=== PATIENT | female | born 1940 | race Caucasian/White ===

== ENCOUNTER 2016-10-06 05:40 | Inpatient (IN) | payer MEDICARE ==
--- NOTE | 2016-10-01 16:14 | HP ---
PREOPERATIVE HISTORY AND PHYSICAL: DATE OF ADMISSION/SURGERY: 10/06/16 DATE OF OFFICE VISIT: 09/30/16 ATTENDING SURGEON: Sam Raza MD PROCEDURE: Left total shoulder reverse. CHIEF COMPLAINT: Left shoulder pain. HISTORY OF PRESENT ILLNESS: Ms. Solorio is a 76-year-old female with ongoing left shoulder pain due to severe osteoarthritis and rotator cuff tear of the left shoulder. She has failed conservative m easures and therefore has agreed to undergo a left total shoulder reverse with Dr. Raza on 7. PAST MEDICAL HISTORY: 1. Hypertension. 2. Hyperlipidemia. 3. Fibromyalgia. 4. Stage 3 kidney disease. 5. Diverticulitis. 6. GERD. 7. Thyroid problems. 8. Arthritis. 9. Temporal lobe epilepsy. 10. Neurogenic syncope. 11. Multiple sclerosis. 12. Sleep apnea. 13. Bunions. 14. Orthostatic hypotension. 15. Headache. 16. Trigeminal neuralgia. 17. Bipolar depression. 18. Seizures. PAST SURGICAL HISTORY: 1. Lithotripsy. 2. Carpal tunnel release bilaterally. 3. Eye surgery. 4. Left hemicolectomy with transverse colostomy. 5. Bowel resection. 6. Anterior diskectomy. 7. Intervertebral body fusion, C6-C7. 8. Hysterectomy. 9. Total left knee replacement. 10. Hernia repair with mesh. MEDICATIONS: 1. OxyContin 20 mg by mouth every 12 hours. 2. Vitamin D 1000 units 1 by mouth every day. 3. Creighton-3 acid ethyl esters 1 g take 1 capsule by mouth twice a day. 4. Telmisartan 20 mg 1 tab in the morning if blood pressure is greater than 110 and 1 tab in the ev ening if systolic blood pressure is greater than 110. 5. Gabapentin 300 mg 1 tab by mouth 3 times a day. 6. Escitalopram oxalate 20 mg 1 by mouth daily. 7. Ranitidine HCl 150 mg 1 by mouth every day as needed for breakthrough GERD. 8. Melatonin 5 mg 1 by mouth every night. 9. Dexilant 30 mg take 1 capsule by mouth every day. 10. EpiPen 2-Matt 0.3 mg/0.3 mL, use 1 time as directed. 11. Clarinex 5 mg 1 by mouth every day. 12. Probiotic 1 cap by mouth daily. 13. Ondansetron 8 mg 1 by mouth every 8 hours as needed. 14. Levothyroxine sodium 25 mcg take 1 by mouth every day. 15. Hydroxyzine HCl 25 mg 1 by mouth 4 times a day as needed. 16. Methylphenidate HCl ER 36 mg 2 tabs by mouth every day. 17. Ammonium lactate 12% topical to bunions twice a day. 18. Valacyclovir HCl 1 g 2 tabs by mouth every 12 hours for 1 day as needed. 19. Zanaflex 2 mg take 1 capsule by mouth 3 times a day. 20. Lorazepam 1 mg 1 tab by mouth 4 times a day as needed. 21. Nevanac 0.1% one drop right eye q.4 hours. 22. Fludrocortisone acetate 0.1 mg, take 1 by mouth twice a day if systolic blood pressure is less than 105. 23. Voltaren 1% 4 g twice a day as needed to the knees. 24. Fluticasone propionate 50 mcg/ACT inhale 1 spray in each nostril each morning and every evening . 25. Oxycodone HCl 15 mg 1 tab by mouth every 4 hours as needed. 26. Restasis 0.5% one drop both eyes twice a day. 27. Vitamin C 1000 mg 1 to 2 tabs by mouth daily. 28. Super B Complex Maxi 1 by mouth daily. 29. Vitamin B12 3000 mcg 1 by mouth daily. 30. Culturelle once a day 15 billion cells per capsule. 31. Vitamin E 400 units 1 by mouth every d ay. 32. Biotin 2000/100 mcg 1 by mouth daily. 33. Lutein Vision Blend 1 by mouth daily. 34. Centr um Silver 1 by mouth daily. 35. Co-Q10 200 mg 1 by mouth daily. 36. Magnesium citrate 250 mg 2 tab s by mouth daily. 37. Polyethylene glycol 3350 NG, mix 17 g with 8 ounces of water or juice every o ther day. ALLERGIES: 1. DILANTIN. 2. PHENOBARBITAL. 3. DEMEROL. 4. IODINE. 5. ARICEPT. 6. FOSAMAX. 7. MAXALT. 8. CYMBALTA. 9. SEROQUEL. 10. TEGRETOL. 11. CLAVULANIC ACID. 12. KETAMINE. FAMILY HISTORY: Positive for diabetes, heart disease, and cancer. SOCIAL HISTORY: The patient lives alone. She is retired. She denies smoking or drinking. She is right handed. REVIEW OF SYSTEMS: A 14-point review of systems was reviewed with the patient and positive for GERD , thyroid issues, and history of DVT after knee surgery. Otherwise negative for bleeding disorder or history of PE. The patient has had allergic reaction to KETAMINE ANESTHESIA. PHYSICAL EXAMINATION GENERAL: A well-developed, well-nourished, 76-year-old female, in no acute distress. VITAL SIGNS: Height 58, weight 137, pulse 76, blood pressure 96/60, respiratory rate 16, and BMI 28 .6. HEENT: Normocephalic, atraumatic. PERRLA. NECK: Supple. Throat: Clear. PULMONARY: Lungs clear to auscultation bilaterally. No wheezing, rhonchi, or rales. CARDIAC: Regular rate and rhythm. S1, S2. No murmurs, gallops, or rubs. No edema. ABDOMEN: Positive bowel sounds, soft, and nontender. NEUROLOGIC: Alert and oriented x3. Cranial nerves grossly intact. Sensation intact to light touch distally. MUSCULOSKELETAL: Left shoulder skin is intact. Pain with range of motion. Pseudoparalysis due to p ain. Forward flexion of 30, abduction to 40, +2 radial pulse. Sensation is intact to light touch d istally. DIAGNOSTIC STUDIES/LAB DATA: Multi-view x-rays revealed severe [id number] arthritis of the left shoulder. MRI reveals a full-thickness rotator cuff tear with acetabulization of the humeral head a nd advanced arthritic changes in the left shoulder. IMPRESSION: Severe left shoulder osteoarthritis. PLAN/RECOMMENDATIONS: The patient is being cleared by her doctor. She understands that there are m ajor risks of the surgery; however, she is willing to take them. Therefore, she is scheduled to unde rgo a left total shoulder reverse with Dr. Raza on 10/06/16. She has difficulty chewing, so in [facility], she will have a soft food, thick liquid, and protein drink diet. She will return to the clinic in 10 to 14 days postop for followup and suture removal. OxyContin and oxycodone will be us ed for postoperative pain management and [id number] stool softener will be used for opioid-ind uced constipation. TERA CARBAJAL [id number]/[facility] #: [id number]
[2016-10-06] MEDS ORDERED: Buffered Lidocaine 1% SYRIN* 3 ML/SYR SYRINGE INTRADERM ONE (06:00)
[2016-10-06] MEDS ORDERED: Clindamycin 900 MG IVPREMIX(* 900 MG/50 ML SDV IV ONE (06:17)
[2016-10-06] MEDS ORDERED: Propofol* 10 MG/ML 20 ML BTL IV PUSH ONE (07:15)
[2016-10-06] MEDS ORDERED: Midazolam* 1 MG/ML 5 ML VIAL (5 MG) ONE (07:15)
[2016-10-06] MEDS ORDERED: Bupivacaine 0.5% SDV PF* 30 ML VIAL ONE (07:16)
[2016-10-06] MEDS ORDERED: Bupivacaine 0.5% W/EPI SDV* 30 ML VIAL ONE (07:24)
[2016-10-06] MEDS ORDERED: Atracurium* 10 MG/ML 10 ML VIAL ONE (07:44)
[2016-10-06] MEDS ORDERED: Phenylephrine IV* 40 MCG/ML 10 ML SYRINGE ONE (08:14)
[2016-10-06] MEDS ORDERED: Phenylephrine INJ* 10 MG/ML 1 ML VIAL (10 MG) ONE (08:25)
[2016-10-06] MEDS ORDERED: methylPREDNISolone ACETATE 80* 80 MG/ML 1 ML VIAL ONE (08:27)
[2016-10-06] MEDS ORDERED: Bupivacaine 0.25% SDV* 30 ML ONE (08:27)
[2016-10-06] MEDS ORDERED: fentaNYL* 50 MCG/ML 2 ML VIAL (100 MCG VIAL) ONE (08:35)
[2016-10-06] MEDS ORDERED: Ondansetron INJ* 2 MG/ML VIAL ONE (10:35)
[2016-10-06] MEDS ORDERED: diPHENhydraMINE IV* 50 MG/ML 1 ml VIAL (BENADRYL) IV PRN (10:48)
[2016-10-06] MEDS ORDERED: Acetaminophen TAB* 325 MG PO PRN (10:48)
[2016-10-06] MEDS ORDERED: Temazepam CAP* 15 MG PO PRN (10:48)
[2016-10-06] MEDS ORDERED: oxyCODONE TAB* 5 MG TAB PO PRN (10:48)
[2016-10-06] MEDS ORDERED: oxyCODONE/Acetamin 5/325 MG* TAB PO PRN ×2 (10:48)
[2016-10-06] MEDS ORDERED: Ondansetron INJ* 2 MG/ML VIAL IV PRN (10:51)
[2016-10-06] MEDS ORDERED: fentaNYL* 50 MCG/ML 2 ML VIAL (100 MCG VIAL) IV PRN (10:51)
[2016-10-06] MEDS ORDERED: DiMENhydriNATE IV* 50 MG/ML VIAL IV PUSH PRN (10:51)
[2016-10-06] MEDS ORDERED: LORazepam TAB(*) 1 MG PO PRN (10:59)
--- NOTE | 2016-10-06 12:34 | RAD ---
HISTORY: Postop, left shoulder arthroplasty COMPARISONS: None VIEWS: 3, Frontal internal rotation, external rotation, and outlet views of the left shoulder FINDINGS: BONE DENSITY: Normal. BONES: The patient is status post left shoulder arthroplasty. There is no hardware failure or osteolysis. JOINTS: The patient is status post left shoulder arthroplasty ALIGNMENT: There is no dislocation. SOFT TISSUES: There is post surgical change to the soft tissue OTHER FINDINGS: There is patchy alveolar opacities in the left lower lung IMPRESSION: 1. STATUS POST LEFT SHOULDER ARTHROPLASTY. 2. LEFT LOWER LUNG ATELECTASIS VERSUS CONSOLIDATION
[2016-10-06] MEDS: Fludrocortisone Acetate TAB* 0.1 MG PO PRN ×2 (12:53→21:28)
[2016-10-06] MEDS ORDERED: HYDROmorphone* 1 MG/ML 1 ML SYR ONE (14:26)
[2016-10-06] MEDS: HYDROmorphone* 1 MG/ML 1 ML SYR IV PRN ×5 (14:27→14:47)
[2016-10-06] MEDS: BRINZOLAMIDE RIGHT EYE SCH ×2 (16:18→21:18)
[2016-10-06] MEDS: BRIMONIDINE RIGHT EYE SCH ×2 (16:18→21:18)
[2016-10-06] MEDS: Gabapentin CAP(*) 100 MG PO SCH ×2 (16:33→21:21)
[2016-10-06] MEDS: tiZANidine TAB* 2 MG PO SCH ×2 (16:34→21:21)
[2016-10-06] MEDS: Clindamycin 600 MG IVPREMIX(* 600 MG/50 ML SDV IV SCH ×2 (17:00→23:31)
[2016-10-06] MEDS: Morphine INJ* 2 MG/ML 1 ML SYRINGE IV PRN ×2 (17:28→21:55)
--- NOTE | 2016-10-06 19:46 | CONS ---
HOSPITAL MEDICINE CONSULTATION REPORT: DATE OF CONSULT: 10/06/16 PRIMARY CARE PHYSICIAN: Dr. Swartz. ATTENDING PHYSICIAN: Dr. Raza. CONSULTING PHYSICIAN: Chidi Eaton MD (dictation provided by Diane Brandt NP) . REASON FOR ADMISSION: Left total shoulder reverse due to left shoulder pain. REASON FOR CONSULTATION: Medical management in a patient with multiple comorbidities. HISTORY OF PRESENT ILLNESS: Ms. Solorio is a 76-year-old female with a complex medical history including hypertension, hyperlipidemia, fibromyalgia, stage 3 kidney disease, multiple sclerosis, and sleep apnea who presents today to the hospital for an elective left shoulder reversal. Please see the dictated H and P from Dr. Raza for complete details. In brief, the patient had ongoing pain despite conservative measures and therefore, opted to have surgery today. Ms. Solorio states that prior to coming in to the hospital, her only complaint has been of left shoulder pain. She reports having a history of hypertension and also orthostatic hypotension. She states that there is discernible pattern explaining why her blood pressure will suddenly drop. She is on telmisartan for high blood pressure, but also fludrocortisone as needed for low blood pressure. In addition, she has multiple sclerosis which she states was diagnosed at age 32. She has obstructive sleep apnea and does use CPAP at home. She states her will be bringing it tonight. Based on Ms. Solorio's presentation with multiple comorbidities in the setting of left total shoulder reversal surgery, Hospital Medicine was called regarding consultation. PAST MEDICAL HISTORY: 1. Hypertension. 2. Hyperlipidemia. 3. Fibromyalgia. 4. Stage 3 kidney disease. 5. ADHD. 6. Diverticulitis. 7. GERD. 8. Hypothyroidism. 9. Arthritis. 10. Epilepsy. 11. Neurogenic syncope. 12. Multiple sclerosis. 13. Sleep apnea with CPAP usage. 14. Orthostatic hypotension. 15. Headaches. 16. Trigeminal neuralgia. 17. Bipolar. 18. Depression. 19. Seizures. PAST SURGICAL HISTORY: Includes: 1. Lithotripsy. 2. Carpal tunnel release bilaterally. 3. Eye surgery. 4. Left hemicolectomy with transverse colostomy. 5. Bowel resection. 6. Anterior diskectomy and intervertebral body fusion, C6-C7. 7. Hysterectomy. 8. Left total knee replacement. 9. Hernia repair with mesh. MEDICATIONS: 1. OxyContin 20 mg by mouth q.12 hours. 2. Vitamin D 1000 units by mouth every day. 3. Connelly-3 1 g by mouth twice a day. 4. Telmisartan 20 mg in the morning if blood pressure is greater than 110 and 20 mg in the evening if systolic blood pressure is greater than 110. 5. Gabapentin 300 mg 3 times daily. 6. Escitalopram 20 mg daily. 7. Ranitidine 150 mg as needed for GERD. 8. Melatonin 5 mg q.p.m. 9. Dexilant 30 mg p.o. daily. 10. EpiPen p.r.n. 11. Clarinex 5 mg p.o. daily. 12. Probiotic 1 cap p.o. daily. 13. Ondansetron 8 mg p.r.n. nausea. 14. Levothyroxine 25 mcg daily. 15. Hydroxyzine 25 mg 4 times daily as needed. 16. Methylphenidate ER 36 mg 2 tabs by mouth q.a.m. 17. Ammonium lactate 12% to bunions twice a day. 18. Valacyclovir 2 tabs by mouth q.12 hours p.r.n. 19. Zanaflex 2 mg 3 times a day. 20. Lorazepam 1 mg 4 times a day as needed. 21. Nevanac 0.1% drop right eye q.4 hours. 22. Fludrocortisone 0.1 mg twice a day as needed for systolic blood pressure less than 105. 23. Voltaren 1% 4 g twice a day p.r.n. 24. Fluticasone 50 mcg inhaled each nostril b.i.d. 25. Oxycodone 15 mg q.4 hours p.r.n. 26. Restasis 0.5% 1 drop both eyes b.i.d. 27. Vitamin C 1000 mg 1 to 2 tabs by mouth daily. 28. Super B-Complex 1 tab by mouth daily. 29. Vitamin B12 at 3000 mcg p.o. daily. 30. Culturelle daily. 31. Vitamin E daily. 32. Biotin daily. 33. Lutein Vision Blend daily. 34. Centrum Silver daily. 35. CoQ10 daily. 36. Magnesium citrate 250 mg 2 tabs by mouth daily. 37. Polyethylene glycol 17 g p.o. every other day. ALLERGIES: DILANTIN, PHENOBARBITAL, DEMEROL, IODINE, ARICEPT, FOSAMAX, MAXALT, CYMBALTA, SEROQUEL, TEGRETOL, CLAVULANIC ACID, and KETAMINES. FAMILY HISTORY: The patient reports a history of diabetes, heart disease, and cancer in the family. SOCIAL HISTORY: The patient lives alone. No report of alcohol, tobacco, or drinking. Per her report, her daughter is the healthcare proxy. REVIEW OF SYSTEMS: A 14-point review of systems was completed with Ms. Solorio and all those mentioned not above are negative. PHYSICAL EXAM: General: Ms. Solorio is lying in bed in the PACU in no acute distress. She was initially quite lethargic, but when I come back to see her, she is alert and oriented. Neuro: She is alert and oriented x3. She moves all extremities equally. There is no facial asymmetry or focal weakness. Extraocular movements are intact. Heart: S1, S2. No murmur, rub, or gallop and regular. Lungs are clear to auscultation bilaterally with no accessory muscle use and good aeration. The abdomen is soft, nontender with bowel sounds positive x4. Extremities: No cyanosis or edema. Skin is intact. DIAGNOSTIC STUDIES/LAB DATA: Preoperatively, on 09/30/16, WBC 8.9, hemoglobin 11.8, hematocrit 35, platelet count 178. Sodium 138, potassium 4.4, chloride 102, serum bicarbonate 32, BUN 21, creatinine 1.33, glucose 79. ASSESSMENT: Ms. Solorio is a 76-year-old female with a complex past medical history who presents today to the hospital for right total shoulder reverse. Recommendations are as follows: 1. Postop day #0, status post right shoulder surgery: Management will be per Orthopedic Surgery. The patient will have pain medications p.r.n. with the bowel regimen. She will have physical and occupational therapy as indicated. 2. Hypotension: In the PACU, the patient's blood pressure was low into the 80s systolically initially, but with 1 L of intravenous fluids it is now running 112 systolically. The patient will continue to have fludrocortisone available as needed for low blood pressure. We will also support that as needed with IV fluids. For now, we will hold her telmisartan. 3. Chronic pain: Continue gabapentin, OxyContin, and oxycodone and other agents in the setting of acute shoulder surgery. 4. Gastroesophageal reflux disease: Continue ranitidine and Dexilant. 5. Hypothyroidism: Continue levothyroxine. 6. DVT prophylaxis with enoxaparin per Ortho. 7. Code status is DNR. TIME SPENT: Approximately 60 minutes were spent on the consultation of this patient, more than half time spent with the patient at the bedside reviewing the events leading up to this hospitalization, performing the physical examination, and reviewing my plan of care. DIANE BRANDT NP CC: Dr. Swartz* [id number]/[facility] #: [id number] [place]
[2016-10-06] MEDS ORDERED: Fludrocortisone Acetate TAB* 0.1 MG PO SCH (21:00)
--- NOTE | 2016-10-06 21:01 | PN ---
Progress Note - Progress Note Note: Pt seen and examined at 4:30 complains of pain in right wrist where art line was placed. no shoulder pain. In ICU due to low pressures. Right knee sore. Family at bedside. Temp Pulse Resp BP Pulse Ox 98.9 F 64 18 122/68 94 10/06/16 19:40 10/06/16 16:15 10/06/16 17:28 10/06/16 16:15 10/06/16 16:31 NAD. L shoulder: dressing in place. drain to suction. extremity warm and perfused. Right wrist swollen with bruising. art line in place. SILT distally. brisk cap refill. able to flex/ext digits. A/p Doing well s/p L reverse shoulder arthroplasty NWB. Passive ROM to begin tomorrow working on FF to 90, abd to 90, ER to 30 as tolerated post op abx dvt per medicine recs appreciate medicine assistance. anticipate d/c when pain control and stable medically. drain out potentially POD#1. dressing change POD#3.
[2016-10-06] MEDS: PTO:Cyclosporine 0.05% OPHTH (NF) 0.4 ML VIAL BOTH EYES SCH (21:20)
[2016-10-06] MEDS: Methylphenidate ER TAB* 18 MG PO SCH (21:20)
[2016-10-06] MEDS: Docusate CAP* 100 MG PO SCH (21:21)
[2016-10-06] MEDS: oxyCODONE SR TAB(*) 20 MG TAB.SR PO SCH (21:21)
--- NOTE | 2016-10-06 21:35 | OP ---
DATE OF OPERATION: 10/06/16 - ROOM #ICU-11 DATE OF : 42 SURGEON: Sam Raza MD ASSISTANTS: 1. Brandi Calderón PA-C. 2. TERA Avila Two assistants were needed during this case to help with positioning, retraction , and was utilized throughout all portions. ANESTHESIOLOGIST: Lee King MD. ANESTHESIA: General with interscalene block. PRE-OP DIAGNOSES: 1. 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 2. Right knee arthritis. POST-OP DIAGNOSES: 1. 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 2. Right knee arthritis. OPERATIVE PROCEDURE: 1. Left shoulder reversed arthroplasty and biceps tenodesis. 2. Right knee intraarticular injection of steroids. IMPLANTS USED: A Tornier Aequalis reversed to centered glenosphere 36 mm reversed to threaded post base plate that was centered 25 x 35. The size, Aequalis Ascend Flex size 3B humeral stem with a centered reversed tray and a reversed insert 6 mm poly. COMPLICATIONS: None. ESTIMATED BLOOD LOSS: 200 cc. OUTPUT: One drain. INDICATIONS: Rere Solorio is a 76-year-old unfortunate female with multiple medical problems with a longstanding left shoulder pain. She had a full thickness massive tear of the rotator cuff with some osteoarthritis. Risks and benefits of surgery versus nonoperative treatment were discussed at length. She has failed conservative management including injections and physical therapy. She has elected to proceed with surgery. 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 Knowing that she has significant risk in this surgery, she still elected to proceed with surgery. After obtaining clearance and significant discussion with other risks and benefits of surgery, she has elected to proceed. We also discussed that she has right knee arthritis and she usually gets injections for this and she is interested in proceeding with an injection of the right knee at the same time. Risks include but are not limited to bleeding, infection, damage to nerves, vessels, surrounding structures, stiffness, persistent pain, incomplete release of symptoms, persistent pain, risk of anesthesia and risk of hematoma, risk of DVT. She has elected to proceed. DESCRIPTION OF PROCEDURE: The patient was greeted in the preoperative area by the attending surgeon. The correct extremities were marked, the left shoulder as well as the right knee. After monitoring in the preanesthesia for low blood pressure, she was brought to the operating suite where she was placed in supine position on the operating table. She then underwent an interscalene nerve block , which she tolerated without difficulty after which she underwent general anesthesia endotracheal intubation and an arterial line was then placed. After all of these measures were taken, she was started on a low phenylephrine drip to keep her blood pressure up. She was then positioned appropriately in the bed with all bony prominences padded in a lazy beach chair position. The left shoulder was then prepped and draped in the usual sterile fashion. Passively, she had good range of motion with forward flexion to about 150, abduction to 110 and external rotation to about 75 degrees. Examination of the right did demonstrate a mild amount of effusion. There was no erythema or warmth. The left shoulder was then prepped and draped in the usual sterile fashion beginning with chlorhexidine soap, scrub and alcohol wipe and a final prep with ChloraPrep. After appropriate surgical pause indicating side, site, procedure, and administration of antibiotics, the 15 blade was used to make a deltopectoral incision. The soft tissues were carefully dissected, hemostasis was obtained using the electro-cautery device. The deltopectoral groove was identified. The cephalic vein was identified and then taken laterally with the deltoid. The interval was carefully dissected with blunt dissection. Kolbel retractors were then placed. A curved hammer was placed superior to the coracoid for retraction and this exposed the anterior clavipectoral fascia which was incised. The short head of the biceps was identified, the lateral edge was then carefully released off fascia and the undersurface of the short head was bluntly freed to free the adhesions from the anterior aspect of the subscap. With retractors in place and releasing some of the deltoid adhesions, this exposed the anterior aspect of the shoulder. The biceps was identified and carefully incised, the superior aspect of the pec was identified. The first proximal 1 cm or so was released. The biceps was then tenodesed at the pec using nonabsorabable suture to maintain the appropriate length and then it was sharply lacerated. It was kept to follow the groove proximally to then allow for identification of the landmarks. As this was done, the subscap was identified. The interval was incised and the subscap was carefully released. It was then tagged with #5 Ethibond. The subscap was then peeled back. The head was slowly exposed. It was obvious there was a full thickness massive rotator cuff tear of the supraspinatus and infraspinatus tendon and the head was easily externally rotated. The 3 sisters were identified and were suture ligated and then electrocautery and then Bovie'd. The head was identified. There was mild osteoarthritic changes that were apparent. It was completely freed and brought through the wound. There was evidence of massive tear of the supraspinatus tendon. The cut was then outlined and sagittal saw was then used to make the cut. The humeral head was then placed in the back table. The starting awl was then used to find the canal and then beginning with the sounding device it was found to be about a 3 to 4 because she is a very small patient. Broaches were then done, beginning with a starting broach and then a size 3 was found to fit quite well with good metaphyseal purchase. At this point, the head was then coplaned and then a protection cap was placed. The humerus was then placed posterior to the glenoid. The attention was directed to the glenoid. The posterior retractor was then placed in the posterior aspect of the glenoid. The Mark superiorly and the subscap was then gently released from its adhesions. Superior and inferior and middle glenohumerals were then released using a combination of electrocautery as well as the curved Coon scissors. This allowed for good mobilization to the subscap. The neck retractor was then placed on the anterior aspect of the glenoid and the subscap was tucked behind this to expose the labrum anteriorly. Beginning with the superior labrum including the biceps stump, this was excised using electrocautery device along with the anterior labrum to about the 5 o'clock position. Then, needle tip Bovie was then used to carefully release between the 5 and 7 o'clock position of the labrum and to peel it back with care to try to prevent damage to the neurovascular structures beneath that. Once good release was done, a sizing guide was placed. She had a very small glenoid. The drill guide was then placed with 0 offset and drilled into the scapula. This was then reamed with the size 25 mm reamer and that was on power and then hand reamed to a size 36 mm glenoid. Once all the soft tissue and debris were removed, the center peg was first drilled with an 8 mm drill, then the 6.5 drill bit and the depth was measured to about 35 mm. This screw hole was then tapped and then the final implant centered glenoid base plate was chosen. This was then screwed into position with excellent purchase. The superior and inferior interlocking screws were then drilled and filled with good purchase and the anterior one was also drilled and the posterior one did not have good purchase. Therefore, it was left alone. The Glenosphere was then brought to the field and carefully impacted into position. The head screw was then used to secure the fit and it was found to have good purchase. Care was taken to make sure there were no structures impinging. The humerus was delivered again and the fit was assessed again. It was found again that a size 3 was a good fit. A trial tray and poly were then placed and the shoulder was then gently reduced and was found to have excellent purchase with shuck. It allowed for good protestant of the subscap and good tension of the deltoid. It was taken through a range of motion with forward flexion to about 150, abduction to 110, external rotation to 90 degrees without any difficulty. The implants were then chosen, the shoulder was then carefully dislocated again. The trial prosthesis was then removed en khushi and the final implants were chosen and prepared on the back table by the attending surgeon. Three drill holes were then placed in the lesser tuberosity. For the subscap repair, sutures were passed #5 Ethibond to eventually repair the subscap. The final implant was then impacted into place with excellent purchase. The shoulder was reduced again. The wound was copiously irrigated with sterile saline. Again there was forward flexion to about 150 degrees, abduction to about 100 degrees, external rotation to 90 degrees with the appropriate amount of shuck. After this was copiously irrigated, the subscap was then repaired in a horizontal mattress configuration. Final ER was approximately 65 degrees. A drain was then placed and the wound was irrigated again. The deltopectoral interval was closed with #2 Ti-Cron to dale where the plane is. The wound was closed in layers of 2-0 Vicryl and 3-0 Monocryl. Sterile dressings were applied. Attention was directed to the right knee. The right knee was then prepped and draped in the usual sterile fashion. The right knee was intra-articularly injected with 5 cc of Marcaine and 80 mg of Depo-Medrol. A Band-Aid was applied. She was then awoken from anesthesia and transferred to the PACU in stable condition. POSTOPERATIVE PLAN: She will be nonweightbearing with no active range of motion of the left shoulder. She will be admitted to the hospital at least overnight possibly for several days to manage her medical problems. She will be placed on 24 hours of antibiotics. Her blood counts will be followed closely. The drain will likely be discontinued postop day #1. She is allowed to weightbear as tolerated on the right knee. DVT ppx in house will be SCDs and heparin. She will not require any after discharge due to no previous or personal history. CC: Dr. Herrmann; Dr. Swartz* [id number]/[facility] #: [id number] MTDD
[2016-10-07] MEDS: Morphine INJ* 2 MG/ML 1 ML SYRINGE IV PRN ×11 (00:04→22:30)
[2016-10-07 06:12] LABS: Hematocrit 27 % (35-47); Hemoglobin 9.2 g/dl (12.0-16.0)
[2016-10-07 06:22] LABS: BUN/Creatinine Ratio 18.3 (8-20); Calcium 8.1 mg/dL (8.6-10.3); EGFR African American 75.6 (>60); EGFR Non-African American 58.8 (>60); Potassium 4.2 mmol/L (3.5-5.0)
[2016-10-07] MEDS: Clindamycin 600 MG IVPREMIX(* 600 MG/50 ML SDV IV SCH (07:53)
[2016-10-07] MEDS ORDERED: NEPAFENAC BOTH EYES SCH (09:00)
[2016-10-07] MEDS: Enoxaparin(*) 30 MG/0.3 ML SYR SUBCUT SCH (09:29)
[2016-10-07] MEDS: Methylphenidate ER TAB* 18 MG PO SCH (09:29)
[2016-10-07] MEDS: tiZANidine TAB* 2 MG PO SCH ×3 (09:30→20:15)
[2016-10-07] MEDS: Cetirizine* 10 MG TAB PO SCH (09:30)
[2016-10-07] MEDS: Ascorbic Acid TAB* 500 MG PO SCH (09:30)
[2016-10-07] MEDS: CMCS: Escitalopram (NF) 10 MG TAB PO SCH ×3 (09:30→20:06)
[2016-10-07] MEDS: Lactobacillus Acidophilu (GG)* 1 CAP CAP PO SCH (09:30)
[2016-10-07] MEDS: Docusate CAP* 100 MG PO SCH ×2 (09:30→20:14)
[2016-10-07] MEDS: Gabapentin CAP(*) 100 MG PO SCH ×3 (09:30→20:14)
[2016-10-07] MEDS: Fluticasone NASAL SPRAY 50MCG* 16 gm SPRAY BTL BOTH NARES SCH ×2 (09:31→14:04)
[2016-10-07] MEDS: oxyCODONE SR TAB(*) 20 MG TAB.SR PO SCH ×2 (09:31→20:15)
[2016-10-07] MEDS: Levothyroxine TAB* 25 MCG TAB PO SCH (09:31)
--- NOTE | 2016-10-07 09:32 | PN ---
Progress Note - Progress Note SOAP: Subjective: []Patient seen at bedside. Alert and oriented x3. received 1L fluid bolus overnight for hypotension. c/o moderate left shoulder pain but IV pain medication is working. She is currently eating breakfast with the help of an aide. Arterial line in right arm making it difficult to use right UE. Hoping it can be discontinued. Objective: [] Vital Signs Temp 98.2 F 10/07/16 07:59 Pulse 65 10/07/16 08:00 Resp 13 10/07/16 08:00 BP 72/37 10/06/16 18:52 Pulse Ox 96 10/07/16 08:00 Intake & Output 10/06/16 10/07/16 10/07/16 18:59 06:59 18:59 Intake Total 5390 1789 Output Total 950 1150 Balance 4440 639 Weight 137 lb Intake: IV Fluids 4550 1254 CLINDAMYCIN 900 MG 50 LR 4500 1254 IVPB 115 LR 115 Oral 840 420 Output: Kelly 950 1150 Laboratory Results - last 24 hr 10/07/16 10/07/16 05:55 05:55 Hgb 9.2 L Hct 27 L Sodium 136 Potassium 4.2 Chloride 109 Carbon Dioxide 28 Anion Gap -1 L BUN 17 Creatinine 0.93 Est GFR ( Amer) 75.6 Est GFR (Non-Af Amer) 58.8 BUN/Creatinine Ratio 18.3 Glucose 154 H Calcium 8.1 L Left shoulder dressings are intact. Moderate old dried bloody drainage noted on dressings under tegaderm Hemovac drain with only a scant amount of blood in cannister, no drainage recorded over night Drain pulled without difficulty, tip intact moving all digits left hand, brisk capillary refill, fingers warm Assessment: []s/p Left reverse total shoulder arthroplasty POD #1 Multiple medical co morbilities/ baseline hypotension Plan: []Sling left shoulder non weight bearing LUE Arterial line per anesthesia/ medicine transfer to [facility] when medically stable per medicine Patient hopes for discharge home Tuesday if deemed medically stable Follow up 10- [address] Raza once discharged.
[2016-10-07] MEDS: DEXLANSOPRAZOLE 30 MG PO SCH (10:03)
[2016-10-07] MEDS ORDERED: Fludrocortisone Acetate TAB* 0.1 MG PO PRN (11:09)
--- NOTE | 2016-10-07 11:09 | PN ---
Subjective Date of Service: 10/07/16 Interval History: Pt is feeling ok. She has a significant amount of pain in her L shoulder. She admits to mild lightheadedness but no dizziness. No SOB. Objective Active Medications: Acetaminophen (Tylenol Tab*) 650 mg PO Q4H PRN PRN Reason: PAIN OR TEMPERATURE Ascorbic Acid (Vitamin C Tab*) 1,000 mg PO DAILY [facility] Last Admin: 10/07/16 09:30 Dose: 1,000 mg Brinzolamide/Brimonidine Tartrate (Simbrinza Oph.Susp(Nf)) 1 drop RIGHT EYE TID [facility] Last Admin: 10/06/16 21:18 Dose: Not Given Carboxymethylcellulose Sodium (Celluvisc 1% Opth*) 1 drop BOTH EYES DAILY [facility] Cetirizine HCl (Zyrtec*) 10 mg PO DAILY [facility] PRN Reason: Protocol Last Admin: 10/07/16 09:30 Dose: 10 mg Cyclosporine (Restasis 0.05% Ophth) 1 drop BOTH EYES BID [facility] PRN Reason: Protocol Last Admin: 10/06/16 21:20 Dose: Not Given Dexlansoprazole (Dexilant (Nf)) 30 mg PO DAILY [facility] Last Admin: 10/07/16 10:03 Dose: 30 mg Diphenhydramine HCl (Benadryl Iv*) 12.5 mg IV Q6H PRN PRN Reason: PRURITIS Docusate Sodium (Colace Cap*) 100 mg PO BID [facility] Last Admin: 10/07/16 09:30 Dose: 100 mg Enoxaparin Sodium (Lovenox(*)) 30 mg SUBCUT Q24H [facility] Last Admin: 10/07/16 09:29 Dose: 30 mg Escitalopram Oxalate (Lexapro (Nf)) 20 mg PO DAILY [facility] Last Admin: 10/07/16 09:35 Dose: Not Given Fludrocortisone Acetate (Florinef Tab*) 0.1 mg PO BID PRN PRN Reason: BLOOD PRESSURE Last Admin: 10/06/16 21:28 Dose: 0.1 mg Fluticasone Propionate (Flonase Nasal Trevor 50mcg*) 2 spray BOTH NARES DAILY [facility] Gabapentin (Neurontin Cap(*)) 100 mg PO TID [facility] Last Admin: 10/07/16 09:30 Dose: 100 mg Hydroxyzine HCl (Atarax Tab*) 25 mg PO QID PRN PRN Reason: ITCHING Lactated Ringer's (Lactated Ringers 1000 Ml Bag*) 1,000 mls @ 100 mls/hr IV PER RATE [facility] Last Admin: 10/07/16 03:06 Dose: 100 mls/hr Lactobacillus Rhamnosus (Culturelle*) 1 cap PO DAILY [facility] Last Admin: 10/07/16 09:30 Dose: 1 cap Levothyroxine Sodium (Synthroid Tab*) 25 mcg PO DAILY [facility] Last Admin: 10/07/16 09:31 Dose: 25 mcg Lorazepam (Ativan Tab(*)) 1 mg PO QID PRN PRN Reason: ANXIETY Methylphenidate HCl (Concerta Er Tab*) 36 mg PO BID [facility] Last Admin: 10/07/16 09:29 Dose: 36 mg Morphine Sulfate (Morphine Inj (Syringe)*) 2 mg IV Q2H PRN PRN Reason: PAIN - SEVERE Last Admin: 10/07/16 10:04 Dose: 2 mg Nepafenac (Nevanac (Nf)) 0 drop BOTH EYES DAILY [facility] PRN Reason: Protocol Magnesium [Magnesium (] 250 Mg) 250 mg PO DAILY [facility] Ondansetron HCl (Zofran Inj*) 4 mg IV Q6H PRN PRN Reason: nausea Oxycodone HCl (Oxycontin(*)) 20 mg PO Q12HR [facility] Last Admin: 10/07/16 09:31 Dose: 20 mg Oxycodone HCl (Roxycodone Tab*) 10 mg PO Q4H PRN PRN Reason: PAIN - MODERATE TO SEVERE Last Admin: 10/06/16 16:33 Dose: 10 mg Oxycodone/Acetaminophen (Percocet 5/325 Tab*) 1 tab PO Q4H PRN PRN Reason: PAIN Oxycodone/Acetaminophen (Percocet 5/325 Tab*) 2 tab PO Q4H PRN PRN Reason: PAIN - MODERATE Temazepam (Restoril Cap*) 15 mg PO BEDTIME PRN PRN Reason: INSOMNIA Tizanidine HCl (Zanaflex Tab*) 2 mg PO TID [facility] Last Admin: 10/07/16 09:30 Dose: 2 mg Vital Signs 10/06/16 10/06/16 10/06/16 11:15 11:30 11:45 Temperature 98.4 F Pulse Rate 75 79 73 Respiratory 14 16 12 Rate Blood Pressure 113/70 122/68 84/56 (mmHg) O2 Sat by Pulse 95 95 94 Oximetry 10/06/16 10/06/16 10/06/16 11:51 12:00 12:15 Temperature Pulse Rate 74 70 69 Respiratory 12 12 14 Rate Blood Pressure 96/57 90/50 86/50 (mmHg) O2 Sat by Pulse 94 94 94 Oximetry 10/06/16 10/06/16 10/06/16 12:30 12:45 13:00 Temperature 98.4 F Pulse Rate 68 67 67 Respiratory 10 10 14 Rate Blood Pressure 85/45 91/55 104/61 (mmHg) O2 Sat by Pulse 94 95 97 Oximetry 10/06/16 10/06/16 10/06/16 13:15 13:30 13:45 Temperature Pulse Rate 67 63 62 Respiratory 14 14 12 Rate Blood Pressure 104/56 98/61 100/55 (mmHg) O2 Sat by Pulse 96 97 97 Oximetry 10/06/16 10/06/16 10/06/16 14:00 14:15 14:27 Temperature 98.2 F Pulse Rate 73 73 Respiratory 11 16 16 Rate Blood Pressure 93/58 126/78 (mmHg) O2 Sat by Pulse 97 97 Oximetry 10/06/16 10/06/16 10/06/16 14:30 14:32 14:37 Temperature Pulse Rate 69 Respiratory 14 16 14 Rate Blood Pressure 114/75 (mmHg) O2 Sat by Pulse 95 Oximetry 10/06/16 10/06/16 10/06/16 14:42 14:45 14:47 Temperature Pulse Rate 68 Respiratory 14 14 14 Rate Blood Pressure 112/54 (mmHg) O2 Sat by Pulse 94 Oximetry 10/06/16 10/06/16 10/06/16 15:00 15:36 15:48 Temperature Pulse Rate 78 68 62 Respiratory 12 15 Rate Blood Pressure 103/57 122/67 (mmHg) O2 Sat by Pulse 94 97 Oximetry 10/06/16 10/06/16 10/06/16 16:00 16:15 16:31 Temperature 98.5 F Pulse Rate 69 64 Respiratory 12 20 Rate Blood Pressure 122/68 (mmHg) O2 Sat by Pulse 96 96 94 Oximetry 10/06/16 10/06/16 10/06/16 17:00 17:28 18:00 Temperature Pulse Rate 66 66 Respiratory 16 18 16 Rate Blood Pressure (mmHg) O2 Sat by Pulse 98 97 Oximetry 10/06/16 10/06/16 10/06/16 18:45 18:52 19:00 Temperature Pulse Rate 68 69 70 Respiratory 16 15 18 Rate Blood Pressure 83/47 72/37 (mmHg) O2 Sat by Pulse 95 96 96 Oximetry 10/06/16 10/06/16 10/06/16 19:40 20:00 21:00 Temperature 98.9 F Pulse Rate 64 64 Respiratory 13 14 Rate Blood Pressure (mmHg) O2 Sat by Pulse 95 96 Oximetry 10/06/16 10/06/16 10/06/16 21:21 21:55 22:00 Temperature Pulse Rate 66 Respiratory 16 17 20 Rate Blood Pressure (mmHg) O2 Sat by Pulse 96 Oximetry 10/06/16 10/07/16 10/07/16 23:00 00:00 00:04 Temperature 97.7 F Pulse Rate 65 63 Respiratory 14 18 17 Rate Blood Pressure (mmHg) O2 Sat by Pulse 95 95 Oximetry 10/07/16 10/07/16 10/07/16 01:00 02:00 03:00 Temperature Pulse Rate 61 61 63 Respiratory 19 13 14 Rate Blood Pressure (mmHg) O2 Sat by Pulse 97 95 95 Oximetry 10/07/16 10/07/16 10/07/16 03:35 04:00 05:00 Temperature 97.7 F Pulse Rate 67 61 Respiratory 15 15 13 Rate Blood Pressure (mmHg) O2 Sat by Pulse 96 95 Oximetry 10/07/16 10/07/16 10/07/16 06:00 06:13 07:00 Temperature Pulse Rate 64 64 Respiratory 17 16 15 Rate Blood Pressure (mmHg) O2 Sat by Pulse 97 96 Oximetry 10/07/16 10/07/16 10/07/16 07:57 07:59 08:00 Temperature 98.2 F Pulse Rate 65 Respiratory 13 13 Rate Blood Pressure (mmHg) O2 Sat by Pulse 96 Oximetry 10/07/16 10/07/16 09:31 10:04 Temperature Pulse Rate Respiratory 14 15 Rate Blood Pressure (mmHg) O2 Sat by Pulse Oximetry Oxygen Devices in Use Now: Nasal Cannula - 2L-96% Appearance: Elderly female lying in bed, NAD Eyes: No Scleral Icterus Ears/Nose/Mouth/Throat: Mucous Membranes Moist Respiratory: Symmetrical Chest Expansion and Respiratory Effort, Clear to Auscultation - anteriorly Cardiovascular: NL Sounds; No Murmurs; No JVD, RRR, No Edema Abdominal: NL Sounds; No Tenderness; No Distention Extremities: No Clubbing, Cyanosis, - - L shoulder in post op dressing with cryo unit in place Skin: No Rash or Ulcers, No Nodules or Sclerosis Neurological: Alert and Oriented x 3 Result Diagrams: 10/07/16 05:55 10/07/16 05:55 Assess/Plan/Problems-Billing Ms Solorio is a 76 yo F with a complicated PMHx admitted after an elective L total shoulder reverse arthroplasty. The hospitalist service was consulted for hypotension. - Patient Problems (1) Status post reverse arthroplasty of left shoulder Current Visit: Yes Status: Acute Code(s): Z96.612 - PRESENCE OF LEFT ARTIFICIAL SHOULDER JOINT SNOMED Code(s): 728373855 Comment: Management per orthopedics. (2) Anemia associated with acute blood loss Current Visit: Yes Status: Acute Code(s): D62 - ACUTE POSTHEMORRHAGIC ANEMIA SNOMED Code(s): 844328730 Comment: Secondary to surgery. Will continue to follow H/H. Hold off on transfusion for now. (3) Hypotension Current Visit: Yes Status: Acute Comment: The patient's BP at baseline is difficult to control at home. If her SBP is <105 she takes florinef, if >110 she takes telmisartan. For now will continue prn florinef. I will not order the ARB for now though if she becomes persistently hypertensive will order substitute for telmisartan. A-line removed this AM. Monitor in ICU today then likely out to floor tomorrow. (4) RANI (obstructive sleep apnea) Current Visit: Yes Status: Acute Code(s): G47.33 - OBSTRUCTIVE SLEEP APNEA ( ADULT) (PEDIATRIC) SNOMED Code(s): 93303678 Comment: Pt brought her own CPAP. Will order this to start tonight. (5) DVT prophylaxis Current Visit: Yes Status: Acute Code(s): NLJ8276 - SNOMED Code(s): 220325372 Comment: soco (6) DNR (do not resuscitate) Current Visit: Yes Status: Acute
[2016-10-07] MEDS: Magnesium [Magnesium] 250 MG PO SCH (13:24)
[2016-10-07] MEDS: BRINZOLAMIDE RIGHT EYE SCH ×3 (14:18→20:07)
[2016-10-07] MEDS: BRIMONIDINE RIGHT EYE SCH ×3 (14:18→20:07)
[2016-10-07] MEDS: CARBOXYMETHYLCELLULOSE BOTH EYES SCH (14:31)
[2016-10-07] MEDS: PTO:Cyclosporine 0.05% OPHTH (NF) 0.4 ML VIAL BOTH EYES SCH ×2 (14:33→20:10)
[2016-10-07] MEDS: LOTEPREDNOL 0.2% LEFT EYE SCH ×2 (14:34→20:09)
[2016-10-07] MEDS: Ondansetron INJ* 2 MG/ML VIAL IV PRN (15:16)
[2016-10-07] MEDS: oxyCODONE TAB* 5 MG TAB PO PRN ×2 (16:44→22:37)
[2016-10-07] MEDS: LORazepam TAB(*) 1 MG PO PRN (18:17)
[2016-10-07] MEDS: CMCS Melatonin (NF) 3 MG TAB PO SCH (20:14)
[2016-10-08] MEDS: Morphine INJ* 2 MG/ML 1 ML SYRINGE IV PRN ×6 (01:27→14:21)
[2016-10-08] MEDS: hydrOXYzine HCL TAB* 25 MG PO PRN ×2 (06:23→11:59)
[2016-10-08 06:52] LABS: Hematocrit 28 % (35-47); Hemoglobin 9.2 g/dl (12.0-16.0)
[2016-10-08] MEDS: oxyCODONE SR TAB(*) 20 MG TAB.SR PO SCH (09:08)
[2016-10-08] MEDS ORDERED: Telmisartan (NF) 40 MG TAB PO PRN ×2 (10:01→10:15)
[2016-10-08] MEDS: Enoxaparin(*) 30 MG/0.3 ML SYR SUBCUT SCH (10:03)
[2016-10-08] MEDS: Cetirizine* 10 MG TAB PO SCH (10:04)
[2016-10-08] MEDS: Ascorbic Acid TAB* 500 MG PO SCH (10:04)
[2016-10-08] MEDS: Levothyroxine TAB* 25 MCG TAB PO SCH (10:05)
[2016-10-08] MEDS: Gabapentin CAP(*) 100 MG PO SCH (10:05)
[2016-10-08] MEDS: Docusate CAP* 100 MG PO SCH ×2 (10:05→20:15)
--- NOTE | 2016-10-08 10:21 | PN ---
Subjective Date of Service: 10/08/16 Interval History: Pt is feeling ok but having a significant amount of pain in her L shoulder. She has not moved her bowels. She has not really been up out of bed. She thinks she will be able to manage at home if she is taught how to walk, toilet and do basic care. Objective Active Medications: Acetaminophen (Tylenol Tab*) 650 mg PO Q4H PRN PRN Reason: PAIN OR TEMPERATURE Last Admin: 10/07/16 20:16 Dose: 650 mg Ascorbic Acid (Vitamin C Tab*) 1,000 mg PO DAILY [facility] Last Admin: 10/07/16 09:30 Dose: 1,000 mg Brinzolamide/Brimonidine Tartrate (Simbrinza Oph.Susp(Nf)) 1 drop RIGHT EYE TID [facility] Last Admin: 10/07/16 20:07 Dose: 1 drop Carboxymethylcellulose Sodium (Celluvisc 1% Opth*) 1 drop BOTH EYES DAILY [facility] Last Admin: 10/07/16 14:31 Dose: 1 drop Cetirizine HCl (Zyrtec*) 10 mg PO DAILY [facility] PRN Reason: Protocol Last Admin: 10/07/16 09:30 Dose: 10 mg Cyclosporine (Restasis 0.05% Ophth) 1 drop BOTH EYES BID [facility] PRN Reason: Protocol Last Admin: 10/07/16 20:10 Dose: 1 drop Dexlansoprazole (Dexilant (Nf)) 30 mg PO DAILY [facility] Last Admin: 10/07/16 10:03 Dose: 30 mg Diphenhydramine HCl (Benadryl Iv*) 12.5 mg IV Q6H PRN PRN Reason: PRURITIS Docusate Sodium (Colace Cap*) 100 mg PO BID [facility] Last Admin: 10/07/16 20:14 Dose: Not Given Enoxaparin Sodium (Lovenox(*)) 30 mg SUBCUT Q24H [facility] Last Admin: 10/07/16 09:29 Dose: 30 mg Escitalopram Oxalate (Lexapro (Nf)) 20 mg PO QPM [facility] Last Admin: 10/07/16 20:06 Dose: 20 mg Fludrocortisone Acetate (Florinef Tab*) 0.1 mg PO BID PRN PRN Reason: SBP <105 Fluticasone Propionate (Flonase Nasal [place] 50mcg*) 2 spray BOTH NARES DAILY [facility] Last Admin: 10/07/16 14:04 Dose: Not Given Gabapentin (Neurontin Cap(*)) 100 mg PO TID [facility] Last Admin: 10/07/16 20:14 Dose: 100 mg Hydroxyzine HCl (Atarax Tab*) 25 mg PO QID PRN PRN Reason: ITCHING Last Admin: 10/08/16 06:23 Dose: 25 mg Lactated Ringer's (Lactated Ringers 1000 Ml Bag*) 1,000 mls @ 100 mls/hr IV PER RATE [facility] Last Admin: 10/08/16 08:47 Dose: 100 mls/hr Lactobacillus Rhamnosus (Culturelle*) 1 cap PO DAILY [facility] Last Admin: 10/07/16 09:30 Dose: 1 cap Levothyroxine Sodium (Synthroid Tab*) 25 mcg PO DAILY [facility] Last Admin: 10/07/16 09:31 Dose: 25 mcg Lorazepam (Ativan Tab(*)) 1 mg PO TID PRN PRN Reason: ANXIETY Last Admin: 10/07/16 18:17 Dose: 1 mg Loteprednol Etabonate (Lotemax 0.5% Oph.Susp (Nf)) 1 drop LEFT EYE TID [facility] Last Admin: 10/07/16 20:09 Dose: 1 drop Melatonin (Melatonin (Nf)) 1 mg PO BEDTIME [facility] Last Admin: 10/07/16 20:14 Dose: 1 mg Methylphenidate HCl (Concerta Er Tab*) 72 mg PO DAILY [facility] Morphine Sulfate (Morphine Inj (Syringe)*) 2 mg IV Q2H PRN PRN Reason: PAIN - SEVERE Last Admin: 10/08/16 09:03 Dose: 2 mg Nepafenac (Nevanac (Nf)) 1 drop RIGHT EYE BID PRN; Protocol PRN Reason: PAIN Magnesium [Magnesium (] 250 Mg) 250 mg PO DAILY [facility] Last Admin: 10/07/16 13:24 Dose: Not Given Ondansetron HCl (Zofran Inj*) 4 mg IV Q6H PRN PRN Reason: nausea Last Admin: 10/07/16 15:16 Dose: 4 mg Oxycodone HCl (Oxycontin(*)) 20 mg PO Q12HR [facility] Last Admin: 10/08/16 09:08 Dose: 20 mg Oxycodone HCl (Roxycodone Tab*) 15 mg PO Q4H PRN PRN Reason: PAIN - MODERATE TO SEVERE Last Admin: 10/07/16 22:37 Dose: 15 mg Temazepam (Restoril Cap*) 15 mg PO BEDTIME PRN PRN Reason: INSOMNIA Tizanidine HCl (Zanaflex Tab*) 2 mg PO TID [facility] Last Admin: 10/07/16 20:15 Dose: 2 mg Vital Signs 10/07/16 10/07/16 10/07/16 11:00 11:38 12:00 Temperature 98.6 F Pulse Rate 70 67 Respiratory 17 16 Rate Blood Pressure (mmHg) O2 Sat by Pulse 98 97 Oximetry 10/07/16 10/07/16 10/07/16 12:07 13:00 13:08 Temperature Pulse Rate 72 77 Respiratory 15 17 16 Rate Blood Pressure 137/47 (mmHg) O2 Sat by Pulse 99 99 Oximetry 10/07/16 10/07/16 10/07/16 14:00 14:05 15:00 Temperature Pulse Rate 76 93 Respiratory 15 15 19 Rate Blood Pressure 140/49 109/40 (mmHg) O2 Sat by Pulse 100 98 Oximetry 10/07/16 10/07/16 10/07/16 15:58 16:00 17:00 Temperature 98.9 F Pulse Rate 97 79 Respiratory 16 18 15 Rate Blood Pressure 140/68 137/66 (mmHg) O2 Sat by Pulse 96 98 Oximetry 10/07/16 10/07/16 10/07/16 18:00 18:12 18:17 Temperature Pulse Rate 80 Respiratory 16 15 15 Rate Blood Pressure 161/73 (mmHg) O2 Sat by Pulse 99 Oximetry 10/07/16 10/07/16 10/07/16 19:00 20:00 20:15 Temperature Pulse Rate 102 99 Respiratory 18 18 18 Rate Blood Pressure 124/62 128/53 (mmHg) O2 Sat by Pulse 99 95 Oximetry 10/07/16 10/07/16 10/07/16 20:26 21:00 22:00 Temperature Pulse Rate 88 84 Respiratory 18 11 20 Rate Blood Pressure 128/64 140/64 (mmHg) O2 Sat by Pulse 96 97 Oximetry 10/07/16 10/07/16 10/07/16 22:30 23:00 23:12 Temperature Pulse Rate 72 71 Respiratory 18 16 13 Rate Blood Pressure 137/54 (mmHg) O2 Sat by Pulse 97 96 Oximetry 10/07/16 10/08/16 10/08/16 23:36 00:00 00:01 Temperature 98.2 F Pulse Rate 71 72 Respiratory 12 14 Rate Blood Pressure 139/56 (mmHg) O2 Sat by Pulse 97 97 Oximetry 10/08/16 10/08/16 10/08/16 01:00 01:27 02:00 Temperature Pulse Rate 70 67 Respiratory 13 14 10 Rate Blood Pressure 132/57 137/55 (mmHg) O2 Sat by Pulse 97 97 Oximetry 10/08/16 10/08/16 10/08/16 03:00 03:27 03:43 Temperature 97.6 F Pulse Rate 67 Respiratory 8 14 Rate Blood Pressure 155/64 (mmHg) O2 Sat by Pulse 97 Oximetry 10/08/16 10/08/16 10/08/16 04:00 05:00 06:00 Temperature Pulse Rate 65 67 77 Respiratory 10 11 17 Rate Blood Pressure 139/58 127/71 124/84 (mmHg) O2 Sat by Pulse 96 93 97 Oximetry 10/08/16 10/08/16 10/08/16 06:12 07:00 08:00 Temperature 97.9 F Pulse Rate 76 73 Respiratory 16 15 11 Rate Blood Pressure 157/79 157/67 (mmHg) O2 Sat by Pulse 98 95 Oximetry 10/08/16 10/08/16 10/08/16 09:00 09:03 09:08 Temperature Pulse Rate 72 Respiratory 17 14 16 Rate Blood Pressure 146/68 (mmHg) O2 Sat by Pulse 98 Oximetry 10/08/16 09:25 Temperature Pulse Rate Respiratory 16 Rate Blood Pressure (mmHg) O2 Sat by Pulse Oximetry Oxygen Devices in Use Now: None Appearance: Elderly female lying in bed, NAD Eyes: No Scleral Icterus Ears/Nose/Mouth/Throat: Mucous Membranes Moist Respiratory: Symmetrical Chest Expansion and Respiratory Effort, Clear to Auscultation - anteriorly Cardiovascular: NL Sounds; No Murmurs; No JVD, RRR, No Edema Abdominal: NL Sounds; No Tenderness; No Distention Extremities: No Clubbing, Cyanosis, - - L shoulder in clean/dry dressing, cryo unit in place Skin: No Rash or Ulcers, No Nodules or Sclerosis Neurological: Alert and Oriented x 3 Result Diagrams: 10/08/16 05:51 10/07/16 05:55 Assess/Plan/Problems-Billing Ms Solorio is a 76 yo F with a complicated PMHx admitted after an elective L total shoulder reverse arthroplasty. The hospitalist service was consulted for hypotension. - Patient Problems (1) Status post reverse arthroplasty of left shoulder Current Visit: Yes Status: Acute Code(s): Z96.612 - PRESENCE OF LEFT ARTIFICIAL SHOULDER JOINT SNOMED Code(s): 634603160 Comment: Management per orthopedics. (2) Anemia associated with acute blood loss Current Visit: Yes Status: Acute Code(s): D62 - ACUTE POSTHEMORRHAGIC ANEMIA SNOMED Code(s): 749691797 Comment: H/H completely stable today. Continue to follow H/H intermittently. No need for transfusion at this time. (3) Hypotension Current Visit: Yes Status: Acute Comment: BP is now stable and elevated. Will resume telmisartan BID prn SBP>110 per home dosing. She brought in her own medication. She is stable to go to the surgical floor. (4) RANI (obstructive sleep apnea) Current Visit: Yes Status: Acute Code(s): G47.33 - OBSTRUCTIVE SLEEP APNEA ( ADULT) (PEDIATRIC) SNOMED Code(s): 70588292 Comment: Continue CPAP. (5) DVT prophylaxis Current Visit: Yes Status: Acute Code(s): QYU0611 - SNOMED Code(s): 620213400 Comment: soco (6) DNR (do not resuscitate) Current Visit: Yes Status: Acute
[2016-10-08] MEDS: LOTEPREDNOL 0.2% LEFT EYE SCH ×3 (10:56→20:20)
[2016-10-08] MEDS: BRIMONIDINE RIGHT EYE SCH ×3 (10:57→20:20)
[2016-10-08] MEDS: BRINZOLAMIDE RIGHT EYE SCH ×3 (10:57→20:20)
[2016-10-08] MEDS: CARBOXYMETHYLCELLULOSE BOTH EYES SCH (10:58)
[2016-10-08 10:59] LABS: BUN/Creatinine Ratio 21.3 (8-20); Calcium 8.4 mg/dL (8.6-10.3); EGFR African American 89.9 (>60); EGFR Non-African American 69.9 (>60); Potassium 3.9 mmol/L (3.5-5.0)
[2016-10-08] MEDS: Methylphenidate ER TAB* 18 MG PO SCH (11:01)
[2016-10-08] MEDS: tiZANidine TAB* 2 MG PO SCH ×3 (11:01→20:14)
[2016-10-08] MEDS: Lactobacillus Acidophilu (GG)* 1 CAP CAP PO SCH (11:01)
[2016-10-08] MEDS: DEXLANSOPRAZOLE 30 MG PO SCH (11:02)
[2016-10-08] MEDS: PTO:Cyclosporine 0.05% OPHTH (NF) 0.4 ML VIAL BOTH EYES SCH ×2 (11:03→20:21)
[2016-10-08] MEDS: Fluticasone NASAL SPRAY 50MCG* 16 gm SPRAY BTL BOTH NARES SCH (11:29)
[2016-10-08] MEDS: Magnesium [Magnesium] 250 MG PO SCH (11:29)
[2016-10-08] MEDS: oxyCODONE TAB* 5 MG TAB PO PRN ×2 (11:49→16:33)
--- NOTE | 2016-10-08 13:35 | PN ---
Progress Note - Progress Note SOAP: Subjective: [76 y/o female with h/o multiple co-morbidities s/p R reverse total shoulder replacement 10/06/2016. Patient reports feeling pain, she states mainly in her shoulder but throughout her body as well. Feels her MS may be flaring. Denies fever, chills, no SOB. VSS overnight. ] Objective: [General- Well appearing, lying in bed eating breakfast AO MSK- Surgical dressing intact, arm in sling. Forearm with minimal swelling, radial/ ulnar pulse 2+ LUE. 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80 Est GFR ( Amer) 89.9 Est GFR (Non-Af Amer) 69.9 BUN/Creatinine Ratio 21.3 H Glucose 140 H Calcium 8.4 L Assessment: 76 y/o female with h/o multiple co-morbidities s/p R reverse total shoulder replacement 10/06/2016. Plan: - BUN, creatinine stable - DVT prophylaxis- Lovenox - Likely DC tomorrow - Pain medicine consult placed - Continue PT/ OT - Follow up with Dr. Raza within 2 weeks Active Medications Generic Name Dose Route Start Last Admin Trade Name Freq PRN Reason Stop Dose Admin Acetaminophen 650 mg 10/06/16 10:48 10/07/16 20:16 Tylenol Tab* PO 650 mg Q4H PRN Administration PAIN OR TEMPERATURE Ascorbic Acid 1,000 mg 10/07/16 09:00 10/08/16 10:04 Vitamin C Tab* PO 1,000 mg DAILY [facility] Administration Brinzolamide/Brimonidine Tartrate 1 drop 10/06/16 14:00 10/08/16 10:57 Simbrinza Oph.Susp(Nf) RIGHT EYE 1 drop TID [facility] Administration Carboxymethylcellulose Sodium 1 drop 10/07/16 09:00 10/08/16 10:58 Celluvisc 1% Opth* BOTH EYES 1 drop DAILY [facility] Administration Cetirizine HCl 10 mg 10/07/16 09:00 10/08/16 10:04 Zyrtec* PO 10 mg DAILY [facility] Administration Protocol Cyclosporine 1 drop 10/06/16 21:00 10/08/16 11:03 Restasis 0.05% Ophth BOTH EYES 1 drop BID [facility] Administration Protocol Dexlansoprazole 30 mg 10/07/16 09:00 10/08/16 11:02 Dexilant (Nf) PO 30 mg DAILY [facility] Administration Diphenhydramine HCl 12.5 mg 10/06/16 10:48 Benadryl Iv* IV Q6H PRN PRURITIS Docusate Sodium 100 mg 10/06/16 21:00 10/08/16 10:05 Colace Cap* PO 100 mg BID [facility] Administration Enoxaparin Sodium 30 mg 10/07/16 09:00 10/08/16 10:03 Lovenox(*) SUBCUT 30 mg Q24H [facility] Administration Escitalopram Oxalate 20 mg 10/07/16 18:30 10/07/16 20:06 Lexapro (Nf) PO 20 mg QPM [facility] Administration Fludrocortisone Acetate 0.1 mg 10/07/16 11:09 Florinef Tab* PO BID PRN SBP <105 Fluticasone Propionate 2 spray 10/07/16 09:00 10/08/16 11:29 Flonase Nasal [place] 50mcg* BOTH NARES Not Given DAILY [facility] Gabapentin 300 mg 10/08/16 14:00 Neurontin Cap(*) PO TID [facility] Hydroxyzine HCl 25 mg 10/06/16 10:59 10/08/16 11:59 Atarax Tab* PO 25 mg QID PRN Administration ITCHING Lactobacillus Rhamnosus 1 cap 10/07/16 09:00 10/08/16 11:01 Culturelle* PO 1 cap DAILY [facility] Administration Levothyroxine Sodium 25 mcg 10/07/16 09:00 10/08/16 10:05 Synthroid Tab* PO 25 mcg DAILY [facility] Administration Lorazepam 1 mg 10/07/16 11:09 10/07/16 18:17 Ativan Tab(*) PO 1 mg TID PRN Administration ANXIETY Loteprednol Etabonate 1 drop 10/07/16 14:00 10/08/16 10:56 Lotemax 0.5% Oph.Susp (Nf) LEFT EYE 1 drop TID [facility] Administration Melatonin 1 mg 10/07/16 21:00 10/07/16 20:14 Melatonin (Nf) PO 1 mg BEDTIME [facility] Administration Methylphenidate HCl 72 mg 10/08/16 09:00 10/08/16 11:01 Concerta Er Tab* PO 72 mg DAILY [facility] Administration Morphine Sulfate 4 mg 10/08/16 10:25 10/08/16 11:50 Morphine Inj (Syringe)* IV 4 mg Q2H PRN Administration PAIN - SEVERE Nepafenac 1 drop 10/07/16 13:44 Nevanac (Nf) RIGHT EYE BID PRN PAIN Protocol Magnesium [Magnesium 250 mg 10/07/16 09:00 10/08/16 11:29 ] 250 Mg PO Not Given DAILY [facility] Ondansetron HCl 4 mg 10/06/16 10:48 10/07/16 15:16 Zofran Inj* IV 4 mg Q6H PRN Administration nausea Oxycodone HCl 20 mg 10/06/16 21:00 10/08/16 09:08 Oxycontin(*) PO 20 mg Q12HR [facility] Administration Oxycodone HCl 15 mg 10/07/16 11:09 10/08/16 11:49 Roxycodone Tab* PO 15 mg Q4H PRN Administration PAIN - MODERATE TO SEVERE Telmisartan 20 mg 10/08/16 10:15 Micardis (Nf) PO BID PRN SBP>110 Protocol Temazepam 15 mg 10/06/16 10:48 Restoril Cap* PO BEDTIME PRN INSOMNIA Tizanidine HCl 2 mg 10/06/16 14:00 10/08/16 11:01 Zanaflex Tab* PO 2 mg TID [facility] Administration ]
[2016-10-08] MEDS: Gabapentin CAP(*) 300 MG PO SCH ×2 (14:20→20:15)
--- NOTE | 2016-10-08 15:44 | PN ---
Progress Note - Progress Note Note: Pt seen an examined at 7:20 am Pt complains of pain in shoulder along incision, right wrist pain, right knee pain. Denies numbness and tingling. Reports itching of hands and face. Feels pain medicine is not adequate. In ICU for hypotension. Worked with PT yesterday. Having difficulty mobilizing. Artline d/c'd previously. Temp Pulse Resp BP Pulse Ox 98.1 F 83 18 122/53 98 10/08/16 11:15 10/08/16 11:15 10/08/16 14:21 10/08/16 11:15 10/08/16 11:15 NAD. pleasant. AAOx3. left shoulder dressing in place. mild serosanguinous drainage. tender about incision. able to flex/ext wrist. slightly flex/ext elbow. SILT grossly distally with brisk cap refill. r R wrist dressing in place. SILT. brisk cap refill. able to flex/ext wrist and digits. R knee skin intact. mild effusion. tender about injection site. brisk cap refill Laboratory Results - last 24 hr 10/08/16 10/08/16 05:51 10:00 Hgb 9.2 L Hct 28 L Sodium 140 Potassium 3.9 Chloride 107 Carbon Dioxide 31 Anion Gap 2 BUN 17 Creatinine 0.80 Est GFR ( Amer) 89.9 Est GFR (Non-Af Amer) 69.9 BUN/Creatinine Ratio 21.3 H Glucose 140 H Calcium 8.4 L A/P POD#2 from L shoulder reverse and right knee injection doing well pain control not adequate- will consult acute pain service HCT stable. Cr stable. appreciate ICU and medicine care plan for d/c tomorrow dressing change tomorrow. may shower if incision dry. NWB, no active ROM of shoulder. may active range elbow/wrist/hand. passive ROM of shoulder FF 90 and abd 90, ER to 35 or as tolerated. ice as needed. sling at all times except exercises d/c tomorrow will not see patient tomorrow but will be discharged by PA. f/u 2 weeks
[2016-10-08] MEDS ORDERED: Morphine INJ* 4 MG/ML 1 ML SYRINGE IV PRN (15:52)
[2016-10-08] MEDS ORDERED: TELMISARTAN 20 MG PO PRN (17:25)
[2016-10-08] MEDS: CMCS: Escitalopram (NF) 10 MG TAB PO SCH (18:05)
[2016-10-08] MEDS: HYDROmorphone TAB* 4 MG PO PRN (19:52)
--- NOTE | 2016-10-08 19:53 | CONS ---
INPATIENT PAIN CONSULTATION: DATE OF CONSULT: 10/08/16 REFERRING PHYSICIAN: Dr. Raza REASON FOR CONSULT: Severe pain in left shoulder. HISTORY OF PRESENT ILLNESS: Rere Long is a 76-year-old female. According to the patient, she has a long history of multiple sclerosis, as well as fibromyalgia. She takes chronic opioid therapy for her pain. Her pain pills are prescribed by her primary care doctor, Dr. Antony Swartz. Normally she takes OxyContin 20 mg twice a day as well as oxycodone 15 mg tablets every 4 hours as needed with a maximum daily dose of 6. The patient had difficulty with left shoulder pain, which started about a year or two ago. She was eventually diagnosed with severe osteoarthritis as well as a rotator cuff tear of her left shoulder. She had 2 steroid injections into her left shoulder. The first one gave her relief for about 5 months. The second injection only lasted for about 2 weeks. After discussing all the risks and benefits, it was decided that the patient was too high risk to go to surgery for her left shoulder. However, after consulting with colleagues, Dr. Raza had a change of heart. In addition, the patient's primary care doctor and pcb design engineer also agreed she could go to surgery. The patient was admitted to [facility] on 10/06/16. She was taken to the operating room on 10/06/16, she underwent a left reverse total shoulder replacement. Postoperatively, the patient had a lot of difficulties with blood pressure control. She was monitored in the intensive care unit for hypotension. She said she was not able to get any of her pain medications because her blood pressure was too low. However, yesterday her oxycodone was restarted. Today, her OxyContin has been restarted. Also, they increased her p.r.n. morphine dose from 2 mg IV to 4 mg IV. The patient feels that her pain is still not completely controlled as it should be, but is better controlled than it was. I am asked to see her in consultation. PAST MEDICAL HISTORY: Her past medical history is extensive and includes hypertension, hyperlipidemia, fibromyalgias, ADHD, hypothyroidism, epilepsy, multiple sclerosis, obstructive sleep apnea, seizures. She also has bipolar disease and trigeminal neuralgia. CURRENT MEDICATIONS: Include: 1. Simbrinza eye drops. 2. She is also on Celluvisc eye drops. 3. Restasis eye drops. 4. She is on Dexilant. 5. Lovenox for DVT prophylaxis. 6. She takes Florinef. 7. Lexapro. 8. Flonase. 9. Neurontin. 10. Culturelle. 11. Synthroid. 12. Melatonin. 13. Concerta ER. 14. Morphine. 15. OxyContin. 16. Oxycodone. 17. Micardis. 18. Restoril. 19. Zanaflex. ALLERGIES: Include DILANTIN, PHENOBARBITAL, DEMEROL, ARICEPT, FOSAMAX, CYMBALTA , MAXALT, SEROQUEL, TEGRETOL, and KETAMINES. SOCIAL HISTORY: The patient is a nonsmoker, nondrinker. She lives alone. Her daughter is her healthcare proxy. PHYSICAL EXAM: Brief physical exam: The patient's temperature is 98.1, blood pressure is 120/53, pulse is 83, respirations 18. Her left arm is in a sling. Her hands and fingers on the left arm appear to be pink and she is able to move her fingers of her left hand. Right arm has an IV in it, but can move freely otherwise. Her lungs sound clear to auscultation bilaterally. Heart sounds are regular. Abdomen is soft and nontender. ASSESSMENT: 1. Left shoulder pain. 2. Status post reverse total left shoulder replacement. PLAN: I would like to stop the IV morphine and/or if at all possible to be able to get the patient home. For breakthrough pain, I would suggest Dilaudid 8 mg tablets every 6 hours as needed for severe pain. We want to cut down on morphine. The Dilaudid should be used in lieu of, not in addition to the morphine. The OxyContin can be increased while in the hospital to 30 mg twice a day. I would leave the oxycodone as it is now. The patient will follow up with her primary care doctor after discharge. Thank you for the consultation. [id number]/[facility] #: [id number] PRUD[place]
[2016-10-08] MEDS: oxyCODONE SR TAB(*) 10 MG TAB.SR PO SCH (20:15)
[2016-10-08] MEDS: CMCS Melatonin (NF) 3 MG TAB PO SCH (20:16)
[2016-10-08] MEDS: Carboxymethylcellulos 1% OPTH* 1 DROP AMP BOTH EYES PRN (23:29)
[2016-10-08] MEDS: NEPAFENAC RIGHT EYE PRN (23:29)
[2016-10-09] MEDS: oxyCODONE TAB* 5 MG TAB PO PRN ×3 (01:36→20:34)
[2016-10-09] MEDS: HYDROmorphone TAB* 4 MG PO PRN ×4 (06:01→23:38)
[2016-10-09] MEDS: NEPAFENAC RIGHT EYE PRN ×2 (06:09→18:41)
[2016-10-09 08:58] LABS: Hematocrit 28 % (35-47); Hemoglobin 9.4 g/dl (12.0-16.0); Mean Corpuscular HGB Conc 33 g/dl (31-36); Mean Corpuscular Hemoglobin 30 pg (27-31); Mean Corpuscular Volume 89 fL (80-97); Mean Platelet Volume 8 um3 (7.4-10.4); Red Blood Count 3.19 10^6/ul (4.0-5.4); Red Cell Distribution Width 14 % (10.5-15); White Blood Count 6.8 10^3/ul (3.5-10.8)
[2016-10-09] MEDS: Ascorbic Acid TAB* 500 MG PO SCH (09:02)
[2016-10-09] MEDS: Cetirizine* 10 MG TAB PO SCH (09:03)
[2016-10-09] MEDS: oxyCODONE SR TAB(*) 10 MG TAB.SR PO SCH ×2 (09:04→20:17)
[2016-10-09] MEDS: Levothyroxine TAB* 25 MCG TAB PO SCH (09:04)
[2016-10-09] MEDS: Gabapentin CAP(*) 300 MG PO SCH ×3 (09:05→20:15)
[2016-10-09] MEDS: DEXLANSOPRAZOLE 30 MG PO SCH (09:07)
[2016-10-09] MEDS: Methylphenidate ER TAB* 18 MG PO SCH (09:07)
[2016-10-09] MEDS: Lactobacillus Acidophilu (GG)* 1 CAP CAP PO SCH (09:10)
[2016-10-09] MEDS: tiZANidine TAB* 2 MG PO SCH ×3 (09:10→20:16)
[2016-10-09] MEDS: Enoxaparin(*) 30 MG/0.3 ML SYR SUBCUT SCH (09:11)
[2016-10-09] MEDS: Docusate CAP* 100 MG PO SCH ×2 (09:11→20:15)
[2016-10-09 09:12] LABS: BUN/Creatinine Ratio 20.8 (8-20); Calcium 8.6 mg/dL (8.6-10.3); EGFR African American 101.6 (>60); Potassium 3.9 mmol/L (3.5-5.0)
[2016-10-09] MEDS: Fluticasone NASAL SPRAY 50MCG* 16 gm SPRAY BTL BOTH NARES SCH (09:13)
[2016-10-09] MEDS: Magnesium [Magnesium] 250 MG PO SCH (09:13)
[2016-10-09] MEDS ORDERED: LACTULOSE* 30 ML UDC PO PRN (09:13)
[2016-10-09] MEDS ORDERED: Bisacodyl SUPP* 10 MG SUPP PR PRN (09:14)
[2016-10-09] MEDS ORDERED: Magnesium Hydroxide LIQ* 30 ML UDC PO PRN (09:14)
--- NOTE | 2016-10-09 09:34 | PN ---
Progress Note - Progress Note SOAP: Subjective: POD #3 Left reverse TSA. Doing ok, states pain is better with adjustments to meds from Dr. White. Denies CP/SOB. Appetite good. No BM Objective: Vitals: Temp Pulse Resp BP Pulse Ox 98.1 F 74 16 150/77 96 // 07:44 / 07:44 10/09/16 09:05 10/09/16 07:44 10/09/16 07:44 Gen: A&Ox3, NAD at rest sitting in bed LUE: Incision C/D/I. +eccymosis to distal incision and anterior upper arm. +ttp throughout shoulder. + abd of thumb, OK and fingers crossed. N/V intact Labs: Laboratory Results - last 24 hr 02//17 10/09/10/09/16 10:00 08:51 08:51 WBC 6.8 RBC 3.19 L Hgb 9.4 L Hct 28 L MCV 89 MCH 30 MCHC 33 RDW 14 Plt Count 116 L MPV 8 Sodium 140 137 Potassium 3.9 3.9 Chloride 107 103 Carbon Dioxide 31 33 H Anion Gap 2 1 L BUN 17 15 Creatinine 0.80 0.72 Est GFR ( Amer) 89.9 101.6 Est GFR (Non-Af Amer) 69.9 79.0 BUN/Creatinine Ratio 21.3 H 20.8 H Glucose 140 H 101 H Calcium 8.4 L 8.6 Assessment: POD#3 Left reverse TSA Plan: Pain better controlled with new medications New dressing applied today Cont PT for PROM Possible d/c home tomorrow
[2016-10-09] MEDS: BRINZOLAMIDE RIGHT EYE SCH ×3 (11:22→20:22)
[2016-10-09] MEDS: LOTEPREDNOL 0.2% LEFT EYE SCH ×3 (11:22→20:22)
[2016-10-09] MEDS: PTO:Cyclosporine 0.05% OPHTH (NF) 0.4 ML VIAL BOTH EYES SCH ×2 (11:22→20:23)
[2016-10-09] MEDS: BRIMONIDINE RIGHT EYE SCH ×3 (11:22→20:22)
[2016-10-09] MEDS: CMCS: Escitalopram (NF) 10 MG TAB PO SCH (17:33)
[2016-10-09] MEDS: CMCS Melatonin (NF) 3 MG TAB PO SCH (20:16)
[2016-10-09] MEDS: hydrOXYzine HCL TAB* 25 MG PO PRN (20:17)
[2016-10-09] MEDS: LORazepam TAB(*) 1 MG PO PRN (20:18)
[2016-10-09] MEDS: TELMISARTAN 20 MG PO SCH (20:19)
[2016-10-09] MEDS: Carboxymethylcellulos 1% OPTH* 1 DROP AMP BOTH EYES PRN (20:34)
[2016-10-10] MEDS: oxyCODONE TAB* 5 MG TAB PO PRN ×5 (03:37→23:04)
[2016-10-10] MEDS: HYDROmorphone TAB* 4 MG PO PRN ×4 (05:41→20:00)
[2016-10-10] MEDS: Fluticasone NASAL SPRAY 50MCG* 16 gm SPRAY BTL BOTH NARES SCH (07:09)
[2016-10-10] MEDS: Magnesium [Magnesium] 250 MG PO SCH (07:10)
[2016-10-10 08:04] LABS: Hematocrit 30 % (35-47); Hemoglobin 10.2 g/dl (12.0-16.0)
--- NOTE | 2016-10-10 08:27 | PN ---
Progress Note - Progress Note SOAP: Subjective: POD #4 L reverse TSA. Doing better, states that she was able to sleep well as pain is more controlled. No BM yet. Denies CP/SOB, c/o dizziness when initially standing, resolves after a few seconds. Objective: Vitals: Temp Pulse Resp BP Pulse Ox 98.2 F 63 20 161/74 97 / 07:31 10/10/16 07:31 10/10/16 08:00 10/10/16 07:31 10/10/16 08:00 Gen: A&Ox3, NAD at rest laying in bed LUE: Dressing C/D/I, diffuse ttp around shoulder. +f/e at MCP, PIP and DIPs, N/ V intact Assessment: POD #4 L reverse TSA Plan: Pt mentioned possible PMRU referral as suggested by Dr. Swartz, will place order Cont PT/OT Cont current pain medications Pt not ready for d/c home yet as she lives alone and is unable to perform ADLs independently
[2016-10-10] MEDS: oxyCODONE SR TAB(*) 10 MG TAB.SR PO SCH ×2 (08:41→21:05)
[2016-10-10] MEDS: Enoxaparin(*) 30 MG/0.3 ML SYR SUBCUT SCH (08:42)
[2016-10-10] MEDS: Gabapentin CAP(*) 300 MG PO SCH ×3 (08:42→21:04)
[2016-10-10] MEDS: Docusate CAP* 100 MG PO SCH ×2 (08:42→21:04)
[2016-10-10] MEDS: Ascorbic Acid TAB* 500 MG PO SCH (08:42)
[2016-10-10] MEDS: Cetirizine* 10 MG TAB PO SCH (08:42)
[2016-10-10] MEDS: Levothyroxine TAB* 25 MCG TAB PO SCH (08:42)
[2016-10-10] MEDS: DEXLANSOPRAZOLE 30 MG PO SCH (08:48)
[2016-10-10] MEDS: Lactobacillus Acidophilu (GG)* 1 CAP CAP PO SCH (08:49)
[2016-10-10] MEDS: TELMISARTAN 20 MG PO SCH ×2 (08:49→21:05)
[2016-10-10] MEDS: tiZANidine TAB* 2 MG PO SCH ×3 (08:50→21:04)
[2016-10-10] MEDS: LOTEPREDNOL 0.2% LEFT EYE SCH ×3 (08:53→23:23)
[2016-10-10] MEDS: BRIMONIDINE RIGHT EYE SCH ×3 (08:53→23:23)
[2016-10-10] MEDS: BRINZOLAMIDE RIGHT EYE SCH ×3 (08:53→23:23)
[2016-10-10] MEDS: PTO:Cyclosporine 0.05% OPHTH (NF) 0.4 ML VIAL BOTH EYES SCH ×2 (08:53→23:23)
[2016-10-10 09:12] LABS: BUN/Creatinine Ratio 20.3 (8-20); EGFR African American 98.4 (>60); EGFR Non-African American 76.5 (>60); Potassium 4.1 mmol/L (3.5-5.0)
[2016-10-10] MEDS: Methylphenidate ER TAB* 18 MG PO SCH (09:20)
[2016-10-10] MEDS: hydrOXYzine HCL TAB* 25 MG PO PRN ×2 (14:10→21:04)
[2016-10-10] MEDS: CMCS: Escitalopram (NF) 10 MG TAB PO SCH (18:27)
[2016-10-10] MEDS: Ondansetron INJ* 2 MG/ML VIAL IV PRN (19:38)
[2016-10-10] MEDS: LORazepam TAB(*) 1 MG PO PRN (20:15)
[2016-10-10] MEDS: CMCS Melatonin (NF) 3 MG TAB PO SCH (20:16)
[2016-10-11] MEDS: HYDROmorphone TAB* 4 MG PO PRN ×6 (00:58→23:38)
[2016-10-11] MEDS: oxyCODONE TAB* 5 MG TAB PO PRN ×5 (03:29→22:20)
[2016-10-11 06:39] LABS: Hematocrit 28 % (35-47); Hemoglobin 9.3 g/dl (12.0-16.0)
--- NOTE | 2016-10-11 08:16 | PN ---
Progress Note - Progress Note SOAP: Subjective: []Patient seen at bedside. Awake and alert. Pain better managed now that pain medication schedule has been changed by pain management MD. Hoping to go to PMRU. Occasional dizziness upon standing, resolves quickly. Objective: [] Vital Signs Temp 97.9 F 10/11/16 03:28 Pulse 71 10/11/16 03:28 Resp 16 10/11/16 07:01 BP 126/65 10/11/16 03:28 Pulse Ox 95 10/11/16 03:28 Intake & Output 10/10/16 10/11/16 10/11/16 18:59 06:59 18:59 Intake Total 1310 1040 Output Total 1175 775 Balance 135 265 Intake: Oral 1310 1040 Output: Urine 1175 775 Other: Date of Last Bowel 10/10/16 Movement # Bowel Movements 1 Estimated Stool Amount Medium Laboratory Results - last 24 hr 10/10/16 10/11/16 07:39 06:05 Hgb 9.3 L Hct 28 L Sodium 139 Potassium 4.1 Chloride 103 Carbon Dioxide 33 H Anion Gap 3 BUN 15 Creatinine 0.74 Est GFR ( Amer) 98.4 Est GFR (Non-Af Amer) 76.5 BUN/Creatinine Ratio 20.3 H Glucose 101 H Calcium 9.0 Alert and oriented X3 Shoulder immobilizer donned Left shoulder dressing changed over weekend, remains C/D/I fingers pink and warm, no edema, full sensation and circulation Assessment: []s/p Left reverse total shoulder arthroplasty POD #5 multiple medical co morbidities Plan: []PT/OT appreciate pain medicine consult: continue current medication schedule Await PMRU consult
[2016-10-11] MEDS: oxyCODONE SR TAB(*) 10 MG TAB.SR PO SCH ×2 (09:03→20:52)
[2016-10-11] MEDS: Ascorbic Acid TAB* 500 MG PO SCH (09:04)
[2016-10-11] MEDS: Docusate CAP* 100 MG PO SCH ×2 (09:05→20:51)
[2016-10-11] MEDS: Cetirizine* 10 MG TAB PO SCH (09:05)
[2016-10-11] MEDS: Gabapentin CAP(*) 300 MG PO SCH ×3 (09:05→20:51)
[2016-10-11] MEDS: Lactobacillus Acidophilu (GG)* 1 CAP CAP PO SCH (09:06)
[2016-10-11] MEDS: Levothyroxine TAB* 25 MCG TAB PO SCH (09:06)
[2016-10-11] MEDS: TELMISARTAN 20 MG PO SCH ×2 (09:07→20:53)
[2016-10-11] MEDS: DEXLANSOPRAZOLE 30 MG PO SCH (09:09)
[2016-10-11] MEDS: Fluticasone NASAL SPRAY 50MCG* 16 gm SPRAY BTL BOTH NARES SCH (09:10)
[2016-10-11] MEDS: PTO:Cyclosporine 0.05% OPHTH (NF) 0.4 ML VIAL BOTH EYES SCH ×2 (09:11→20:56)
[2016-10-11] MEDS: LOTEPREDNOL 0.2% LEFT EYE SCH ×3 (09:11→20:55)
[2016-10-11] MEDS: BRINZOLAMIDE RIGHT EYE SCH ×3 (09:11→20:55)
[2016-10-11] MEDS: BRIMONIDINE RIGHT EYE SCH ×3 (09:11→20:55)
[2016-10-11] MEDS: tiZANidine TAB* 2 MG PO SCH ×3 (09:27→20:51)
[2016-10-11] MEDS: Magnesium Oxide TAB* 400 MG PO SCH (09:27)
[2016-10-11] MEDS: Methylphenidate ER TAB* 18 MG PO SCH (09:27)
[2016-10-11] MEDS: Enoxaparin(*) 30 MG/0.3 ML SYR SUBCUT SCH (09:28)
[2016-10-11] MEDS: Magnesium [Magnesium] 250 MG PO SCH (09:53)
[2016-10-11] MEDS: hydrOXYzine HCL TAB* 25 MG PO PRN ×2 (10:54→17:27)
[2016-10-11] MEDS: LORazepam TAB(*) 1 MG PO PRN (13:39)
[2016-10-11] MEDS: Carboxymethylcellulos 1% OPTH* 1 DROP AMP BOTH EYES PRN (15:26)
[2016-10-11] MEDS: CMCS: Escitalopram (NF) 10 MG TAB PO SCH (17:23)
[2016-10-11] MEDS: CMCS Melatonin (NF) 3 MG TAB PO SCH (19:35)
[2016-10-12] MEDS: oxyCODONE TAB* 5 MG TAB PO PRN ×5 (03:35→21:48)
[2016-10-12] MEDS: HYDROmorphone TAB* 4 MG PO PRN ×5 (05:49→22:12)
[2016-10-12] MEDS: Fluticasone NASAL SPRAY 50MCG* 16 gm SPRAY BTL BOTH NARES SCH ×2 (06:07→09:56)
--- NOTE | 2016-10-12 08:33 | PN ---
Progress Note - Progress Note SOAP: Subjective: []Patient seen at bedside. Pain managed left shoulder. Sling donned. Cryo placed. She is willing to see what rehab facilities will be available and may consider one but she is still vying to go home. Objective: [] Vital Signs Temp 98.5 F 10/12/16 07:25 Pulse 71 10/12/16 07:25 Resp 16 10/12/16 07:49 BP 107/53 10/12/16 07:25 Pulse Ox 95 10/12/16 07:25 Intake & Output 10/11/16 10/12/16 10/12/16 18:59 06:59 18:59 Intake Total 637 1810 Output Total 1600 750 Balance -963 1060 Intake: Oral 637 1810 Output: Urine 1600 750 Left shoulder dressings remain dry under tegaderm, bulky ABD pads removed moving fingers well no edema 2+ radial pulse Assessment: []s/p right reverse total shoulder arthroplasty POD #6 Plan: []Continue PT/OT Lovenox Medicine following Await rehab bed offer
[2016-10-12] MEDS: oxyCODONE SR TAB(*) 10 MG TAB.SR PO SCH ×2 (08:45→20:32)
[2016-10-12] MEDS: PTO:Cyclosporine 0.05% OPHTH (NF) 0.4 ML VIAL BOTH EYES SCH ×2 (09:49→20:36)
[2016-10-12] MEDS: LOTEPREDNOL 0.2% LEFT EYE SCH ×3 (09:52→20:37)
[2016-10-12] MEDS: BRIMONIDINE RIGHT EYE SCH ×3 (09:52→20:37)
[2016-10-12] MEDS: BRINZOLAMIDE RIGHT EYE SCH ×3 (09:52→20:37)
[2016-10-12] MEDS: Carboxymethylcellulos 1% OPTH* 1 DROP AMP BOTH EYES PRN ×3 (09:54→20:40)
[2016-10-12] MEDS: DEXLANSOPRAZOLE 30 MG PO SCH (09:57)
[2016-10-12] MEDS: TELMISARTAN 20 MG PO SCH ×2 (09:57→20:35)
[2016-10-12] MEDS: Magnesium Oxide TAB* 400 MG PO SCH (09:58)
[2016-10-12] MEDS: Levothyroxine TAB* 25 MCG TAB PO SCH (09:58)
[2016-10-12] MEDS: Docusate CAP* 100 MG PO SCH ×2 (09:59→20:32)
[2016-10-12] MEDS: Cetirizine* 10 MG TAB PO SCH (09:59)
[2016-10-12] MEDS: Methylphenidate ER TAB* 18 MG PO SCH (10:00)
[2016-10-12] MEDS: tiZANidine TAB* 2 MG PO SCH ×3 (10:01→20:32)
[2016-10-12] MEDS: Lactobacillus Acidophilu (GG)* 1 CAP CAP PO SCH (10:01)
[2016-10-12] MEDS: Ascorbic Acid TAB* 500 MG PO SCH (10:02)
[2016-10-12] MEDS: Gabapentin CAP(*) 300 MG PO SCH ×3 (10:02→20:32)
[2016-10-12] MEDS: Enoxaparin(*) 30 MG/0.3 ML SYR SUBCUT SCH (10:05)
[2016-10-12] MEDS: CMCS: Escitalopram (NF) 10 MG TAB PO SCH (17:14)
[2016-10-12] MEDS: Ondansetron INJ* 2 MG/ML VIAL IV PRN (18:40)
[2016-10-12] MEDS: LORazepam TAB(*) 1 MG PO PRN (18:40)
[2016-10-12] MEDS: CMCS Melatonin (NF) 3 MG TAB PO SCH (20:33)
[2016-10-13] MEDS: oxyCODONE TAB* 5 MG TAB PO PRN ×2 (03:50→08:02)
[2016-10-13] MEDS: HYDROmorphone TAB* 4 MG PO PRN ×2 (05:48→10:50)
[2016-10-13 07:45] VITALS: BP 108/60
[2016-10-13] MEDS: Cetirizine* 10 MG TAB PO SCH (08:49)
[2016-10-13] MEDS: Gabapentin CAP(*) 300 MG PO SCH (08:58)
[2016-10-13] MEDS: Magnesium Oxide TAB* 400 MG PO SCH (08:59)
[2016-10-13] MEDS: Levothyroxine TAB* 25 MCG TAB PO SCH (08:59)
[2016-10-13] MEDS: oxyCODONE SR TAB(*) 10 MG TAB.SR PO SCH (09:01)
[2016-10-13] MEDS: tiZANidine TAB* 2 MG PO SCH (09:02)
[2016-10-13] MEDS: Docusate CAP* 100 MG PO SCH (09:02)
[2016-10-13] MEDS: DEXLANSOPRAZOLE 30 MG PO SCH (09:02)
[2016-10-13] MEDS: Lactobacillus Acidophilu (GG)* 1 CAP CAP PO SCH (09:02)
[2016-10-13] MEDS: Ascorbic Acid TAB* 500 MG PO SCH (09:03)
[2016-10-13] MEDS: Methylphenidate ER TAB* 18 MG PO SCH (09:03)
[2016-10-13] MEDS: TELMISARTAN 20 MG PO SCH (09:05)
[2016-10-13] MEDS: Fluticasone NASAL SPRAY 50MCG* 16 gm SPRAY BTL BOTH NARES SCH (09:06)
[2016-10-13] MEDS: BRIMONIDINE RIGHT EYE SCH (09:07)
[2016-10-13] MEDS: PTO:Cyclosporine 0.05% OPHTH (NF) 0.4 ML VIAL BOTH EYES SCH (09:07)
[2016-10-13] MEDS: BRINZOLAMIDE RIGHT EYE SCH (09:07)
--- NOTE | 2016-10-13 09:08 | PN ---
Progress Note - Progress Note SOAP: Subjective: []Patient seen OOB in chair. Alert and oriented X3. Pain fairly well managed with current narcotic schedule. Anxious that she will not be getting her pain medications on time at [facility]. She is still agreeable for discharge there today. Objective: [] Vital Signs Temp 98.2 F 10/13/16 07:30 Pulse 70 10/13/16 07:30 Resp 16 10/13/16 08:02 BP 108/60 10/13/16 07:30 Pulse Ox 98 10/13/16 07:30 Intake & Output 10/12/16 10/13/16 10/13/16 18:59 06:59 18:59 Intake Total 1137 840 Output Total 1400 250 Balance -263 590 Intake: Oral 1137 840 Output: Urine 1400 250 Other: # Bowel Movements 1 Estimated Stool Amount Medium Left shoulder dressing removed, no drainage Steri strips are dry and intact mild edema left shoulder moving all digits well neurovascularly intact distally LUE Assessment: []s/p Left reverse total shoulder arthroplasty POD #7 Plan: []Continue with current narcotic schedule PT/OT at SNF Follow up in [address] Raza
[2016-10-13] MEDS: LOTEPREDNOL 0.2% LEFT EYE SCH (09:09)
[2016-10-13] MEDS: Enoxaparin(*) 30 MG/0.3 ML SYR SUBCUT SCH (09:10)
--- NOTE | 2016-10-13 10:48 | DS ---
DISCHARGE SUMMARY: DATE OF ADMISSION: 10/06/16 DATE OF DISCHARGE: 10/13/16 ATTENDING PHYSICIAN: Dr. Raza. ADMISSION DIAGNOSES: 1. Advanced osteoarthritis, left shoulder, with massive rotator cuff tear. 2. Right knee arthritis. DISCHARGE DIAGNOSES: 1. Advanced osteoarthritis, left shoulder with massive rotator cuff tear. 2. Right knee arthritis. PROCEDURES PERFORMED: 1. Left shoulder reverse arthroplasty and biceps tenodesis. 2. Right knee intra-articular cortisone injection. HOSPITAL COURSE: The patient is a 76-year-old female with multiple medical comorbidities, who was having longstanding left shoulder pain that was not managed with conservative measures including physical therapy and corticosteroid injections. The patient could no longer tolerate the pain and requested surgical intervention with Dr. Raza. She was seen by her primary care provider and understood she was a high risk for surgical intervention, but elected to proceed despite these risks. She was taken to the operating room under the care of Dr. Raza on the date of 10/06/16 for the aforementioned procedures. She tolerated the procedures well and left the operating room in stable condition. Postoperatively, she was followed by the hospitalist and was also seen by Pain Management postprocedurally. She was monitored in the ICU until postoperative day #2, on the 08 of October, when she was transferred to the surgical care unit in stable condition. Other than having some mild hypotension and need for 1 L fluid bolus post-operative day #1, she had no acute postoperative complications and progressed satisfactorily. She did have some difficulties with pain management and she has been on longstanding narcotic therapy prior to her surgery. She was evaluated on the date of by Dr. Wilfred White and her narcotic pain medications were adjusted. Since this point, she has been managing her pain on this current pain schedule. Initially, the patient felt she would be able to manage at home, but due to her multiple medical problems, needing to use the sling, and with her hypotension and occasional dizziness, it was felt she would be safer in a snf facility prior to returning home independently. The patient was evaluated in the hospital PMRU unit, but was declined to be an acceptable candidate. She was found to be a candidate for snf facility at [facility] and was found to be stable medically and orthopedically for discharge to their care on the day of 10/13/16. CONDITION ON DISCHARGE: The patient is alert and oriented. She is in no acute distress. Her pain is well managed on the current narcotic regimen. Her left shoulder incision is clean and dry, with Steri-Strips intact. There is mild swelling to the shoulder. There is no drainage. A Telfa dressing and Tegaderm was reapplied to her wound this morning. Please see discharge medication packet for her narcotic regimen that we request be continued as well as her regular medications as outlined. Recommend a clean, dry dressing to be applied while at the nursing facility to keep the incision clean and covered. She may shower, getting the incision wet. She should remain in her sling when up and ambulatory, but may be out of it daily to work on gentle physical therapy, flexion of the shoulder to 90 degrees , external rotation to 30 degrees maximum. PLAN: Discharge to [facility], 10/13/16. Continue with physical therapy, occupational therapy. Recommend to follow up with Dr. Raza in the office in roughly 1 week. She is being transferred to the nursing facility today. TERA WILL [id number]/[facility]PS #: [id number] [place]
== END 2016-10-13 11:40 | DRG 483 ==
LOC: AA 05:40 → ICU 15:16 → SSU 10-08 11:15
PROVIDERS: ADMIT Orthopaedic Surgery; ATTEND Orthopaedic Surgery
PROC: 0LS40ZZ Reposition Left Upper Arm Tendon, Open Approach (ICD-10-PCS; 2016-10-06)
PROC: 3E0U33Z Introduction of Anti-inflammatory into Joints, Percutaneous Approach (ICD-10-PCS; 2016-10-06)
PROC: 0RRK00Z Replacement of Left Shoulder Joint with Reverse Ball and Socket Synthetic Substitute, Open Approach (ICD-10-PCS; principal; 2016-10-06 07:30)
DX: M19.012 Primary osteoarthritis, left shoulder (principal); G35 Multiple sclerosis; G40.802 Other epilepsy, not intractable, without status epilepticus; D62 Acute posthemorrhagic anemia; M17.11 Unilateral primary osteoarthritis, right knee; E78.5 Hyperlipidemia, unspecified; N18.3 Chronic kidney disease, stage 3 (moderate); I12.9 Hypertensive chronic kidney disease with stage 1 through stage 4 chronic kidney disease, or unspecified chronic kidney disease; M79.7 Fibromyalgia; K21.9 Gastro-esophageal reflux disease without esophagitis; F32.9 Major depressive disorder, single episode, unspecified; Z98.1 Arthrodesis status; Z96.652 Presence of left artificial knee joint; Z88.8 Allergy status to other drugs, medicaments and biological substances; Z83.3 Family history of diabetes mellitus; Z82.49 Family history of ischemic heart disease and other diseases of the circulatory system; Z86.718 Personal history of other venous thrombosis and embolism; G47.33 Obstructive sleep apnea (adult) (pediatric); E03.9 Hypothyroidism, unspecified; Z88.0 Allergy status to penicillin; Z80.51 Family history of malignant neoplasm of kidney; Z80.52 Family history of malignant neoplasm of bladder; Z82.3 Family history of stroke; I95.1 Orthostatic hypotension; Z66 Do not resuscitate; G89.29 Other chronic pain; F90.9 Attention-deficit hyperactivity disorder, unspecified type; M75.122 Complete rotator cuff tear or rupture of left shoulder, not specified as traumatic
CPT/HCPCS: 36415; 80048; 85014; 85018; 85027; 88304; 88311; 94760; A9270-GY; C1713; C1776; J1040; J1170; J1200; J1650; J2250; J2270; J2405; J2704; J3010

== ENCOUNTER 2016-11-11 11:17 | Inpatient (IN) | payer MEDICARE ==
[2016-11-11 11:44] LABS: Hematocrit 36 % (35-47); Hemoglobin 11.5 g/dl (12.0-16.0); Mean Corpuscular HGB Conc 32 g/dl (31-36); Mean Corpuscular Hemoglobin 28 pg (27-31); Mean Corpuscular Volume 86 fL (80-97); Mean Platelet Volume 8 um3 (7.4-10.4); Red Blood Count 4.15 10^6/ul (4.0-5.4); Red Cell Distribution Width 14 % (10.5-15); White Blood Count 11.1 10^3/ul (3.5-10.8)
[2016-11-11 11:56] LABS: Albumin 3.8 g/dL (3.2-5.2); BUN/Creatinine Ratio 16.5 (8-20); Calcium 9.5 mg/dL (8.6-10.3); EGFR African American 59.2 (>60); Globulin 2.9 g/dL (2-4); Potassium 4.4 mmol/L (3.5-5.0); Total Bilirubin 0.5 mg/dL (0.2-1.0); Total Protein 6.7 g/dL (6.4-8.9)
[2016-11-11] MEDS ORDERED: Acetaminophen TAB* 325 MG ONE (12:17)
[2016-11-11] MEDS ORDERED: Acetaminophen TAB* 325 MG PO ONE (12:20)
[2016-11-11 12:28] LABS: C Reactive Protein 4.77 mg/L (< 5.00)
--- NOTE | 2016-11-11 12:47 | RAD ---
HISTORY: Fever COMPARISONS: September 30, 2016 VIEWS:1: Single frontal portable view of the chest at 12:35 PM FINDINGS: LINES AND TUBES: None. CARDIOMEDIASTINAL SILHOUETTE: The cardiomediastinal silhouette is normal for portable technique. PLEURA: The costophrenic angles are sharp. No pleural abnormalities are noted. LUNG PARENCHYMA: The lungs are clear. ABDOMEN: Again noted is a hiatal hernia BONES AND SOFT TISSUES: The patient is status post left shoulder arthroplasty IMPRESSION: NO ACTIVE CARDIOPULMONARY DISEASE. HIATAL HERNIA
[2016-11-11] MEDS ORDERED: NS 0.9% 1000 ML* 1,000 ML IV ONE (13:13)
[2016-11-11 13:35] LABS: Erythrocyte Sed Rate 48 mm/Hr (0-40)
[2016-11-11 14:19] LABS: Urine Bilirubin Negative (Negative); Urine Glucose Negative (Negative); Urine Nitrite Negative (Negative)
[2016-11-11] MEDS ORDERED: Cefepime(*) 2 GM in NS 0.9% 50 ML* 50 ML IVPB ONE (14:26)
[2016-11-11] MEDS ORDERED: NS 0.9% 1000 ML* 1,000 ML IV SCH (15:30)
[2016-11-11] MEDS ORDERED: Vancomycin(*) 1,000 MG in NS 0.9% 250 ML* 250 ML IVPB ONE (15:45)
[2016-11-11] MEDS ORDERED: Vancomycin per Pharmacy* NOTE FOLLOW UP PRN (15:45)
[2016-11-11] MEDS ORDERED: Iodixanol* (CONTRAST) 320 MG/ML 100 ML SDV IV ONE (16:13)
[2016-11-11] MEDS ORDERED: hydrOXYzine HCL TAB* 25 MG PO PRN (16:22)
[2016-11-11] MEDS ORDERED: Docusate CAP* 100 MG PO PRN (16:22)
[2016-11-11] MEDS ORDERED: Acetaminophen TAB* 325 MG PO PRN ×2 (16:22→16:33)
[2016-11-11] MEDS ORDERED: Fludrocortisone Acetate TAB* 0.1 MG PO PRN (16:22)
[2016-11-11] MEDS ORDERED: Temazepam CAP* 15 MG PO PRN (16:22)
[2016-11-11] MEDS ORDERED: Vancomycin(*) 1,000 MG ADVAN IVPB ONE (17:03)
--- NOTE | 2016-11-11 17:12 | RAD ---
HISTORY: Postop shoulder arthroplasty COMPARISONS: October 19, 2016 VIEWS: 3, Frontal internal rotation, external rotation, and outlet views of the left shoulder FINDINGS: BONE DENSITY: Normal. BONES: The patient is status post left shoulder arthroplasty. There is no hardware failure or osteolysis. JOINTS: The patient is status post left shoulder arthroplasty ALIGNMENT: There is no dislocation. SOFT TISSUES: Unremarkable. OTHER FINDINGS: There is a large hiatal hernia IMPRESSION: STATUS POST LEFT SHOULDER ARTHROPLASTY
[2016-11-11] MEDS: oxyCODONE SR TAB(*) 10 MG TAB.SR PO SCH (19:53)
[2016-11-11] MEDS: oxyCODONE TAB* 5 MG TAB PO PRN (19:54)
[2016-11-11] MEDS: Gabapentin CAP(*) 300 MG PO SCH (19:55)
[2016-11-11] MEDS: NS 0.9% 1000 ML* 1,000 ML IV SCH (19:57)
--- NOTE | 2016-11-11 20:47 | CONS ---
ORTHOPEDIC CONSULT NOTE: DATE OF CONSULT: 11/11/16 LOCATION: Emergency room. CHIEF COMPLAINT: Left shoulder pain. HISTORY OF PRESENT ILLNESS: Ms. Solorio is a 76-year-old female who is the patient of Dr. Raza, my colleague. On 10/06/16, she underwent a left shoulder reverse arthroplasty and biceps tenodesis. Since that time, she has had steady state 8/10 pain in the left shoulder. She denies any increased pain. She denies any drainage or problems with the incision. The patient has developed a cold and laryngitis over the last week. This morning, she awoke with sudden onset of fever and chills. She is being admitted to the hospital for leukocytosis and fever of unknown origin. I am called for Orthopedics to evaluate for possibility of a septic left shoulder. PAST MEDICAL HISTORY: Hypertension, hyperlipidemia, fibromyalgia, stage 3 kidney disease, diverticulitis, GERD, thyroid problems, osteoarthritis, temporal lobe epilepsy, neurogenic syncope, multiple sclerosis, sleep apnea, bunions, orthostatic hypotension, headaches, trigeminal neuralgia, bipolar depression, seizures. PAST SURGICAL HISTORY: Lithotripsy; carpal tunnel release bilaterally; eye surgery, unspecified type; left hemicolectomy with transverse colostomy; bowel resection; anterior diskectomy and cervical fusion; hysterectomy; left total knee arthroplasty; hernia repair. MEDICATIONS: Please see home medication list. ALLERGIES: DILANTIN, PHENOBARBITAL, DEMEROL, IODINE, ARICEPT, FOSAMAX, MAXALT, CYMBALTA, SEROQUEL, TEGRETOL, CLAVULANIC ACID, KETAMINE. FAMILY HISTORY: Positive for diabetes, heart disease, cancer. SOCIAL HISTORY: The patient lives alone. No tobacco, alcohol, or recreational drug use. Right hand dominant. REVIEW OF SYSTEMS: Fourteen systems are reviewed with the patient today. Positive for the chronic left shoulder pain since surgery. Positive for recent cold, rhinorrhea, sore throat, laryngitis with recent hoarse of voice. Positive for fevers and chills. Negative for chest pain, shortness of breath, nausea, vomiting, headache, dizziness. Otherwise, review of systems is negative or not relevant. PHYSICAL EXAM: Vitals: Temperature 98.2, pulse of 86, blood pressure 95/58. General: The patient is a thin female, in no apparent distress. Alert and oriented x3. Pleasant mood and appropriate affect. HEENT: Atraumatic, normo- cephalic. Chest: Unlabored breathing. Left upper extremity: The patient has an intact incision anteriorly without any erythema or drainage. Mild effusion at the shoulder. Minimal tenderness to palpation around the shoulder. The shoulder is warm, but not increased warmth compared to the rest of her skin. Distally, she shows thumbs-up sign, A-OK, cross finger. She can flex and extend the wrist. Full sensation to light touch in all nerve distributions including over the deltoid. 2+ palpable radial pulse. DIAGNOSTIC STUDIES/LAB DATA: Radiographs: Chest x-ray is negative for any acute abnormality. White blood cells 11.1, hematocrit 36, neutrophils 85, ESR 48. CRP 4.5. INR 1.04. Sodium 136, potassium 4.6, chloride 101, BUN and creatinine 19 and 1.15, lactic acid 0.6. ASSESSMENT AND PLAN: Ms. Solorio is a 76-year-old female now 5 weeks status post left reverse total shoulder arthroplasty with biceps tenodesis with Dr. Raza. The patient has had no indication of increased pain or trouble with her incision. She does have fever of unknown origin at this point, although she has recent cough, cold, and laryngitis. The patient's ESR and CRP are minimally elevated. At this point, I would not recommend aspiration of the left shoulder joint. I feel the risk outweighs the benefit at this point. Of course, we will be following the patient closely. I will order new x-rays of the left shoulder. She has a CTA ordered and we will follow along. I have contacted Dr. Raza. Dr. Raza or I will recheck the patient tomorrow. If she continues to have increasing fever, leukocytosis, or shoulder pain, of course, we will proceed with aspirating the left shoulder. Until then, thank you for this orthopedic consultation. She should be nonweightbearing and no lifting, left upper extremity in a sling. [id number]/[facility] #: [id number] [facility]
[2016-11-11] MEDS: Heparin VIAL(*) 5000 UNITS/ML VIAL (FIVE THOUSAND) SUBCUT SCH (22:19)
--- NOTE | 2016-11-11 22:21 | HP ---
HOSPITAL MEDICINE HISTORY AND PHYSICAL: DATE OF ADMISSION: 11/11/16 PRIMARY CARE PHYSICIAN: Dr. Swartz. ATTENDING PHYSICIAN: Dr. Thu Helm* (dictation provided by Sarah Brandt NP) . CHIEF COMPLAINT: Fever and weakness HISTORY OF PRESENT ILLNESS: Ms. Lockett is a 76-year-old female with a past medical history of hypertension, fibromyalgia, CKD stage 3, orthostatic hypotension with neurogenic syncope and temporal lobe epilepsy who presents to the hospital today with concern for weakness and fever. Ms. Solorio states that for approximately a month, she has been having laryngitis intermittently. She denies any fevers, any chills, any cough that was new. She states that she this morning had a sudden onset of rolling on the couch, feeling shaky and weak. She took her temperature and noted to be 102. She denies any chest pain or any shortness of breath. She did have a headache, but she states she has chronic headaches and it was not unusual for her to have that. The patient was so weak that she came to emergency room for evaluation via [place]. On arrival, Ms. Solorio had temperature of 103.9. She had essentially no leukocytosis with a white blood cell count of 11.1, ESR is 48, CRP is 4.77. Flu swab is negative. Chest x-ray is normal. The patient states that she has some mild pain in her shoulder, but it is not unusual and no worse than usual. PAST MEDICAL HISTORY: 1. Hypertension. 2. Hyperlipidemia. 3. Fibromyalgia. 4. Stage 3 kidney disease. 5. Diverticulitis. 6. GERD. 7. Hypothyroidism. 8. Arthritis. 9. Temporal lobe epilepsy. 10. Neurogenic syncope. 11. Multiple sclerosis. 12. Obstructive sleep apnea. 13. Bunions. 14. Orthostatic hypotension. 15. Headache. 16. Trigeminal neuralgia. 17. Bipolar depression. 18. Seizures. PAST SURGICAL HISTORY: 1. History of lithotripsy. 2. Carpal tunnel release bilaterally. 3. Eye surgery. 4. Left hemicolectomy with transverse colostomy. 5. Bowel resection. 6. Anterior diskectomy. 7. Intervertebral body fusion, C6-C7. 8. Hysterectomy. 9. Total left knee replacement. 10. Hernia repair with mesh. 11. Left shoulder reverse, September [address] Raza. MEDICATIONS: 1. Simbrinza 1 drop right eye t.i.d. 2. TheraTears 1 drop both eyes q.4 hours p.r.n. 3. Cetirizine 10 mg p.o. daily p.r.n. 4. Coenzyme Q10 200 mg p.o. daily. 5. Cyclosporine 0.05% 1 drop both eyes b.i.d. 6. Clarinex 5 mg p.o. daily. 7. Dexlansoprazole 30 mg p.o. daily. 8. Epinephrine 0.3 mg IM daily p.r.n. 9. Lexapro 20 mg p.o. daily. 10. Flonase 1 spray both nares b.i.d. 11. Lactic acid 12% topically b.i.d. 12. Lotemax 1 drop, left eye t.i.d. 13. Melatonin 5 mg p.o. at bedtime p.r.n. 14. Lutein Vision Blend 1 cap p.o. daily. 15. Multivitamin with mineral 1 tab p.o. daily. 16. Nevanac 1 drop right eye b.i.d. p.r.n. 17. Probiotic product 1 cap p.o. daily. 18. Ranitidine 150 mg p.o. at bedtime. 19. Telmisartan 20 mg p.o. daily. 20. Tylenol 650 mg p.o. q.4 hours p.r.n. 21. Ascorbic acid 1000 mg p.o. daily. 22. Aspirin 81 mg p.o. daily. 23. Cholecalciferol 1000 units p.o. daily. 24. Docusate 100 mg p.o. b.i.d. 25. Florinef 0.1 mg p.o. b.i.d. p.r.n. 26. Gabapentin 300 mg p.o. t.i.d. 27. Lorazepam 1 mg p.o. 4 times a day p.r.n. 28. Levothyroxine 25 mcg p.o. daily. 29. Methylphenidate 72 mg p.o. daily. 30. MiraLAX 17 g every other day. 31. Temazepam 15 mg p.o. at bedtime. 32. Hydroxyzine 25 mg p.o. 4 times a day p.r.n. 33. Oxycodone 30 mg p.o. q.12 hours. 34. Oxycodone SR 30 mg p.o. q.12 hours. 35. Oxycodone regular 15 mg p.o. q.4 hours p.r.n. ALLERGIES: ALENDRONATE, C.I. PIGMENT BLUE 63, DULOXETINE, IODINE, MEPERIDINE, PHENOBARBITAL, QUETIAPINE, AMOXICILLIN, DONEPEZIL. FAMILY HISTORY: She reports her mother at 82 with history of diabetes and Parkinson's. Dad at 65 with bladder and kidney cancer. SOCIAL HISTORY: No reported alcohol, tobacco, or drug use. The patient reports that her daughter, Anneliese, will be the healthcare proxy. REVIEW OF SYSTEMS: Constitutional: Positive for fevers with temp of 103.9 in the emergency room. No anorexia. Cardiac: No chest pain, no edema. Respiratory: Positive for cough, which is chronic and mild. No hemoptysis. No shortness of breath. GI: No nausea, vomiting, diarrhea or abdominal pain. : No gross hematuria or dysuria. Neuro: No focal weakness or sensory loss. Eyes: No vision complaints. ENT: No dysphagia. Musculoskeletal: No arthralgias or myalgias. Skin: No rashes or lesions. Psych: No depression or anxiety. PHYSICAL EXAMINATION GENERAL: Ms. Lockett is lying in the bed. She is in no acute distress. She is calm and cooperative with my examination. VITAL SIGNS: Temperature 98.2, heart rate 86, respiratory rate 19, O2 saturation 99% on room air, blood pressure 103/52. LUNGS: Clear to auscultation bilaterally with accessory muscle use and good aeration. HEART: S1, S2. No murmur, rub or gallop or regular. ABDOMEN: Soft, nontender with bowel sounds positive x4. EXTREMITIES: No cyanosis or edema. Shoulder on the right has no warmth, no redness. Reasonable range of motion given recent history of surgery 1 month ago. NEUROLOGIC: She is alert and oriented x3. She moves all extremities equally. There is no facial asymmetry or focal weakness. Extraocular movements were intact. DIAGNOSTIC STUDIES/LABORATORY DATA: WBC 11.1, hemoglobin 11.5, hematocrit 36, platelet count 164, ESR 48, INR 1.04. Sodium 136, potassium 4.4, chloride 101, serum bicarbonate 30, BUN 19, creatinine 1.15, glucose 115, lactic acid 1.1, CRP 4.77. Urinary shows no evidence of infection. Serology shows flu swab negative. Chest x-ray shows no active cardiopulmonary disease. Shoulder x-rays shows status post left shoulder arthroplasty. ASSESSMENT AND PLAN: Ms. Lockett is a 76-year-old female with a past medical history including temporal lobe epilepsy, multiple sclerosis, hypertension, chronic kidney disease stage 3 who presents to the hospital with concern for sudden onset of fever and weakness. Our plans are for inpatient admission as I expect the length of stay to be greater than 2 days for the followin. Fever. I have no clear evidence of infection for Ms. Solorio. Her white blood cell count is actually normal as is her CRP. I appreciate the consultation from Dr. Mae who assessed her today and has very low suspicion for infection at the right shoulder. The patient's arm and shoulder exam are benign. X-ray has been obtained. Further management of any possible infection will have to be under the direction of orthopedic services. The patient was given antibiotics in the emergency room, but I do not plan to continue them as I do not have a clear source. The patient's urinalysis is negative. Her chest x -ray is negative. She has no evidence of skin infection. Blood cultures have been sent. Lactic acid is normal. 2. History of hypertension with orthostatic hypotension. Plan to continue her home medication per routine. The patient does take her Florinef p.r.n. 3. Hypothyroidism. Continue levothyroxine. 4. Chronic pain. Continue home oxycodone regimen. 5. DVT prophylaxis with heparin subcu. 6. Disposition to medical floor. TIME SPENT: Approximately 60 minutes were spent in the admission of this patient; more than half time spent with the patient at the bedside reviewing the events leading up to this hospitalization, performing the physical examination, and reviewing the plan of care. SARAH BRANDT NP CC: Dr. Swartz* [id number]/[facility] #: [id number] [place]
[2016-11-12] MEDS ORDERED: Vancomycin(*) 1,000 MG in NS 0.9% 250 ML* 250 ML IVPB SCH (05:00)
[2016-11-12 05:16] LABS: BUN/Creatinine Ratio 16.8 (8-20); Calcium 8.6 mg/dL (8.6-10.3); EGFR African American 68.7 (>60); EGFR Non-African American 53.4 (>60); Potassium 3.7 mmol/L (3.5-5.0)
[2016-11-12 05:21] LABS: Hematocrit 31 % (35-47); Hemoglobin 10.1 g/dl (12.0-16.0); Mean Corpuscular HGB Conc 33 g/dl (31-36); Mean Corpuscular Hemoglobin 28 pg (27-31); Mean Corpuscular Volume 86 fL (80-97); Mean Platelet Volume 9 um3 (7.4-10.4); Red Blood Count 3.59 10^6/ul (4.0-5.4); Red Cell Distribution Width 14 % (10.5-15); White Blood Count 6.7 10^3/ul (3.5-10.8)
[2016-11-12] MEDS: Levothyroxine TAB* 25 MCG TAB PO SCH (05:30)
[2016-11-12] MEDS: Heparin VIAL(*) 5000 UNITS/ML VIAL (FIVE THOUSAND) SUBCUT SCH ×3 (05:31→21:13)
[2016-11-12] MEDS: oxyCODONE TAB* 5 MG TAB PO PRN ×5 (05:36→23:54)
[2016-11-12] MEDS: NS 0.9% 1000 ML* 1,000 ML IV SCH ×2 (06:52→17:17)
--- NOTE | 2016-11-12 07:32 | ED ---
Javier Tidwell Salem, scribed for Sampson Prieto MD on 11/11/16 at 1259 . HPI Febrile Illness - HPI Summary HPI Summary: Patient is a 76 y/o female who presents to the ED with a low grade fever and coughing for 2 weeks. She had shoulder surgery on 11/03/16 for arthritis, and she reports her shoulder pain was at 9/10 before the surgery and has been 8/10 since. She states she could not get up from her sofa this morning and reports shaking. She also reports vomiting, but denies SOB, diarrhea, nausea, constipation, headache, back pain, or abd pain. Pt is confused upon examination. - History of Current Complaint Chief Complaint: EDFever Time Seen by Provider: 11/11/16 11:27 Hx Obtained From: Patient Onset/Duration: Started Weeks Ago Timing: Constant Initial Severity: Moderate Current Severity: Moderate Pain Intensity: 10 Pain Scale Used: 0-10 Numeric Aggravating Factors: Nothing Alleviating Factors: Nothing Associated Signs and Symptoms: Vomiting, Other: - Shaking. - Additional Pertinent History Primary Care Physician: [id number] - Allergy/Home Medications Allergies/Adverse Reactions: Allergies Allergy/AdvReac Type Severity Reaction Status Date / Time Alendronate [From Fosamax] Allergy Unknown SOB AND Verified 10/06/16 06:29 DIZZINESS CI Pigment Blue 63 Allergy Unknown SHAKEY AND Verified 10/06/16 06:29 [From Cymbalta] UNSTEADY Duloxetine [From Cymbalta] Allergy Unknown SHAKEY AND Verified 10/06/16 06:29 UNSTEADY Iodine Allergy Unknown CHEST PAIN Verified 10/06/16 06:29 Meperidine [From Demerol HCl] Allergy Unknown Difficulty Verified 10/06/16 06:29 Swallowing Phenobarbital Allergy Unknown DIFFICULTY Verified 10/06/16 06:29 SWALLING, CP Quetiapine [From Seroquel] Allergy Unknown UNEASINESS, Verified 10/06/16 06:29 SHAKEY AND UNSTEADY Amoxicillin Allergy Abdominal Verified 10/06/16 06:29 Pain Donepezil [From Aricept] Allergy DIDN'T Verified 10/06/16 06:29 WORK AND FELT "FUNNY" Home Medications: Home Medications Cetirizine* [ZyrTEC 10 MG TAB*] 10 mg PO DAILY PRN 11/11/16 [History Confirmed 11/11/16] Cholecalciferol [Vitamin D] 1,000 unit PO DAILY 11/11/16 [History Confirmed ] Desloratidine (NF) [Clarinex (NF)] 5 mg PO DAILY 11/11/16 [History Confirmed ] Docusate CAP* [Colace Cap*] 100 mg PO BID PRN 11/11/16 [History Confirmed ] Escitalopram (NF) [Lexapro (NF)] 20 mg PO DAILY 11/11/16 [History Confirmed ] Lactic Acid (Ammonium Lactate) [Ammonium Lactate] 12 % TOPICAL BID 11/11/16 [ History Confirmed 11/11/16] Melatonin 5 mg PO BEDTIME PRN 11/11/16 [History Confirmed 11/11/16] Methylphenidate HCl [Methylphenidate HCl ER] 72 mg PO DAILY MDD 72 mg 11/11/16 [ History Confirmed 11/11/16] Polyethylene Glycol 3350* [Miralax*] 17 gm PO EVERY OTHER DAY 11/11/16 [History Confirmed 11/11/16] Probiotic Product [Probiotic Daily] 1 cap PO DAILY 11/11/16 [History Confirmed 11/11/16] PMH/Surg Hx/FS Hx/Imm Hx Endocrine/Hematology History: Reports: Hx Thyroid Disease - on meds Denies: Hx Diabetes Cardiovascular History: Reports: Hx Deep Vein Thrombosis, Hx Hypotension, Hx Hypertension, Hx Syncope, Other Cardiovascular Problems/Disorders - Orthostatic hypotension Denies: Hx Pacemaker/ICD Respiratory History: Reports: Hx Asthma, Hx Sleep Apnea - CPAP start 06/2013 GI History: Reports: Hx Diverticulosis, Hx Gastroesophageal Reflux Disease - esophageal reflux, Hx Hiatal Hernia Comment Only: Other GI Disorders - COLOSTOMY WITH REVERSAL History: Reports: Hx Kidney Infection, Hx Kidney Stones, Hx Renal Disease - 50% INSUFF, Other Problems/Disorders - multiple issues, stents, lithotripsy, obstructed ureters Musculoskeletal History: Reports: Hx Arthritis - Osteoarthritis, Hx Fibromyalgia , Hx Orthopedic Injury - hx of FX from falls, Hx Osteoporosis, Other Musculoskeletal History - MS Sensory History: Reports: Hx Cataracts - In left eye, Hx Contacts or Glasses, Hx Glaucoma, 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, Hx Vision Problem - rt eye blindness, Hx Hearing Aid, Hx Hearing Problem Opthamlomology History: Reports: Hx Cataracts - In left eye, Hx Contacts or Glasses, Hx Glaucoma, 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, Hx Vision Problem - rt eye blindness Neurological History: Reports: Hx Headaches, Hx Seizures, Other Neuro Impairments/Disorders - Complex partial seizures, narcolepsy, multiple sclerosis Comment Only: Hx Nerve Disease - fibromyalgia Psychiatric History: Reports: Hx Anxiety - in the past, Hx Depression - in the past, Hx Panic Disorder - SOMETIMES, Hx Bipolar Disorder - Surgical History Surgery Procedure, Year, and Place: 1984 - HYSTERECTOMY 1997 - Lt KNEE [id number] - ANTERIOR CERVICAL DISCETECOMY -C6-7 2003- LT HEMICOLECTOMY W /COLOSTOMY &1990 - CARPAL TUNNEL -Rt REVERSAL - [id number] - CARPAL TUNNEL -Lt 2005- ABD HERNIA-1996 - LT KIDNEY LITHROTRIPSY 1997 & 2012;SEVERAL EYE SURGERY FOR DETACHED RETINA - VITRECTOMIES AND A SILICONE SCLERAL BUCKLE(PREV CLEARED)-2013 KIDNEY STONES REMOVED Hx Anesthesia Reactions: No Infectious Disease History: No Infectious Disease History: Reports: History Other Infectious Disease - oral herpes Denies: Hx Shingles, Hx Tuberculosis, Traveled Outside the [place] in Last 30 Days - Family History Known Family History: Negative: Cardiac Disease, Diabetes - Social History Alcohol Use: None Hx Substance Use: No Substance Use Type: Reports: None Hx Tobacco Use: No Smoking Status (MU): Never Smoked Tobacco Review of Systems Positive: Fever. Negative: Chills Negative: Erythema Negative: Sore Throat Negative: Chest Pain Positive: Cough. Negative: Shortness Of Breath Positive: Vomiting. Negative: Abdominal Pain, Diarrhea, Nausea Genitourinary: Other - No constipation. Negative: dysuria, hematuria Musculoskeletal: Other - No back pain. Positive: Other - Shaking. . Negative: Myalgia, Edema Negative: Rash Neurological: Other - Confusion. No dizziness. Negative: Headache All Other Systems Reviewed And Are Negative: Yes Physical Exam - Summary Physical Exam Summary: Constitutional: Well-developed, Well-nourished, Alert. (-) Distressed Skin: Warm, Dry HENT: Normocephalic; Atraumatic Eyes: Conjunctiva normal Neck: Musculoskeletal ROM normal neck. (-) JVD, (-) Stridor, (-) Tracheal deviation Cardio: Rhythm regular, rate normal, Heart sounds normal; Intact distal pulses; The pedal pulses are 2+ and symmetric. Radial pulses are 2+ and symmetric. (-) Murmur Pulmonary/Chest wall: Effort normal. (-) Respiratory distress. Mild crackles left lower lung aguilera. Abd: Soft, (-) Distension, (-) Guarding, (-) Rebound, Suprapubic tenderness. Musculoskeletal: (-) Edema Lymph: (-) Cervical adenopathy Neuro: Alert, Oriented x3 Psych: Mood and affect Normal Triage Information Reviewed: Yes Vital Signs On Initial Exam: Initial Vitals Temp Pulse Resp BP Pulse Ox 103.9 F 90 20 118/64 95 11/11/16 11:23 11/11/16 11:23 11/11/16 11:23 11/11/16 11:23 11/11/16 11:23 Vital Signs Reviewed: Yes - Parks Coma Scale Coma Scale Total: 15 Diagnostics - Vital Signs Vital Signs Temp Pulse Resp BP Pulse Ox 11/11/16 12:00 86 23 91 11/11/16 11:32 103.9 F 63 18 118/63 97 11/11/16 11:30 118/64 11/11/16 11:27 97 11/11/16 11:26 89 18 90 11/11/16 11:24 120/65 11/11/16 11:23 103.9 F 90 20 118/64 95 - Laboratory Lab Results: Lab Results 11/11/16 11/11/16 11/11/16 Range/Units 11:38 11:38 11:38 WBC 11.1 H (3.5-10.8) 10^3/ul RBC 4.15 (4.0-5.4) 10^6/ul Hgb 11.5 L (12.0-16.0) g/dl Hct 36 (35-47) % MCV 86 (80-97) fL MCH 28 (27-31) pg MCHC 32 (31-36) g/dl RDW 14 (10.5-15) % Plt Count 164 (150-450) 10^3/ul MPV 8 (7.4-10.4) um3 Neut % (Auto) 85.0 H (38-83) % Lymph % (Auto) 6.9 L (25-47) % [place] % (Auto) 4.5 (1-9) % Eos % (Auto) 2.1 (0-6) % Baso % (Auto) 1.5 (0-2) % Absolute Neuts (auto) 9.5 H (1.5-7.7) 10^3/ul Absolute Lymphs (auto) 0.8 L (1.0-4.8) 10^3/ul Absolute Monos (auto) 0.5 (0-0.8) 10^3/ul Absolute Eos (auto) 0.2 (0-0.6) 10^3/ul Absolute Basos (auto) 0.2 (0-0.2) 10^3/ul Absolute Nucleated RBC 0 10^3/ul Nucleated RBC % 0 ESR Pending INR (Anticoag Therapy) 1.04 (0.89-1.11) APTT 31.5 (26.0-36.3) seconds Sodium 136 (133-145) mmol/L Potassium 4.4 (3.5-5.0) mmol/L Chloride 101 (101-111) mmol/L Carbon Dioxide 30 (22-32) mmol/L Anion Gap 5 (2-11) mmol/L BUN 19 (6-24) mg/dL Creatinine 1.15 H (0.51-0.95) mg/dL Est GFR ( Amer) 59.2 (>60) Est GFR (Non-Af Amer) 46.0 (>60) BUN/Creatinine Ratio 16.5 (8-20) Glucose 115 H (70-100) mg/dL Lactic Acid (0.5-2.0) mmol/L Calcium 9.5 (8.6-10.3) mg/dL Total Bilirubin 0.50 (0.2-1.0) mg/dL AST 14 (13-39) U/L ALT 9 (7-52) U/L Alkaline Phosphatase 82 (34-104) U/L Troponin I 0.00 (<0.04) ng/mL C-Reactive Protein 4.77 (< 5.00) mg/L Total Protein 6.7 (6.4-8.9) g/dL Albumin 3.8 (3.2-5.2) g/dL Globulin 2.9 (2-4) g/dL Albumin/Globulin Ratio 1.3 (1-3) Influenza A (Rapid) (Negative) Influenza B (Rapid) (Negative) 11/11/16 11/11/16 Range/Units 11:38 12:37 WBC (3.5-10.8) 10^3/ul RBC (4.0-5.4) 10^6/ul Hgb (12.0-16.0) g/dl Hct (35-47) % MCV (80-97) fL MCH (27-31) pg MCHC (31-36) g/dl RDW (10.5-15) % Plt Count (150-450) 10^3/ul MPV (7.4-10.4) um3 Neut % (Auto) (38-83) % Lymph % (Auto) (25-47) % [place] % (Auto) (1-9) % Eos % (Auto) (0-6) % Baso % (Auto) (0-2) % Absolute Neuts (auto) (1.5-7.7) 10^3/ul Absolute Lymphs (auto) (1.0-4.8) 10^3/ul Absolute Monos (auto) (0-0.8) 10^3/ul Absolute Eos (auto) (0-0.6) 10^3/ul Absolute Basos (auto) (0-0.2) 10^3/ul Absolute Nucleated RBC 10^3/ul Nucleated RBC % ESR INR (Anticoag Therapy) (0.89-1.11) APTT (26.0-36.3) seconds Sodium (133-145) mmol/L Potassium (3.5-5.0) mmol/L Chloride (101-111) mmol/L Carbon Dioxide (22-32) mmol/L Anion Gap (2-11) mmol/L BUN (6-24) mg/dL Creatinine (0.51-0.95) mg/dL Est GFR ( Amer) (>60) Est GFR (Non-Af Amer) (>60) BUN/Creatinine Ratio (8-20) Glucose (70-100) mg/dL Lactic Acid 1.1 (0.5-2.0) mmol/L Calcium (8.6-10.3) mg/dL Total Bilirubin (0.2-1.0) mg/dL AST (13-39) U/L ALT (7-52) U/L Alkaline Phosphatase (34-104) U/L Troponin I (<0.04) ng/mL C-Reactive Protein (< 5.00) mg/L Total Protein (6.4-8.9) g/dL Albumin (3.2-5.2) g/dL Globulin (2-4) g/dL Albumin/Globulin Ratio (1-3) Influenza A (Rapid) Negative (Negative) Influenza B (Rapid) Negative (Negative) Result Diagrams: 11/11/16 11:38 11/11/16 11:38 Lab Statement: Any lab studies that have been ordered have been reviewed, and results considered in the medical decision making process. - Radiology CXR Radiology Interpretation Completed By: Radiologist - IMPRESSION: NO ACTIVE CARDIOPULMONARY DISEASE. HIATAL HERNIA Course/Dx - Course Course Of Treatment: Pt c/o a fever. She received IV fluids, Cefepime, and Acetaminophen in the ED. CXR was negative, except for a hiatal hernia. Fever could be related to cough or viral illness. Given very poor ROM of shoulder and chronic shoulder pain cannot r/o shoulder joint. Antibiotics given. Oxygen needs developed while in hospital. At 86% oxygen saturation on RA. Applied oxygen 2L. Disucsesd with hospitalist. They will continue work up for hypoxemia. - Diagnoses Provider Diagnoses: Fever of unknown origin, Cough, Shoulder pain - Provider Notifications Discussed Care Of Patient With: Dr. Mae (Orthopedic Surgeon) @ [phone]. Will evaluate the pt for a possible shoulder joint infection to account for fever. Dr. Cuba (hospitalist) @ [phone]. Will admit. Discharge - Discharge Plan Condition: Stable Disposition: ADMITTED TO [facility] Referrals: Antony Swartz MD [Primary Care Provider] - The documentation as recorded by the Javier mccormack Salem accurately reflects the service I personally performed and the decisions made by Conner moses Jerry, MD.
--- NOTE | 2016-11-12 07:35 | PN ---
Progress Note - Progress Note Note: Pt admitted yesterday for high unexplained fevers. Feeling well today. Pain is no different in her shoulder. Sling in place. Pt otherwise pleasant and comfortable. Vital Signs 11/11/16 11/11/16 11/11/16 11:23 11:24 11:26 Temperature 103.9 F Pulse Rate 90 89 Respiratory 20 18 Rate Blood Pressure 118/64 120/65 (mmHg) O2 Sat by Pulse 95 90 Oximetry 11/11/16 11/11/16 11/11/16 11:27 11:30 11:32 Temperature 103.9 F Pulse Rate 63 Respiratory 18 Rate Blood Pressure 118/64 118/63 (mmHg) O2 Sat by Pulse 97 97 Oximetry 11/11/16 11/11/16 11/11/16 12:00 12:30 13:00 Temperature Pulse Rate 86 86 91 Respiratory 23 21 20 Rate Blood Pressure (mmHg) O2 Sat by Pulse 91 90 91 Oximetry 11/11/16 11/11/16 11/11/16 13:20 13:30 14:00 Temperature Pulse Rate 95 96 Respiratory 19 17 18 Rate Blood Pressure 127/70 (mmHg) O2 Sat by Pulse 92 91 Oximetry 11/11/16 11/11/16 11/11/16 14:07 14:30 15:00 Temperature 99.6 F Pulse Rate 89 83 Respiratory 16 16 Rate Blood Pressure 117/67 100/50 (mmHg) O2 Sat by Pulse 93 90 Oximetry 11/11/16 11/11/16 11/11/16 15:30 16:00 16:01 Temperature Pulse Rate 87 82 84 Respiratory 19 17 16 Rate Blood Pressure 95/58 108/47 (mmHg) O2 Sat by Pulse 89 95 96 Oximetry 11/11/16 11/11/16 11/11/16 16:28 16:30 16:55 Temperature 98.2 F Pulse Rate 81 78 Respiratory 14 Rate Blood Pressure 103/52 (mmHg) O2 Sat by Pulse 93 90 Oximetry 11/11/16 11/11/16 11/11/16 16:56 17:00 17:21 Temperature 99.3 F Pulse Rate 81 Respiratory 11 Rate Blood Pressure 104/85 99/56 (mmHg) O2 Sat by Pulse 90 Oximetry 11/11/16 11/11/16 11/11/16 17:27 19:47 19:53 Temperature 98.2 F 98.5 F Pulse Rate 73 Respiratory 19 18 Rate Blood Pressure 103/52 111/46 (mmHg) O2 Sat by Pulse 100 Oximetry 11/11/16 11/11/16 11/11/16 19:54 19:55 20:00 Temperature Pulse Rate Respiratory 18 18 18 Rate Blood Pressure (mmHg) O2 Sat by Pulse 94 Oximetry 11/11/16 11/11/16 11/11/16 21:53 21:54 21:55 Temperature Pulse Rate Respiratory 18 16 18 Rate Blood Pressure (mmHg) O2 Sat by Pulse Oximetry 11/11/16 11/11/16 11/12/16 23:23 23:55 00:00 Temperature 98.4 F Pulse Rate 71 Respiratory 20 18 Rate Blood Pressure 112/60 (mmHg) O2 Sat by Pulse 94 94 Oximetry 11/12/16 11/12/16 11/12/16 00:06 03:26 05:36 Temperature 98.5 F Pulse Rate 69 Respiratory 20 16 Rate Blood Pressure 124/59 (mmHg) O2 Sat by Pulse 94 96 Oximetry NAD. currently afebrile. AAOx3. sling in place. incision c/d/i. healing well. mildly tender along it. Able to passively abduct to 80 with no pain. passive FF to 75 with no pain. ER to 45 with no pain deep in shoulder. No erythema or warmth along shoulder. SILT grossly distally. 2+ radial pulse. tender at elbow where sling pushes against skin. swelling in arm improved from previous visit. Laboratory Results - last 24 hr 11/11/16 11/11/16 11/11/16 11:38 11:38 11:38 WBC 11.1 H RBC 4.15 Hgb 11.5 L Hct 36 MCV 86 MCH 28 MCHC 32 RDW 14 Plt Count 164 MPV 8 Neut % (Auto) 85.0 H Lymph % (Auto) 6.9 L [place] % (Auto) 4.5 Eos % (Auto) 2.1 Baso % (Auto) 1.5 Absolute Neuts (auto) 9.5 H Absolute Lymphs (auto) 0.8 L Absolute Monos (auto) 0.5 Absolute Eos (auto) 0.2 Absolute Basos (auto) 0.2 Absolute Nucleated RBC 0 Nucleated RBC % 0 ESR 48 H INR (Anticoag Therapy) 1.04 APTT 31.5 Sodium 136 Potassium 4.4 Chloride 101 Carbon Dioxide 30 Anion Gap 5 BUN 19 Creatinine 1.15 H Est GFR ( Amer) 59.2 Est GFR (Non-Af Amer) 46.0 BUN/Creatinine Ratio 16.5 Glucose 115 H Lactic Acid Calcium 9.5 Total Bilirubin 0.50 AST 14 ALT 9 Alkaline Phosphatase 82 Troponin I 0.00 C-Reactive Protein 4.77 Total Protein 6.7 Albumin 3.8 Globulin 2.9 Albumin/Globulin Ratio 1.3 Urine Color Urine Appearance Urine pH Ur Specific [place] Urine Protein Urine Ketones Urine Blood Urine Nitrate Urine Bilirubin Urine Urobilinogen Ur Leukocyte Esterase Urine Glucose Influenza A (Rapid) Influenza B (Rapid) 11/11/16 11/11/16 11/11/16 11:38 12:37 13:50 WBC RBC Hgb Hct MCV MCH MCHC RDW Plt Count MPV Neut % (Auto) Lymph % (Auto) [place] % (Auto) Eos % (Auto) Baso % (Auto) Absolute Neuts (auto) Absolute Lymphs (auto) Absolute Monos (auto) Absolute Eos (auto) Absolute Basos (auto) Absolute Nucleated RBC Nucleated RBC % ESR INR (Anticoag Therapy) APTT Sodium Potassium Chloride Carbon Dioxide Anion Gap BUN Creatinine Est GFR ( Amer) Est GFR (Non-Af Amer) BUN/Creatinine Ratio Glucose Lactic Acid 1.1 Calcium Total Bilirubin AST ALT Alkaline Phosphatase Troponin I C-Reactive Protein Total Protein Albumin Globulin Albumin/Globulin Ratio Urine Color Yellow Urine Appearance Clear Urine pH 6.0 Ur Specific [place] 1.016 Urine Protein Negative Urine Ketones Negative Urine Blood Negative Urine Nitrate Negative Urine Bilirubin Negative Urine Urobilinogen Negative Ur Leukocyte Esterase Negative Urine Glucose Negative Influenza A (Rapid) Negative Influenza B (Rapid) Negative 11/11/16 11/12/16 11/12/16 15:07 04:18 04:18 WBC 6.7 RBC 3.59 L Hgb 10.1 L Hct 31 L MCV 86 MCH 28 MCHC 33 RDW 14 Plt Count 134 L MPV 9 Neut % (Auto) 68.4 Lymph % (Auto) 18.7 L [place] % (Auto) 6.3 Eos % (Auto) 6.1 H Baso % (Auto) 0.5 Absolute Neuts (auto) 4.6 Absolute Lymphs (auto) 1.3 Absolute Monos (auto) 0.4 Absolute Eos (auto) 0.4 Absolute Basos (auto) 0 Absolute Nucleated RBC 0 Nucleated RBC % 0 ESR INR (Anticoag Therapy) APTT Sodium 140 Potassium 3.7 Chloride 110 Carbon Dioxide 26 Anion Gap 4 BUN 17 Creatinine 1.01 H Est GFR ( Amer) 68.7 Est GFR (Non-Af Amer) 53.4 BUN/Creatinine Ratio 16.8 Glucose 95 Lactic Acid 0.6 Calcium 8.6 Total Bilirubin AST ALT Alkaline Phosphatase Troponin I C-Reactive Protein Total Protein Albumin Globulin Albumin/Globulin Ratio Urine Color Urine Appearance Urine pH Ur Specific [place] Urine Protein Urine Ketones Urine Blood Urine Nitrate Urine Bilirubin Urine Urobilinogen Ur Leukocyte Esterase Urine Glucose Influenza A (Rapid) Influenza B (Rapid) A/P 76 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 Would continue sling and passive ROM of shoulder (FF, ABD) WIll see her back in clinic as scheduled. If worsening status, please call and will consider aspiration but not indicated at this point. Will sign off for now. please call with questions.
[2016-11-12] MEDS: oxyCODONE SR TAB(*) 10 MG TAB.SR PO SCH ×2 (08:38→21:12)
[2016-11-12] MEDS: Gabapentin CAP(*) 300 MG PO SCH ×3 (08:40→21:11)
[2016-11-12] MEDS: Ascorbic Acid TAB* 500 MG PO SCH (08:41)
[2016-11-12] MEDS: Cholecalciferol TAB* 1000 UNITS PO SCH (08:42)
[2016-11-12] MEDS: Methylphenidate ER TAB* 18 MG PO SCH (08:49)
[2016-11-12] MEDS ORDERED: Polyethylene Glycol 3350* 17 GM PACKET PO SCH (09:00)
[2016-11-12] MEDS ORDERED: Aspirin Low Dose CHEW TAB* 81 MG PO SCH ×2 (09:00→21:00)
[2016-11-12] MEDS ORDERED: Cholecalciferol TAB* 1000 UNITS PO SCH (09:00)
[2016-11-12] MEDS: LORazepam TAB(*) 1 MG PO PRN ×2 (13:53→19:22)
--- NOTE | 2016-11-12 15:47 | PN ---
Subjective Date of Service: 11/12/16 Interval History: Ms. Solorio states that she is feeling relatively well. She did have an episode of dizziness when rising to go to the bathroom today. She feels like maybe this was worse than her usual dizziness associated with her long standing history of orthostatic hypotension. She also reports discomfort in her left axilla. She denies other complaint including chest pain, SOB, nausea, or abdominal pain. Objective Active Medications: Acetaminophen (Tylenol Tab*) 650 mg PO Q6H PRN Ascorbic Acid (Vitamin C Tab*) 1,000 mg PO DAILY MOSES Aspirin (Aspirin Low Dose Tab*) 81 mg PO DAILY@2100 MOSES Cholecalciferol (Vitamin D Tab*) 2,000 units PO DAILY MOSES Docusate Sodium (Colace Cap*) 100 mg PO BID PRN Fludrocortisone Acetate (Florinef Tab*) 0.1 mg PO BID PRN Gabapentin (Neurontin Cap(*)) 300 mg PO TID [facility] Heparin Sodium (Porcine) (Heparin Vial(*)) 5,000 units SUBCUT Q8HR [facility] Hydroxyzine HCl (Atarax Tab*) 25 mg PO QID PRN Sodium Chloride (Ns 0.9% 1000 Ml*) 1,000 mls @ 100 mls/hr IV PER RATE [facility]ES Levothyroxine Sodium (Synthroid Tab*) 25 mcg PO 0600 [facility]ES Lorazepam (Ativan Tab(*)) 1 mg PO QID PRN Methylphenidate HCl (Concerta Er Tab*) 72 mg PO DAILY MOSES Oxycodone HCl (Oxycontin(*)) 30 mg PO Q12HR MOSES Oxycodone HCl (Roxycodone Tab*) 15 mg PO Q4H PRN Polyethylene Glycol/Electrolytes (Miralax*) 17 gm PO EVERY OTHER DAY MOSES Temazepam (Restoril Cap*) 15 mg PO BEDTIME PRN Vital Signs 11/11/16 11/11/16 11/11/16 16:00 16:01 16:28 Temperature 98.2 F Pulse Rate 82 84 Respiratory 17 16 Rate Blood Pressure 108/47 (mmHg) O2 Sat by Pulse 95 96 Oximetry 11/11/16 11/11/16 11/11/16 16:30 16:55 16:56 Temperature Pulse Rate 81 78 Respiratory 14 Rate Blood Pressure 103/52 104/85 (mmHg) O2 Sat by Pulse 93 90 Oximetry 11/11/16 11/11/16 11/11/16 17:00 17:21 17:27 Temperature 99.3 F 98.2 F Pulse Rate 81 Respiratory 11 Rate Blood Pressure 99/56 103/52 (mmHg) O2 Sat by Pulse 90 Oximetry 11/11/16 11/11/16 11/11/16 19:47 19:53 19:54 Temperature 98.5 F Pulse Rate 73 Respiratory 19 18 18 Rate Blood Pressure 111/46 (mmHg) O2 Sat by Pulse 100 Oximetry 11/11/16 11/11/16 11/11/16 19:55 20:00 21:53 Temperature Pulse Rate Respiratory 18 18 18 Rate Blood Pressure (mmHg) O2 Sat by Pulse 94 Oximetry 11/11/16 11/11/16 11/11/16 21:54 21:55 23:23 Temperature 98.4 F Pulse Rate 71 Respiratory 16 18 20 Rate Blood Pressure 112/60 (mmHg) O2 Sat by Pulse 94 Oximetry 11/11/16 11/12/16 11/12/16 23:55 00:00 00:06 Temperature Pulse Rate Respiratory 18 Rate Blood Pressure (mmHg) O2 Sat by Pulse 94 94 Oximetry 11/12/16 11/12/16 11/12/16 03:26 05:36 07:39 Temperature 98.5 F 98.0 F Pulse Rate 69 60 Respiratory 20 16 16 Rate Blood Pressure 124/59 123/56 (mmHg) O2 Sat by Pulse 96 91 Oximetry 11/12/16 11/12/16 11/12/16 08:00 08:38 08:40 Temperature Pulse Rate Respiratory 17 17 18 Rate Blood Pressure (mmHg) O2 Sat by Pulse Oximetry 11/12/16 11/12/16 11/12/16 09:50 10:40 11:19 Temperature 98.8 F Pulse Rate 88 Respiratory 18 18 16 Rate Blood Pressure 129/60 (mmHg) O2 Sat by Pulse 95 Oximetry 11/12/16 11/12/16 11/12/16 13:44 13:53 13:54 Temperature 98.4 F Pulse Rate 88 Respiratory 16 20 20 Rate Blood Pressure 141/83 (mmHg) O2 Sat by Pulse 100 Oximetry 11/12/16 11/12/16 13:55 15:35 Temperature Pulse Rate Respiratory 20 18 Rate Blood Pressure (mmHg) O2 Sat by Pulse Oximetry Oxygen Devices in Use Now: None Appearance: Female lying in bed in NAD Neck: NL Appearance and Movements; NL JVP Respiratory: Symmetrical Chest Expansion and Respiratory Effort, Clear to Auscultation Cardiovascular: NL Sounds; No Murmurs; No JVD, No Edema Abdominal: NL Sounds; No Tenderness; No Distention Extremities: No Edema Skin: No Rash or Ulcers Neurological: Alert and Oriented x 3, NL Muscle Strength and Tone Nutrition: Taking PO's Result Diagrams: 11/12/16 04:18 11/12/16 04:18 Additional Lab and Data: Lab Results 11/11/16 11/11/16 11/11/16 Range/Units 11:38 11:38 11:38 WBC 11.1 H (3.5-10.8) 10^3/ul RBC 4.15 (4.0-5.4) 10^6/ul Hgb 11.5 L (12.0-16.0) g/dl Hct 36 (35-47) % MCV 86 (80-97) fL MCH 28 (27-31) pg MCHC 32 (31-36) g/dl RDW 14 (10.5-15) % Plt Count 164 (150-450) 10^3/ul MPV 8 (7.4-10.4) um3 Neut % (Auto) 85.0 H (38-83) % Lymph % (Auto) 6.9 L (25-47) % [place] % (Auto) 4.5 (1-9) % Eos % (Auto) 2.1 (0-6) % Baso % (Auto) 1.5 (0-2) % Absolute Neuts (auto) 9.5 H (1.5-7.7) 10^3/ul Absolute Lymphs (auto) 0.8 L (1.0-4.8) 10^3/ul Absolute Monos (auto) 0.5 (0-0.8) 10^3/ul Absolute Eos (auto) 0.2 (0-0.6) 10^3/ul Absolute Basos (auto) 0.2 (0-0.2) 10^3/ul Absolute Nucleated RBC 0 10^3/ul Nucleated RBC % 0 ESR Pending INR (Anticoag Therapy) 1.04 (0.89-1.11) APTT 31.5 (26.0-36.3) seconds Sodium 136 (133-145) mmol/L Potassium 4.4 (3.5-5.0) mmol/L Chloride 101 (101-111) mmol/L Carbon Dioxide 30 (22-32) mmol/L Anion Gap 5 (2-11) mmol/L BUN 19 (6-24) mg/dL Creatinine 1.15 H (0.51-0.95) mg/dL Est GFR ( Amer) 59.2 (>60) Est GFR (Non-Af Amer) 46.0 (>60) BUN/Creatinine Ratio 16.5 (8-20) Glucose 115 H (70-100) mg/dL Lactic Acid (0.5-2.0) mmol/L Calcium 9.5 (8.6-10.3) mg/dL Total Bilirubin 0.50 (0.2-1.0) mg/dL AST 14 (13-39) U/L ALT 9 (7-52) U/L Alkaline Phosphatase 82 (34-104) U/L Troponin I 0.00 (<0.04) ng/mL C-Reactive Protein 4.77 (< 5.00) mg/L Total Protein 6.7 (6.4-8.9) g/dL Albumin 3.8 (3.2-5.2) g/dL Globulin 2.9 (2-4) g/dL Albumin/Globulin Ratio 1.3 (1-3) Influenza A (Rapid) (Negative) Influenza B (Rapid) (Negative) 11/11/16 11/11/16 Range/Units 11:38 12:37 WBC (3.5-10.8) 10^3/ul RBC (4.0-5.4) 10^6/ul Hgb (12.0-16.0) g/dl Hct (35-47) % MCV (80-97) fL MCH (27-31) pg MCHC (31-36) g/dl RDW (10.5-15) % Plt Count (150-450) 10^3/ul MPV (7.4-10.4) um3 Neut % (Auto) (38-83) % Lymph % (Auto) (25-47) % [place] % (Auto) (1-9) % Eos % (Auto) (0-6) % Baso % (Auto) (0-2) % Absolute Neuts (auto) (1.5-7.7) 10^3/ul Absolute Lymphs (auto) (1.0-4.8) 10^3/ul Absolute Monos (auto) (0-0.8) 10^3/ul Absolute Eos (auto) (0-0.6) 10^3/ul Absolute Basos (auto) (0-0.2) 10^3/ul Absolute Nucleated RBC 10^3/ul Nucleated RBC % ESR INR (Anticoag Therapy) (0.89-1.11) APTT (26.0-36.3) seconds Sodium (133-145) mmol/L Potassium (3.5-5.0) mmol/L Chloride (101-111) mmol/L Carbon Dioxide (22-32) mmol/L Anion Gap (2-11) mmol/L BUN (6-24) mg/dL Creatinine (0.51-0.95) mg/dL Est GFR ( Amer) (>60) Est GFR (Non-Af Amer) (>60) BUN/Creatinine Ratio (8-20) Glucose (70-100) mg/dL Lactic Acid 1.1 (0.5-2.0) mmol/L Calcium (8.6-10.3) mg/dL Total Bilirubin (0.2-1.0) mg/dL AST (13-39) U/L ALT (7-52) U/L Alkaline Phosphatase (34-104) U/L Troponin I (<0.04) ng/mL C-Reactive Protein (< 5.00) mg/L Total Protein (6.4-8.9) g/dL Albumin (3.2-5.2) g/dL Globulin (2-4) g/dL Albumin/Globulin Ratio (1-3) Influenza A (Rapid) Negative (Negative) Influenza B (Rapid) Negative (Negative) Assess/Plan/Problems-Billing Assessment: Ms. Solorio is a 76 yo female with a PMH of neurogenic syncope, orthostatic hypotension, hypertension, CKD Stage 3 who was admitted on 11/11/16 with fever to 103.9 and concern for possible septic arthritis to left shoulder with history of recent shoulder reverse surgery. - Patient Problems (1) Fever Comment: No further fever since admission. CRP normal, WBC normal, ESR neglible at 48. UA negative, Cxray negative, blood cultures negative thus far. Appreciate consultation from ortho, no evidence of infection to L shoulder. No clear source identified. Continue to monitor given severity of fever with associated weakness in setting of patient's multiple co-morbidities. (2) CKD (chronic kidney disease) stage 3, GFR 30-59 ml/min Comment: At baseline. (3) Orthostatic hypotension Comment: Episode of dizziness x 1 today, self-limited. Suspect secondary to long standing history of orthostasis. Monitor. (4) RANI (obstructive sleep apnea) Comment: Continue CPAP. (5) Chronic pain Comment: Continue home medication regimen. (6) DNR (do not resuscitate) (7) DVT prophylaxis Comment: Heparin SQ. Status and Disposition: Inpatient with expected LOS > 2 days with fever of unknown origin.
[2016-11-12] MEDS: Ondansetron INJ* 2 MG/ML VIAL IV PRN (20:05)
[2016-11-12] MEDS ORDERED: CMCS: Melatonin (NF) 3 MG TAB PO SCH (21:00)
[2016-11-12] MEDS: CMCS: Escitalopram (NF) 10 MG TAB PO SCH (21:13)
[2016-11-13] MEDS: oxyCODONE TAB* 5 MG TAB PO PRN ×2 (04:16→10:09)
[2016-11-13] MEDS: NS 0.9% 1000 ML* 1,000 ML IV SCH (04:16)
[2016-11-13] MEDS ORDERED: Vancomycin Trough Check NOTE FOLLOW UP ONE (04:30)
[2016-11-13] MEDS: Levothyroxine TAB* 25 MCG TAB PO SCH (06:02)
[2016-11-13] MEDS: Heparin VIAL(*) 5000 UNITS/ML VIAL (FIVE THOUSAND) SUBCUT SCH (06:02)
[2016-11-13] MEDS: Ascorbic Acid TAB* 500 MG PO SCH (09:49)
[2016-11-13] MEDS: Cholecalciferol TAB* 1000 UNITS PO SCH (09:50)
[2016-11-13] MEDS: CMCS: Escitalopram (NF) 10 MG TAB PO SCH (09:51)
[2016-11-13] MEDS: Gabapentin CAP(*) 300 MG PO SCH (09:52)
[2016-11-13] MEDS: oxyCODONE SR TAB(*) 10 MG TAB.SR PO SCH (09:54)
[2016-11-13] MEDS: Ondansetron INJ* 2 MG/ML VIAL IV PRN (10:10)
--- NOTE | 2016-11-13 11:04 | PN ---
Subjective Date of Service: 11/13/16 Interval History: Ms. Solorio states that she is feeling a bit wobbly and has a headache, but feels better after receiving her pain medication. She denies other complaint including chest pain, SOB, chills, nausea, or abdominal pain. She feels comfortable with the planned discharge today. Objective Active Medications: Acetaminophen (Tylenol Tab*) 650 mg PO Q6H PRN Ascorbic Acid (Vitamin C Tab*) 1,000 mg PO DAILY [facility]ES Aspirin (Aspirin Low Dose Tab*) 81 mg PO DAILY@2100 [facility] Cholecalciferol (Vitamin D Tab*) 2,000 units PO DAILY [facility] Docusate Sodium (Colace Cap*) 100 mg PO BID PRN Escitalopram Oxalate (Lexapro (Nf)) 20 mg PO DAILY [facility] Fludrocortisone Acetate (Florinef Tab*) 0.1 mg PO BID PRN Gabapentin (Neurontin Cap(*)) 300 mg PO TID [facility] Heparin Sodium (Porcine) (Heparin Vial(*)) 5,000 units SUBCUT Q8HR [facility] Hydroxyzine HCl (Atarax Tab*) 25 mg PO QID PRN Sodium Chloride (Ns 0.9% 1000 Ml*) 1,000 mls @ 100 mls/hr IV PER RATE [facility] Levothyroxine Sodium (Synthroid Tab*) 25 mcg PO 0600 [facility] Lorazepam (Ativan Tab(*)) 1 mg PO QID PRN Melatonin (Melatonin (Nf)) 3 mg PO BEDTIME [facility]ES Methylphenidate HCl (Concerta Er Tab*) 72 mg PO DAILY [facility]ES Ondansetron HCl (Zofran Inj*) 4 mg IV Q6H PRN Oxycodone HCl (Oxycontin(*)) 30 mg PO Q12HR [facility] Oxycodone HCl (Roxycodone Tab*) 15 mg PO Q4H PRN Polyethylene Glycol/Electrolytes (Miralax*) 17 gm PO EVERY OTHER DAY [facility] Temazepam (Restoril Cap*) 15 mg PO BEDTIME PRN Vital Signs 11/12/16 11/12/16 11/12/16 11:19 13:44 13:53 Temperature 98.8 F 98.4 F Pulse Rate 88 88 Respiratory 16 16 20 Rate Blood Pressure 129/60 141/83 (mmHg) O2 Sat by Pulse 95 100 Oximetry 11/12/16 11/12/16 11/12/16 13:54 13:55 15:35 Temperature Pulse Rate Respiratory 20 20 18 Rate Blood Pressure (mmHg) O2 Sat by Pulse Oximetry 11/12/16 11/12/16 11/12/16 15:44 19:22 19:54 Temperature 98.9 F 98.3 F Pulse Rate 78 88 Respiratory 16 19 16 Rate Blood Pressure 145/68 146/79 (mmHg) O2 Sat by Pulse 96 96 Oximetry 11/12/16 11/12/16 11/12/16 20:00 21:11 21:12 Temperature Pulse Rate Respiratory 16 18 18 Rate Blood Pressure (mmHg) O2 Sat by Pulse 96 Oximetry 11/12/16 11/12/16 11/12/16 21:22 22:28 23:11 Temperature 98.4 F Pulse Rate 85 Respiratory 16 16 16 Rate Blood Pressure 156/79 (mmHg) O2 Sat by Pulse 94 Oximetry 11/12/16 11/12/16 11/13/16 23:12 23:54 01:54 Temperature Pulse Rate Respiratory 16 18 16 Rate Blood Pressure (mmHg) O2 Sat by Pulse Oximetry 11/13/16 11/13/16 11/13/16 04:10 04:16 06:16 Temperature 98.6 F Pulse Rate 79 Respiratory 16 18 18 Rate Blood Pressure 125/71 (mmHg) O2 Sat by Pulse 96 Oximetry 11/13/16 11/13/16 11/13/16 09:52 09:54 10:09 Temperature Pulse Rate Respiratory 18 18 18 Rate Blood Pressure (mmHg) O2 Sat by Pulse Oximetry Oxygen Devices in Use Now: None Appearance: Elderly female lying in bed in NAD Respiratory: Symmetrical Chest Expansion and Respiratory Effort, Clear to Auscultation Cardiovascular: NL Sounds; No Murmurs; No JVD, No Edema Abdominal: NL Sounds; No Tenderness; No Distention Extremities: No Edema Skin: No Rash or Ulcers Neurological: Alert and Oriented x 3 Nutrition: Taking PO's Result Diagrams: 11/12/16 04:18 11/12/16 04:18 Additional Lab and Data: Lab Results 11/11/16 11/11/16 11/11/16 Range/Units 11:38 11:38 11:38 WBC 11.1 H (3.5-10.8) 10^3/ul RBC 4.15 (4.0-5.4) 10^6/ul Hgb 11.5 L (12.0-16.0) g/dl Hct 36 (35-47) % MCV 86 (80-97) fL MCH 28 (27-31) pg MCHC 32 (31-36) g/dl RDW 14 (10.5-15) % Plt Count 164 (150-450) 10^3/ul MPV 8 (7.4-10.4) um3 Neut % (Auto) 85.0 H (38-83) % Lymph % (Auto) 6.9 L (25-47) % [place] % (Auto) 4.5 (1-9) % Eos % (Auto) 2.1 (0-6) % Baso % (Auto) 1.5 (0-2) % Absolute Neuts (auto) 9.5 H (1.5-7.7) 10^3/ul Absolute Lymphs (auto) 0.8 L (1.0-4.8) 10^3/ul Absolute Monos (auto) 0.5 (0-0.8) 10^3/ul Absolute Eos (auto) 0.2 (0-0.6) 10^3/ul Absolute Basos (auto) 0.2 (0-0.2) 10^3/ul Absolute Nucleated RBC 0 10^3/ul Nucleated RBC % 0 ESR Pending INR (Anticoag Therapy) 1.04 (0.89-1.11) APTT 31.5 (26.0-36.3) seconds Sodium 136 (133-145) mmol/L Potassium 4.4 (3.5-5.0) mmol/L Chloride 101 (101-111) mmol/L Carbon Dioxide 30 (22-32) mmol/L Anion Gap 5 (2-11) mmol/L BUN 19 (6-24) mg/dL Creatinine 1.15 H (0.51-0.95) mg/dL Est GFR ( Amer) 59.2 (>60) Est GFR (Non-Af Amer) 46.0 (>60) BUN/Creatinine Ratio 16.5 (8-20) Glucose 115 H (70-100) mg/dL Lactic Acid (0.5-2.0) mmol/L Calcium 9.5 (8.6-10.3) mg/dL Total Bilirubin 0.50 (0.2-1.0) mg/dL AST 14 (13-39) U/L ALT 9 (7-52) U/L Alkaline Phosphatase 82 (34-104) U/L Troponin I 0.00 (<0.04) ng/mL C-Reactive Protein 4.77 (< 5.00) mg/L Total Protein 6.7 (6.4-8.9) g/dL Albumin 3.8 (3.2-5.2) g/dL Globulin 2.9 (2-4) g/dL Albumin/Globulin Ratio 1.3 (1-3) Influenza A (Rapid) (Negative) Influenza B (Rapid) (Negative) 11/11/16 11/11/16 Range/Units 11:38 12:37 WBC (3.5-10.8) 10^3/ul RBC (4.0-5.4) 10^6/ul Hgb (12.0-16.0) g/dl Hct (35-47) % MCV (80-97) fL MCH (27-31) pg MCHC (31-36) g/dl RDW (10.5-15) % Plt Count (150-450) 10^3/ul MPV (7.4-10.4) um3 Neut % (Auto) (38-83) % Lymph % (Auto) (25-47) % [place] % (Auto) (1-9) % Eos % (Auto) (0-6) % Baso % (Auto) (0-2) % Absolute Neuts (auto) (1.5-7.7) 10^3/ul Absolute Lymphs (auto) (1.0-4.8) 10^3/ul Absolute Monos (auto) (0-0.8) 10^3/ul Absolute Eos (auto) (0-0.6) 10^3/ul Absolute Basos (auto) (0-0.2) 10^3/ul Absolute Nucleated RBC 10^3/ul Nucleated RBC % ESR INR (Anticoag Therapy) (0.89-1.11) APTT (26.0-36.3) seconds Sodium (133-145) mmol/L Potassium (3.5-5.0) mmol/L Chloride (101-111) mmol/L Carbon Dioxide (22-32) mmol/L Anion Gap (2-11) mmol/L BUN (6-24) mg/dL Creatinine (0.51-0.95) mg/dL Est GFR ( Amer) (>60) Est GFR (Non-Af Amer) (>60) BUN/Creatinine Ratio (8-20) Glucose (70-100) mg/dL Lactic Acid 1.1 (0.5-2.0) mmol/L Calcium (8.6-10.3) mg/dL Total Bilirubin (0.2-1.0) mg/dL AST (13-39) U/L ALT (7-52) U/L Alkaline Phosphatase (34-104) U/L Troponin I (<0.04) ng/mL C-Reactive Protein (< 5.00) mg/L Total Protein (6.4-8.9) g/dL Albumin (3.2-5.2) g/dL Globulin (2-4) g/dL Albumin/Globulin Ratio (1-3) Influenza A (Rapid) Negative (Negative) Influenza B (Rapid) Negative (Negative) Assess/Plan/Problems-Billing Assessment: Ms. Solorio is a 76 yo female with a PMH of neurogenic syncope, orthostatic hypotension, hypertension, CKD Stage 3 who was admitted on 11/11/16 with fever to 103.9 and concern for possible septic arthritis to left shoulder with history of recent shoulder reverse surgery. - Patient Problems (1) Fever Comment: No further fever since admission. CRP normal, WBC normal, ESR neglible at 48. UA negative, Cxray negative, blood cultures negative thus far. Appreciate consultation from ortho, no evidence of infection to L shoulder. No clear source identified. (2) CKD (chronic kidney disease) stage 3, GFR 30-59 ml/min Comment: At baseline. (3) Orthostatic hypotension Comment: Episode of dizziness and wobbliness, chronic. Suspect secondary to long standing history of orthostasis. (4) RANI (obstructive sleep apnea) Comment: Continue CPAP. (5) Chronic pain Comment: Continue home medication regimen. (6) DNR (do not resuscitate) (7) DVT prophylaxis Comment: Heparin SQ. Status and Disposition: Discharge to home.
[2016-11-13] MEDS: Methylphenidate ER TAB* 18 MG PO SCH (11:35)
[2016-11-13 13:16] VITALS: BP 123/61
--- NOTE | 2016-11-14 03:32 | DS ---
[facility] MEDICINE DISCHARGE SUMMARY: DATE OF ADMISSION: 11/11/16 DATE OF DISCHARGE: 11/13/16 PRIMARY CARE PHYSICIAN: Antony Swartz MD ATTENDING PHYSICIAN: DO Dalton Raygoza(dictation provided by Sarah Brandt NP) PRIMARY DIAGNOSIS: Fever of unknown origin, now resolved. SECONDARY DIAGNOSES: 1. Hypertension. 2. Hyperlipidemia. 3. Fibromyalgia. 4. Stage 3 chronic kidney disease. 5. Diverticulitis. 6. Gastroesophageal reflux disease. 7. Hypothyroidism. 8. Arthritis. 9. Temporal lobe epilepsy. 10. Neurogenic syncope. 11. Multiple sclerosis. 12. Obstructive sleep apnea. 13. Bunions. 14. Orthostatic hypotension. 15. Headache. 16. Trigeminal neuralgia. 17. Bipolar depression. 18. Seizures. PAST SURGICAL HISTORY: 1. History of lithotripsy. 2. Carpal tunnel release bilaterally. 3. Eye surgery. 4. Left hemicolectomy with transverse colostomy. 5. Bowel resection. 6. Anterior diskectomy. 7. Intervertebral body fusion, C6-C7. 8. Hysterectomy. 9. Total knee replacement. 10. Hernia repair with mesh. 11. Left shoulder reverse, September [address] Raza. MEDICATIONS AT THE TIME OF DISCHARGE: No medication changes. They are: 1. Simbrinza 1 drop right eye t.i.d. 2. TheraTears 1 drop both eyes q.4 hours p.r.n. 3. Cetirizine 10 mg p.o. daily p.r.n. 4. Coenzyme Q10 200 mg p.o. daily. 5. Cyclosporin 0.05% 1 drop both eyes b.i.d. 6. Clarinex 5 mg p.o. daily. 7. Dexlansoprazole 30 mg p.o. daily. 8. Epinephrine 0.03 mg IM daily p.r.n. 9. Lexapro 20 mg p.o. daily. 10. Flonase 1 spray both nares b.i.d. 11. Lactic acid 12% topically b.i.d. 12. Lotemax 1 drop left eye t.i.d. 13. Melatonin 5 mg p.o. bedtime p.r.n. 14. Lutein Vision Blend 1 cap p.o. daily. 15. Multivitamin with mineral 1 tab p.o. daily. 16. Nevanac 1 drop right eye b.i.d. p.r.n. 17. Probiotic product 1 cap p.o. daily. 18. Ranitidine 150 mg p.o. at bedtime. 19. Telmisartan 20 mg p.o. daily. 20. Tylenol 650 mg p.o. q.4 hours p.r.n. 21. Ascorbic acid 1000 mg p.o. daily. 22. Aspirin 81 mg p.o. daily. 23. Cholecalciferol 1000 units p.o. daily. 24. Docusate 100 mg p.o. b.i.d. 25. Florinef 0.1 mg p.o. b.i.d. p.r.n. 26. Gabapentin 300 mg p.o. t.i.d. 27. Lorazepam 1 mg p.o. 4 times a day p.r.n. 28. Levothyroxine 25 mcg daily. 29. Methylphenidate 72 mg p.o. daily. 30. MiraLAX 17 g every other day. 31. Temazepam 15 mg p.o. at bedtime. 32. Hydroxyzine 25 mg p.o. 4 times a day p.r.n. 33. Oxycodone 30 mg p.o. q.12 hours. 34. Oxycodone immediate release 15 mg p.o. q.4 hours p.r.n. HOSPITAL COURSE: Ms. Solorio is a 76-year-old female with past medical history of multiple ongoing chronic issues as noted above who presented to the hospital on 11/11/16 with concern for fever and weakness. Please see the dictated H and P for myself for full details.In brief, the patient states that she had the sudden onset of weakness with shaking chills and immediately called to be brought to the emergency room. In the emergency room, she was found to have a temperature of 103.9. She had no leukocytosis. Her CRP and ESR were essentially normal. She had a chest x-ray that was normal. Flu swab was negative. She had an urinalysis that was negative. Blood cultures were drawn. Lactic acid was normal. Ms. Solorio has done well during her admission. She has had no further fever. Her blood cultures have remained negative. No evidence of infection has been found. She has continued to be afebrile. She has intermittently complained of dizziness, wobbliness, headache, and nausea, but these are all consistent with her chronic ongoing problems and per her report are not different from baseline. She also complained of over 2 months of mild laryngitis, which has been waxing and weaning. She has no sinus drainage. She has no difficulty swallowing and no difficulty breathing. I recommended to her that if it is persistent then she can consider followup with ENT for evaluation of her vocal cords but that there is no indication for antibiotics at this time. Ms. Solorio is medically stable for discharge to home to continue her previous medication regimen and to follow up with Dr. Swartz. DISPOSITION: To home. DIET: Regular. ACTIVITY: As tolerated with precautions as noted per Dr. Raza for her recent right total shoulder reverse. FOLLOWUP PLAN: 1. Please followup with Dr. Swartz regarding ongoing management of multiple chronic medical conditions. 2. Please followup with Dr. Raza regarding followup with recent shoulder surgery on the right. TIME SPENT: Approximately 60 minutes was spent in the discharge of this patient , more than half of the time was spent with the patient at the bedside reviewing the events leading up to this hospitalization, performing the physical examination, and reviewing the [place] [id number]/[facility] #: [id number] [place]
== END 2016-11-13 13:25 | disposition home or self-care (01) | DRG 864 ==
LOC: ED 11:17 → MEDTELE 15:20
PROVIDERS: ADMIT Internal Medicine; ATTEND Hospitalist
DX: R50.9 Fever, unspecified (principal); K57.92 Diverticulitis of intestine, part unspecified, without perforation or abscess without bleeding; G40.802 Other epilepsy, not intractable, without status epilepticus; G35 Multiple sclerosis; F31.89 Other bipolar disorder; I12.9 Hypertensive chronic kidney disease with stage 1 through stage 4 chronic kidney disease, or unspecified chronic kidney disease; N18.3 Chronic kidney disease, stage 3 (moderate); E78.5 Hyperlipidemia, unspecified; M79.7 Fibromyalgia; K21.9 Gastro-esophageal reflux disease without esophagitis; E03.9 Hypothyroidism, unspecified; M19.90 Unspecified osteoarthritis, unspecified site; G47.33 Obstructive sleep apnea (adult) (pediatric); M21.619 Bunion of unspecified foot; I95.1 Orthostatic hypotension; G50.0 Trigeminal neuralgia; Z96.659 Presence of unspecified artificial knee joint; Z79.1 Long term (current) use of non-steroidal anti-inflammatories (NSAID); Z79.82 Long term (current) use of aspirin; Z79.891 Long term (current) use of opiate analgesic; Z79.899 Other long term (current) drug therapy; Z88.8 Allergy status to other drugs, medicaments and biological substances; Z88.6 Allergy status to analgesic agent; Z88.1 Allergy status to other antibiotic agents; Z91.02 Food additives allergy status; Z83.3 Family history of diabetes mellitus; Z80.52 Family history of malignant neoplasm of bladder; Z80.51 Family history of malignant neoplasm of kidney; G89.29 Other chronic pain; Z66 Do not resuscitate; Z82.49 Family history of ischemic heart disease and other diseases of the circulatory system
CPT/HCPCS: 36415; 71010; 80048; 80053; 81003; 83605; 84484; 85025; 85610; 85652; 85730; 86140; 87040; 87502; A9270-GY; J0692; J1644; J2405; J3370

== ENCOUNTER 2018-02-28 05:59 | Inpatient (IN) | payer MEDICARE ==
--- NOTE | 2018-02-09 20:28 | HP ---
PREOPERATIVE HISTORY AND PHYSICAL: DATE OF ADMISSION: 02/28/18 PROVIDER: Raymond Vanessa MD * (DICTATED BY TERA LEVIN) CHIEF COMPLAINT: Right knee pain. HISTORY OF PRESENT ILLNESS: Ms. Solorio is a 77-year-old female who has been followed by Dr. Vanessa for ongoing pain in her right knee. She has failed conservative treatment such as cortisone injections, bracing and physical therapy without any relief. She is interested in surgical intervention for correction of the problem as she feels as though she is not able to do activities like she was previously. PAST MEDICAL HISTORY: Hypertension, hyperlipidemia, fibromyalgia, stage 3 kidney disease, diverticulitis, GERD, thyroid problems, arthritis, temporal lobe epilepsy, neurogenic syncope, multiple sclerosis, sleep apnea, bunions, orthostatic hypotension, headaches, trigeminal neuralgia, bipolar, depression, and history of DVT. PAST SURGICAL HISTORY: Lithotripsy, carpal tunnel release bilaterally, right eye surgery, left hemicolectomy with transverse colostomy, bowel resection, anterior diskectomy, intervertebral body fusion of C6 and C7, hysterectomy, left total knee replacement, hernia repair with mesh, and left total shoulder reverse. She reports hypotension with anesthesia. CURRENT MEDICATIONS: 1. Dexilant DR 30 mg 1 tab p.o. every day. 2. Fentanyl 37.5 mcg 1 transdermal patch every 3 days. 3. Fludrocortisone 1 mg as needed for low blood pressure. 4. Fluticasone propionate 50 mcg spray in each nostril twice daily. 5. Gabapentin 300 mg p.o. 3 times daily. 6. Hydroxyzine HCl 25 mg 1 tab 4 times daily as needed. 7. Ketorolac eye drops in the right eye as needed for pain. 8. Levocetirizine 1 pill q.h.s. 9. Levothyroxine 25 mcg 1 pill every day. 10. Methylphenidate 36 mg 1 pill every day. 11. MiraLAX 17 g as needed for constipation. 12. [place]-3 ethyl esters 1 g twice daily. 13. Ondansetron 8 mg sublingual every 8 hours as needed for nausea. 14. Oxycodone 15 mg 1 every 4 hours as needed for pain. 15. Ranitidine 150 mg 1 pill q.h.s. as needed. 16. Sertraline 50 mg 1 pill q.h.s. 17. Simbrinza drops right eye for pressure twice daily. 18. Telmisartan 20 mg 1 pill b.i.d. 19. Tizanidine 2 mg 3 times daily. 20. Valacyclovir 2 pills as needed for cold sores. 21. Vitamin D3 of 1000 units daily. 22. Voltaren gel 4 g apply topically for arthritis as needed. 23. Xiidra eyedrops in the left eye twice daily for dryness. 24. Aspirin 81 mg daily. 25. Melatonin 5 mg q.h.s. for sleep. ALLERGIES: DILANTIN, PHENOBARBITAL, DEMEROL, IODINE, ARICEPT, FOSAMAX, MAXALT, CYMBALTA, SEROQUEL, TEGRETOL, CLAVULANIC ACID through AUGMENTIN, and KETAMINE. FAMILY HISTORY: Noncontributory. SOCIAL HISTORY: The patient lives alone. She is retired. She denies tobacco or alcoholic beverages. She is right-hand dominant. REVIEW OF SYSTEMS: Constitutional: Negative for recent hospitalizations, fevers, chills, night sweats, or unexplained weight loss. Head: Positive for headaches due to migraines. Negative for lightheadedness or balance problems. Cardiovascular: Negative for chest or arm pain with exertion, history of heart attack or heart murmur. Positive for high blood pressure. Negative for embolism. Positive for deep vein thrombosis. Respiratory: Negative for chronic cough, shortness of breath with exertion, asthma, or COPD. Gastrointestinal: Positive for heartburn. Negative for nausea, vomiting, diarrhea, or constipation recently. Positive for GERD. Genitourinary: Negative for nighttime urination, frequency of urination, or urinary tract infections. Positive for kidney problems. Musculoskeletal: Positive for chronic pain. Negative for recent fracture. Skin: Negative for rashes, lesions , lumps, or sores. Neurologic: Positive for seizures and epilepsy. Negative for stroke. Positive for depression and anxiety. Endocrine: Negative for diabetes. Positive for hypothyroidism. Hematology: Negative for easy bleeding , bruising, or anemia. PHYSICAL EXAMINATION GENERAL: She is a well-developed, well-nourished female, in no acute distress at rest. She is alert and oriented x3 with appropriate mood and affect. VITAL SIGNS: The patient is 4 feet 11 inches, 142 pounds. Her blood pressure 142/82, pulse of 90, temperature 95.8. HEENT: Normocephalic, atraumatic. Hearing and vision are grossly intact. NECK: Her trachea is midline. RESPIRATORY: Her lungs are clear to auscultation bilaterally. No wheezes, rales, or rhonchi. CARDIOVASCULAR: Regular rate and rhythm. There are no murmurs, rubs, or gallops appreciated. ABDOMEN: Positive bowel sounds. Soft and nontender. MUSCULOSKELETAL: Exam of her right knee, skin is intact without any abrasions or open wounds. She ambulates with an antalgic gait on the right. She has extension to 0 and flexion to 105 degrees. She has some valgus alignment of the knee. MCL is stable to ligamentous stress testing. She has a mild joint effusion. She has tenderness to palpation in the medial and lateral joint lines. Her sensation to light touch is intact distally. She has a 2+ dorsalis pedis pulse. IMAGING: Four views of the right knee show severe end-stage osteoarthritis with [id number] changes most significantly in the lateral compartment. IMPRESSION: Right knee severe end-stage arthritis. PLAN: The patient is to undergo a right total knee arthroplasty by Dr. Vanessa on 02/28/18. The risks, benefits, and postoperative course were discussed with the patient at length and she would like to proceed. All of her questions were answered to her full satisfaction. She is understanding to call with problems or concerns. TERA LEVIN [id number]/[facility] #: [id number] PRUDENCE
--- NOTE | 2018-02-13 13:22 | CONS ---
CC: Dr. Vanessa.* PREOPERATIVE MEDICAL EVALUATION: DATE OF CONSULT: 02/13/18 DATE OF PLANNED ADMISSION: 02/28/18 HISTORY OF PRESENT ILLNESS: Ms. Solorio is a 77-year-old female who I have seen for chronic renal insufficiency secondary to hypertension. She has been having problems with right knee pain and is being prepared for a total knee replacement. Her main complaint is actually her knee pain. She has been rather stable from my point of view. PAST MEDICAL HISTORY: Her previous medical history is significant for hypertension, hyperlipidemia, diverticulitis, gastroesophageal reflux disease, temporal lobe epilepsy, neurogenic syncope, multiple sclerosis. She has a history of bipolar disorder. She had a deep venous thrombosis. PAST SURGICAL HISTORY: Her previous surgical history includes left hemicolectomy and transverse colostomy. She has had an anterior diskectomy with cervical fusion. She is status post a left total knee replacement. She has had a hernia repair with mesh. She has had a left total shoulder reverse. She has had bilateral carpal tunnel releases and she has had lithotripsy. MEDICATIONS: Include: 1. Dexilant DR 30 mg daily. 2. Fentanyl 37.5 mcg transdermal patch every 3 days. 3. Fludrocortisone 1 mg p.r.n. for low blood pressure. 4. Fluticasone propionate 50 mcg to each nostril daily. 5. Gabapentin 300 mg 3 times a day. 6. Hydroxyzine 25 mg 1 tablet 4 times a day as needed. 7. Ketorolac eye drops to her right eye for pain. 8. Levocetirizine 1 at bedtime. 9. Levothyroxine 25 mcg daily. 10. Methylphenidate 36 mg daily. 11. MiraLAX 17 g p.r.n. for constipation. 12. [place]-3 1 g twice a day. 13. Ondansetron 8 mg every 8 hours p.r.n. for nausea. 14. Oxycodone 15 mg every 4 hours p.r.n. for pain. 15. Ranitidine 150 mg p.r.n. 16. Sertraline 50 mg at bedtime. 17. Simbrinza eye drops to her right eye twice a day. 18. Telmisartan 20 mg b.i.d. 19. Tizanidine 2 mg 3 times a day. 20. Valacyclovir 2 pills p.r.n. for cold sores. 21. Vitamin D 1000 units daily. 22. Voltaren gel 4 g apply topically. 23. Xiidra eye drops left eye twice a day for dryness. 24. Aspirin 81 mg daily. 25. Melatonin 5 mg at bedtime for sleep. ALLERGIES: She is allergic to DILANTIN, PHENOBARBITAL, DEMEROL, IODINE, ARICEPT , FOSAMAX, MAXALT, CYMBALTA, SEROQUEL, TEGRETOL, CLAVULANIC ACID, AUGMENTIN and KETAMINE. SOCIAL HISTORY: She does not use alcohol or tobacco. REVIEW OF SYSTEMS: Extensively effects the previous and present medical illnesses. PHYSICAL EXAM: She is a well-developed white female. Her blood pressure 138/ 82 with a pulse of 84. HEENT: She is normocephalic. She is anicteric. Her extraocular muscles are intact. There is no jugular venous distention. Her chest is clear. Heart revealed a regular rhythm without murmurs. The abdomen is soft and nontender. DIAGNOSTIC STUDIES/LAB DATA: Review of her laboratory values reveals a WBC of 5.5, hemoglobin 13.4, platelet count of 176,000. Normal set of electrolytes with a BUN of 18, creatinine of 0.94. She has had a recent creatinine clearance of 65 cc per minute. DISCUSSION: She is at some modest increased risk for her surgery due to her chronic renal insufficiency. Nevertheless, her blood pressure is adequately controlled. Electrolytes are within normal limits, and I think that she would be very reasonable to proceed along with the planned surgery. [id number]/[facility] #: [id number] PRUDENCE
[~2018-02-28 05:59] MED LIST: Buffered Lidocaine 0.9% SYRIN* 5 ML/SYR SYRINGE INTRADERM ONE
[2018-02-28] MEDS ORDERED: ceFAZolin 2 GM PREMIX (*) 0 GM/0 ML BAG IVPB ONE (06:19)
[2018-02-28] MEDS ORDERED: Ondansetron INJ* 2 MG/ML VIAL IV PRN (08:36)
[2018-02-28] MEDS ORDERED: Ondansetron ODT TAB* 4 MG PO PRN (08:38)
[2018-02-28] MEDS ORDERED: Aspirin TAB* 325 MG PO ONE (08:45)
[2018-02-28] MEDS ORDERED: FENTANYL 37.5 MCG TOPICAL SCH (08:45)
[2018-02-28] MEDS ORDERED: oxyCODONE TAB* 5 MG TAB PO SCH (09:00)
[2018-02-28] MEDS ORDERED: Telmisartan (NF) 40 MG TAB PO SCH (09:00)
[2018-02-28 09:12] LABS: ABS Basophils 0.1 10^3/ul (0-0.2); ABS Eosinophils 0.2 10^3/ul (0-0.6); ABS Lymphocytes 1.2 10^3/ul (1.0-4.8); ABS Monocytes 0.5 10^3/ul (0-0.8); ABS Nucleated RBC 0 10^3/ul; Eosinophil % 3.7 % (0-6); Hematocrit 36 % (35-47); Hemoglobin 12.1 g/dl (12.0-16.0); Lymphocyte % 24.1 % (25-47); Mean Corpuscular HGB Conc 34 g/dl (31-36); Mean Corpuscular Hemoglobin 30 pg (27-31); Mean Corpuscular Volume 88 fL (80-97); Mean Platelet Volume 7.7 um3 (7.4-10.4); Nucleated Red Blood Cells % 0; Platelet Count 154 10^3/ul (150-450); Red Blood Count 4.11 10^6/ul (4.00-5.40); Red Cell Distribution Width 13 % (10.5-15); White Blood Count 4.8 10^3/ul (3.5-10.8)
[2018-02-28] MEDS ORDERED: Aspirin TAB* 325 MG ONE (09:28)
[2018-02-28 09:29] LABS: EGFR Non-African American 46.8 (>60)
--- NOTE | 2018-02-28 10:07 | RAD ---
Indication: Dizziness, right arm numbness. CT of the brain was performed without IV contrast. Ventricular structures are midline. No midline shift is the extra-axial spaces are unremarkable. There is no evidence of intracranial mass or hemorrhage. No other high or low density lesions are identified. Mastoid air cells and paranasal sinuses are otherwise unremarkable. 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 IMPRESSION: There is no evidence of intracranial mass or hemorrhage is noted.
[2018-02-28] MEDS: Gabapentin CAP(*) 100 MG PO SCH ×3 (10:48→19:48)
[2018-02-28] MEDS: tiZANidine TAB* 2 MG PO SCH ×3 (10:49→19:52)
[2018-02-28] MEDS: Levothyroxine TAB* 25 MCG TAB PO SCH ×2 (10:49→11:11)
[2018-02-28] MEDS: Brinzolamid/Brimonidin OPH(NF) 1 DROP BTL RIGHT EYE SCH ×2 (11:10→20:18)
[2018-02-28] MEDS: Lactic Acid CR 12% (NF) 1 APPLIC TUBE TOPICAL SCH ×2 (11:10→20:18)
--- NOTE | 2018-02-28 11:51 | RAD ---
INDICATION: Dizziness and RIGHT arm numbness. Remote anterior C6-C7 discectomy. COMPARISON: October 18, 2008 CT TECHNIQUE: Multidetector CT images foramen magnum to lung apices without contrast. Multiplanar reformation. REPORT: Negative for fracture. 2 mm degenerative C3-C4, C4-C5, and C5-C6 anterolisthesis increased over the prior exam. Negative for cervical vertebral body or posterior element fracture. Negative for paravertebral hematoma. Solid osseous fusion at the postsurgical C6-C7 disc level and ankylosis of the RIGHT side facet joints. At C2-C3 there is moderately severe disc space narrowing as well as facet joint osteoarthritis without significant resulting spinal stenosis. At C3-C4 as well as a small dorsal disc osteophyte complex and advanced RIGHT greater than LEFT facet joint osteoarthritis. Resulting moderate RIGHT foraminal stenosis new compared with the prior exam. At C4-C5 there is moderately severe disc space narrowing and facet joint osteoarthritis. Negative for acquired spinal stenosis. At C5-C6 there is advanced disc space narrowing and facet joint osteoarthritis. Negative for significant acquired spinal stenosis. Negative for acquired spinal stenosis at the C6-C7 level. At C7-T1 there is advanced disc space narrowing and facet joint osteoarthritis. Negative for significant spinal stenosis. IMPRESSION: #. Significant interval worsening of multilevel degenerative spondylosis and facet joint osteoarthritis compared with the 2009 exam. #. Associated increased mild C3-C4, C4-C5, and C5-C6 degenerative anterolisthesis. #. At C3-C4 there is moderate RIGHT foraminal stenosis new compared with the prior exam. #. Solid osseous fusion at C6-C7.
--- NOTE | 2018-02-28 12:08 | RAD ---
Indication: Shortness of breath, hypoxia. Single view of the chest is reviewed. Comparison is made with previous exam dated February 14, 2018. No mediastinal shift is noted. Heart is of normal size and configuration. Increased density in the retrocardiac area likely represents hiatal hernia. No pleural fluid, pneumonia or pneumothorax is noted. IMPRESSION: Retrocardiac density likely representing hiatal hernia as identified previously. No active disease is noted.
[2018-02-28] MEDS: Polyethylene Glycol 3350* 17 GM PACKET PO SCH (12:22)
[2018-02-28] MEDS: Losartan TAB* 25 MG PO SCH ×2 (12:36→20:06)
[2018-02-28] MEDS: fentaNYL PATCH 50 MCG/HR TRANSDERM SCH (12:37)
[2018-02-28] MEDS: Heparin VIAL(*) 5000 UNITS/ML VIAL (FIVE THOUSAND) SUBCUT SCH ×2 (13:17→20:35)
[2018-02-28] MEDS: oxyCODONE TAB* 5 MG TAB PO PRN ×2 (13:17→19:49)
--- NOTE | 2018-02-28 14:03 | HP ---
CC: Dr. Antony Swartz * ADMISSION HISTORY AND PHYSICAL: DATE OF ADMISSION: 02/28/18 PRIMARY CARE PROVIDER: Antony Swartz MD. MY ATTENDING WHILE IN THE HOSPITAL: Vinay Vasques MD* (DICTATED BY TERA PAK) CHIEF COMPLAINT: Dizziness, shortness of breath, right arm pain. HISTORY OF PRESENT ILLNESS: Ms. Solorio is a 77-year-old female with past medical history significant for hypertension, hyperlipidemia, stage 3 chronic kidney disease, obstructive sleep apnea, orthostatic hypotension, neurocardiogenic syncope, and epilepsy who presented to the hospital today for elective right total knee replacement with Dr. Vanessa. The patient was in her normal state of health. The patient has many chronic medical conditions including possible multiple sclerosis, orthostatic hypotension which she follows with Dr. Herrmann for as well as obstructive sleep apnea, headache, trigeminal neuralgia, and reflux and has significant chronic pain for which she wears a fentanyl patch. The patient has passed out before related to orthostatic hypotension and neurocardiogenic syncope. The patient, however, was sitting at rest in a wheelchair in the preoperative unit when she suddenly developed lightheadedness and sensation of room spinning, which was associated with severe pain, numbness, and tingling in her right arm which start in her hand and then move to upper arm to her elbow and then her shoulder. The patient has been having issues with her right shoulder related to a fall from a possible seizure approximately three weeks ago. The patient states that she does not know when she gets seizures. She just notices bruises latter on and feels that she falls. The patient has been compliant with CPAP. The patient has never wore any oxygen before. The patient's oxygen saturation with these episodes dropped down to 88, but went back up to 100 with 2 liters of oxygen. The patient denied chest pain, radiation to her neck, nausea, vomiting, or diaphoresis. The patient did feel incredibly short of breath with pain in her arm. The patient states that it was incredibly intense for several minutes and then started to subside. At the time of evaluation, it was almost gone with only slight pain in her arm, which resolved throughout the course of the interview. The patient has never had pain like this before. The patient had not recently changed position when this occurred. The patient had negative stress test in 2009. The patient has no swelling in her legs. No other recent illnesses. The patient does not have history of smoking. The patient has never been diagnosed with COPD. The patient not had any cough or other shortness of breath. The patient has what she described as fevers and chills all the time. The patient previously had a stress test and echocardiogram with Dr. 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 The patient denies palpitations with this episode. The patient states that she takes her blood pressure at home and almost never frequently over twice a day and it is always either high or low when it is very rarely in the normal range. At the time of evaluation, the patient's vital signs were normal. The patient is saturating 100% on 2 liters of oxygen and her blood pressure was approximately 120/80. The patient will be admitted observation to the hospital for serial troponins, EKGs, echocardiogram, and nuclear medicine stress test in the morning. The patient has a history of spinal pathology and risk factors for stroke. However, her symptoms passed quickly and she has not had pain like this before in association with her spinal pathology. The patient had no residual neurological deficits at the time of evaluation. PAST MEDICAL HISTORY: 1. Hypertension. 2. Hyperlipidemia. 3. Fibromyalgia. 4. Stage 3 chronic kidney disease. 5. Diverticulitis. 6. GERD. 7. Thyroid problems. 8. Arthritis. 9. Temporal lobe epilepsy. 10. Possible multiple sclerosis. 11. History of neurogenic syncope. 13. Obstructive sleep apnea. 14. Orthostatic hypertension. 15. Cluster headaches. 16. Trigeminal neuralgia. 17. Bipolar disorder. 18. Depression. 19. History of DVT. 20. Severe hypotension with ICU admission with anesthesia. PAST SURGICAL HISTORY: 1. Lithotripsy. 2. Carpal tunnel release. 3. Right eye surgery. 4. Left hemicolectomy with transverse colostomy. 5. Bowel resection. 6. Anterior discectomy and intravertebral body fusion of C6 and C7. 7. Hysterectomy. 8. Left total knee replacement. 9. Left total shoulder reversal replacement. 10. Hernia repair with mesh. CURRENT MEDICATIONS: 1. Dexilant. 2. Aspirin 81 mg p.o. daily. 3. Fluticasone nasal spray 1 spray both nares b.i.d. 4. Gabapentin 300 mg p.o. t.i.d. 5. Hydroxyzine 25 mg p.o. 4 times a day as needed. 6. Levothyroxine 25 mcg p.o. q.a.m. 7. CoQ10 of 200 mg p.o. q.a.m. 8. Ascorbic acid 100 mg p.o. q.a.m. 9. Ranitidine 150 mg p.o. at bedtime as needed. 10. Dexlansoprazole 30 mg p.o. q.a.m. 11. Thera Tears one drop both eyes q.4 hours as needed. 12. Simbrinza one drop right eye b.i.d. 13. Telmisartan 20 mg p.o. b.i.d. as needed for hypertension. 14. Fludrocortisone 0.1 mg p.o. b.i.d. as needed for hypotension. 15. Methylphenidate 36 mg p.o. q.a.m. 16. Ammonium lactate 12% topical b.i.d. 17. Polyethylene glycol 17 g p.o. every other day. 18. Lactobacillus acidophilus one tab p.o. q.a.m. 19. Lutein one cap p.o. q.a.m. 20. Multivitamin one tab p.o. daily. 21. Melatonin one tab p.o. q.a.m. 22. Toradol one drop right eye b.i.d. as needed. 23. Magnesium oxide 250 mg p.o. b.i.d. 24. Biotin 2500 mcg p.o. q.a.m. 25. Vitamin E 400 units p.o. q.a.m. 26. [place]-3 fatty acids 1 g p.o. b.i.d. 27. Vitamin D 1000 units p.o. q.a.m. 28. Vitamin B complex one tab p.o. q.a.m. 29. Vitamin B12 of 3000 mcg p.o. q.a.m. 30. Xyzal 5 mg p.o. q.p.m. 31. Tylenol 1000 mg p.o. 4 times a day as needed. 32. Lifitegrast one drop left eye b.i.d. 33. Voltaren Gel 4 g topical b.i.d. as needed. 34. Valacyclovir 500 mg p.o. b.i.d. as needed. 35. Zanaflex 2 mg p.o. t.i.d. 36. Sertraline 50 mg p.o. at bedtime. 37. Zofran 8 mg p.o. q. 8 hours as needed. 38. Fentanyl 37.5 mcg topical patch q.72 hours. 39. Selenium 200 mcg p.o. q.a.m. 40. Oxycodone 60 mg p.o. t.i.d. ALLERGIES: 1. DILANTIN. 2. PHENOBARBITAL. 3. DEMEROL. 4. IODINE. 5. ARICEPT. 6. FOSAMAX. 7. MAXALT. 8. CYMBALTA. 9. SEROQUEL. 10. TEGRETOL. 11. Clavulanic acid. 12. KETAMINE. FAMILY HISTORY: The patient's mother had "heart problems and had nitroglycerin , but is unknown what her problems were. She is still alive. The patient's father of liver and kidney disease at 62. The patient has brother who is healthy. SOCIAL HISTORY: The patient lives alone. The patient is . 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 The patient smoked briefly in her 20s and drink alcohol socially throughout her adult years, never abused it. The patient denies illicit drug use. The patient has two children one whom of pneumonia and kidney problem in the setting of the excessive drinking and her daughter is healthy. The patient is a full code and would like her healthcare proxy to be her daughter, Cecy. REVIEW OF SYSTEMS: A 14-point review of systems was reviewed and is negative except as above. PHYSICAL EXAMINATION GENERAL: The patient is a 77-year-old female, who appears stated age, sitting comfortably in the bed, in no acute distress. HEENT: Head normocephalic, atraumatic. Sclerae anicteric. Right eye iris is isabelle out with strabismus which has been present since the patient's . No conjunctival injection. Nasal mucosa is moist. Oral mucosa moist. No pharyngeal erythema, discharge or exudate. NECK: Supple, nontender. No lymphadenopathy. No carotid bruits auscultated. No JVD. RESPIRATORY: Clear to auscultation bilaterally. No wheezes, rales, or rhonchi. Good air exchange bilaterally. CARDIAC: Regular rate and rhythm. No clicks, murmurs, gallops, or rubs. Pulses are 2+ in the bilateral dorsalis pedis, posterior tibialis, and radial areas. ABDOMEN: Soft, nontender, and nondistended. Bowel sounds present, normoactive in all 4 quadrants. No hepatosplenomegaly. No abdominal bruits auscultated. No hepatojugular reflux. GENITOURINARY: No suprapubic tenderness or CVA tenderness. SKIN: Clean, dry, and intact. No rash. NEUROLOGIC: The patient's right eye pupil is nonreactive to light. Left pupil equal, round, reactive to light. No focal deficits. Sensation intact to light touch in the bilateral upper and lower extremities distally and proximally. The patient has diffusely 4/5 strength, but no focal weakness. Normal tone. Reflexes 2+ in bilateral biceps, 1+ in bilateral patellar and Achilles areas. PSYCHIATRIC: Pleasant and cooperative. LABORATORY DATA: White blood cell count 4.8, hemoglobin 12.1, and platelet count 154. Sodium 138, potassium 4.3, chloride 104, carbon dioxide 30, anion gap 4, BUN 20, creatinine 1.13, glucose 102, calcium 9.1, magnesium 2.0, bilirubin 0.5, AST 19, ALT 11, alkaline phosphatase 82, creatine kinase 1.15, CK -MB 5.6, troponin I 0.00, protein 5.9, albumin 3.5, globulin 2.4. Triglycerides 84, cholesterol 151, LDL cholesterol 93, HDL cholesterol 41.6. KG shows normal sinus rhythm, left bundle branch block pattern, very poor quality study. No ST segment elevation, rate is 75. Consistent with previous exam. Chest x-ray, pending. ASSESSMENT AND PLAN/IMPRESSION: Ms. 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 The patient has significant risk factors for cardiac disease which cannot be excluded and will be admitted to the hospital for chest pain rule out as well as assessment for cervical spinal pathology. 1. Shortness of breath, right arm pain, hypotension. Given the acute onset of these symptoms not associated with change in position, which is normally provoking factor for the patient's hypotension as well as right arm pain, the patient will be admitted to the hospital for rule out myocardial infarction. The patient's initial troponin is 0. The patient had no ischemic changes on chest x-ray. Due to the patient's congenital heart disease as well as concern for wall motion abnormality, a transthoracic echocardiogram will be obtained. The patient had nuclear medicine stress test in 2009, which was normal. The patient will have another nuclear medicine stress test tomorrow morning following her serial troponins. The patient also has CK-MB, which was normal. The patient has no other laboratory abnormalities. The patient's chest x-ray is pending. The patient has no other respiratory symptoms and her respiratory exam is benign. The patient has no history of oxygen use. The patient has no signs of fluid overload. The patient is not wheezing. The patient received 325 mg of aspirin at the time of her evaluation. 2. Hypertension, orthostatic hypotension. The patient has Florinef and telmisartan, which were used as needed to control her blood pressure based on the day. Her blood pressure will be monitored closely in the hospital and medications and fluids will be prescribed as needed for hyper and hypotension extremes. However, the patient has known variability in blood pressure. The patient continues to be on this varied, we will consult with Dr. Herrmann who the patient follows with for further for recommendations on controlling her labile blood pressures. 3. Arm Pain, Cervical Spinal Pathology. The differential diagnosis for patient' s arm pain includes cervical spinal pathology. Will order CT of head and neck. Normal neurological exam. 4. Hyperlipidemia. The patient's lipid profile is within normal limits. The patient is not on a statin at this time. Further initiate statin therapy based on stress test result. 5. Stage 3 chronic kidney disease. The patient's creatinine is at baseline. We will monitor for cardiotoxic medications. This is possibly a contributor to the patient's hard to control hypertension. 6. Temporal lobe epilepsy. Patient to follow up outpatient with Dr. Rodriguez. The patient has continued seizure activity approximately one a month. The patient will be placed on seizure precautions and will be continued on her gabapentin. 7. Chronic pain. The patient will be continued on her fentanyl patch and her oxycodone while in the hospital. 8. Deep vein thrombosis prophylaxis. The patient will have heparin subcu. The patient is a high risk. The patient has a history of deep vein thrombosis, it is unknown whether it is provoked or not. 9. Code status. The patient would like to be a full code. The patient's daughter, Cecy over here is healthcare proxy as above. 10. Fluids, electrolytes, and nutrition. The patient will have heart healthy diet without caffeine. The patient appears euvolemic and does not need fluids at this time. 11. Disposition. The patient is admitted to observation for rule out myocardial infarction. TIME SPENT: Approximately 75 minutes were spent on this admission, 45 of which was spent [id number] with the patient obtaining history and physical and discussing the treatment plan. Plan was discussed with my attending, Dr. Vinay Vasques, and he is in agreement as well. TERA PAK [id number]/CPS #: [id number] MTDD
[2018-02-28] MEDS ORDERED: hydrOXYzine HCL TAB* 25 MG PO PRN (17:31)
--- NOTE | 2018-02-28 17:48 | ECHO ---
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 Technical Comments: The study quality is fair. Completed at 1655. Left Ventricle: The left ventricular chamber size is normal. There is no left ventricular hypertrophy. Global left ventricular wall motion and contractility are within normal limits. There is normal left ventricular systolic function. The estimated ejection fraction is 55-60%. Abnormal left ventricular diastolic function is observed. Abnormal left ventricular diastolic filling is observed, consistent with impaired relaxation. Left Atrium: The left atrial chamber size is normal.In several views there appears to be a septum extending from the high atrial wall across the atrium in several views but not in all views. It is unclear whether it extends completely across the left atrium dividing it completely. No high frequency jet was noted across this septum. 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 Right Ventricle: Moderator Band present. The right ventricular cavity size is normal. The right ventricular global systolic function is normal. Right Atrium: The right atrium is mildly dilated. Aortic Valve: The aortic valve is trileaflet. The aortic valve leaflets are mildly thickened. There is a trace of aortic regurgitation. There is no evidence of aortic stenosis. Mitral Valve: The mitral valve leaflets are mildly thickened. There is mild mitral regurgitation. There is no evidence of mitral stenosis. Tricuspid Valve: The tricuspid valve leaflets are normal. There is mild to moderate tricuspid regurgitation. The right ventricular systolic pressure is estimated at 31 mmHg. There is evidence that pulmonary hypertension may be underestimated. There is no tricuspid stenosis. Pulmonic Valve: The pulmonic valve appears normal. There is a trace pulmonic regurgitation. There is no pulmonic stenosis. Pericardium: There is no significant pericardial effusion. Aorta: There is no dilatation of the ascending aorta. There is no dilatation of the aortic arch. The aortic root is normal in size. Pulmonary Artery: The main pulmonary artery appears normal. Venous: The inferior vena cava appears normal in size. There is less than 50% respiratory change in the inferior vena cava dimension. Conclusions The left ventricular chamber size is normal. Global left ventricular wall motion and contractility are within normal limits. There is normal left ventricular systolic function. The estimated ejection fraction is 55-60%. In several views there appears to be a septum extending from the high left atrial wall across the atrium in several views but not in all views. It is unclear whether it extends completely across the left atrium dividing it completely. No high frequency jet was noted across this septum. The diagnosis of cor triatriatum has been present on prior studies (09/15/2016 [facility], 05/27/2010 [facility] [place] The right atrium is mildly dilated. There is a trace of aortic regurgitation. There is mild mitral regurgitation. There is mild to moderate tricuspid regurgitation. The right ventricular systolic pressure is estimated at 31 mmHg. There is a trace pulmonic regurgitation. Compared to [facility] report of study from 09/15/2016 there are no significant changes. Measurements Name Value Normal Range RVIDd (AP) 2D 2.8 cm (0.9 - 2.6) RVDdMajor (2D) 4.2 cm (2.2 - 4.4) RAd ISD 4CH 5 cm (3.4 - 4.9) RA (A4C)W 3.2 cm (2.9 - 4.6) IVSd (2D) 0.9 cm (0.6 - 1) LVPWd (2D) 1 cm (0.6 - 1) LVIDd (2D) 4 cm (3.6 - 5.4) LVIDs (2D) 2.3 cm - LV FS (2D) 43 % (25 - 45) Aortic Annulus 1.9 cm (1.4 - 2.6) Ao root diameter (2D) 3.1 cm (2.1 - 3.5) Ascending Ao 2.7 cm (2.1 - 3.4) Aortic arch 1.9 cm (1.8 - 3.4) LA dimension (AP) 2D 2.3 cm (2.3 - 3.8) LAd ISD 4CH 3.7 cm (2.9 - 5.3) LA ISD 4CH W 3.9 cm (2.5 - 4.5) Name Value Normal Range LA ESV SP 4CH (A/L) 41 ml - LA ESV SP 2CH (A/L) 30 ml - LA ESV BP (A/L) 38 ml - LA ESV BP (A/L) index 24 ml/m2 - LA ESV SP 4CH (MOD) 39 ml - LA ESV SP 2CH (MOD) 29 ml - Name Value Normal Range MV E-wave Vmax 0.94 m/sec - MV deceleration time 329 msec - MV A-wave Vmax 1.13 m/sec - MV E:A ratio 0.83 ratio - LV septal e' Vmax 0.06 m/sec - LV lateral e' Vmax 0.08 m/sec - LV E:e' septal ratio 15.67 ratio - LV E:e' lateral ratio 11.75 ratio - Name Value Normal Range AV Vmax 1.44 m/sec - AV VTI 34.13 cm - AV peak gradient 8.36 mmHg - AV mean gradient 4.23 mmHg - LVOT Vmax 0.98 m/sec - LVOT VTI 25.1 cm - LVOT peak gradient 3.86 mmHg - LVOT mean gradient 1.86 mmHg - MAYLIN Vmax 0.9 m/sec - Name Value Normal Range TR Vmax 2.4 m/sec - TR peak gradient 23 mmHg - RAP 8 mmHg - RVSP 31 mmHg - IVC diameter 2 cm - Name Value Normal Range PV Vmax 0.94 m/sec - PV peak gradient 3.56 mmHg -
[2018-02-28] MEDS: Aspirin 81 mg CHEW TAB* 81 MG TAB.CHEW PO SCH (17:53)
[2018-02-28] MEDS: Cetirizine* 10 MG TAB PO SCH (17:53)
[2018-02-28] MEDS: fentaNYL Patch Check Q Shift 1 NOTE SCH (19:13)
[2018-02-28] MEDS: Sertraline* 50 MG TAB PO SCH (19:52)
[2018-02-28] MEDS: Fludrocortisone Acetate TAB* 0.1 MG PO PRN (19:52)
--- NOTE | 2018-02-28 20:06 | PN ---
Progress Note - Progress Note Date of Service: 02/28/18 Note: Paged for soft/low BP's. Losartan discontinued.
[2018-02-28] MEDS: Fluticasone NASAL SPRAY 50MCG* 16 gm SPRAY BTL BOTH NARES SCH (20:34)
[2018-02-28] MEDS: Melatonin 3 MG TAB PO SCH (20:35)
[2018-03-01] MEDS: oxyCODONE TAB* 5 MG TAB PO PRN ×2 (01:00→08:26)
[2018-03-01 06:07] LABS: EGFR Non-African American 48.8 (>60)
[2018-03-01 06:10] LABS: Hematocrit 38 % (35-47); Hemoglobin 13.1 g/dl (12.0-16.0); Mean Corpuscular HGB Conc 34 g/dl (31-36); Mean Corpuscular Hemoglobin 30 pg (27-31); Mean Corpuscular Volume 87 fL (80-97); Mean Platelet Volume 8.1 um3 (7.4-10.4); Platelet Count 143 10^3/ul (150-450); Red Blood Count 4.37 10^6/ul (4.00-5.40); Red Cell Distribution Width 13 % (10.5-15); White Blood Count 9.5 10^3/ul (3.5-10.8)
[2018-03-01] MEDS: Heparin VIAL(*) 5000 UNITS/ML VIAL (FIVE THOUSAND) SUBCUT SCH ×3 (06:13→21:09)
[2018-03-01] MEDS: Levothyroxine TAB* 25 MCG TAB PO SCH (06:14)
[2018-03-01 06:38] LABS: ABS Basophils 0.1 10^3/ul (0-0.2); ABS Neutrophils 7.2 10^3/ul (1.5-7.7); Monocytes % 3 % (0-7)
[2018-03-01] MEDS: fentaNYL Patch Check Q Shift 1 NOTE SCH ×2 (06:48→19:55)
[2018-03-01] MEDS ORDERED: Phenol 1.4% Spray* 177 ML BTL MT PRN (08:16)
[2018-03-01] MEDS: Methylphenidate ER TAB* 18 MG PO SCH (08:25)
[2018-03-01] MEDS: Cyanocobalamin TAB* 500 MCG PO SCH (08:25)
[2018-03-01] MEDS: tiZANidine TAB* 2 MG PO SCH ×3 (08:26→21:09)
[2018-03-01] MEDS: Gabapentin CAP(*) 100 MG PO SCH ×3 (08:26→21:08)
[2018-03-01] MEDS: Fluticasone NASAL SPRAY 50MCG* 16 gm SPRAY BTL BOTH NARES SCH ×2 (08:26→21:10)
[2018-03-01] MEDS: Polyethylene Glycol 3350* 17 GM PACKET PO SCH (08:27)
[2018-03-01] MEDS: Dexlansoprazole (NF) 30 MG CAP PO SCH (08:42)
[2018-03-01] MEDS: Brinzolamid/Brimonidin OPH(NF) 1 DROP BTL RIGHT EYE SCH ×2 (08:42→21:10)
[2018-03-01] MEDS: Lactic Acid CR 12% (NF) 1 APPLIC TUBE TOPICAL SCH ×2 (08:43→21:11)
[2018-03-01] MEDS ORDERED: Magnesium Sulfate IV* 2 GM in NS 0.9% 100 ML* 100 ML IVPB ONE (09:00)
[2018-03-01] MEDS: Fludrocortisone Acetate TAB* 0.1 MG PO PRN ×2 (11:41→23:58)
[2018-03-01] MEDS: Acetaminophen TAB* 325 MG PO PRN (11:41)
[2018-03-01] MEDS ORDERED: NS 0.9% 500 ML* 500 ML IV ONE (12:04)
[2018-03-01] MEDS: NS 0.9% 1000 ML* 1,000 ML IV SCH ×2 (13:51→13:52)
--- NOTE | 2018-03-01 15:30 | RAD ---
HISTORY: Hypoxia, Hypotension COMPARISONS: May 02, 2009 TECHNIQUE: Multiple contiguous axial CT scans of the chest were obtained without intravenous contrast. Coronal and sagittal multiplanar reformations are also submitted for review. FINDINGS: The study is limited by the lack of intravenous contrast. This limits evaluation of the solid organs and vasculature. NECK AND THYROID: The lower neck and thyroid are unremarkable. CHEST WALL: There is no lower cervical, axillary, or supraclavicular lymphadenopathy by size criteria. HEART AND PERICARDIUM: The heart is unremarkable. AORTA AND PULMONARY VASCULATURE: The aorta and pulmonary vasculature are normal. MEDIASTINUM: There is no mediastinal lymphadenopathy by size criteria. ELIA: There is no hilar lymphadenopathy by size criteria. AIRWAY AND ESOPHAGUS: There is mild bronchiectasis of the left lower lobe. LUNG PARENCHYMA: There is patchy nodularity and consolidation of the left lower lobe, and to lesser extent of the left upper lobe. PLEURA: No pleural abnormalities are noted. UPPER ABDOMEN: There is a large hiatal hernia. There is right nephrolithiasis. BONES AND SOFT TISSUES: Degenerative changes are noted. The patient is status post left shoulder arthroplasty. OTHER: None. IMPRESSION: 1. PATCHY AIRSPACE DISEASE AND NODULARITY OF THE LEFT MID AND LOWER LUNG WITH BRONCHIECTASIS. THE APPEARANCE IS SUGGESTIVE OF A CHRONIC INFLAMMATORY PROCESS, THOUGH NEOPLASM IS WITHIN THE DIFFERENTIAL. FOLLOW-UP UNTIL RESOLUTION TO EXCLUDE UNDERLYING PULMONARY PARENCHYMAL PATHOLOGY. 2. LARGE HIATAL HERNIA. 3. RIGHT NEPHROLITHIASIS.
[2018-03-01] MEDS: cefTRIAXone(*) 1 GM in NS 0.9% 50 ML* 50 ML IVPB SCH (15:40)
--- NOTE | 2018-03-01 15:43 | RAD ---
INDICATION: Right arm pain COMPARISON: None TECHNIQUE: Routine frontal, Y and axial views were obtained. FINDINGS: There is minor AC joint osteoarthritis. The glenohumeral joint is intact. There are findings of calcific tendinitis. IMPRESSION: MINOR AC JOINT OSTEOARTHRITIS. CALCIFIC TENDINITIS.
[2018-03-01] MEDS: Azithromycin IV(*) 500 MG in NS 0.9% 250 ML* 250 ML IVPB SCH (16:02)
[2018-03-01] MEDS: Cetirizine* 10 MG TAB PO SCH (16:56)
[2018-03-01] MEDS: Aspirin 81 mg CHEW TAB* 81 MG TAB.CHEW PO SCH (16:56)
--- NOTE | 2018-03-01 17:17 | PN ---
Subjective Date of Service: 03/01/18 Interval History: Patient this AM was in good spirits, denies CP, SOB, N/V, abdominal pain, cough , F/C, dizziness, palpitations, Right arm pain, or other complaint. BP dropped in afternoon with corresponding lethargy and hypoxia with reintroduction of oxygen. Responded to fluids. Respiratory exam worsened with rhonchi in LLL which were not present in AM and rales in B/L lower and middle lobes which were also no present on AM exam. Patient felt well again and mental status improved with BP increase. States this feels similar to her previous episodes where she had hypotension. Family History: Unchanged from Admission Social History: Unchanged from Admission Past Medical History: Unchanged from Admission Objective Active Medications: Acetaminophen (Tylenol Tab*) 650 mg PO Q6H PRN PRN Reason: FEVER/PAIN Last Admin: 03/01/18 11:41 Dose: 650 mg Aspirin (Aspirin 81 Mg Chew Tab*) 81 mg PO QPM [facility] Last Admin: 03/01/18 16:56 Dose: 81 mg Brinzolamide/Brimonidine Tartrate (Simbrinza Oph.Susp(Nf)) 1 drop RIGHT EYE BID [facility] Last Admin: 03/01/18 08:42 Dose: Not Given Cetirizine HCl (Zyrtec*) 10 mg PO QPM [facility] Last Admin: 03/01/18 16:56 Dose: 10 mg Cyanocobalamin (Vitamin B12 Tab*) 3,000 mcg PO QAM [facility] Last Admin: 03/01/18 08:25 Dose: 3,000 mcg Dexlansoprazole (Dexilant (Nf)) 30 mg PO QAM [facility] Last Admin: 03/01/18 08:42 Dose: Not Given Famotidine (Pepcid Tab*) 20 mg PO BEDTIME PRN; Protocol PRN Reason: HEARTBURN Fentanyl (Duragesic Patch 50 Mcg/Hr*) 50 mcg TRANSDERM Q72H [facility] Last Admin: 02/28/18 12:37 Dose: 50 mcg Fludrocortisone Acetate (Florinef Tab*) 0.1 mg PO BID PRN PRN Reason: SBP <105 Last Admin: 03/01/18 11:41 Dose: 0.1 mg Fluticasone Propionate (Flonase Nasal [place] 50mcg*) 1 spray BOTH NARES BID [facility] Last Admin: 03/01/18 08:26 Dose: 1 spray Gabapentin (Neurontin Cap(*)) 300 mg PO TID [facility] Last Admin: 03/01/18 13:51 Dose: 300 mg Heparin Sodium (Porcine) (Heparin Vial(*)) 5,000 units SUBCUT Q8HR [facility] Last Admin: 03/01/18 13:51 Dose: 5,000 units Hydroxyzine HCl (Atarax Tab*) 25 mg PO QID PRN PRN Reason: ITCHING Sodium Chloride (Ns 0.9% 1000 Ml*) 1,000 mls @ 100 mls/hr IV PER RATE [facility] Last Admin: 03/01/18 13:52 Dose: 100 mls/hr Ceftriaxone Sodium 1 gm/ (Sodium Chloride) 50 mls @ 200 mls/hr IVPB Q24H [facility] Last Admin: 03/01/18 15:40 Dose: 200 mls/hr Azithromycin 500 mg/ Sodium (Chloride) 250 mls @ 250 mls/hr IVPB Q24H [facility] Last Admin: 03/01/18 16:02 Dose: 250 mls/hr Lactic Acid (Lac-Hydrin 12% (Nf)) 1 applic TOPICAL BID [facility] Last Admin: 03/01/18 08:43 Dose: Not Given Levothyroxine Sodium (Synthroid Tab*) 25 mcg PO 0600 [facility] Last Admin: 03/01/18 06:14 Dose: 25 mcg Melatonin (Melatonin) 3 mg PO BEDTIME [facility] Last Admin: 02/28/18 20:35 Dose: 3 mg Methylphenidate HCl (Concerta Er Tab*) 36 mg PO QAM [facility] Last Admin: 03/01/18 08:25 Dose: 36 mg Ondansetron HCl (Zofran Inj*) 4 mg IV Q6H PRN PRN Reason: NAUSEA Ondansetron HCl (Zofran Odt Tab*) 8 mg PO Q8H PRN PRN Reason: NAUSEA Oxycodone HCl (Roxycodone Tab*) 15 mg PO TID PRN PRN Reason: PAIN Last Admin: 03/01/18 08:26 Dose: 15 mg Pharmacy Profile Note (Fentanyl Patch Check Q Shift) 1 note N/A 0700,1900 [facility] Last Admin: 03/01/18 06:48 Dose: 1 note Phenol/Menthol (Chloroseptic Throat [place]*) 1 spray MT TID PRN PRN Reason: SORE THROAT Polyethylene Glycol/Electrolytes (Miralax*) 17 gm PO EVERY OTHER DAY [facility] Last Admin: 03/01/18 08:27 Dose: 17 gm Sertraline HCl (Zoloft*) 50 mg PO BEDTIME [facility] Last Admin: 02/28/18 19:52 Dose: 50 mg Tizanidine HCl (Zanaflex Tab*) 2 mg PO TID [facility] Last Admin: 03/01/18 13:51 Dose: 2 mg Vital Signs - 8 hr 03/01/18 03/01/18 03/01/18 10:27 11:25 11:27 Temperature 100.3 F 100.3 F Pulse Rate 80 78 Respiratory 18 16 16 Rate Blood Pressure 86/42 (mmHg) O2 Sat by Pulse 91 92 Oximetry 03/01/18 03/01/18 03/01/18 11:37 11:48 13:08 Temperature 99.3 F Pulse Rate 79 84 Respiratory 20 Rate Blood Pressure 72/58 78/50 124/109 (mmHg) O2 Sat by Pulse 93 92 Oximetry 03/01/18 03/01/18 03/01/18 13:51 15:15 15:44 Temperature 98.5 F Pulse Rate 79 Respiratory 18 16 20 Rate Blood Pressure 96/42 (mmHg) O2 Sat by Pulse 94 Oximetry Oxygen Devices in Use Now: Nasal Cannula Appearance: Patient is a 77yo female who appears stated age and is sitting in the bed in [facility]. Eyes: No Scleral Icterus, PERRLA Ears/Nose/Mouth/Throat: NL Teeth, Lips, Gums, Clear Oropharnyx, Mucous Membranes Moist Neck: NL Appearance and Movements; NL JVP, Trachea Midline Respiratory: Symmetrical Chest Expansion and Respiratory Effort, - - In PM exam , Rhonchi in LLL and Inspiratory rales in B/L lower and middle lobes. Egophony positive only in LLL. Cardiovascular: NL Sounds; No Murmurs; No JVD, RRR, No Edema Abdominal: NL Sounds; No Tenderness; No Distention, No Hepatosplenomegaly Lymphatic: No Cervical Adenopathy Extremities: No Edema, No Clubbing, Cyanosis Skin: No Rash or Ulcers, No Nodules or Sclerosis Neurological: Alert and Oriented x 3, NL Sensation, NL Muscle Strength and Tone , - - CN II-XII intact. Reflexes WNL. Right eye iris isabelle out and non- reactive pupil with strabismus. Result Diagrams: 03/01/18 05:30 03/01/18 05:30 Assess/Plan/Problems-Billing Assessment: Patient is a 77yo female with a PMH for Labile BP, HLD, CKD, Cervical Spine Disease, TGN, Temporal Lobe epilepsy and possible MS without neurological deficit who was admitted for an elective Right Knee Replacement and developed Hypoxia, Hypotension and SOB preoperatively, was admitted for ALEX and then developed low grade temps, worsening hypotension, and hypoxia who had a CT of the chest which showed possible LLL PNA vs Inflammatory Lesion, unable to R/O malignancy. - Patient Problems (1) Lung mass Current Visit: Yes Status: Acute Code(s): R91.8 - OTHER NONSPECIFIC ABNORMAL FINDING OF LUNG FIELD SNOMED Code(s): 200734233 Comment: Patient has never had CT examination of the chest before. Negative CXR and lung exam yesterday. Concern for Pneumonia vs inflammatory process vs possible malignanacy. Associated Bronchiectasis. Remote and Minor History fo smoking. No Known chronic lung disease. Chronic Laryngitis. Pulmonary consult pending and appreciated. No SOB or productive cough. Consistent sinus . No epistaxis. Start treatment for CAP. Procalcitonin equivocal. Repeat in AM. (2) Hypotension Current Visit: No Status: Acute Comment: Chronic problem for patient. Unknown cause. Losartan held. RICHIE stockings ON. Fluids and PRN Florinef. Monitor for hypertension as patient has labile BP. Associated with Hypoxia in setting of pHTN on echo. Continue O2. 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 Franz who see the patient frequently PRN hydroxizine. Continue sertraline. (4) Seizure disorder Current Visit: Yes Status: Acute Code(s): G40.909 - EPILEPSY, UNSP, NOT INTRACTABLE, WITHOUT STATUS EPILEPTICUS SNOMED Code(s): 249253001 Comment: Continue Gabapentin, Seizure precautions. Seizures monthly. Discuss outpatient appropriateness of Methylphenidate. (5) Right arm pain Current Visit: Yes Status: Acute Code(s): M79.601 - PAIN IN RIGHT ARM SNOMED Code(s): 945010612 Comment: Resolved. No Neurological deficits in arm. Possible referred pain from heart or lung. Also possible spinal pathology. Follow with Previous neurosurgeon outpatient. Stress test defered due to lung pathology. (6) CKD (chronic kidney disease) stage 3, GFR 30-59 ml/min Current Visit: No Status: Acute Code(s): N18.3 - CHRONIC KIDNEY DISEASE, STAGE 3 (MODERATE) SNOMED Code(s): 654844312 Comment: At baseline. Avoid Nephrotoxic medications. (7) Chronic pain Current Visit: No Status: Acute Code(s): G89.29 - OTHER CHRONIC PAIN SNOMED Code(s): 90369247 Comment: Continue home medication regimen including fentanyl and oxycodone. Has TGN but no recent attacks. Continue gabapentin. (8) RANI (obstructive sleep apnea) Current Visit: No Status: Acute Code(s): G47.33 - OBSTRUCTIVE SLEEP APNEA ( ADULT) (PEDIATRIC) SNOMED Code(s): 10017500 Comment: Continue CPAP. (9) DNR (do not resuscitate) Current Visit: No Status: Acute (10) DVT prophylaxis Current Visit: No Status: Acute Code(s): GQN2142 - SNOMED Code(s): 473250071 Comment: Heparin SQ. Status and Disposition: Inpatient.
--- NOTE | 2018-03-01 19:38 | RAD ---
INDICATION: Nephrolithiasis COMPARISON: Renal sonogram June 22, 2009 TECHNIQUE: Longitudinal and transverse scans of the kidneys and bladder were obtained. FINDINGS: Kidneys: The kidneys are diminutive with mild renal parenchymal thinning left greater than right. There is an 8 mm calculus in the upper pole and the right and there are several right cysts. In the midpole region is a 1.1 cm cyst and in the superior pole is 0.7 cm cyst. On the left there is a solitary 6 mm calculus. The right kidney measures 9.8 x 3.6 x 5.0 cm and the left kidney 8.7 x 4.3 x 4.0 cm. Bladder: The bladder is partially distended. There are no intrinsic or extrinsic masses. The prevoid volume is 127 ml and the postvoid volume is 8 ml. Ureteral jets are document bilaterally. Other: None IMPRESSION: 1. DIMINUTIVE KIDNEYS COMPATIBLE WITH MEDICAL RENAL DISEASE. 2. BILATERAL NEPHROLITHIASIS. NO EVIDENCE OF OBSTRUCTION. 3. RIGHT RENAL CYSTS
[2018-03-01 19:59] LABS: Urine Appearance Clear; Urine Blood Negative (Negative); Urine Color Yellow; Urine Ketones Negative (Negative); Urine Protein Negative (Negative); Urine Red Blood Cell Trace(0-2/hpf) (Absent); Urine Urobilinogen Negative (Negative); Urine White Blood Cell 2+(11-20/hpf) (Absent)
[2018-03-01] MEDS: Sertraline* 50 MG TAB PO SCH (21:09)
[2018-03-01] MEDS: guaiFENesin ER TAB 600 MG PO SCH (21:09)
[2018-03-01] MEDS: Melatonin 3 MG TAB PO SCH (21:09)
--- NOTE | 2018-03-02 02:11 | CONS ---
CC: TERA Domínguez, Hospitalist Service; Dr. Herrmann; Dr. Vanessa * CARDIOLOGY CONSULTATION: DATE OF CONSULT: 02/27/17 REASON FOR CONSULTATION: Arm pain and hypotension. HISTORY OF PRESENT ILLNESS: Mrs. Solorio is a complex 77-year-old woman with an extensive past medical history. The patient was admitted yesterday for elective surgery for total right knee replacement. While getting prepped for her surgery, she acutely developed severe pain in the fingers of the right arm, but then extended up into the shoulder and this waxed and waned recurrently. The surgery was canceled over concerns of the possibility that this is an anginal equivalent and among other testing, she was scheduled for a stress test today. She had resting pictures, but at the time where she was due for the stress imaging, her mentation had changed. She was markedly hypotensive with systolic blood pressures in the 70s to 80s and therefore, the test was not performed. The patient was given IV hydration and given oxygen because of hypoxia. At the time I saw her, the patient stated she still did not feel herself. She was shaky and having trouble doing things, but according to the nurses and aides with her, she was markedly improved in terms of mentation and functional ability from earlier in the morning. The patient had a pretty good memory of the events of yesterday and she did not think there was anything positional that triggered the arm pain, although she states she has been worked up in the past and has a known history of both cervical stenosis and cervical disk disease. The patient says that what happened this morning is pretty typical of what she calls her spells and when these happen at home, she will have to lie down and rest for them to clear. They have never been associated with chest pain, pressure, heaviness. This morning, the patient had received Percocet and she uses a flecainide patch chronically, but there were no new pain medications added. PAST MEDICAL HISTORY: The patient has a past medical history of: 1. Hypertension. 2. Dyslipidemia. 3. Chronic renal insufficiency due to hypertension. 4. Diverticulitis. 5. Reflux. 6. Temporal lobe epilepsy. 7. Neurocardiogenic syncope. 8. Multiple sclerosis. 9. Bipolar. 10. History of DVT. 11. Hypothyroid disease. 12. Trigeminal neuralgia. 13. Arteritis. PAST SURGICAL HISTORY: Includes: 1. Left hemicolectomy and transverse colostomy. 2. Anterior diskectomy with cervical fusion. 3. Left total knee replacement. 4. Hernia repair with mesh. 5. Left total shoulder reverse. 6. Bilateral carpal tunnel release. 7. Lithotripsy. INPATIENT MEDICATIONS: Include: 1. Tylenol p.r.n. 2. Aspirin 81 mg a day. 3. Zithromax. 4. Simbrinza ophthalmic drops. 5. Zyrtec 10 mg a day. 6. Vitamin B12. 7. Dexilant 30 mg q.a.m. 8. Pepcid 20 mg q.h.s. p.r.n. heartburn. 9. Fentanyl/Duragesic patch 50 mcg an hour q.72 hours. 10. Florinef 0.1 mg b.i.d. p.r.n. systolic blood pressure less than 105. 11. Flonase 1 spray b.i.d. 12. Neurontin 300 mg t.i.d. 13. Mucinex 1200 mg b.i.d. 14. Subcutaneous heparin. 15. Atarax 25 mg p.r.n. itching. 16. Lactic acid topical. 17. Synthroid 25 mcg daily. 18. Melatonin 3 mg q.h.s. 19. Concerta 36 mg in the morning. 20. Zofran p.r.n. ALLERGIES: Include TEGRETOL, DONEPEZIL, IODINE, KETAMINE, MEPERIDINE, PHENOBARBITAL, PHENYTOIN, ALENDRONATE, DULOXETINE, QUETIAPINE, RIZATRIPTAN, AMOXICILLIN and CLAVULANIC ACID. FAMILY HISTORY: Mother at the age 82 with a history of diabetes and Parkinson. Father at the age of 65 with bladder and kidney cancer. SOCIAL HISTORY: Negative for alcohol or tobacco use. She is retired. REVIEW OF SYSTEMS: Review of systems was negative for orthopnea, PND, recent change in activity, no recent positional activity that would have changed her neck position. No recent fevers, chills, sweats. No sinus problems. She denies coughing. Her appetite has been okay. Her knee pain is significant and she is very disappointed about the surgery being postponed. The patient describes episodes of intermittent weakness, which as above where she absolutely has to lie down, but denies any known associations of these. PHYSICAL EXAM: The patient is 5 feet 11 inches, weighs 143 pounds with a BMI of 29. Vital Signs: This morning at 7:30, blood pressure 131/61, pulse was 85 , temperature 99.7. Blood pressure at 11:30 - 86/42; 11:37 - 72/57; 11:48 - 78/ 50; temperature 100.3 degrees Fahrenheit; pulse was 78; oxygen saturation with nasal cannula was 91%. She was 89% on room air earlier in the day. On exam, the patient is a petite elderly woman, in no acute distress. Psychologically pleasant, but a little hard of hearing. She had trouble finding things in her purse and was worried because she is shaky and does not think she is at her typical baseline. She was oriented to person and place. HEENT: Pupils are equal and round. Mucous membranes were moist. Neck: Without appreciable thyromegaly or increased JVP. Palpable carotid pulses and no audible bruits. Breath sounds, markedly abnormal lung exam at the bases, though left one third of the lung field had very coarse rhonchi and diminished breath sounds. The right lung field was diminished as well, but to a lesser extent. The rhonchi and diminished breath sounds did not improve or change after deep coughing. Coronary: S1, S2. Regular without murmurs or rubs. Abdomen: Active bowel sounds, soft, nontender, no hepatomegaly. Lower extremities were free of edema. 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 ECG from 02/28/18 at 11:29 in the morning shows sinus rhythm 60 beats a minute, QRS axis of 0 with normal AV and IV conduction times and normal ST segments. Labs: White count 9.5, hematocrit 38, platelets 143. Sodium 138, potassium 4.2 , glucose 106, BUN 18, creatinine 1.09, magnesium 1.7, troponin 0.00, 0.00. BNP of 324. Chest x-ray done 02/28/18 was reported as retrocardiac density consistent with hiatal hernia and no active disease. Brain CT from 02/28/18 showed no intracranial process. Cervical spine CT from 02/28/18 showed worsening of multilevel degenerative spondylosis and facet joint osteoarthritis, increase in mild C3-4, C4-5 and C5- 6 degenerative changes, C3-4 moderate right foraminal stenosis new compared with prior exam. IMPRESSION: In summary, Rere Solorio is a 77-year-old woman scheduled for elective knee replacement, who developed acute onset of right arm tingling, pain and numbness, which had a differential of an ischemic equivalent versus neuropathy. Today prior to her stress test, the patient had developed acute onset of a change in mentation, hypotension, hypoxia that was slow to recover, but did respond to oxygen and IV fluid. The patient's physical exam is changed from normal lung aguilera to marked abnormalities in the bases as described above and this is with a normal chest x- ray yesterday. In terms of the patient's atherosclerotic risk, right arm pain and I do think it is advisable to get a chemical stress, but I think it should not be done today. I think we need to stabilize her blood pressure as the chemical stress agent does vasodilate and tends to drop blood pressure as well as heart rate. With the normal troponins, I do not feel postponing this poses a significant risk. For the patient's low blood pressure, this could be multifactorial, she needs adequate preload with her tricuspid insufficiency, but I am more concerned about a possible infectious process with her low grade fevers and changing pulmonary exam as discussed. I think we should get additional pulmonary imaging , possibly a CT scan. Hypoxia also would be suggestive of possible blooming pneumonia. The patient's longstanding history of intermittent spells, weakness could be related to her history of neurocardiogenic syncope and autonomic insufficiency, but with her marked presentation today if this is typical, it raises a larger differential. For now, I would avoid dehydration. I agree with the IV fluids given and avoiding dehydration, ensuring electrolytes are normalized, aggressively evaluating hypoxia and if necessary at some point, Neurology reevaluation to ensure that this is not some sort of postictal or seizure state. Again, I do support following up on her stress test to ensure that these do not represent an ischemic presentation. I also agree with the hospitalist postponing her elective surgery for now until these issues can be sorted out. [id number]/[facility] #: [id number] [facility] CENTERMorena
[2018-03-02] MEDS: Heparin VIAL(*) 5000 UNITS/ML VIAL (FIVE THOUSAND) SUBCUT SCH ×4 (06:04→22:54)
[2018-03-02] MEDS: Levothyroxine TAB* 25 MCG TAB PO SCH (06:04)
[2018-03-02] MEDS: oxyCODONE TAB* 5 MG TAB PO PRN ×3 (06:04→23:17)
--- NOTE | 2018-03-02 07:07 | PN ---
Progress Note - Progress Note Date of Service: 03/02/18 Note: Right shoulder was x-rayed because of severe right arm pain upon admission. The films do not show any acute severe problems. She has some discomfort with abduction and external rotation. Patient advised that future injection can be considered. She knows to function as able with her right arm. Imp: Right shoulder calcific tendonitis. She knows to followup as needed in our office.
[2018-03-02] MEDS: fentaNYL Patch Check Q Shift 1 NOTE SCH ×2 (07:38→19:14)
[2018-03-02] MEDS: Dexlansoprazole (NF) 30 MG CAP PO SCH (09:23)
[2018-03-02] MEDS: Brinzolamid/Brimonidin OPH(NF) 1 DROP BTL RIGHT EYE SCH ×3 (09:23→22:49)
[2018-03-02] MEDS: Lactic Acid CR 12% (NF) 1 APPLIC TUBE TOPICAL SCH ×3 (09:23→22:49)
[2018-03-02] MEDS: Fluticasone NASAL SPRAY 50MCG* 16 gm SPRAY BTL BOTH NARES SCH ×3 (09:31→22:53)
[2018-03-02] MEDS: Methylphenidate ER TAB* 18 MG PO SCH (09:32)
[2018-03-02] MEDS: Gabapentin CAP(*) 100 MG PO SCH ×4 (09:33→22:52)
[2018-03-02] MEDS: Cyanocobalamin TAB* 500 MCG PO SCH (09:33)
[2018-03-02] MEDS: guaiFENesin ER TAB 600 MG PO SCH ×3 (09:34→22:53)
[2018-03-02] MEDS: tiZANidine TAB* 2 MG PO SCH ×4 (09:35→22:53)
[2018-03-02] MEDS: Polyethylene Glycol 3350* 17 GM PACKET PO SCH (09:35)
[2018-03-02] MEDS: Fludrocortisone Acetate TAB* 0.1 MG PO PRN (11:26)
[2018-03-02] MEDS: Famotidine TAB* 20 MG PO PRN ×2 (13:40→23:17)
[2018-03-02] MEDS: cefTRIAXone(*) 1 GM in NS 0.9% 50 ML* 50 ML IVPB SCH (16:30)
--- NOTE | 2018-03-02 16:41 | PN ---
Subjective Date of Service: 03/02/18 Interval History: Patient seen and examined at bedside. Denies fever, chills, cough, chest discomfort, shortness of breath, N/V/D. Pt states that she has a poor appetite. Pt states that the right arm pain that she was experiencing has resolved. Pt states that she is anxious for her knee replacement, but understands that it will be done in several weeks after she has recovered from PNA and had a stress test. Pt states that she has heart burn from not being on her home PPI medication. Pt reports hoarseness of about a weak and feeling like she may be developing a "cold". Tele: Sinus rhythm, rate 70-90's Family History: Unchanged from Admission Social History: Unchanged from Admission Past Medical History: Unchanged from Admission Objective Active Medications: Acetaminophen (Tylenol Tab*) 650 mg PO Q6H PRN Reason: FEVER/PAIN Aspirin (Aspirin 81 Mg Chew Tab*) 81 mg PO QPM [facility] Brinzolamide/Brimonidine Tartrate (Simbrinza Oph.Susp(Nf)) 1 drop RIGHT EYE BID [facility] Cetirizine HCl (Zyrtec*) 10 mg PO QPM [facility] Cyanocobalamin (Vitamin B12 Tab*) 3,000 mcg PO QAM [facility] Dexlansoprazole (Dexilant (Nf)) 30 mg PO QAM [facility] Famotidine (Pepcid Tab*) 20 mg PO BEDTIME PRN; Protocol Reason: HEARTBURN Fentanyl (Duragesic Patch 50 Mcg/Hr*) 50 mcg TRANSDERM Q72H [facility] Fludrocortisone Acetate (Florinef Tab*) 0.1 mg PO BID PRN Reason: SBP <105 Fluticasone Propionate (Flonase Nasal [place] 50mcg*) 1 spray BOTH NARES BID [facility] Gabapentin (Neurontin Cap(*)) 300 mg PO TID [facility] Guaifenesin (Mucinex*) 1,200 mg PO BID [facility] Heparin Sodium (Porcine) (Heparin Vial(*)) 5,000 units SUBCUT Q8HR [facility] Hydroxyzine HCl (Atarax Tab*) 25 mg PO QID PRN Reason: ITCHING Sodium Chloride (Ns 0.9% 1000 Ml*) 1,000 mls @ 100 mls/hr IV PER RATE [facility] Ceftriaxone Sodium 1 gm/ (Sodium Chloride) 50 mls @ 200 mls/hr IVPB Q24H [facility] Azithromycin 500 mg/ Sodium (Chloride) 250 mls @ 250 mls/hr IVPB Q24H [facility] Lactic Acid (Lac-Hydrin 12% (Nf)) 1 applic TOPICAL BID [facility] Levothyroxine Sodium (Synthroid Tab*) 25 mcg PO 0600 [facility] Melatonin (Melatonin) 3 mg PO BEDTIME [facility] Methylphenidate HCl (Concerta Er Tab*) 36 mg PO QAM [facility] Ondansetron HCl (Zofran Inj*) 4 mg IV Q6H PRN Reason: NAUSEA Ondansetron HCl (Zofran Odt Tab*) 8 mg PO Q8H PRN Reason: NAUSEA Oxycodone HCl (Roxycodone Tab*) 15 mg PO TID PRN Reason: PAIN Pharmacy Profile Note (Fentanyl Patch Check Q Shift) 1 note N/A 0700,1900 [facility] Phenol/Menthol (Chloroseptic Throat [place]*) 1 spray MT TID PRN Reason: SORE THROAT Polyethylene Glycol/Electrolytes (Miralax*) 17 gm PO EVERY OTHER DAY [facility] Sertraline HCl (Zoloft*) 50 mg PO BEDTIME [facility] Tizanidine HCl (Zanaflex Tab*) 2 mg PO TID [facility] Vital Signs - 8 hr 03/02/18 03/02/18 03/02/18 09:09 09:33 11:58 Respiratory 18 18 18 Rate 03/02/18 03/02/18 13:20 13:32 Respiratory 88 18 Rate Oxygen Devices in Use Now: Nasal Cannula - 3L Appearance: NAD, sitting up in bed Ears/Nose/Mouth/Throat: Mucous Membranes Moist Respiratory: Symmetrical Chest Expansion and Respiratory Effort, Clear to Auscultation - , diminished Cardiovascular: NL Sounds; No Murmurs; No JVD, RRR Abdominal: NL Sounds; No Tenderness; No Distention Extremities: No Edema Skin: No Rash or Ulcers Neurological: Alert and Oriented x 3, NL Muscle Strength and Tone Lines/Tubes/Other Access: Clean, Dry and Intact Peripheral IV - site benign Nutrition: Taking PO's Result Diagrams: 03/01/18 05:30 03/01/18 05:30 Microbiology and Other Data: Microbiology 03/01/18 19:42 Legionella Urinary Antigen - Final Urine Negative Legionella Antigen Streptococcus pneumoniae Ag Screen - Final Positive S. Pneumo Antigen Assess/Plan/Problems-Billing Assessment: Ms. 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 - Patient Problems (1) Aspiration pneumonitis Code(s): J69.0 - PNEUMONITIS DUE TO INHALATION OF FOOD AND VOMIT SNOMED Code(s ): 101227339 Comment: - Afebrile (low grade fever yesterday) and no leukocytosis - Suspect secondary to GERD - Suspect aspiration is cause of imaging findings, Pt will need outpatient follow-up CT scan - Procalcitonin elevated - Continue ceftriaxone and azithromycin (2) Lung mass Code(s): R91.8 - OTHER NONSPECIFIC ABNORMAL FINDING OF LUNG FIELD SNOMED Code( s): 661860805 Comment: - Patient has never had CT examination of the chest before - Negative CXR and lung exam 02/28 - Concern for Pneumonia vs inflammatory process vs possible malignanacy - Associated Bronchiectasis and chronic Laryngitis - Remote and Minor History of smoking, No Known chronic lung disease - Pulmonary consult, appreciate input - See above (3) GERD (gastroesophageal reflux disease) Code(s): K21.9 - GASTRO-ESOPHAGEAL REFLUX DISEASE WITHOUT ESOPHAGITIS SNOMED Code(s): 081812743 Comment: - Continue PPI and pepcid (4) Right arm pain Code(s): M79.601 - PAIN IN RIGHT ARM SNOMED Code(s): 586342910 Comment: - Resolved - No Neurological deficits in arm - Possible referred pain from heart or lung or also possible spinal pathology - Follows with neurosurgeon outpatient - Stress test defered at this time due to lung pathology (5) Seizure disorder Code(s): G40.909 - EPILEPSY, UNSP, NOT INTRACTABLE, WITHOUT STATUS EPILEPTICUS SNOMED Code(s): 140840974 Comment: - Reports seizures monthly - Continue Gabapentin - Will need to discuss outpatient appropriateness of Methylphenidate (6) Anxiety Code(s): F41.9 - ANXIETY DISORDER, UNSPECIFIED SNOMED Code(s): 90744291 Comment: - 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 who see the patient frequently - Continue sertraline and PRN hydroxizine (7) CKD (chronic kidney disease) stage 3, GFR 30-59 ml/min Code(s): N18.3 - CHRONIC KIDNEY DISEASE, STAGE 3 (MODERATE) SNOMED Code(s): 348280637 Comment: - At baseline - Avoid Nephrotoxic medications (8) Chronic pain Code(s): G89.29 - OTHER CHRONIC PAIN SNOMED Code(s): 81913604 Comment: - Has TGN but no recent attacks - Continue home medication regimen including fentanyl, oxycodone, and gabapentin (9) RANI (obstructive sleep apnea) Code(s): G47.33 - OBSTRUCTIVE SLEEP APNEA (ADULT) (PEDIATRIC) SNOMED Code(s): 44850303 Comment: - Continue CPAP (10) DVT prophylaxis Code(s): UEO9163 - SNOMED Code(s): 523809225 Comment: - Heparin SQ (11) DNR (do not resuscitate) Status and Disposition: Inpatient. Discharge to home when medically stable.
[2018-03-02] MEDS: Azithromycin IV(*) 500 MG in NS 0.9% 250 ML* 250 ML IVPB SCH (16:50)
--- NOTE | 2018-03-02 17:17 | CONS ---
PULMONARY CONSULTATION REPORT: DATE OF CONSULT: 03/02/18 CONSULTATION REQUESTED BY: TERA Domínguez REASON FOR CONSULT: Abnormal CT chest. HISTORY OF PRESENT ILLNESS: The patient is a 77-year-old female with extensive past medical history including hypertension, dyslipidemia, chronic renal insufficiency due to hypertension, diverticulitis, temporal lobe epilepsy, history of neurocardiogenic syncope, multiple sclerosis, bipolar disorder, history of DVT, hypothyroidism. The patient presented for elective right total knee replacement. The patient had severe pain of right arm radiating to the fingers and surgery was canceled. The patient had altered mental status during stress test to evaluate for ischemia and stress test was held. She also had drop in systolic blood pressure along with altered mental status. She was given IV hydration, supplemental oxygen, which helped. The patient back to her baseline currently. The patient reports having memory of events. The patient reports that she has been worked up in the past for similar complaint and was diagnosed with cervical stenosis and cervical disk disease. The patient reports occasional episodes of altered mental status and dizziness, which will improve with lying down. The patient denies significant shortness of breath. The patient reports intermittent wheezing related to GERD. The patient reports history of hiatal hernia and reports intermittent GERD symptoms. The patient reports waking up in the middle of night with GERD symptoms. The patient reports wheezing related to GERD. The patient reports that she recently had an aspiration episode into her throat. The patient reports hoarseness of voice that happens postaspiration episodes. Further evaluation included CT scan of the chest. I have personally reviewed CT of the chest images and with the patient today - the patient was noted to have patchy air space opacities with nodularity in the left mid and lower lung zones. The patient also appears to have dilated bronchi in the left lower lobe area. The patient with evidence of large hiatal hernia situated into the left chest. The patient with no evidence of significant mediastinal lymphadenopathy. No pleural effusions were noted. PAST MEDICAL HISTORY: 1. Hypertension. 2. Dyslipidemia. 3. Chronic renal insufficiency. 4. Diverticulitis. 5. Gastroesophageal reflux disease. 6. Obstructive sleep apnea, on CPAP. 7. Temporal lobe epilepsy. 8. Hiatal hernia. 9. Neurocardiogenic syncope. 10. Multiple sclerosis. 11. Bipolar disorder. 12. History of DVT. 13. Hypothyroidism. 14. Trigeminal neuralgia. 15. Arteritis. PAST SURGICAL HISTORY: 1. Left hemicolectomy and transverse colostomy. 2. Anterior diskectomy with cervical fusion. 3. Left total knee replacement. 4. Hernia repair with mesh. 5. Left total shoulder reversal. 6. Bilateral carpal tunnel release. 7. Lithotripsy. MEDICATIONS: 1. Tylenol. 2. Aspirin. 3. Zithromax. 4. Simbrinza ophthalmic drops. 5. Zyrtec. 6. Vitamin B12. 7. Dexilant. 8. Pepcid. 9. Fentanyl/Duragesic patch. 10. Florinef. 11. Flonase. 12. Neurontin. 13. Mucinex. 14. Subcutaneous heparin. 15. Atarax. 16. Lactic acid. 17. Synthroid. 18. Melatonin. 19. Concerta. 20. Zofran. ALLERGIES: TEGRETOL, DONEPEZIL, IODINE, MEPERIDINE, PHENOBARBITAL, PHENYTOIN, ALENDRONATE, DULOXETINE, QUETIAPINE, RIZATRIPTAN, AMOXICILLIN, CLAVULANIC ACID. FAMILY HISTORY: Mother at age 82 with history of diabetes and Parkinson' s. Father at age of 65 with bladder and kidney cancer. SOCIAL HISTORY: Negative for alcohol or tobacco abuse. She is retired. REVIEW OF SYSTEMS: All 14 systems reviewed and as per HPI. PHYSICAL EXAM: The patient in bed, in no apparent distress. Vital Signs: Temperature 98.5, pulse 68 beats per minute, respiratory rate 16 per minute, O2 sat 95% on 2 L, blood pressure 113/50. HEENT: Pupils are equal and reactive to light. Mucous membranes moist. Lungs: Good air entry bilaterally. No wheezes on auscultation. Cardiovascular: S1, S2 present, regular. No murmurs , gallops, or rubs. Abdomen: Obese. Bowel sounds present. Nontender, nondistended. Extremities: Normal range of motion. No edema. Skin: No rash or bruise. DIAGNOSTIC STUDIES/LAB DATA: Laboratory exam, WBC count 9.5, hemoglobin 13.1, hematocrit 38, platelet count 143. Sodium 138, potassium 4.2, chloride 106, bicarb 28, BUN 18, creatinine 1.09. BNP elevated at 324. Procalcitonin elevated at 1.7. Echocardiogram shows evidence of pulmonary hypertension, moderate in nature, estimated RVSP at 31, mild to moderate tricuspid regurgitation, mild mitral regurgitation, trace aortic regurgitation, dilated right atrium, ejection fraction 55% to 60%, no significant change in comparison with prior echocardiogram. CT of the chest as described above in HPI. IMPRESSION AND RECOMMENDATIONS: 77-year-old female with multiple comorbidities admitted for elective knee replacement, which was postponed secondary to arm pain, became hypotensive and hypoxemic during stress test. CT chest suggestive or air space opacities in left base, evidence of bronchiectasis at the left base in the setting of large hiatal hernia and the patient's reported history of regurgitation episodes consistent with aspiration pneumonitis. The patient reported recent episodes at home that she had an acid reflux into the back of her throat, which effected her voice, caused hoarseness. She has nodular air space opacities, likely secondary to aspiration episode. Do not suspect underlying malignancy even though that needs to be ascertained with a followup CT chest to ensure resolution of these opacities. GERD precautions were discussed with the patient. Continue with PPI. Pulmonary hypertension, which could have been multifactorial in her case and likely secondary pulmonary hypertension from underlying sleep apnea and chronic renal disease. She is also undergoing evaluation for cardiac causes. If she is candidate for catheterization, would recommend having right heart catheterization during the same time she is scheduled for left heart catheterization to evaluate pulmonary hypertension and to measure the wedge pressure. Thank you for allowing me to participate in the care of your patient. Will follow up with you. [id number]/[facility] #: [id number] [place]
[2018-03-02] MEDS ORDERED: Al Hydrox/Mg Hydrox/Simet LIQ* 30 ML UDC PO PRN (17:46)
[2018-03-02] MEDS ORDERED: Azithromycin TAB* 250 MG PO SCH (18:00)
[2018-03-02] MEDS: Cetirizine* 10 MG TAB PO SCH (18:33)
[2018-03-02] MEDS: Aspirin 81 mg CHEW TAB* 81 MG TAB.CHEW PO SCH (18:33)
[2018-03-02] MEDS: Omeprazole CAP* 20 MG PO SCH (18:33)
[2018-03-02] MEDS: Melatonin 3 MG TAB PO SCH ×2 (21:51→22:52)
[2018-03-02] MEDS: Sertraline* 50 MG TAB PO SCH ×2 (21:51→22:51)
[2018-03-02] MEDS: Artificial Tears* 15 ML BTL BOTH EYES PRN (23:18)
[2018-03-03] MEDS: Heparin VIAL(*) 5000 UNITS/ML VIAL (FIVE THOUSAND) SUBCUT SCH ×3 (05:55→21:06)
[2018-03-03] MEDS: Levothyroxine TAB* 25 MCG TAB PO SCH (05:57)
[2018-03-03] MEDS: Artificial Tears* 15 ML BTL BOTH EYES PRN ×3 (05:58→21:06)
[2018-03-03] MEDS: Omeprazole CAP* 20 MG PO SCH (05:58)
[2018-03-03] MEDS: Acetaminophen TAB* 325 MG PO PRN (06:33)
[2018-03-03 07:00] LABS: ABS Basophils 0 10^3/ul (0-0.2); ABS Eosinophils 0.1 10^3/ul (0-0.6); ABS Lymphocytes 0.9 10^3/ul (1.0-4.8); ABS Monocytes 0.4 10^3/ul (0-0.8); ABS Neutrophils 3.5 10^3/ul (1.5-7.7); ABS Nucleated RBC 0 10^3/ul; Hematocrit 33 % (35-47); Hemoglobin 11.3 g/dl (12.0-16.0); Lymphocyte % 18.4 % (25-47); Mean Corpuscular HGB Conc 34 g/dl (31-36); Mean Corpuscular Hemoglobin 30 pg (27-31); Mean Corpuscular Volume 88 fL (80-97); Nucleated Red Blood Cells % 0; Platelet Count 124 10^3/ul (150-450); Red Blood Count 3.77 10^6/ul (4.00-5.40); Red Cell Distribution Width 13 % (10.5-15)
[2018-03-03 07:16] LABS: EGFR Non-African American 57.2 (>60)
[2018-03-03] MEDS: fentaNYL Patch Check Q Shift 1 NOTE SCH ×2 (08:21→20:12)
[2018-03-03] MEDS: Cyanocobalamin TAB* 500 MCG PO SCH (09:28)
[2018-03-03] MEDS: Methylphenidate ER TAB* 18 MG PO SCH (09:30)
[2018-03-03] MEDS: Gabapentin CAP(*) 100 MG PO SCH ×3 (09:31→21:08)
[2018-03-03] MEDS: tiZANidine TAB* 2 MG PO SCH ×3 (09:31→21:06)
[2018-03-03] MEDS: guaiFENesin ER TAB 600 MG PO SCH ×2 (09:31→21:07)
[2018-03-03] MEDS: Fluticasone NASAL SPRAY 50MCG* 16 gm SPRAY BTL BOTH NARES SCH ×2 (09:41→21:06)
[2018-03-03] MEDS: Brinzolamid/Brimonidin OPH(NF) 1 DROP BTL RIGHT EYE SCH ×2 (09:43→21:12)
[2018-03-03] MEDS: Dexlansoprazole (NF) 30 MG CAP PO SCH (09:43)
[2018-03-03] MEDS: Lactic Acid CR 12% (NF) 1 APPLIC TUBE TOPICAL SCH ×2 (09:44→21:13)
[2018-03-03] MEDS: oxyCODONE TAB* 5 MG TAB PO PRN ×3 (09:57→21:37)
--- NOTE | 2018-03-03 11:22 | PN ---
Subjective Date of Service: 03/03/18 Interval History: Patient seen and examined at bedside. Denies fever, chills, shortness of breath , N/V/D. Pt states that she has a chest heaviness, she report this is not new today but is worse. She also reports being "sweaty" today. She is very anxious about needing another IV, and would like her antibiotics changed over to pills. She states that she is ambulating without increased SOB or chest discomfort. She is having right knee pain today. She also continues to report hoarseness. She feels some improvement in her indigestion. Pt has been weaned down to 1 L via NC. Tele: Sinus rhythm, rate 60-80's Family History: Unchanged from Admission Social History: Unchanged from Admission Past Medical History: Unchanged from Admission Objective Active Medications: Acetaminophen (Tylenol Tab*) 650 mg PO Q6H PRN Reason: FEVER/PAIN Al Hydrox/Mg Hydrox/Simethicone (Maalox Plus*) 30 ml PO Q6H PRN Reason: INDIGESTION Aspirin (Aspirin 81 Mg Chew Tab*) 81 mg PO QPM [facility] Azithromycin (Zithromax Tab*) 500 mg PO DAILY@1800 [facility] Brinzolamide/Brimonidine Tartrate (Simbrinza Oph.Susp(Nf)) 1 drop RIGHT EYE BID [facility] Cetirizine HCl (Zyrtec*) 10 mg PO QPM [facility] Cyanocobalamin (Vitamin B12 Tab*) 3,000 mcg PO QAM [facility] Dexlansoprazole (Dexilant (Nf)) 30 mg PO QAM [facility] Famotidine (Pepcid Tab*) 20 mg PO BEDTIME PRN; Protocol Reason: HEARTBURN Fentanyl (Duragesic Patch 50 Mcg/Hr*) 50 mcg TRANSDERM Q72H [facility] Fludrocortisone Acetate (Florinef Tab*) 0.1 mg PO BID PRN Reason: SBP <105 Fluticasone Propionate (Flonase Nasal [place] 50mcg*) 1 spray BOTH NARES BID [facility] Gabapentin (Neurontin Cap(*)) 300 mg PO TID [facility] Guaifenesin (Mucinex*) 1,200 mg PO BID [facility] Heparin Sodium (Porcine) (Heparin Vial(*)) 5,000 units SUBCUT Q8HR [facility] Hydroxyzine HCl (Atarax Tab*) 25 mg PO QID PRN Reason: ITCHING Sodium Chloride (Ns 0.9% 1000 Ml*) 1,000 mls @ 100 mls/hr IV PER RATE [facility] Ceftriaxone Sodium 1 gm/ (Sodium Chloride) 50 mls @ 200 mls/hr IVPB Q24H [facility] Lactic Acid (Lac-Hydrin 12% (Nf)) 1 applic TOPICAL BID [facility] Levothyroxine Sodium (Synthroid Tab*) 25 mcg PO 0600 [facility] Melatonin (Melatonin) 3 mg PO BEDTIME [facility] Methylphenidate HCl (Concerta Er Tab*) 36 mg PO QAM [facility] Omeprazole (Prilosec Cap*) 20 mg PO 0600 [facility] Ondansetron HCl (Zofran Inj*) 4 mg IV Q6H PRN Reason: NAUSEA Ondansetron HCl (Zofran Odt Tab*) 8 mg PO Q8H PRN Reason: NAUSEA Oxycodone HCl (Roxycodone Tab*) 15 mg PO TID PRN Reason: PAIN Pharmacy Profile Note (Fentanyl Patch Check Q Shift) 1 note N/A 0700,1900 [facility] Phenol/Menthol (Chloroseptic Throat [place]*) 1 spray MT TID PRN Reason: SORE THROAT Polyethylene Glycol/Electrolytes (Miralax*) 17 gm PO EVERY OTHER DAY [facility] Polyvinyl Alcohol (Polyvinyl Alcohol 1.4% Opth*) 1 drop BOTH EYES Q2H PRN Reason: DRY EYE Sertraline HCl (Zoloft*) 50 mg PO BEDTIME [facility] Tizanidine HCl (Zanaflex Tab*) 2 mg PO TID [facility] Vital Signs - 8 hr 03/03/18 03/03/18 03/03/18 03:55 09:31 09:57 Temperature 97.4 F Pulse Rate 58 Respiratory 18 16 16 Rate Blood Pressure 124/57 (mmHg) O2 Sat by Pulse 95 Oximetry Oxygen Devices in Use Now: Nasal Cannula - 1L Appearance: NAD, laying in bed Ears/Nose/Mouth/Throat: Mucous Membranes Moist Respiratory: Symmetrical Chest Expansion and Respiratory Effort, Clear to Auscultation - , diminished with few crackles in left lower lobe Cardiovascular: NL Sounds; No Murmurs; No JVD, RRR Abdominal: NL Sounds; No Tenderness; No Distention Extremities: No Edema Skin: No Rash or Ulcers Neurological: Alert and Oriented x 3, NL Muscle Strength and Tone Nutrition: Taking PO's Result Diagrams: 03/03/18 06:47 03/03/18 06:47 Microbiology and Other Data: Microbiology 03/01/18 19:42 Legionella Urinary Antigen - Final Urine Negative Legionella Antigen Streptococcus pneumoniae Ag Screen - Final Positive S. Pneumo Antigen Assess/Plan/Problems-Billing Assessment: Ms. 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 - Patient Problems (1) Streptococcus pneumoniae Comment: - Afebrile and no leukocytosis - Urine antigen postive for S. Pneumo - Also with a commponent of Aspiration pneumonitis - Elevated procalcitonin and CRP - Blood cultures, no growth day 1 - Change ceftriaxone to cefdinir (no IV access) and discontinue azithromycin (2) Aspiration pneumonitis Code(s): J69.0 - PNEUMONITIS DUE TO INHALATION OF FOOD AND VOMIT SNOMED Code(s ): 840292634 Comment: - Suspect secondary to GERD and aspiration (suspect this is the cause of imaging findings, Pt will need outpatient follow-up CT scan) - Procalcitonin elevated - Continue treatment for GERD (3) Lung mass Code(s): R91.8 - OTHER NONSPECIFIC ABNORMAL FINDING OF LUNG FIELD SNOMED Code( s): 285873086 Comment: - Patient has never had CT examination of the chest before - Negative CXR and lung exam 02/28 - Concern for Pneumonia vs inflammatory process vs possible malignanacy - Associated Bronchiectasis and chronic Laryngitis - Remote and Minor History of smoking, No Known chronic lung disease - Pulmonary consult, appreciate input - See above (4) GERD (gastroesophageal reflux disease) Code(s): K21.9 - GASTRO-ESOPHAGEAL REFLUX DISEASE WITHOUT ESOPHAGITIS SNOMED Code(s): 247613216 Comment: - Continue PPI and pepcid (5) Right arm pain Code(s): M79.601 - PAIN IN RIGHT ARM SNOMED Code(s): 177401371 Comment: - Resolved - No Neurological deficits in arm - Possible referred pain from heart or lung or also possible spinal pathology - Follows with neurosurgeon outpatient - Stress test defered at this time due to lung pathology (6) Seizure disorder Code(s): G40.909 - EPILEPSY, UNSP, NOT INTRACTABLE, WITHOUT STATUS EPILEPTICUS SNOMED Code(s): 565100391 Comment: - Reports seizures monthly - Continue Gabapentin - Will need to discuss outpatient appropriateness of Methylphenidate (7) Anxiety Code(s): F41.9 - ANXIETY DISORDER, UNSPECIFIED SNOMED Code(s): 83098055 Comment: - 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 Franz who see the patient frequently - Continue sertraline and PRN hydroxizine (8) CKD (chronic kidney disease) stage 3, GFR 30-59 ml/min Code(s): N18.3 - CHRONIC KIDNEY DISEASE, STAGE 3 (MODERATE) SNOMED Code(s): 752832903 Comment: - At baseline - Avoid Nephrotoxic medications (9) Chronic pain Code(s): G89.29 - OTHER CHRONIC PAIN SNOMED Code(s): 19315445 Comment: - Has TGN but no recent attacks - Continue home medication regimen including fentanyl, oxycodone, and gabapentin (10) RANI (obstructive sleep apnea) Code(s): G47.33 - OBSTRUCTIVE SLEEP APNEA (ADULT) (PEDIATRIC) SNOMED Code(s): 63669257 Comment: - Continue CPAP (11) DVT prophylaxis Code(s): [id number] - SNOMED Code(s): 897803616 Comment: - Heparin SQ (12) DNR (do not resuscitate) Status and Disposition: Inpatient. Discharge to home when medically stable.
[2018-03-03] MEDS: fentaNYL PATCH 50 MCG/HR TRANSDERM SCH (12:19)
--- NOTE | 2018-03-03 13:05 | PN ---
Progress Note - Progress Note Date of Service: 03/03/18 - Pulm f/u note Note: Pt seen and examined at bedside. Pt reports feeling better, reports that she had episode of wheezing and chest tightness this am. She reports having similar episodes in the past. Her O2 requirements have come down Active Medications Generic Name Dose Route Start Last Admin Trade Name Freq PRN Reason Stop Dose Admin Acetaminophen 650 mg 02/28/18 08:36 03/03/18 06:33 Tylenol Tab* PO 650 mg Q6H PRN Administration FEVER/PAIN Al Hydrox/Mg Hydrox/Simethicone 30 ml 03/02/18 17:46 Maalox Plus* PO Q6H PRN INDIGESTION Aspirin 81 mg 02/28/18 18:00 03/02/18 18:33 Aspirin 81 Mg Chew Tab* PO 81 mg QPM MOSES Administration Brinzolamide/Brimonidine Tartrate 1 drop 02/28/18 09:00 03/03/18 09:43 Simbrinza Oph.Susp(Nf) RIGHT EYE Not Given BID MOSES Cefdinir 300 mg 03/03/18 21:00 Cefdinir Cap (Nf) PO BID MOSES Cetirizine HCl 10 mg 02/28/18 18:00 03/02/18 18:33 Zyrtec* PO 10 mg QPM MOSES Administration Cyanocobalamin 3,000 mcg 03/01/18 09:00 03/03/18 09:28 Vitamin B12 Tab* PO 3,000 mcg QAM MOSES Administration Dexlansoprazole 30 mg 03/01/18 09:00 03/03/18 09:43 Dexilant (Nf) PO Not Given QAM MOSES Famotidine 20 mg 02/28/18 10:53 03/02/18 23:17 Pepcid Tab* PO 20 mg BEDTIME PRN Administration HEARTBURN Protocol Fentanyl 50 mcg 02/28/18 12:00 03/03/18 12:19 Duragesic Patch 50 Mcg/Hr* TRANSDERM 50 mcg Q72H MOSES Administration Fludrocortisone Acetate 0.1 mg 02/28/18 17:31 03/02/18 11:26 Florinef Tab* PO 0.1 mg BID PRN Administration SBP <105 Fluticasone Propionate 1 spray 02/28/18 21:00 03/03/18 09:41 Flonase Nasal [place] 50mcg* BOTH NARES 1 spray BID MOSES Administration Gabapentin 300 mg 02/28/18 09:00 03/03/18 09:31 Neurontin Cap(*) PO 300 mg TID MOSES Administration Guaifenesin 1,200 mg 03/01/18 21:00 03/03/18 09:31 Mucinex* PO 1,200 mg BID MOSES Administration Heparin Sodium (Porcine) 5,000 units 02/28/18 14:00 03/03/18 05:55 Heparin Vial(*) SUBCUT 5,000 units Q8HR MOSES Administration Hydroxyzine HCl 25 mg 02/28/18 17:31 Atarax Tab* PO QID PRN ITCHING Lactic Acid 1 applic 02/28/18 09:00 03/03/18 09:44 Lac-Hydrin 12% (Nf) TOPICAL Not Given BID [facility] Levothyroxine Sodium 25 mcg 02/28/18 11:00 03/03/18 05:57 Synthroid Tab* PO 25 mcg 0600 MOSES Administration Melatonin 3 mg 02/28/18 21:00 03/02/18 22:52 Melatonin PO 3 mg BEDTIME MOSES Administration Methylphenidate HCl 36 mg 03/01/18 09:00 03/03/18 09:30 Concerta Er Tab* PO 36 mg QAM MOSES Administration Omeprazole 20 mg 03/02/18 18:00 03/03/18 05:58 Prilosec Cap* PO 20 mg 0600 MOSES Administration Ondansetron HCl 4 mg 02/28/18 08:36 Zofran Inj* IV Q6H PRN NAUSEA Ondansetron HCl 8 mg 02/28/18 08:38 Zofran Odt Tab* PO Q8H PRN NAUSEA Oxycodone HCl 15 mg 02/28/18 11:41 03/03/18 09:57 Roxycodone Tab* PO 15 mg TID PRN Administration PAIN Pharmacy Profile Note 1 note 02/28/18 19:00 03/03/18 08:21 Fentanyl Patch Check Q Shift N/A 1 note 0700,1900 [facility] Administration Phenol/Menthol 1 spray 03/01/18 08:16 Chloroseptic Throat [place]* MT TID PRN SORE THROAT Polyethylene Glycol/Electrolytes 17 gm 02/28/18 09:00 03/02/18 09:35 Miralax* PO 17 gm EVERY OTHER DAY MOSES Administration Polyvinyl Alcohol 1 drop 03/02/18 17:45 03/03/18 09:41 Polyvinyl Alcohol 1.4% Opth* BOTH EYES 1 dose Q2H PRN Administration DRY EYE Sertraline HCl 50 mg 02/28/18 21:00 03/02/18 22:51 Zoloft* PO 50 mg BEDTIME MOSES Administration Tizanidine HCl 2 mg 02/28/18 09:00 03/03/18 09:31 Zanaflex Tab* PO 2 mg TID MOSES Administration Vital Signs Temp Pulse Resp BP Pulse Ox 97.4 F 58 16 124/57 95 03/03/18 03:55 03/03/18 03:55 03/03/18 12:19 03/03/18 03:55 03/03/18 03:55 O/E: Pt in NAD HEENT: PERRLA, No JVD Lungs: good a/e b/l, crackles at left base CVS: S1, S2+ Abd: Soft, BS+ Ext: Normal ROM Neuro: No focal defecits Skin: No rash Laboratory Results - last 24 hr 03/02/18 03/03/18 03/03/18 19:58 06:47 06:47 WBC 5.0 RBC 3.77 L Hgb 11.3 L Hct 33 L MCV 88 MCH 30 MCHC 34 RDW 13 Plt Count 124 L MPV 8.0 Neut % (Auto) 69.9 Lymph % (Auto) 18.4 L [place] % (Auto) 7.8 H Eos % (Auto) 3.0 Baso % (Auto) 0.9 Absolute Neuts (auto) 3.5 Absolute Lymphs (auto) 0.9 L Absolute Monos (auto) 0.4 Absolute Eos (auto) 0.1 Absolute Basos (auto) 0 Absolute Nucleated RBC 0 Nucleated RBC % 0 Sodium 141 Potassium 3.8 Chloride 105 Carbon Dioxide 31 Anion Gap 5 BUN 17 Creatinine 0.95 Est GFR ( Amer) 69.2 Est GFR (Non-Af Amer) 57.2 BUN/Creatinine Ratio 17.9 Glucose 104 H POC Glucose (mg/dL) 101 H Calcium 8.9 Magnesium 1.9 C-Reactive Protein 79.25 H I/R: 77 y o f a/f for knee sx which was cancelled sec to hypotension, hypoxia, pt also being evaluated for arm pain to r/o cardiac ischemia Pt is not hypoxic any more Pt saturating 98% on RA CT chest findings concerning for possible aspiration PNA On abx, to complete 10 day course Aspiration precautions Pls provide pt with albuterol inhaler upon d/c to be used as needed for wheezing and chest tightness Pt needs rpt CT chest in 6 weeks to ensure resolution of opacities Pt would like to have rpt CT chest through her primary care physician C/w PPI
[2018-03-03] MEDS ORDERED: Azithromycin TAB* 250 MG PO SCH (18:00)
[2018-03-03] MEDS: Losartan TAB* 25 MG PO SCH ×2 (19:24→21:07)
[2018-03-03] MEDS: Cetirizine* 10 MG TAB PO SCH (19:57)
[2018-03-03] MEDS: Aspirin 81 mg CHEW TAB* 81 MG TAB.CHEW PO SCH (19:57)
[2018-03-03] MEDS ORDERED: Cefdinir cap (NF) 300 MG CAP PO SCH (21:00)
[2018-03-03] MEDS: Sertraline* 50 MG TAB PO SCH (21:06)
[2018-03-03] MEDS: Melatonin 3 MG TAB PO SCH (21:07)
[2018-03-03] MEDS: CMCS Cefdinir cap (NF) 300 MG CAP PO SCH (21:12)
[2018-03-03] MEDS: Famotidine TAB* 20 MG PO PRN (21:31)
[2018-03-04] MEDS: Levothyroxine TAB* 25 MCG TAB PO SCH (06:01)
[2018-03-04] MEDS: Omeprazole CAP* 20 MG PO SCH (06:01)
[2018-03-04] MEDS: Acetaminophen TAB* 325 MG PO PRN ×2 (06:01→13:12)
[2018-03-04] MEDS: Heparin VIAL(*) 5000 UNITS/ML VIAL (FIVE THOUSAND) SUBCUT SCH (06:04)
[2018-03-04] MEDS: fentaNYL Patch Check Q Shift 1 NOTE SCH (06:40)
--- NOTE | 2018-03-04 09:01 | PN ---
Subjective Date of Service: 03/04/18 Interval History: Patient seen and examined at bedside. Denies fever, chills, shortness of breath , chest discomfort, N/V/D. Pt states that she had another episode of wheezing and chest tightness this AM, this has since resolved. Tele: Sinus rhythm, rate 60's. Family History: Unchanged from Admission Social History: Unchanged from Admission Past Medical History: Unchanged from Admission Objective Active Medications: Acetaminophen (Tylenol Tab*) 650 mg PO Q6H PRN Reason: FEVER/PAIN Al Hydrox/Mg Hydrox/Simethicone (Maalox Plus*) 30 ml PO Q6H PRN Reason: INDIGESTION Aspirin (Aspirin 81 Mg Chew Tab*) 81 mg PO QPM MOSES Brinzolamide/Brimonidine Tartrate (Simbrinza Oph.Susp(Nf)) 1 drop RIGHT EYE BID MOSES Cefdinir (Cefdinir Cap (Nf)) 300 mg PO BID MOSES Cetirizine HCl (Zyrtec*) 10 mg PO QPM MOSES Cyanocobalamin (Vitamin B12 Tab*) 3,000 mcg PO QAM MOSES Dexlansoprazole (Dexilant (Nf)) 30 mg PO QAM MOSES Famotidine (Pepcid Tab*) 20 mg PO BEDTIME PRN; Protocol Reason: HEARTBURN Fentanyl (Duragesic Patch 50 Mcg/Hr*) 50 mcg TRANSDERM Q72H MOSES Fludrocortisone Acetate (Florinef Tab*) 0.1 mg PO BID PRN Reason: SBP <105 Fluticasone Propionate (Flonase Nasal [place] 50mcg*) 1 spray BOTH NARES BID MOSES Gabapentin (Neurontin Cap(*)) 300 mg PO TID MOSES Guaifenesin (Mucinex*) 1,200 mg PO BID MOSES Heparin Sodium (Porcine) (Heparin Vial(*)) 5,000 units SUBCUT Q8HR MOSES Hydroxyzine HCl (Atarax Tab*) 25 mg PO QID PRN Reason: ITCHING Lactic Acid (Lac-Hydrin 12% (Nf)) 1 applic TOPICAL BID MOSES Levothyroxine Sodium (Synthroid Tab*) 25 mcg PO 0600 MOSES Losartan Potassium (Cozaar Tab*) 25 mg PO BID MOSES Melatonin (Melatonin) 3 mg PO BEDTIME MOSES Methylphenidate HCl (Concerta Er Tab*) 36 mg PO QAM MOSES Omeprazole (Prilosec Cap*) 20 mg PO 0600 [facility] Ondansetron HCl (Zofran Inj*) 4 mg IV Q6H PRN Reason: NAUSEA Ondansetron HCl (Zofran Odt Tab*) 8 mg PO Q8H PRN Reason: NAUSEA Oxycodone HCl (Roxycodone Tab*) 15 mg PO TID PRN Reason: PAIN Pharmacy Profile Note (Fentanyl Patch Check Q Shift) 1 note N/A 0700,1900 [facility] Phenol/Menthol (Chloroseptic Throat [place]*) 1 spray MT TID PRN Reason: SORE THROAT Polyethylene Glycol/Electrolytes (Miralax*) 17 gm PO EVERY OTHER DAY [facility] Polyvinyl Alcohol (Polyvinyl Alcohol 1.4% Opth*) 1 drop BOTH EYES Q2H PRN Reason: DRY EYE Sertraline HCl (Zoloft*) 50 mg PO BEDTIME MOSES Tizanidine HCl (Zanaflex Tab*) 2 mg PO TID MOSES Vital Signs - 8 hr 03/04/18 03/04/18 03/04/18 02:17 02:18 02:19 Temperature Pulse Rate Respiratory 16 16 16 Rate Blood Pressure (mmHg) O2 Sat by Pulse Oximetry 03/04/18 03:43 Temperature 98.4 F Pulse Rate 62 Respiratory 16 Rate Blood Pressure 142/62 (mmHg) O2 Sat by Pulse 95 Oximetry Oxygen Devices in Use Now: None Appearance: NAD, laying in bed Ears/Nose/Mouth/Throat: Mucous Membranes Moist Respiratory: Symmetrical Chest Expansion and Respiratory Effort, Clear to Auscultation Cardiovascular: NL Sounds; No Murmurs; No JVD, RRR Abdominal: NL Sounds; No Tenderness; No Distention Extremities: No Edema Skin: No Rash or Ulcers Neurological: Alert and Oriented x 3, NL Muscle Strength and Tone Lines/Tubes/Other Access: Clean, Dry and Intact Peripheral IV - site benign Nutrition: Taking PO's Result Diagrams: 03/03/18 06:47 03/03/18 06:47 Microbiology and Other Data: Microbiology 03/01/18 19:42 Legionella Urinary Antigen - Final Urine Negative Legionella Antigen Streptococcus pneumoniae Ag Screen - Final Positive S. Pneumo Antigen Assess/Plan/Problems-Billing Assessment: Ms. 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 - Patient Problems (1) Streptococcus pneumoniae Comment: - Afebrile and no leukocytosis - Urine antigen postive for S. Pneumo - Also with a commponent of Aspiration pneumonitis - Elevated procalcitonin and CRP (improving) - Blood cultures, no growth day 2 - Continue cefdinir (2) Aspiration pneumonitis Code(s): J69.0 - PNEUMONITIS DUE TO INHALATION OF FOOD AND VOMIT SNOMED Code(s ): 323851091 Comment: - Suspect secondary to GERD and aspiration (suspect this is the cause of imaging findings, Pt will need outpatient follow-up CT scan) - Procalcitonin elevated - Continue treatment for GERD (3) Lung mass Code(s): R91.8 - OTHER NONSPECIFIC ABNORMAL FINDING OF LUNG FIELD SNOMED Code( s): 648751175 Comment: - Patient has never had CT examination of the chest before - Negative CXR and lung exam 02/28 - Concern for Pneumonia vs inflammatory process vs possible malignanacy - Associated Bronchiectasis and chronic Laryngitis - Remote and Minor History of smoking, No Known chronic lung disease - Pulmonary consult, appreciate input - See above (4) GERD (gastroesophageal reflux disease) Code(s): K21.9 - GASTRO-ESOPHAGEAL REFLUX DISEASE WITHOUT ESOPHAGITIS SNOMED Code(s): 465408099 Comment: - Continue PPI and pepcid (5) Right arm pain Code(s): M79.601 - PAIN IN RIGHT ARM SNOMED Code(s): 256758554 Comment: - Resolved - No Neurological deficits in arm - Possible referred pain from heart or lung or also possible spinal pathology - Follows with neurosurgeon outpatient - Stress test defered at this time due to lung pathology (6) Seizure disorder Code(s): G40.909 - EPILEPSY, UNSP, NOT INTRACTABLE, WITHOUT STATUS EPILEPTICUS SNOMED Code(s): 319898459 Comment: - Reports seizures monthly - Continue Gabapentin - Will need to discuss outpatient appropriateness of Methylphenidate (7) Anxiety Code(s): F41.9 - ANXIETY DISORDER, UNSPECIFIED SNOMED Code(s): 29344257 Comment: - 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 Franz who see the patient frequently - Continue sertraline and PRN hydroxizine (8) CKD (chronic kidney disease) stage 3, GFR 30-59 ml/min Code(s): N18.3 - CHRONIC KIDNEY DISEASE, STAGE 3 (MODERATE) SNOMED Code(s): 952448902 Comment: - At baseline - Avoid Nephrotoxic medications (9) Chronic pain Code(s): G89.29 - OTHER CHRONIC PAIN SNOMED Code(s): 77211850 Comment: - Has TGN but no recent attacks - Continue home medication regimen including fentanyl, oxycodone, and gabapentin (10) RANI (obstructive sleep apnea) Code(s): G47.33 - OBSTRUCTIVE SLEEP APNEA (ADULT) (PEDIATRIC) SNOMED Code(s): 42587710 Comment: - Continue CPAP (11) DVT prophylaxis Code(s): OVI7478 - SNOMED Code(s): 770487870 Comment: - Heparin SQ (12) DNR (do not resuscitate) Status and Disposition: Inpatient. Stable for discharge to home later today.
[2018-03-04] MEDS: tiZANidine TAB* 2 MG PO SCH ×2 (09:38→13:11)
[2018-03-04] MEDS: guaiFENesin ER TAB 600 MG PO SCH (09:39)
[2018-03-04] MEDS: Losartan TAB* 25 MG PO SCH (09:40)
[2018-03-04] MEDS: Gabapentin CAP(*) 100 MG PO SCH ×2 (09:41→13:11)
[2018-03-04] MEDS: oxyCODONE TAB* 5 MG TAB PO PRN ×2 (09:41→13:17)
[2018-03-04] MEDS: Methylphenidate ER TAB* 18 MG PO SCH (09:43)
[2018-03-04] MEDS: CMCS Cefdinir cap (NF) 300 MG CAP PO SCH (09:44)
[2018-03-04] MEDS: Fluticasone NASAL SPRAY 50MCG* 16 gm SPRAY BTL BOTH NARES SCH (09:46)
[2018-03-04] MEDS: Dexlansoprazole (NF) 30 MG CAP PO SCH (09:46)
[2018-03-04] MEDS: Cyanocobalamin TAB* 500 MCG PO SCH (09:46)
[2018-03-04] MEDS: Artificial Tears* 15 ML BTL BOTH EYES PRN (09:46)
[2018-03-04] MEDS: Brinzolamid/Brimonidin OPH(NF) 1 DROP BTL RIGHT EYE SCH (09:47)
[2018-03-04] MEDS: Polyethylene Glycol 3350* 17 GM PACKET PO SCH (09:48)
[2018-03-04] MEDS: Lactic Acid CR 12% (NF) 1 APPLIC TUBE TOPICAL SCH (09:48)
[2018-03-04 12:21] VITALS: BP 139/73
--- NOTE | 2018-03-05 09:37 | DS ---
CC: Dr. Antony Swartz; Dr. Baldwin; Dr. Parsons * DISCHARGE SUMMARY: DATE OF ADMISSION: 02/28/18 DATE OF DISCHARGE: 03/04/18 ATTENDING PHYSICIAN: Dr. Mary Morales * (dictated by Kiley Shah NP). PRIMARY CARE PROVIDER: Dr. Antony Swartz. PRIMARY DIAGNOSES: 1. Streptococcus pneumoniae pneumonia. 2. Suspected aspiration pneumonitis. 3. Right arm pain, resolved. 4. Lung mass, suspect secondary to pneumonia and aspiration pneumonitis. SECONDARY DIAGNOSES: 1. Gastroesophageal reflux disease. 2. Seizure disorder. 3. Anxiety. 4. Chronic kidney disease stage 3. 5. Chronic pain. 6. Obstructive sleep apnea. CONSULTATIONS WHILE IN THE HOSPITAL: 1. Dr. Selma Baldwin with Cardiology. 2. Dr. Yanet Parsons with Pulmonology. 3. Dr. Vanessa with Orthopedic Surgery. STUDIES WHILE IN THE HOSPITAL: 1. Chest x-ray on 02/28/18. Radiologist's impression: Retrocardiac density likely representing hiatal hernia as identified previously. No active disease is noted. 2. Cervical spine CT on 02/18/18. Radiologist's impression: Significant interval worsening of multilevel degenerative spondylosis and facet joint osteoarthritis compared with a 2009 exam. Associated increased mild C3 to C4, C4 to C5 and C5 to C6 degenerative anterolisthesis. At C3 to C4, there is a moderate right foraminal stenosis, new compared with prior exam. Solid osseous fusion at C6 to C7. 3. Transthoracic echocardiogram on 02/28/18. Dog Barber's conclusion: The left ventricular chamber size is normal. Global left ventricular wall motion and contractility are within normal limits. There is normal left ventricular systolic function. Estimated ejection fraction is 55% to 60%. On several views , there appears to be a septum extending from the high atrial wall across the atrium in several views, but not in all views. It is unclear whether it extends completely across the left atrium dividing it completely. No high frequency jet was noted across the septum. 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 The right atrium is mildly dilated. There is a trace of atrial regurgitation, mild mitral regurgitation, mild-to- moderate tricuspid regurgitation. The right ventricular systolic pressure is estimated at 31 mmHg. There is trace pulmonic regurgitation. Compared to previous report from 09/15/16, there are no significant changes. 4. Brain CT on 02/28/18. Radiologist's impression: There is no evidence of intracranial mass or hemorrhage noted. 5. Right shoulder x-ray on 03/01/18. Radiologist's impression: Minor AC joint osteoarthritis. Calcific tendonitis. 6. Abdomen, bladder ultrasound on 03/01/18. Radiologist's impression: Diminutive kidneys comparable with medical renal disease, bilateral nephrolithiasis, no evidence of obstruction, right renal cyst. 7. Chest CT on 03/01/18. Radiologist's impression: Patchy airspace disease and nodularity of the left mid and lower lung with bronchiectasis. The appearance is suggestive of a chronic inflammatory process, though neoplasm is within the differential. Follow up until resolution to exclude underlying pulmonary parenchymal pathology. Large hiatal hernia. Right nephrolithiasis. DISCHARGE MEDICATIONS: New home medications: 1. Albuterol HFA inhaler 1 to 2 puff inhalation every 4 to 6 hours as needed for shortness of breath or wheeze. 2. Cefdinir 300 mg oral twice daily for 7 days. 3. Guaifenesin ER 1200 mg oral twice daily for 1 week. Continued home medications: 1. Aspirin 81 mg oral daily. 2. Flonase 1 spray to both nares twice daily. 3. Gabapentin 300 mg oral 3 times daily. 4. Hydroxyzine 25 mg oral 4 times daily as needed for itching. 5. Levothyroxine 25 mcg oral every morning. 6. CoQ10 200 mg oral every morning. 7. Vitamin C 1000 mg oral daily. 8. Ranitidine 150 mg oral daily at bedtime as needed for indigestion. 9. Dexilant 30 mg oral every morning. 10. TheraTears 1 drop to both eyes every 4 hours as needed for dry eyes. 11. Simbrinza ophthalmic 1 drop to the right eye twice daily. 12. Micardis 20 mg oral twice daily. 13. Florinef 0.1 mg oral twice daily as needed for systolic blood pressure less than 105. 14. Methylphenidate 36 mg oral every morning. 15. Ammonium lactate 12% topical twice daily. 16. MiraLAX 17 g oral daily. 17. Probiotic 1 capsule oral daily. 18. Lutein Vision Blend vitamin 1 capsule oral daily. 19. Multivitamin 1 tablet oral daily. 20. Vitamin B6 1 tablet oral every morning. 21. Ketorolac eye drops 1 drop to the right eye twice daily as needed for pain. 22. Magnesium oxide 250 mg oral twice daily. 23. Biotin 2500 mcg oral every morning. 24. Vitamin E 400 units oral every morning. 25. Means-3 1 g oral twice daily. 26. Vitamin D3 1000 units oral every morning. 27. Super Vitamin B complex 1 tablet oral every morning. 28. Vitamin B12 3000 mcg oral every morning. 29. Xyzal 5 mg oral every evening. 30. Acetaminophen 1000 mg oral 4 times daily as needed for pain. 31. Xiidra 1 drop to the left eye twice daily. 32. Voltaren gel 4 g topical twice daily as needed for pain. 33. Acyclovir 500 mg oral twice daily as needed for cold sores. 34. Tizanidine 2 mg oral 3 times daily. 35. Sertraline 50 mg oral daily at bedtime. 36. Zofran 8 mg oral every 8 hours as needed for nausea. 37. Selenium 200 mcg oral every morning. 38. Oxycodone 15 mg oral as needed. 39. Fentanyl patch 50 mcg transdermal every 72 hours. HISTORY OF PRESENT ILLNESS/HOSPITAL COURSE: Ms. Solorio is a 77-year-old female with a past medical history significant for hypertension, hyperlipidemia , chronic kidney disease stage 3, obstructive sleep apnea, orthostatic hypotension, neurocardiogenic syncope and epilepsy, who presented to the hospital for an elective right total knee replacement. The patient was in her usual state of health prior to the start of the procedure while in the same-day presurgery area. The patient was sitting in a wheelchair and suddenly developed lightheadedness and a sensation of room spinning ,associated with severe pain, numbness and tingling in her right arm, which she describes starting in her fingers and going up her arm to her biceps. The patient reported having issues with the right shoulder since falling from a possible seizure approximately 3 weeks prior. The patient is unaware of when she has seizures and notices bumps and bruises later on and after she falls. She uses CPAP for her obstructive sleep apnea. She has never worn any oxygen. The patient was noted to have hypoxia with oxygen saturations down to 88% and up to 100% when 2 L of oxygen was placed. She denied any chest pain or pain radiating to her neck. She did feel incredibly short of breath with pain in her arm. The pain was tense and then became less and then eventually resolved. The patient had a negative stress test in 2009. She has no leg swelling. She does not have a diagnosis of COPD. She previously had an echocardiogram with Dr. 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 The patient denies any palpitations. The patient monitors her blood pressure at home. It is also to note that the patient follows with Dr. Herrmann. Due to her symptoms, the hospitalists were asked to evaluate the patient for admission. During the patient's hospitalization, she had serial troponins to rule out acute coronary syndrome. Her troponins were flat at 0.00. She had an EKG without any ischemic changes. She initially had a procalcitonin of 0.2 and other unremarkable labs. The patient had another hypoxic episode; VBG is without significant findings. She then had a repeat procalcitonin that resulted in 1.7. The patient was also seen in consultation by Dr. Selma Baldwin with Cardiology who felt that the patient would need to finish undergoing a cardiac stress test to rule out a cardiac cause of her right arm pain, but felt that due to her hypoxia, this was not an urgent matter and could be done as an outpatient. The patient underwent chest CT showing patchy airspace disease and nodularity of the left mid and low lung with bronchiectasis, large hiatal hernia and right nephrolithiasis. The patient was seen by Dr. Vanessa. After he reviewed her right shoulder x-ray, he advised the patient that she could consider injection to assist with her arm pain. It was felt that she had a right shoulder calcified tendinitis and can follow up as needed in his office. Additional, the patient was seen in consultation by Dr. Parsons with Pulmonology who felt that the patient's CT findings could represent an aspiration pneumonitis. During her stay, she had no leukocytosis, was afebrile, with the exception of one episode of a low-grade fever on 03/01/18. The patient was treated with ceftriaxone and azithromycin. She had legionella urine antigens that were negative and positive Streptococcus pneumoniae antigen. She had a negative urinalysis. No growth on her blood cultures on day 2. Her antibiotics were narrowed down to Cefdinir oral. The patient was encouraged to use GERD precautions. The patient also follows with Neurosurgery outpatient for her spinal issues. Her chronic kidney disease was at baseline. The patient was doing well and was ready for discharge. The patient will also be discharged albuterol inhaler as needed and continued on guaifenesin. Ms. Solorio was stable for discharge today. Vital signs are as follows: Temperature 98.2, heart rate 70, respiratory rate 16, O2 sat 97% on room air, blood pressure 139/72. DISCHARGE PLAN: Ms. Solorio will be discharged to home. Activity as tolerated. She will be on a heart-healthy diet. In regards to her Streptococcus pneumoniae pneumonia, she will be continued on cefdinir for 7 more days to complete a 10-day course. For her aspiration pneumonitis, she has been encouraged to follow GERD precautions, avoid foods that can irritate and cause GERD. Additionally, she should have a followup CT scan in 6 weeks. In regard to the patient's right arm pain, we are unable to rule out a cardiac cause at this time, as she did not complete her stress test. She should be assisted outpatient in completing a stress test for cardiac clearance prior to having her total knee replacement in the future. With regard to her right shoulder pain, she can continue to follow with Dr. Vanessa as needed. She has been resumed on all of her other usual home medications. She has a followup appointment with Gladis Villalobos at Dr. Akins office on 03/08/18 at 10:50 a.m. The patient has been asked to return to the emergency room for any chest pain or shortness of breath. Points for followup: Please ensure the patient gets a followup CT scan in 6 weeks. Additionally, please ensure the patient gets a cardiac stress test after she has recovered from her pneumonia, so that she can get cardiac clearance and proceed with knee replacement surgery. This is a summarized report of a complex medical history and hospital stay. For further details, please see the entire medical record. TIME SPENT: Time for this discharge was approximately 50 minutes, greater than half of that was spent with the patient discussing discharge plans and instructions. CONDITION ON DISCHARGE: Stable. Reviewed by YESSI FLOREZ 03/06/18 1133 [id number]/[facility] #: [id number] [place]
--- NOTE | 2018-03-07 12:38 | RAD ---
HISTORY: CHEST PAIN COMPARISONS: None TECHNIQUE: A rest only myocardial perfusion study was performed. Gated SPECT imaging was performed, with CT-based attenuation correction. Images are submitted for review on March 07, 2018 DOSE: Rest: Technetium 99m tetrofosmin, 10.83 millicuries, injected at 6:30 AM March 01, 2018 FINDINGS: PERFUSION: On the rest only images, there is a defect of the anterior wall and septum towards the base. OTHER: There is patchy airspace disease of the left lower lobe on the attenuation corrected images, with a large hiatal hernia. IMPRESSION: LIMITED REST ONLY STUDY DEMONSTRATES A DEFECT OF THE ANTERIOR WALL AND SEPTUM TOWARDS THE BASE. RECOMMEND CORRELATION WITH STRESS IMAGING. ASSESSMENT: Not applicable based on rest only imaging.
== END 2018-03-04 13:45 | disposition home or self-care (01) | DRG 193 ==
LOC: INTOOBSV 05:59 → AA 05:59 → MEDTELE 08:31 → AA 14:25 → OBSVTOIN 03-01 14:25
PROVIDERS: ADMIT Orthopaedic Surgery; ATTEND Internal Medicine
DX: J13 Pneumonia due to Streptococcus pneumoniae (principal); Q24.2 Cor triatriatum; J44.0 Chronic obstructive pulmonary disease with (acute) lower respiratory infection; I12.0 Hypertensive chronic kidney disease with stage 5 chronic kidney disease or end stage renal disease; M17.11 Unilateral primary osteoarthritis, right knee; J69.0 Pneumonitis due to inhalation of food and vomit; M79.601 Pain in right arm; E78.5 Hyperlipidemia, unspecified; N18.3 Chronic kidney disease, stage 3 (moderate); G47.33 Obstructive sleep apnea (adult) (pediatric); G40.909 Epilepsy, unspecified, not intractable, without status epilepticus; G89.29 Other chronic pain; K21.9 Gastro-esophageal reflux disease without esophagitis; F31.9 Bipolar disorder, unspecified; Z96.652 Presence of left artificial knee joint; Z96.612 Presence of left artificial shoulder joint; G35 Multiple sclerosis; M50.30 Other cervical disc degeneration, unspecified cervical region; E03.9 Hypothyroidism, unspecified; I08.3 Combined rheumatic disorders of mitral, aortic and tricuspid valves; I27.20 Pulmonary hypertension, unspecified; R91.8 Other nonspecific abnormal finding of lung field; F41.9 Anxiety disorder, unspecified; H54.61 Unqualified visual loss, right eye, normal vision left eye; R09.02 Hypoxemia; Z66 Do not resuscitate; K64.4 Residual hemorrhoidal skin tags; G50.0 Trigeminal neuralgia; I95.9 Hypotension, unspecified; M75.31 Calcific tendinitis of right shoulder; N20.0 Calculus of kidney; H26.9 Unspecified cataract; J37.0 Chronic laryngitis; N28.1 Cyst of kidney, acquired; K44.9 Diaphragmatic hernia without obstruction or gangrene; G44.009 Cluster headache syndrome, unspecified, not intractable; M79.7 Fibromyalgia; Z79.82 Long term (current) use of aspirin; Z99.81 Dependence on supplemental oxygen; Z86.718 Personal history of other venous thrombosis and embolism; Z93.3 Colostomy status; Z90.49 Acquired absence of other specified parts of digestive tract; Z90.710 Acquired absence of both cervix and uterus; Z88.5 Allergy status to narcotic agent; Z88.8 Allergy status to other drugs, medicaments and biological substances; Z91.041 Radiographic dye allergy status; Z82.49 Family history of ischemic heart disease and other diseases of the circulatory system; Z84.1 Family history of disorders of kidney and ureter; Z83.49 Family history of other endocrine, nutritional and metabolic diseases; Z87.891 Personal history of nicotine dependence; Z72.89 Other problems related to lifestyle; Z98.1 Arthrodesis status; Z82.0 Family history of epilepsy and other diseases of the nervous system; Z79.51 Long term (current) use of inhaled steroids; Z79.52 Long term (current) use of systemic steroids
CPT/HCPCS: 36415; 70450; 71045; 71250; 72125; 76770; 78451; 80048; 80053; 80061; 81003; 81015; 82550; 82553; 82803; 83036; 83735; 83880; 84145; 84484; 85025; 86140; 87040; 87086; 87899; 93005; 93306; A9270-GY; A9502; G0378; J0456; J0690; J0696; J1644; J3475

== ENCOUNTER 2018-05-16 05:43 | Inpatient (IN) | payer MEDICARE ==
--- NOTE | 2018-05-01 13:09 | HP ---
HISTORY AND PHYSICAL: DATE OF ADMISSION: 05/16/18 She will be coming into the [facility] 05/16/18 for her right total knee replacement. CHIEF COMPLAINT: Right knee pain and disability. HISTORY OF PRESENT ILLNESS: The patient has had progressive problems with her right knee over the last several years. It has been severely arthritic in the lateral compartment with valgus malalignment. She was brought into the hospital in the last 6 weeks for right total knee replacement and unfortunately in the holding area, the room was spinning. She was hypotensive. She had pain in her right arm. She was subsequently admitted and found to have a left lower lobe pneumonia. The only presenting problem, which she had in hindsight was she was feeling very tired in the previous week and she thought probably related to stress. She does have multiple medical problems. She is carefully followed by Dr. Swartz and Dr. Herrmann. So, the recent past history includes the left lower lobe pneumonia. She has been felt to have neurocardiogenic syncope. 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 There is a history of DVT. PAST SURGICAL HISTORY: Carpal tunnel; lithotripsy; left hemicolectomy with transverse colostomy, which was reclosed; bowel resection; cervical diskectomy; hysterectomy; left total knee replacement; left total shoulder reverse type was done last year; hernia repair with mesh. MEDICATIONS: Her current medications include: 1. Dexilant. 2. Aspirin 81 mg. 3. Fluticasone. 4. Gabapentin 300 p.o. t.i.d. 5. Hydroxyzine. 6. Thyroid replacement. 7. Ranitidine. 8. Dexlansoprazole 30 mg each morning. 9. Theratears. 10. Simbrinza 1 drop right eye b.i.d. 11. Telmisartan 20 mg b.i.d. hypertension. 12. Methylphenidate 36 mg each morning. ALLERGIES: DILANTIN, PHENOBARBITAL, DEMEROL, IODINE, ARICEPT, FOSAMAX, MAXALT, CYMBALTA, SEROQUEL, TEGRETOL, CLAVULANIC ACID, and KETAMINE. FAMILY HISTORY: Positive for cardiac, kidney disease. SOCIAL HISTORY: The patient is living alone. She is . 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 She smoked briefly in her 20s, socially only. Social drinking of alcohol. PHYSICAL EXAMINATION GENERAL: Current examination, good spirits, well nourished, well developed. HEENT: The head is NC/AT. LUNGS: Clear bilaterally. HEART: Regular, S1, S2 normal. No murmurs or gallops. ABDOMEN: Soft, nontender. There is no organomegaly. EXTREMITIES: The right knee shows valgus alignment and an antalgic gait. The right knee has stable MCL and LCL, Rohan, posterior drawer. Small effusion. Extension -2 to 3 degrees, flexion was 110 degrees. The thigh and calf are soft. Neurovascularly, foot is intact. NEUROLOGIC: Cranial nerves are grossly intact. IMPRESSION: Severe arthritis of the right knee. PLAN: Right total knee replacement. DISCUSSION: Her current pain medications include of fentanyl patch 50 mcg every 72 hours and she takes oxycodone 15 mg 2 to 3 times a day. The plan will be to continue those through her surgical care and pain medication on top of that as needed. Risks and complications of surgery were reviewed with her and her questions were answered. She also has a past history of DVT. [id number]/[facility] #: [id number] [facility]ALTH[facility]
[~2018-05-16 05:43] MED LIST changes: +Tranexamic Acid 1,000 MG in NS 0.9% 50 ML* (outpatient use) IV SCH
[2018-05-16] MEDS ORDERED: Clindamycin 900 MG/D5W BAG(*) 900 MG/50 ML BAG IVPB ONE (06:03)
[2018-05-16] MEDS ORDERED: Bupivacaine 0.25% EPI 200,000* 30 ML SDV ONE (06:59)
[2018-05-16] MEDS ORDERED: fentaNYL* 50 MCG/ML 2 ML VIAL (100 MCG VIAL) ONE ×2 (07:08→10:59)
[2018-05-16] MEDS ORDERED: Midazolam* 1 MG/ML 2 ML VIAL (2 MG) ONE (07:08)
[2018-05-16] MEDS ORDERED: Rocuronium* 10 MG/ML VIAL ONE (07:56)
[2018-05-16] MEDS ORDERED: Famotidine IV* 10 MG/ML 2 ML (20 mg) ONE (08:02)
[2018-05-16] MEDS ORDERED: Dexamethasone IV* 4 MG/ML 1 ML (4 MG) ONE ×2 (08:02→08:15)
[2018-05-16] MEDS ORDERED: Hydrocortisone INJ* 100 MG VIAL ONE (08:03)
[2018-05-16] MEDS ORDERED: VASOPRESSIN 20 UNITS/ML 1 ML VIAL ONE (08:05)
[2018-05-16] MEDS ORDERED: Propofol* 10 MG/ML 20 ML BTL IV PUSH ONE (08:15)
[2018-05-16] MEDS ORDERED: EPHEDrine (Pressors)* 50 MG/ML VIAL ONE (08:16)
[2018-05-16] MEDS ORDERED: fentaNYL* 50 MCG/ML 5 ML VIAL (250 MCG VIAL) ONE (08:18)
[2018-05-16] MEDS ORDERED: Naloxone* 0.4 MG/ML 1 ML VIAL IV PRN (10:12)
[2018-05-16] MEDS ORDERED: diPHENhydraMINE IV* 50 MG/ML 1 ml VIAL (BENADRYL) IV PRN ×2 (10:12→10:48)
[2018-05-16] MEDS ORDERED: DiMENhydriNATE IV* 50 MG/ML VIAL IV PUSH PRN (10:12)
[2018-05-16] MEDS ORDERED: fentaNYL* 50 MCG/ML 2 ML VIAL (100 MCG VIAL) IV PRN (10:12)
[2018-05-16] MEDS ORDERED: oxyCODONE TAB* 5 MG TAB PO PRN ×2 (10:12→10:48)
[2018-05-16] MEDS ORDERED: Ondansetron INJ* 2 MG/ML VIAL IV PRN ×2 (10:12→10:48)
[2018-05-16] MEDS ORDERED: oxyCODONE/Acetamin 5/325 MG* TAB PO PRN (10:12)
[2018-05-16] MEDS ORDERED: Acetaminophen TAB* 325 MG PO PRN (10:12)
[2018-05-16] MEDS ORDERED: Ondansetron INJ* 2 MG/ML VIAL ONE (10:28)
[2018-05-16] MEDS ORDERED: Ketorolac INJ* 30 MG/ML 1 ML VIAL ONE (10:28)
[2018-05-16] MEDS ORDERED: Ondansetron ODT TAB* 4 MG PO PRN (10:48)
[2018-05-16] MEDS ORDERED: diPHENhydraMINE PO* 25 MG PO PRN (10:48)
[2018-05-16] MEDS ORDERED: Magnesium Hydroxide LIQ* 30 ML UDC PO PRN (10:48)
[2018-05-16] MEDS ORDERED: Fluticasone NASAL SPRAY 50MCG* 16 gm SPRAY BTL BOTH NARES PRN (10:59)
[2018-05-16] MEDS ORDERED: HYDROmorphone INJ1* 1 MG/ML SYRINGE ONE (10:59)
[2018-05-16] MEDS ORDERED: DICLOFENAC TOPICAL PRN (10:59)
[2018-05-16] MEDS ORDERED: KETOROLAC 0.4% RIGHT EYE PRN (10:59)
[2018-05-16] MEDS ORDERED: ValACYclovir (*) 500 MG TAB PO PRN (10:59)
[2018-05-16] MEDS ORDERED: Fludrocortisone Acetate TAB* 0.1 MG PO PRN (10:59)
[2018-05-16] MEDS ORDERED: Famotidine TAB* 20 MG PO PRN (10:59)
[2018-05-16] MEDS ORDERED: Artificial Tears* 15 ML BTL BOTH EYES PRN (10:59)
[2018-05-16] MEDS ORDERED: traMADol TAB* 50 MG PO SCH (11:00)
[2018-05-16] MEDS ORDERED: fentaNYL PATCH 50 MCG/HR ONE (11:22)
[2018-05-16] MEDS: HYDROmorphone INJ1* 1 MG/ML SYRINGE IV PRN ×2 (11:25→12:08)
--- NOTE | 2018-05-16 11:33 | RAD ---
HISTORY: right total knee COMPARISONS: January 23, 2018 VIEWS: 2 , Frontal and lateral views of the right knee FINDINGS: BONE DENSITY: Normal. BONES: The patient is status post right knee arthroplasty. There is no hardware failure or osteolysis. JOINTS: The patient is status post right knee arthroplasty. ALIGNMENT: There is no dislocation. SOFT TISSUES: There is post surgical change to the soft tissue. OTHER FINDINGS: Surgical drains are noted. IMPRESSION: STATUS POST RIGHT KNEE ARTHROPLASTY
[2018-05-16] MEDS ORDERED: diPHENhydraMINE IV* 50 MG/ML 1 ml VIAL (BENADRYL) ONE (12:04)
[2018-05-16] MEDS: fentaNYL PATCH 50 MCG/HR TRANSDERM SCH (12:31)
[2018-05-16] MEDS ORDERED: tiZANidine TAB* 2 MG PO SCH (14:00)
[2018-05-16] MEDS: traMADol TAB* 50 MG PO PRN (14:35)
[2018-05-16] MEDS: hydrOXYzine HCL TAB* 25 MG PO PRN (14:37)
[2018-05-16] MEDS: Gabapentin CAP(*) 300 MG PO SCH ×3 (14:37→21:46)
[2018-05-16] MEDS: Acetaminophen TAB* 325 MG PO SCH ×2 (14:39→21:43)
[2018-05-16] MEDS: Clindamycin 600 MG IVPREMIX(* 600 MG/50 ML SDV IV SCH ×2 (15:35→23:34)
[2018-05-16] MEDS ORDERED: Morphine INJ* 2 MG/ML 1 ML SYRINGE (TWO MG - NEW SYRINGE VERSION) IV PRN (15:58)
[2018-05-16] MEDS ORDERED: oxyCODONE TAB* 5 MG TAB ONE (16:10)
[2018-05-16] MEDS ORDERED: Morphine INJ* 4 MG/ML 1 ML SYRINGE (NEW SYRINGE VERSION) ONE (16:11)
[2018-05-16] MEDS: Cyclobenzaprine TAB* 10 MG PO PRN (16:14)
[2018-05-16] MEDS: oxyCODONE TAB* 5 MG TAB PO PRN (16:15)
[2018-05-16] MEDS ORDERED: Cetirizine* 10 MG TAB PO SCH (18:00)
[2018-05-16] MEDS: fentaNYL Patch Check Q Shift 1 NOTE FOLLOW UP SCH (19:20)
[2018-05-16] MEDS ORDERED: OMEGA ACID ETHYL ESTERS PO SCH (21:00)
[2018-05-16] MEDS: PTO:Brinzolamid/Brimonidin OPH(NF) 1 DROP BTL RIGHT EYE SCH (21:43)
[2018-05-16] MEDS: Docusate CAP* 100 MG PO SCH (21:44)
[2018-05-16] MEDS: LIFITEGRAST LEFT EYE SCH (21:44)
[2018-05-16] MEDS: Magnesium Oxide TAB* 400 MG PO SCH (21:45)
[2018-05-16] MEDS: Losartan TAB* 25 MG PO SCH (21:46)
[2018-05-16] MEDS: Sertraline* 50 MG TAB PO SCH (21:46)
[2018-05-16] MEDS: Melatonin 3 MG TAB PO SCH (21:46)
[2018-05-16] MEDS: LACTIC ACID TOPICAL SCH (21:47)
[2018-05-16] MEDS: Magnesium Hydroxide LIQ* 30 ML UDC PO SCH (21:48)
--- NOTE | 2018-05-16 22:45 | CONS ---
CC: Dr. Antony Swartz; Dr. Vanessa * CONSULTATION REPORT: DATE OF CONSULT: 05/16/18 PATIENT OF: Dr. Raymond Vanessa. REFERRED TO: Dr. Dave Graff. PRIMARY CARE PROVIDER: Dr. Antoyn Swartz. CHIEF COMPLAINT: Right knee pain and osteoarthritis. REASON FOR CONSULT: Medical co-management. HISTORY OF PRESENT ILLNESS: Ms. Solorio is a pleasant 77-year-old female, who carries a complicated past medical history significant for hypertension, hyperlipidemia, stage 3 chronic kidney disease, obstructive sleep apnea, possible multiple sclerosis beside other medical and neurological issues for which she has been seen by Dr. Rodriguez in the past. She was admitted via Same- Day Surgery earlier today for anticipated elective right total knee arthroplasty to be performed by Dr. Vanessa. The patient reports doing very well lately. She was scheduled for her surgery about 6 weeks ago and noticed to have hypotension and generalized weakness in the holding area for which she was evaluated and found to have pneumonia. She ended up being admitted to the hospitalist services back then in mid February and eventually discharged home in a stable condition. She denies any significant health changes since then. She was admitted earlier today and was taken to the operating room where she had a right total knee arthroplasty that was essentially uneventful. She was feeling well at PACU for which she was transferred eventually to surgical stay unit and we were asked to see the patient for further evaluation and for medical co- management regarding her multiple medical issues. PAST MEDICAL HISTORY: As mentioned above, significant for multiple medical issues includin. Hypertension. 2. Hyperlipidemia. 3. Fibromyalgia. 4. Stage 3 CKD. 5. Diverticulitis. 6. GERD. 7. Thyroid problems. 8. Arthritis. 9. Temporal lobe epilepsy. 10. Possible multiple sclerosis. 11. History of neurogenic syncope. 12. Obstructive sleep apnea. 13. Orthostatic hypotension. 14. Cluster headaches. 15. Trigeminal neuralgia. 16. Bipolar disorder. 17. Depression. 18. History of DVT. 19. Severe hypotension with ICU admission related to anesthesia. PAST SURGICAL HISTORY: Significant for: 1. Lithotripsy. 2. Carpal tunnel release. 3. Right eye surgery. 4. Left hemicolectomy with transverse colectomy. 5. Bowel resection. 6. Anterior diskectomy and intervertebral body fusion of C6-C7. 7. Hysterectomy. 8. Left total knee replacement. 9. Left total shoulder reverse replacement. 10. Hernia repair with mesh. 11. She is status post right total knee arthroplasty today. CURRENT MEDICATIONS: Her medications at home include: 1. Tylenol 1000 mg p.o. q.6 hours as needed for fever or pain. 2. Ammonium lactate cream 12% topical to affected area b.i.d. 3. Ascorbic acid 1000 mg p.o. daily. 4. Aspirin 81 mg p.o. daily. 5. Biotin 2500 mcg p.o. daily. 6. Simbrinza ophthalmic solution 1 drop in the right eye b.i.d. 7. TheraTears artificial drops 1 drop for both eyes q.4 hours as needed for dry eyes. 8. Vitamin D3 1000 units p.o. daily. 9. Vitamin B12 3000 mcg p.o. daily. 10. Dexilant 30 mg p.o. daily. 11. Fentanyl patch 50 mcg every 3 days. 12. Florinef 0.1 mg p.o. b.i.d. 13. Fluticasone nasal spray 50 mcg 1 spray in both nostrils once daily. 14. Gabapentin 300 mg p.o. 4 times a day. 15. Atarax 25 mg p.o. 4 times a day p.r.n. for itching. 16. Ketorolac eye drops 1 drop to the right eye. 17. Probiotics 1 cap p.o. daily. 18. Xyzal 5 mg p.o. daily. 19. Synthroid 25 mcg p.o. daily. 20. Xiidra eyedrops 1 drop on the left eye once daily. 21. Magnesium oxide 250 mg p.o. b.i.d. 22. Melatonin 5 mg p.o. q.h.s. p.r.n. for insomnia. 23. Methylphenidate 36 mg p.o. daily. 24. Multivitamins with iron 1 tablet p.o. daily. 25. [place]-3 fatty acids 1 g p.o. b.i.d. 26. Zofran 8 mg p.o. q.8 hours p.r.n. for nausea. 27. Roxicodone 15 mg p.o. q.6 hours as needed for pain. 28. MiraLAX 17 g p.o. daily. 29. Zantac 150 mg p.o. q.h.s. 30. Zoloft 50 mg p.o. q.h.s. 31. Vitamin complex 1 tablet p.o. daily. 32. Micardis 20 mg p.o. b.i.d. 33. Zanaflex 2 mg p.o. t.i.d. 34. CoQ10 200 mg p.o. daily. 35. Valtrex 500 mg p.o. b.i.d. 36. Voltaren gel 4 g topical as directed. ALLERGIES: Multiple, include AMOXICILLIN, CARBAMAZEPINE, CLAVULANIC ACID, DONEPEZIL, IODINE, ARICEPT, FOSAMAX, MAXALT, CYMBALTA, SEROQUEL, KETAMINE. FAMILY HISTORY: The patient had mother with "heart problems", and her father of liver and kidney disease at age 62. SOCIAL HISTORY: The patient lives alone. 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 She has smoked in her 20s briefly. Denies smoking now or alcohol intake. She is a full code and would like her daughter, Anneliese, to be the healthcare proxy carrier. REVIEW OF SYSTEMS: See HPI. Otherwise, 12-point review of systems were examined and were essentially negative. PHYSICAL EXAM: General: She is a pleasant, comfortable, older female, in no acute distress or discomfort at the time of consultation. Vitals: Reveal temperature of 97.7, blood pressure 132/65, pulse of 84, respirations of 16 with O2 sat of 95% on room air. HEENT: Head is normocephalic, atraumatic. Sclerae anicteric. 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 Left eye was good to pupil response to light and accommodation. Mucous membranes moist. Neck: Supple. Trachea midline. No cervical adenopathy or thyromegaly. Lungs: Clear to auscultation bilaterally. Heart: Regular rate and rhythm. Normal S1 and S2 without rubs, murmurs, or gallops. Back: With normal curvature and no CVA tenderness. Breast Exam: Deferred at this time. Abdomen: Soft, nontender, and nondistended. No hernias, masses, or hepatosplenomegaly. Extremities: Without cyanosis, clubbing, or edema. Neurologic: She is awake, alert, and oriented x3. Tongue is midline and handgrip is equal bilaterally. Sensation is intact throughout. Rectal Exam: Deferred at this time. IMPRESSION: A 77-year-old female with multiple complicated medical issues including hypertension, hyperlipidemia, chronic kidney disease, cervical spine pathology, temporal lobe epilepsy as well as possible multiple sclerosis, who is postop day #0, status post elective right total knee arthroplasty, who was admitted under orthopedic services and will be consulted under hospitalist services for the following. ASSESSMENT AND PLAN: 1. Hypertension. The patient with history of hypertension with orthostatic hypotension as well. She has Florinef and telmisartan, which we will continue Florinef and hold her ARB for the time being. She appears to be normotensive in the postoperative period and we will keep close observation of her blood pressure. 2. Stage 3 chronic kidney disease. Her BUN and creatinine appears to be at baseline looking at prior labs. We will monitor her closely and continue gentle IV hydration per orthopedic team. 3. Total knee replacement on the right side. Management per orthopedic team. Her pain appears to be under control at this time and we will continue her fentanyl patch in addition to Dilaudid as needed for pain. 4. Hyperlipidemia. Her lipid profile from prior admission appeared to be within normal limits. She is not on a statin at this time and it appears to be diet- controlled. 5. Temporal lobe epilepsy. She has been followed up as an outpatient with Dr. Rodriguez. We will continue her seizure precaution and her gabapentin as well. 6. Chronic pains. She will continue her fentanyl patch and Dilaudid as needed for knee pain. 7. History of deep venous thrombosis. The patient is high risk and will be covered for DVT prophylaxis per ortho team. 8. Code status: She would like to be a full code and her daughter, Anneliese, is the healthcare proxy carrier. 9. Disposition: Admitted under orthopedic services status post right total knee arthroplasty and will be followed by hospitalist services on a daily basis for medical co-management. TIME SPENT: Approximately 60 minutes were spent in consultation with this patient for which greater than 50% of the time taking history and performing physical exam. I went on and discussed the case with my attending, who agreed to plan of care. Thank you for this consultation. TERA CARIAS [id number]/[facility] #: [id number] [facility]PITALMorena
--- NOTE | 2018-05-17 04:14 | OP ---
DATE OF OPERATION: 05/16/18 - ROOM #346 DATE OF : 42 SURGICAL CARE: Right knee. SURGEON: Raymond Vanessa MD CONFORMAL PAD FORMER: TERA Rodriguez, medical clerical assistant and salesperson surgical appliances. ANESTHESIOLOGIST: Dr. Hellen Holland. ANESTHESIA: Endotracheal tube general. PRE-OP DIAGNOSIS: Severe arthritis of the right knee. POST-OP DIAGNOSIS: Severe arthritis of the right knee including valgus malalignment. OPERATIVE PROCEDURE: Right total knee replacement. COMPONENTS: Joe Persona knee. All components cemented, a size 4 femur, a 32 patella, a 10 articular surface, and a size C femur. COMPLICATIONS: There were no complications. DRAINS: Two drains, right knee at the end of the case. ESTIMATED BLOOD LOSS: 200 mL. REPLACEMENT: Crystalloid fluids. OPERATIVE INDICATIONS: Severe right knee pain and deformity, limited waking ability, and increasing problems. DESCRIPTION OF PROCEDURE: The patient was brought to the operating room and placed on the operating room table in a supine position following the administration of the anesthetic, endotracheal tube was inserted. Then, a Kelly catheter was inserted. The right leg was noted to have a 2+ dorsalis pedis pulse. The right thigh was wrapped with a proximal thigh tourniquet. The right leg was then prepped preliminary with chlorhexidine in the surgical region and the final formal prep went from the tourniquet to the tips of the toes with ChloraPrep. After prepping, draping, and sealing off, we did our universal protocol time-out confirming Rere Solorio and a plan for right total knee replacement and the extra concern regarding labile blood pressure and hypotension after shoulder surgical care last year. The surgical care was done within the knee in acutely flexed position with the right foot on a padded foot piece. The skin incision went from 2 fingerbreadths proximal to the superior pole of the patella to the medial aspect of the tibial tubercle. The skin and subcu were divided to the prepatellar bursa and the prepatellar bursa was traversed. Hemostasis was checked and achieved throughout the case utilizing electrocautery. The anteromedial soft tissues on the tibia were then divided down to the bone just 2 cm medial to the tibial tubercle and then we went up to the medial joint line and to the medial parapatellar incision and then we divided the quad down at the junction of the rectus femoris staying as closed to vastus medialis as possible going 3 to 4 cm proximal to the superior pole of the patella. The patella was made so that it could be everted. The anteromedial soft tissues on the tibia were elevated subperiosteally going around to the deep MCL and under the posteromedial corner of the knee. The remains of the anterior horn medial meniscus were excised. Osteophytes were removed from the intercondylar notch. The patient had complete eburnation of bone lateral femoral condyle, lateral tibial plateau with some scooping out of the lateral plateau and tearing up of the lateral meniscus. The lateral meniscus was excised. The ACL and PCL were carefully removed. Great care was taken while working posteriorly as we removed the PCL. The distal anterior femur was exposed subperiosteally for referencing and measuring, the lateral meniscus was completely excised and then the retractors were put into position and the distal femur was exposed subperiosteally for referencing and measuring. The proximal tibial cut was made first. Our goal here was to remove 4 to 5 mm medially and laterally a little less because of the scooped out portion of the lateral plateau. We wanted a tibial surface that would be perpendicular to the long axis of the tibia and have a slight posterior slope. We then used the femoral intramedullary drill and the femoral canal was suctioned to discourage embolization. The distal femoral cutting guide was inserted with #1 and with 6 degrees of valgus and the distal femoral cuts were completed. The extension gap was very satisfactory with a 10-mm block. The femur was measured for a size 4. The anterior, posterior, and chamfering cuts were completed. We then finished removal of the posterior horn lateral meniscus, PCL, posterior horn medial meniscus, and small osteophytes on the condyles and we had a good flexion gap at 90 degrees with a 10-mm block. The femur was completed for the size 4. The tibia was completed for a size C and the knee was articulated and extended with this setup with full knee extension, stable ligaments and extension, stable ligaments at 90 degrees of flexion. The femoral canal was cleaned x6 with pulsed saline, and bone plug inserted. The patella was cut flat. A 32 was chosen, three drill holes were made and these were undercut slightly. A lateral release was not necessary. Everything was cleaned in extension after we exsanguinated the leg and elevated the tourniquet to 275. The pulsed saline was utilized. The gutters were cleaned and all around the bony surfaces. The bony surfaces were then cleaned directly with a knee flexed and the cement was mixed and the components were cemented into position, 32 patella followed by C tibia with 10 articular surface , and a size 4 femur. Each component was impacted. Excess cement was removed. The knee was articulated and extended during the final hardening. We then irrigated during closure several times with saline. The quad mechanism closed with interrupted #1 Polysorb sutures in a [id number] fashion more distally , we used 0 Vicryl or Polysorb. The deep bursa 0 Polysorb, more superficially we used 3-0 Polysorb and then nadeem on the skin. We brought 2 drains of the superolateral suprapatellar pouch and after closing the skin with nadeem, we then instilled in the knee 30 mL of Marcaine 0.25% with epinephrine and the knee was extended completely and flexed completely several times. Then, the dressing was applied with Xeroform, sterile gauze, same thing around the drains , sterile Webril, cryotherapy cuff, ABD pads, and then a 6-inch ROBBY bandage loosely applied. The patient was returned to the recovery room in stable and satisfactory condition having tolerated the procedure very well. [id number]/[facility] #: [id number] [place]
[2018-05-17] MEDS: Acetaminophen TAB* 325 MG PO SCH ×3 (05:49→21:51)
[2018-05-17] MEDS: oxyCODONE TAB* 5 MG TAB PO PRN ×4 (05:50→21:50)
[2018-05-17] MEDS: Levothyroxine TAB* 25 MCG TAB PO SCH (05:51)
[2018-05-17 07:08] LABS: Hematocrit 30 % (35-47); Hemoglobin 10.3 g/dl (12.0-16.0); Mean Platelet Volume 7.9 um3 (7.4-10.4); Platelet Count 166 10^3/ul (150-450)
[2018-05-17] MEDS: fentaNYL Patch Check Q Shift 1 NOTE FOLLOW UP SCH ×2 (07:18→19:36)
[2018-05-17 07:36] LABS: EGFR Non-African American 56.5 (>60)
[2018-05-17] MEDS ORDERED: Rivaroxaban TAB(*) 10 MG PO SCH (08:00)
[2018-05-17] MEDS: Morphine INJ* 4 MG/ML 1 ML SYRINGE (NEW SYRINGE VERSION) IV PRN ×4 (08:21→21:41)
[2018-05-17] MEDS: Clindamycin 600 MG IVPREMIX(* 600 MG/50 ML SDV IV SCH (08:21)
[2018-05-17] MEDS: Polyethylene Glycol 3350* 17 GM PACKET PO SCH (08:25)
[2018-05-17] MEDS: Magnesium Hydroxide LIQ* 30 ML UDC PO SCH ×2 (08:29→21:56)
[2018-05-17] MEDS: LIFITEGRAST LEFT EYE SCH ×2 (08:30→21:59)
[2018-05-17] MEDS: PTO:Brinzolamid/Brimonidin OPH(NF) 1 DROP BTL RIGHT EYE SCH ×2 (08:30→21:59)
[2018-05-17] MEDS: LACTIC ACID TOPICAL SCH ×2 (08:32→22:01)
[2018-05-17] MEDS: Magnesium Oxide TAB* 400 MG PO SCH ×2 (08:33→21:56)
[2018-05-17] MEDS: Docusate CAP* 100 MG PO SCH ×2 (08:35→21:46)
[2018-05-17] MEDS: Losartan TAB* 25 MG PO SCH (08:35)
[2018-05-17] MEDS: METHYLPHENIDATE 18 MG PO SCH (08:40)
[2018-05-17] MEDS: Gabapentin CAP(*) 300 MG PO SCH ×4 (08:41→21:45)
[2018-05-17] MEDS ORDERED: Vitamin E CAP* 400 UNIT PO SCH (09:00)
[2018-05-17] MEDS ORDERED: SELENOMETHIONINE 200 MCG PO SCH (09:00)
[2018-05-17] MEDS ORDERED: Omeprazole CAP* 20 MG PO SCH (09:00)
[2018-05-17] MEDS ORDERED: Cyanocobalamin TAB* 500 MCG PO SCH (09:00)
[2018-05-17] MEDS ORDERED: UBIDECARENONE 200 MG PO SCH (09:00)
[2018-05-17] MEDS ORDERED: [UNRECOGNIZED DRUG - OTHER] PO SCH (09:00)
[2018-05-17] MEDS ORDERED: [UNRECOGNIZED DRUG - OTHER] PO SCH (09:00)
[2018-05-17] MEDS ORDERED: Ascorbic Acid TAB* 500 MG PO SCH (09:00)
[2018-05-17] MEDS: TELMISARTAN 20 MG PO SCH ×2 (10:38→21:55)
[2018-05-17] MEDS: DEXLANSOPRAZOLE 30 MG PO SCH (10:38)
--- NOTE | 2018-05-17 11:40 | PN ---
Progress Note - Progress Note Date of Service: 05/17/18 SOAP: Subjective: []Patient was seen and examined at bedside. She feels well aside from constant knee pain which she states she expects as she has difficulty controlling her chronic pain at baseline. She takes oxycodone and uses a fentanyl patch at home. Last time she had surgery she required MS contin to control her pain, though she was not using the fentanyl patch at this time. Denies chest pain, shortness of breath, dizziness, nausea. She is prone to hypotension, BP was stable overnight. Objective: []General: Well appearing, NAD RLE: Dressing CDI, drains removed by Dr Vanessa this morning without complication. Thigh is soft. DF/PT intact. Dp2+, capillary refill brisk distally , sensation intact distally. Calves are supple and nontender without erythema, edema or palpable cords Assessment: []POD 1 sp right total knee arthroplasty 05/16 Dr Vanessa Plan: []WBAT\ PT/OT Xarelto 10 mg qd x 30 days to start [address] Chen consulted for assistance with pain management Intends for DC home tuesday morning, daughter will pick her up and stay with her Vital Signs Temp 97.9 F 05/17/18 07:39 Pulse 65 05/17/18 07:39 Resp 16 05/17/18 10:44 BP 112/51 05/17/18 07:39 Pulse Ox 98 05/17/18 07:39 Intake & Output 05/16/18 05/17/18 05/17/18 18:59 06:59 18:59 Intake Total 2155 1755 1524 Output Total 850 1140 225 Balance 2832 660 9339 Intake: IV Fluids 2100 955 825 CLONDAMYCIN 900 MG 100 LR 2000 955 825 IVPB 55 169 clindamycin 55 169 Oral 800 530 Output: Hemovac Amount #1 115 Urine 225 Kelly 750 1025 Residual 100 Kelly 16 Fr 100 Other: # Bowel Movements 0 Laboratory Last Values Hgb 10.3 g/dl (12.0-16.0) L 05/17/18 06:30 Hct 30 % (35-47) L 05/17/18 06:30 Plt Count 166 10^3/ul (150-450) 05/17/18 06:30 MPV 7.9 um3 (7.4-10.4) 05/17/18 06:30 Sodium 138 mmol/L (135-145) 05/17/18 06:30 Potassium 3.8 mmol/L (3.5-5.0) 05/17/18 06:30 Chloride 105 mmol/L (101-111) 05/17/18 06:30 Carbon Dioxide 28 mmol/L (22-32) 05/17/18 06:30 Anion Gap 5 mmol/L (2-11) 05/17/18 06:30 BUN 27 mg/dL (6-24) H 05/17/18 06:30 Creatinine 0.96 mg/dL (0.51-0.95) H 05/17/18 06:30 Est GFR ( Amer) 68.4 (>60) 05/17/18 06:30 Est GFR (Non-Af Amer) 56.5 (>60) 05/17/18 06:30 BUN/Creatinine Ratio 28.1 (8-20) H 05/17/18 06:30 Glucose 115 mg/dL (70-100) H 05/17/18 06:30 Calcium 8.8 mg/dL (8.6-10.3) 05/17/18 06:30 Magnesium 1.9 mg/dL (1.9-2.7) 05/17/18 06:30
[2018-05-17] MEDS: Rivaroxaban TAB(*) 10 MG PO SCH (12:40)
--- NOTE | 2018-05-17 16:10 | PN ---
Subjective Date of Service: 05/17/18 Interval History: Patient was seen and examined earlier today. Reports right knee pain, worse with ambulating. She has long standing history of chronic pain, uses narcotics at home. Oxycodone helps a little, would like to consider adding Oxycontin to alternate with it. Pain consult pending. Denies chest pain or SOB. Family History: Unchanged from Admission Social History: Unchanged from Admission Past Medical History: Unchanged from Admission Objective Active Medications: Acetaminophen (Tylenol Tab*) 975 mg PO Q8HR [facility] Last Admin: 05/17/18 14:44 Dose: 975 mg Aspirin (Aspirin 81 Mg Chew Tab*) 81 mg PO QPM [facility] Brinzolamide/Brimonidine Tartrate (Simbrinza Oph.Susp(Nf)) 1 drop RIGHT EYE BID [facility] Last Admin: 05/17/18 08:30 Dose: 1 drop Cyclobenzaprine HCl (Flexeril Tab*) 10 mg PO TID PRN PRN Reason: SPASMS Last Admin: 05/16/18 16:14 Dose: 10 mg Dexlansoprazole (Dexilant (Nf)) 30 mg PO QAM [facility] Last Admin: 05/17/18 10:38 Dose: 30 mg Diphenhydramine HCl (Benadryl Iv*) 25 mg IV Q6H PRN PRN Reason: itching Diphenhydramine HCl (Benadryl Po*) 25 mg PO Q6H PRN PRN Reason: itching Docusate Sodium (Colace Cap*) 100 mg PO BID [facility] Last Admin: 05/17/18 08:35 Dose: 100 mg Famotidine (Pepcid Tab*) 20 mg PO BEDTIME PRN; Protocol PRN Reason: HEARTBURN Fentanyl (Duragesic Patch 50 Mcg/Hr*) 50 mcg TRANSDERM Q72HR [facility] Last Admin: 05/16/18 12:31 Dose: 50 mcg Fludrocortisone Acetate (Florinef Tab*) 0.1 mg PO BID PRN PRN Reason: SBP <115 Fluticasone Propionate (Flonase Nasal [place] 50mcg*) 1 spray BOTH NARES BID PRN PRN Reason: Allergy Symptoms Gabapentin (Neurontin Cap(*)) 300 mg PO QID [facility] Last Admin: 05/17/18 12:40 Dose: 300 mg Hydroxyzine HCl (Atarax Tab*) 25 mg PO QID PRN PRN Reason: ITCHING Last Admin: 05/16/18 14:37 Dose: 25 mg Lactated Ringer's (Lactated Ringers 1000 Ml Bag*) 1,000 mls @ 100 mls/hr IV PER RATE [facility] Last Admin: 05/16/18 23:45 Dose: 100 mls/hr Ketorolac Tromethamine (Acular Ls 0.4% Oph) 1 drop RIGHT EYE BID PRN PRN Reason: PAIN Lactic Acid (Lac-Hydrin 12% (Nf)) 1 applic TOPICAL BID [facility] Last Admin: 05/17/18 08:32 Dose: Not Given Lactulose (Lactulose*) 30 ml PO BID PRN PRN Reason: CONSTIPATION Levocetirizine (Xyzal Tab (Nf)) 5 mg PO QPM [facility] Levothyroxine Sodium (Synthroid Tab*) 25 mcg PO QAM@0600 [facility] Last Admin: 05/17/18 05:51 Dose: 25 mcg Magnesium Hydroxide (Milk Of Magnesia Liq*) 30 ml PO BID [facility] Last Admin: 05/17/18 08:29 Dose: Not Given Magnesium Hydroxide (Milk Of Magnesia Liq*) 30 ml PO Q6H PRN PRN Reason: constipation Magnesium Oxide (Magox 400 Tab*) 400 mg PO BID [facility] Last Admin: 05/17/18 08:33 Dose: Not Given Melatonin (Melatonin) 3 mg PO BEDTIME [facility] Last Admin: 05/16/18 21:46 Dose: 3 mg Methylphenidate HCl (Concerta Er Tab*) 36 mg PO QAM [facility] Last Admin: 05/17/18 08:40 Dose: 36 mg Morphine Sulfate (Morphine Inj (Syringe)*) 2 mg IV Q2H PRN PRN Reason: PAIN - UNCONTROLLED Last Admin: 05/17/18 12:41 Dose: 2 mg Multivitamins/Minerals (Theragran/Minerals Tab*) 1 tab PO DAILY [facility] Pto* (Lifitegrast [ (Xiidra] 1 Drop)) 1 drop LEFT EYE BID [facility] Last Admin: 05/17/18 08:30 Dose: 1 drop Pto:Telmisartan 20 (Mg) 1 dose PO BID [facility]; Protocol Last Admin: 05/17/18 10:38 Dose: 1 dose Ondansetron HCl (Zofran Inj*) 4 mg IV Q6H PRN PRN Reason: nausea Ondansetron HCl (Zofran Odt Tab*) 4 mg PO Q6H PRN PRN Reason: NAUSEA Oxycodone HCl (Roxycodone Tab*) 15 mg PO Q4H PRN PRN Reason: PAIN - SEVERE Last Admin: 05/17/18 10:38 Dose: 15 mg Pharmacy Profile Note (Fentanyl Patch Check Q Shift) 1 note FOLLOW UP 0700, 1900 [facility] Last Admin: 05/17/18 07:18 Dose: 1 note Polyethylene Glycol/Electrolytes (Miralax*) 17 gm PO DAILY [facility] Last Admin: 05/17/18 08:25 Dose: 17 gm Polyvinyl Alcohol (Polyvinyl Alcohol 1.4% Opth*) 1 drop BOTH EYES Q4H PRN PRN Reason: DRY EYE Rivaroxaban (Xarelto(*)) 10 mg PO Q24H [facility] Last Admin: 05/17/18 12:40 Dose: 10 mg Sertraline HCl (Zoloft*) 50 mg PO BEDTIME [facility] Last Admin: 05/16/18 21:46 Dose: 50 mg Tramadol HCl (Ultram*) 50 mg PO Q6H PRN PRN Reason: PAIN - MODERATE Last Admin: 05/16/18 14:35 Dose: 50 mg Valacyclovir HCl (Valtrex 500 Mg (*)) 500 mg PO BID PRN; Protocol PRN Reason: cold sores Vital Signs - 8 hr 05/17/18 05/17/18 05/17/18 08:21 08:41 09:25 Temperature Pulse Rate Respiratory 16 16 16 Rate Blood Pressure (mmHg) O2 Sat by Pulse Oximetry 05/17/18 05/17/18 05/17/18 10:38 10:44 11:22 Temperature 98.0 F Pulse Rate 72 Respiratory 16 16 16 Rate Blood Pressure 119/51 (mmHg) O2 Sat by Pulse 100 Oximetry 05/17/18 05/17/18 05/17/18 12:40 12:41 12:49 Temperature Pulse Rate Respiratory 16 16 16 Rate Blood Pressure (mmHg) O2 Sat by Pulse Oximetry Oxygen Devices in Use Now: None Appearance: Appears comfortable and in NAD. Eyes: No Scleral Icterus, PERRLA Ears/Nose/Mouth/Throat: Clear Oropharnyx, Mucous Membranes Moist Neck: NL Appearance and Movements; NL JVP, Trachea Midline Respiratory: Symmetrical Chest Expansion and Respiratory Effort, Clear to Auscultation Cardiovascular: NL Sounds; No Murmurs; No JVD, RRR Abdominal: NL Sounds; No Tenderness; No Distention Extremities: No Edema Neurological: Alert and Oriented x 3 Nutrition: Taking PO's Result Diagrams: 05/17/18 06:30 05/17/18 06:30 Additional Lab and Data: . Microbiology and Other Data: . Diagnostic Imaging: . EKG Data: . Assess/Plan/Problems-Billing Assessment: A 77 y/o female with multiple medical issues, including chronic pain, who is POD #1 s/p right total knee arthroplasty, clinically stable. - Patient Problems (1) Status post total right knee replacement Current Visit: Yes Status: Acute Comment: - Management per ortho team - Plan to optimize pain control, await pain consult recommendations - Continue PT (2) HTN (hypertension) Current Visit: Yes Status: Acute Comment: - Continue Florinef, hold ARB for the time being - Normotensive today. (3) HLD (hyperlipidemia) Current Visit: Yes Status: Acute Comment: - Diet controlled - Recent lipid panel appeared WNL (4) CKD (chronic kidney disease) stage 3, GFR 30-59 ml/min Current Visit: Yes Status: Acute Comment: - At baseline (5) GERD (gastroesophageal reflux disease) Current Visit: No Status: Acute Comment: - Continue PPI and pepcid (6) Chronic pain Current Visit: No Status: Chronic Comment: - Continue home medication regimen including fentanyl, oxycodone, and gabapentin per ortho - Pain consult appreciated (7) DVT prophylaxis Current Visit: No Status: Acute Comment: - On Xarelto (8) DNR (do not resuscitate) Current Visit: No Status: Acute Status and Disposition: Inpatient. Anticipate discharge per ortho when medically stable.
[2018-05-17] MEDS: Aspirin 81 mg CHEW TAB* 81 MG TAB.CHEW PO SCH (19:00)
[2018-05-17] MEDS: PTO:LevoCETirizine TAB (NF) 5 MG TAB PO SCH (19:00)
[2018-05-17] MEDS: Cyclobenzaprine TAB* 10 MG PO PRN (21:49)
[2018-05-17] MEDS: Sertraline* 50 MG TAB PO SCH (21:52)
[2018-05-17] MEDS: Melatonin 3 MG TAB PO SCH ×2 (21:52→22:59)
[2018-05-17] MEDS: traMADol TAB* 50 MG PO PRN (23:06)
[2018-05-18] MEDS: Morphine INJ* 4 MG/ML 1 ML SYRINGE (NEW SYRINGE VERSION) IV PRN ×4 (03:04→14:25)
[2018-05-18] MEDS: tiZANidine TAB* 2 MG PO PRN ×3 (03:07→22:52)
[2018-05-18] MEDS: oxyCODONE TAB* 5 MG TAB PO PRN ×5 (03:08→21:34)
[2018-05-18 05:36] LABS: Hematocrit 29 % (35-47); Hemoglobin 9.7 g/dl (12.0-16.0); Mean Platelet Volume 7.7 um3 (7.4-10.4); Platelet Count 161 10^3/ul (150-450)
[2018-05-18] MEDS: Acetaminophen TAB* 325 MG PO SCH ×3 (05:48→21:36)
[2018-05-18] MEDS: Levothyroxine TAB* 25 MCG TAB PO SCH (05:50)
[2018-05-18] MEDS: fentaNYL Patch Check Q Shift 1 NOTE FOLLOW UP SCH ×2 (06:44→18:47)
[2018-05-18] MEDS: Gabapentin CAP(*) 300 MG PO SCH ×4 (08:51→19:49)
[2018-05-18] MEDS: Docusate CAP* 100 MG PO SCH ×2 (08:51→19:48)
[2018-05-18] MEDS: METHYLPHENIDATE 18 MG PO SCH (08:51)
[2018-05-18] MEDS: Multivitamins/Minerals TAB PO SCH (08:52)
[2018-05-18] MEDS: Magnesium Hydroxide LIQ* 30 ML UDC PO SCH ×3 (08:52→21:44)
[2018-05-18] MEDS: TELMISARTAN 20 MG PO SCH ×2 (08:52→21:43)
[2018-05-18] MEDS: Magnesium Oxide TAB* 400 MG PO SCH ×2 (08:52→21:45)
[2018-05-18] MEDS: LIFITEGRAST LEFT EYE SCH ×2 (08:53→21:43)
[2018-05-18] MEDS: PTO:Brinzolamid/Brimonidin OPH(NF) 1 DROP BTL RIGHT EYE SCH ×2 (08:53→21:43)
[2018-05-18] MEDS: DEXLANSOPRAZOLE 30 MG PO SCH (08:53)
[2018-05-18] MEDS: LACTIC ACID TOPICAL SCH ×2 (08:54→22:48)
[2018-05-18] MEDS: Polyethylene Glycol 3350* 17 GM PACKET PO SCH (08:55)
--- NOTE | 2018-05-18 09:58 | PN ---
Progress Note - Progress Note Date of Service: 05/18/18 Note: POD #2 98.6 temp. VVStable. Post op X-ray was all OK. Awake, alert, cooperative, and breathing easily. Pain right knee as expected. The surgery is dry except at the superior end where there is some active drainage of blood. Redressed with Xeroform , gauze and cole. Will follow. Hct is 29%. Lytes were OK. I and O is satisfactory. Imp: Stable and acute blood loss anemia. Plans: Consider Celebrex and continue to mobilize with the walker.
--- NOTE | 2018-05-18 11:22 | PN ---
Progress Note - Progress Note Date of Service: 05/18/18 SOAP: Subjective: 77 y/o female s/p R TKA by Dr. Vanessa 05/16/2018. Patient reports feeling well, continues to have some pain, would like NSAID for this as on chronic pain meds. VSS afebrile. + bleeding at bandage. Objective: General- NAD, well appearing, ambulating well. MSK- Dressing removed, + bleeding noted at superior incision, small amount, redressed with iodo gauze and ROBBY in compression fashion. no calf pain, + DF/ PF, PT 2+, SITLT. Vital Signs Temp 97.8 F 05/18/18 11:06 Pulse 56 05/18/18 11:06 Resp 16 05/18/18 11:08 BP 126/62 05/18/18 11:06 Pulse Ox 85 05/18/18 11:06 Intake & Output 05/17/18 05/18/18 05/18/18 18:59 06:59 18:59 Intake Total 1524 840 230 Output Total 1325 1000 300 Balance 199 -160 -70 Intake: IV Fluids 825 LR 825 IVPB 169 clindamycin 169 Oral 530 840 230 Output: Urine 1325 1000 300 Other: Estimated Void Medium # Bowel Movements 0 # Voids 2 Assessment: Stable 77 y/o female s/p R TKA by Dr. Vanessa 05/16/2018. Plan: - WBAT - LIkely D/C to home tomorrow - Monitor bleeding at incision site - Pain control- Dr Vanessa discussed with urologist, OK'd for celebrex 200mg BID x 5 days. - DVT proply- xarelto x 30 days. Vital Signs Temp 97.8 F 05/18/18 11:06 Pulse 56 05/18/18 11:06 Resp 16 05/18/18 11:08 BP 126/62 05/18/18 11:06 Pulse Ox 85 05/18/18 11:06 Intake & Output 05/17/18 05/18/18 05/18/18 18:59 06:59 18:59 Intake Total 1524 840 230 Output Total 1325 1000 300 Balance 199 -160 -70 Intake: IV Fluids 825 LR 825 IVPB 169 clindamycin 169 Oral 530 840 230 Output: Urine 1325 1000 300 Other: Estimated Void Medium # Bowel Movements 0 # Voids 2 Acetaminophen (Tylenol Tab*) 975 mg PO Q8HR [facility] Last Admin: 05/18/18 05:48 Dose: 975 mg Aspirin (Aspirin 81 Mg Chew Tab*) 81 mg PO QPM [facility] Last Admin: 05/17/18 19:00 Dose: 81 mg Brinzolamide/Brimonidine Tartrate (Simbrinza Oph.Susp(Nf)) 1 drop RIGHT EYE BID [facility] Last Admin: 05/18/18 08:53 Dose: 1 drop Dexlansoprazole (Dexilant (Nf)) 30 mg PO QAM [facility] Last Admin: 05/18/18 08:53 Dose: 30 mg Diphenhydramine HCl (Benadryl Iv*) 25 mg IV Q6H PRN PRN Reason: itching Diphenhydramine HCl (Benadryl Po*) 25 mg PO Q6H PRN PRN Reason: itching Docusate Sodium (Colace Cap*) 100 mg PO BID [facility] Last Admin: 05/18/18 08:51 Dose: 100 mg Famotidine (Pepcid Tab*) 20 mg PO BEDTIME PRN; Protocol PRN Reason: HEARTBURN Fentanyl (Duragesic Patch 50 Mcg/Hr*) 50 mcg TRANSDERM Q72HR [facility] Last Admin: 05/16/18 12:31 Dose: 50 mcg Fludrocortisone Acetate (Florinef Tab*) 0.1 mg PO BID PRN PRN Reason: SBP <115 Last Admin: 05/18/18 04:24 Dose: 0.1 mg Fluticasone Propionate (Flonase Nasal [place] 50mcg*) 1 spray BOTH NARES BID PRN PRN Reason: Allergy Symptoms Gabapentin (Neurontin Cap(*)) 300 mg PO QID [facility] Last Admin: 05/18/18 08:51 Dose: 300 mg Hydroxyzine HCl (Atarax Tab*) 25 mg PO QID PRN PRN Reason: ITCHING Last Admin: 05/16/18 14:37 Dose: 25 mg Lactated Ringer's (Lactated Ringers 1000 Ml Bag*) 1,000 mls @ 100 mls/hr IV PER RATE [facility] Last Admin: 05/16/18 23:45 Dose: 100 mls/hr Ketorolac Tromethamine (Acular Ls 0.4% Ophth) 1 drop RIGHT EYE BID PRN PRN Reason: PAIN Lactic Acid (Lac-Hydrin 12% (Nf)) 1 applic TOPICAL BID [facility] Last Admin: 05/18/18 08:54 Dose: Not Given Lactulose (Lactulose*) 30 ml PO BID PRN PRN Reason: CONSTIPATION Levocetirizine (Xyzal Tab (Nf)) 5 mg PO QPM [facility] Last Admin: 05/17/18 19:00 Dose: 5 mg Levothyroxine Sodium (Synthroid Tab*) 25 mcg PO QAM@0600 [facility] Last Admin: 05/18/18 05:50 Dose: 25 mcg Magnesium Hydroxide (Milk Of Magnesia Liq*) 30 ml PO BID [facility] Last Admin: 05/18/18 08:54 Dose: Not Given Magnesium Hydroxide (Milk Of Magnesia Liq*) 30 ml PO Q6H PRN PRN Reason: constipation Magnesium Oxide (Magox 400 Tab*) 400 mg PO BID [facility] Last Admin: 05/18/18 08:52 Dose: 400 mg Melatonin (Melatonin) 6 mg PO BEDTIME [facility] Last Admin: 05/17/18 22:59 Dose: 3 mg Methylphenidate HCl (Concerta Er Tab*) 36 mg PO QAM [facility] Last Admin: 05/18/18 08:51 Dose: 36 mg Morphine Sulfate (Morphine Inj (Syringe)*) 2 mg IV Q2H PRN PRN Reason: PAIN - UNCONTROLLED Last Admin: 05/18/18 11:08 Dose: 2 mg Multivitamins/Minerals (Theragran/Minerals Tab*) 1 tab PO DAILY [facility] Last Admin: 05/18/18 08:52 Dose: 1 tab Pto* (Lifitegrast [ (Xiidra] 1 Drop)) 1 drop LEFT EYE BID [facility] Last Admin: 05/18/18 08:53 Dose: 1 drop Pto:Telmisartan 20 (Mg) 1 dose PO BID [facility]; Protocol Last Admin: 05/18/18 08:52 Dose: 1 dose Ondansetron HCl (Zofran Inj*) 4 mg IV Q6H PRN PRN Reason: nausea Ondansetron HCl (Zofran Odt Tab*) 4 mg PO Q6H PRN PRN Reason: NAUSEA Oxycodone HCl (Roxycodone Tab*) 15 mg PO Q4H PRN PRN Reason: PAIN - SEVERE Last Admin: 05/18/18 07:45 Dose: 15 mg Pharmacy Profile Note (Fentanyl Patch Check Q Shift) 1 note FOLLOW UP 0700, 1900 [facility] Last Admin: 05/18/18 06:44 Dose: 1 note Polyethylene Glycol/Electrolytes (Miralax*) 17 gm PO DAILY [facility] Last Admin: 05/18/18 08:55 Dose: Not Given Polyvinyl Alcohol (Polyvinyl Alcohol 1.4% Opth*) 1 drop BOTH EYES Q4H PRN PRN Reason: DRY EYE Rivaroxaban (Xarelto(*)) 10 mg PO Q24H [facility] Last Admin: 05/17/18 12:40 Dose: 10 mg Sertraline HCl (Zoloft*) 50 mg PO BEDTIME [facility] Last Admin: 05/17/18 21:52 Dose: 50 mg Tizanidine HCl (Zanaflex Tab*) 2 mg PO Q8H PRN PRN Reason: SPASMS Last Admin: 05/18/18 03:07 Dose: 2 mg Tramadol HCl (Ultram*) 50 mg PO Q6H PRN PRN Reason: PAIN - MODERATE Last Admin: 05/17/18 23:06 Dose: 50 mg Valacyclovir HCl (Valtrex 500 Mg (*)) 500 mg PO BID PRN; Protocol PRN Reason: cold sores
[2018-05-18] MEDS: Rivaroxaban TAB(*) 10 MG PO SCH (11:44)
[2018-05-18] MEDS ORDERED: celeCOXIB CAP* 200 MG PO PRN (15:02)
--- NOTE | 2018-05-18 15:37 | PN ---
Subjective Date of Service: 05/18/18 Interval History: Patient was seen and examined at bedside. Reports right knee pain, not any worse than yesterday. Was able to finish her PT session despite pain. Also notes some bloody discharge from incisions, requiring dressing changes twice today. Denies chest pain or SOB. Family History: Unchanged from Admission Social History: Unchanged from Admission Past Medical History: Unchanged from Admission Objective Active Medications: Acetaminophen (Tylenol Tab*) 975 mg PO Q8HR [facility] Last Admin: 05/18/18 14:04 Dose: 975 mg Aspirin (Aspirin 81 Mg Chew Tab*) 81 mg PO QPM [facility] Last Admin: 05/17/18 19:00 Dose: 81 mg Brinzolamide/Brimonidine Tartrate (Simbrinza Oph.Susp(Nf)) 1 drop RIGHT EYE BID [facility] Last Admin: 05/18/18 08:53 Dose: 1 drop Dexlansoprazole (Dexilant (Nf)) 30 mg PO QAM [facility] Last Admin: 05/18/18 08:53 Dose: 30 mg Diphenhydramine HCl (Benadryl Iv*) 25 mg IV Q6H PRN PRN Reason: itching Diphenhydramine HCl (Benadryl Po*) 25 mg PO Q6H PRN PRN Reason: itching Docusate Sodium (Colace Cap*) 100 mg PO BID [facility] Last Admin: 05/18/18 08:51 Dose: 100 mg Famotidine (Pepcid Tab*) 20 mg PO BEDTIME PRN; Protocol PRN Reason: HEARTBURN Fentanyl (Duragesic Patch 50 Mcg/Hr*) 50 mcg TRANSDERM Q72HR [facility] Last Admin: 05/16/18 12:31 Dose: 50 mcg Fludrocortisone Acetate (Florinef Tab*) 0.1 mg PO BID PRN PRN Reason: SBP <115 Last Admin: 05/18/18 04:24 Dose: 0.1 mg Fluticasone Propionate (Flonase Nasal [place] 50mcg*) 1 spray BOTH NARES BID PRN PRN Reason: Allergy Symptoms Gabapentin (Neurontin Cap(*)) 300 mg PO QID [facility] Last Admin: 05/18/18 14:03 Dose: 300 mg Hydroxyzine HCl (Atarax Tab*) 25 mg PO QID PRN PRN Reason: ITCHING Last Admin: 05/16/18 14:37 Dose: 25 mg Lactated Ringer's (Lactated Ringers 1000 Ml Bag*) 1,000 mls @ 100 mls/hr IV PER RATE [facility] Last Admin: 05/16/18 23:45 Dose: 100 mls/hr Ketorolac Tromethamine (Acular Ls 0.4% Ophth) 1 drop RIGHT EYE BID PRN PRN Reason: PAIN Lactic Acid (Lac-Hydrin 12% (Nf)) 1 applic TOPICAL BID [facility] Last Admin: 05/18/18 08:54 Dose: Not Given Lactulose (Lactulose*) 30 ml PO BID PRN PRN Reason: CONSTIPATION Levocetirizine (Xyzal Tab (Nf)) 5 mg PO QPM [facility] Last Admin: 05/17/18 19:00 Dose: 5 mg Levothyroxine Sodium (Synthroid Tab*) 25 mcg PO QAM@0600 [facility] Last Admin: 05/18/18 05:50 Dose: 25 mcg Magnesium Hydroxide (Milk Of Magnesia Liq*) 30 ml PO BID [facility] Last Admin: 05/18/18 08:54 Dose: Not Given Magnesium Hydroxide (Milk Of Magnesia Liq*) 30 ml PO Q6H PRN PRN Reason: constipation Magnesium Oxide (Magox 400 Tab*) 400 mg PO BID [facility] Last Admin: 05/18/18 08:52 Dose: 400 mg Melatonin (Melatonin) 6 mg PO BEDTIME [facility] Last Admin: 05/17/18 22:59 Dose: 3 mg Methylphenidate HCl (Concerta Er Tab*) 36 mg PO QAM [facility] Last Admin: 05/18/18 08:51 Dose: 36 mg Morphine Sulfate (Morphine Inj (Syringe)*) 2 mg IV Q2H PRN PRN Reason: PAIN - UNCONTROLLED Last Admin: 05/18/18 14:25 Dose: 2 mg Multivitamins/Minerals (Theragran/Minerals Tab*) 1 tab PO DAILY [facility] Last Admin: 05/18/18 08:52 Dose: 1 tab Pto* (Lifitegrast [ (Xiidra] 1 Drop)) 1 drop LEFT EYE BID [facility] Last Admin: 05/18/18 08:53 Dose: 1 drop Pto:Telmisartan 20 (Mg) 1 dose PO BID [facility]; Protocol Last Admin: 05/18/18 08:52 Dose: 1 dose Ondansetron HCl (Zofran Inj*) 4 mg IV Q6H PRN PRN Reason: nausea Ondansetron HCl (Zofran Odt Tab*) 4 mg PO Q6H PRN PRN Reason: NAUSEA Oxycodone HCl (Roxycodone Tab*) 15 mg PO Q4H PRN PRN Reason: PAIN - SEVERE Last Admin: 05/18/18 11:44 Dose: 15 mg Pharmacy Profile Note (Fentanyl Patch Check Q Shift) 1 note FOLLOW UP 0700, 1900 [facility] Last Admin: 05/18/18 06:44 Dose: 1 note Polyethylene Glycol/Electrolytes (Miralax*) 17 gm PO DAILY [facility] Last Admin: 05/18/18 08:55 Dose: Not Given Polyvinyl Alcohol (Polyvinyl Alcohol 1.4% Opth*) 1 drop BOTH EYES Q4H PRN PRN Reason: DRY EYE Rivaroxaban (Xarelto(*)) 10 mg PO Q24H [facility] Last Admin: 05/18/18 11:44 Dose: 10 mg Sertraline HCl (Zoloft*) 50 mg PO BEDTIME [facility] Last Admin: 05/17/18 21:52 Dose: 50 mg Tizanidine HCl (Zanaflex Tab*) 2 mg PO Q8H PRN PRN Reason: SPASMS Last Admin: 05/18/18 14:07 Dose: 2 mg Tramadol HCl (Ultram*) 50 mg PO Q6H PRN PRN Reason: PAIN - MODERATE Last Admin: 05/17/18 23:06 Dose: 50 mg Valacyclovir HCl (Valtrex 500 Mg (*)) 500 mg PO BID PRN; Protocol PRN Reason: cold sores Vital Signs - 8 hr 05/18/18 05/18/18 05/18/18 07:45 08:00 08:24 Temperature 98.4 F Pulse Rate 61 Respiratory 18 18 16 Rate Blood Pressure 139/56 (mmHg) O2 Sat by Pulse 98 98 Oximetry 05/18/18 05/18/18 05/18/18 08:51 09:00 11:06 Temperature 97.8 F Pulse Rate 56 Respiratory 18 18 16 Rate Blood Pressure 126/62 (mmHg) O2 Sat by Pulse 85 Oximetry 05/18/18 05/18/18 05/18/18 11:08 11:44 14:03 Temperature Pulse Rate Respiratory 16 18 16 Rate Blood Pressure (mmHg) O2 Sat by Pulse Oximetry 05/18/18 05/18/18 14:25 15:20 Temperature Pulse Rate Respiratory 18 16 Rate Blood Pressure (mmHg) O2 Sat by Pulse Oximetry Oxygen Devices in Use Now: None Appearance: Appears comfortable and in NAD Eyes: No Scleral Icterus, PERRLA Ears/Nose/Mouth/Throat: Clear Oropharnyx, Mucous Membranes Moist Neck: NL Appearance and Movements; NL JVP, Trachea Midline Respiratory: Symmetrical Chest Expansion and Respiratory Effort, Clear to Auscultation Cardiovascular: NL Sounds; No Murmurs; No JVD, RRR Abdominal: NL Sounds; No Tenderness; No Distention Extremities: No Edema Neurological: Alert and Oriented x 3 Nutrition: Taking PO's Result Diagrams: 05/18/18 05:16 05/17/18 06:30 Additional Lab and Data: . Microbiology and Other Data: . Diagnostic Imaging: . EKG Data: . Assess/Plan/Problems-Billing Assessment: A 77 y/o female with multiple medical issues, including chronic pain, who is POD #2 s/p right total knee arthroplasty, clinically stable. - Patient Problems (1) Status post total right knee replacement Current Visit: Yes Status: Acute Comment: - Management per ortho team - Plan to optimize pain control, await pain consult recommendations - Patient asked for Celebrex stating she was told she will get it. I reviewed ortho note, patient ok'ed to take Celebrex 200mg BID for 5 days. Pharmacy called with concerns using COX2 inhibitor with Xarelto. I'm also concerned Celebrex may worsen her incisional bleeding/discharge. I will hold off for now, defer to ortho team. - Continue PT (2) HTN (hypertension) Current Visit: Yes Status: Acute Comment: - Continue Florinef, hold ARB for the time being - Normotensive today. (3) HLD (hyperlipidemia) Current Visit: Yes Status: Acute Comment: - Diet controlled - Recent lipid panel appeared WNL (4) CKD (chronic kidney disease) stage 3, GFR 30-59 ml/min Current Visit: Yes Status: Acute Comment: - At baseline (5) GERD (gastroesophageal reflux disease) Current Visit: No Status: Acute Comment: - Continue PPI and pepcid (6) Chronic pain Current Visit: No Status: Chronic Comment: - Continue home medication regimen including fentanyl, oxycodone, and gabapentin per ortho - Pain consult appreciated (7) DVT prophylaxis Current Visit: No Status: Acute Comment: - On Xarelto (8) DNR (do not resuscitate) Current Visit: No Status: Acute Status and Disposition: Inpatient. Anticipate discharge per ortho when medically stable, likely tomorrow AM.
[2018-05-18] MEDS: PTO:LevoCETirizine TAB (NF) 5 MG TAB PO SCH (17:10)
[2018-05-18] MEDS: Aspirin 81 mg CHEW TAB* 81 MG TAB.CHEW PO SCH (17:10)
[2018-05-18] MEDS ORDERED: Morphine VIAL* 4 MG/ML VIAL (1 ml vial) IV ONE (17:33)
[2018-05-18] MEDS: Morphine VIAL* 4 MG/ML VIAL (1 ml vial) IV PRN ×3 (17:36→21:55)
[2018-05-18] MEDS: Sertraline* 50 MG TAB PO SCH (19:48)
[2018-05-18] MEDS: traMADol TAB* 50 MG PO PRN (19:48)
[2018-05-18] MEDS: Melatonin 3 MG TAB PO SCH (19:49)
[2018-05-19] MEDS: oxyCODONE TAB* 5 MG TAB PO PRN ×4 (01:52→17:55)
[2018-05-19] MEDS: traMADol TAB* 50 MG PO PRN (01:52)
[2018-05-19] MEDS: Morphine VIAL* 4 MG/ML VIAL (1 ml vial) IV PRN ×2 (03:55→06:29)
[2018-05-19 05:55] LABS: Hematocrit 26 % (35-47); Hemoglobin 8.8 g/dl (12.0-16.0); Platelet Count 153 10^3/ul (150-450)
[2018-05-19] MEDS: Levothyroxine TAB* 25 MCG TAB PO SCH (06:33)
[2018-05-19] MEDS: Acetaminophen TAB* 325 MG PO SCH ×3 (06:33→21:12)
[2018-05-19] MEDS: fentaNYL Patch Check Q Shift 1 NOTE FOLLOW UP SCH ×2 (06:58→19:17)
[2018-05-19] MEDS: Magnesium Hydroxide LIQ* 30 ML UDC PO SCH ×2 (08:44→20:08)
[2018-05-19] MEDS: LACTIC ACID TOPICAL SCH ×2 (08:44→20:11)
[2018-05-19] MEDS: fentaNYL PATCH 50 MCG/HR TRANSDERM SCH (09:00)
[2018-05-19] MEDS ORDERED: oxyCODONE TAB* 5 MG TAB PO PRN (09:02)
[2018-05-19] MEDS: tiZANidine TAB* 2 MG PO PRN (09:04)
[2018-05-19] MEDS: METHYLPHENIDATE 18 MG PO SCH (09:04)
[2018-05-19] MEDS: Gabapentin CAP(*) 300 MG PO SCH ×4 (09:05→21:11)
[2018-05-19] MEDS: Magnesium Oxide TAB* 400 MG PO SCH ×2 (09:05→20:08)
[2018-05-19] MEDS: Polyethylene Glycol 3350* 17 GM PACKET PO SCH (09:06)
[2018-05-19] MEDS: Docusate CAP* 100 MG PO SCH ×2 (09:06→20:08)
[2018-05-19] MEDS: TELMISARTAN 20 MG PO SCH ×2 (09:08→21:16)
[2018-05-19] MEDS: Multivitamins/Minerals TAB PO SCH (09:09)
[2018-05-19] MEDS: PTO:Brinzolamid/Brimonidin OPH(NF) 1 DROP BTL RIGHT EYE SCH ×2 (09:09→20:11)
[2018-05-19] MEDS: LIFITEGRAST LEFT EYE SCH ×2 (09:11→20:12)
[2018-05-19] MEDS: DEXLANSOPRAZOLE 30 MG PO SCH (09:12)
--- NOTE | 2018-05-19 09:17 | PN ---
Progress Note - Progress Note Date of Service: 05/19/18 Note: POD #3 100.1 Hct is 26%. She feels well and pain issues are being addressed. Awake, alert, cooperative and breathing easily. Her dressing today is dry and the surgery is leaking from 2 areas with blood. All washed with soap and water and redressed with telfa/betadine solution (she said it was OK), gauze and jean-claude, cole. Knee has swelling. Imp: anemia as noted and the surgery has leakage so will stop the Xarelto and use Lovenox 30 mg SQ daily starting 05/21. Plans: Home later today.
[2018-05-19 11:12] LABS: Hematocrit 26 % (35-47); Hemoglobin 8.6 g/dl (12.0-16.0); Mean Corpuscular HGB Conc 34 g/dl (31-36); Mean Corpuscular Hemoglobin 29 pg (27-31); Mean Corpuscular Volume 87 fL (80-97); Mean Platelet Volume 8.2 um3 (7.4-10.4); Platelet Count 180 10^3/ul (150-450); Red Blood Count 2.94 10^6/ul (4.00-5.40); Red Cell Distribution Width 14 % (10.5-15); White Blood Count 7.5 10^3/ul (3.5-10.8)
[2018-05-19] MEDS ORDERED: NS 0.9% 1000 ML* 1,000 ML IV ONE (11:12)
--- NOTE | 2018-05-19 11:21 | PN ---
Hospitalist Progress Note Date of Service: 05/19/18 CAT Call this am while patient was in PT gym. Per RN, patient was participating in PT when she became dizzy and pale. BP was 50/30 with HR of 80. Patient placed in chair, VS recehcked and SBP still around 80. Upon arrival, CAT team assessing patient. NS bolus ordered, and CBC. Per RN, patient had seepage through dressing today and H&H dropped. EKG shows no new ST segment changes. Of note, patient has chronic pain and did receive additional narcotics prior to episode/PT. Recommend decreasing narcotics, repeat VS Q1h for 4 hours. Ordered 1 unit PRBCs. Recommend no active PT until BP stable. Episode appears related to volume depletion and possibly narcotics. Discussed with TERA Talavera, ortho service. Will continue to follow patient.
--- NOTE | 2018-05-19 12:12 | PN ---
Progress Note - Progress Note Date of Service: 05/19/18 Note: While at PT, patient had a CAT call due to low blood pressure. When seen, patients BP had improved, she was resting with complaints of burning knee pain. Due to increased pain, patient had received morphine, zanaflex, oxycodone in AM- likely syncopal due to over-medicated with narcotics and volume depleted. Recommended IV fluids, 1 unit of blood due to decrease in H&H, decrease pain medication until BP improves. Patient in agreement although concerned about pain. will monitor overnight due to syncopal episodes. Amber hill, will start lovenox on Tuesday. Continue ASA 81mg.
--- NOTE | 2018-05-19 15:18 | PN ---
Subjective Date of Service: 05/19/18 Interval History: Patient was seen and examined earlier, events noted. Episode of dizziness during PT session, found to be hypotensive, no LOC or fall. IVF bouls and 1 uint PRBCs are being transfused. Patient is chest pain free, no SOB or headaches. EKG with no ST changes. H/H dropped slightly, some bleeding from incision yesterday requiring dressing changes. Likely combination of volume depletion and narcotic use causing orthostatic hypotension. Patient has hx similar episodes in post-operative period in prior surgeries. She is currently comfortable and has no complaints. Discharge plans were postponed until the weekend. Family History: Unchanged from Admission Social History: Unchanged from Admission Past Medical History: Unchanged from Admission Objective Active Medications: Acetaminophen (Tylenol Tab*) [address] [facility] Last Admin: 05/19/18 13:41 Dose: 975 mg Aspirin (Aspirin 81 Mg Chew Tab*) [address] [facility] Last Admin: 05/18/18 17:10 Dose: 81 mg Brinzolamide/Brimonidine Tartrate (Simbrinza Oph.Susp(Nf)) [address]YE [address]ID [facility] Last Admin: 05/19/18 09:09 Dose: 1 drop Dexlansoprazole (Dexilant (Nf)) [address] [facility] Last Admin: 05/19/18 09:12 Dose: 30 mg Diphenhydramine HCl (Benadryl Po*) 25 mg PO Q6H PRN PRN Reason: itching Docusate Sodium (Colace Cap*) [address] [facility] Last Admin: 05/19/18 09:06 Dose: 100 mg Famotidine (Pepcid Tab*) 20 mg PO BEDTIME PRN; Protocol PRN Reason: HEARTBURN Fentanyl (Duragesic Patch 50 Mcg/Hr*) [address] [facility] Last Admin: 05/19/18 09:00 Dose: 50 mcg Fludrocortisone Acetate (Florinef Tab*) 0.1 mg PO BID PRN PRN Reason: SBP <115 Last Admin: 05/18/18 04:24 Dose: 0.1 mg Fluticasone Propionate (Flonase Nasal [place] 50mcg*) 1 spray BOTH NARES BID PRN PRN Reason: Allergy Symptoms Gabapentin (Neurontin Cap(*)) [address] [facility] Last Admin: 05/19/18 13:41 Dose: 300 mg Hydroxyzine HCl (Atarax Tab*) 25 mg PO QID PRN PRN Reason: ITCHING Last Admin: 05/16/18 14:37 Dose: 25 mg Lactated Ringer's (Lactated Ringers 1000 Ml Bag*) 1,000 mls @ 100 mls/hr IV PER RATE [facility] Last Admin: 05/16/18 23:45 Dose: 100 mls/hr Ketorolac Tromethamine (Acular Ls 0.4% Oph) 1 drop RIGHT EYE BID PRN PRN Reason: PAIN Lactic Acid (Lac-Hydrin 12% (Nf)) [address] [facility] Last Admin: 05/19/18 08:44 Dose: Not Given Lactulose (Lactulose*) 30 ml PO BID PRN PRN Reason: CONSTIPATION Levocetirizine (Xyzal Tab (Nf)) [address] [facility] Last Admin: 05/18/18 17:10 Dose: 5 mg Levothyroxine Sodium (Synthroid Tab*) 25 mcg PO QAM@0600 [facility] Last Admin: 05/19/18 06:33 Dose: 25 mcg Magnesium Hydroxide (Milk Of Magnesia Liq*) [address] [facility] Last Admin: 05/19/18 08:44 Dose: Not Given Magnesium Hydroxide (Milk Of Magnesia Liq*) 30 ml PO Q6H PRN PRN Reason: constipation Magnesium Oxide (Magox 400 Tab*) [address] [facility] Last Admin: 05/19/18 09:05 Dose: 400 mg Melatonin (Melatonin) [address] [facility] Last Admin: 05/18/18 19:49 Dose: 6 mg Methylphenidate HCl (Concerta Er Tab*) [address] [facility] Last Admin: 05/19/18 09:04 Dose: 36 mg Multivitamins/Minerals (Theragran/Minerals Tab*) [address] [facility] Last Admin: 05/19/18 09:09 Dose: 1 tab Pto* (Lifitegrast [ (Xiidra] 1 Drop)) [address] [facility] Last Admin: 05/19/18 09:11 Dose: 1 drop Telmisartan 20mg [address] [facility]; Protocol Ondansetron HCl (Zofran Inj*) 4 mg IV Q6H PRN PRN Reason: nausea Ondansetron HCl (Zofran Odt Tab*) 4 mg PO Q6H PRN PRN Reason: NAUSEA Oxycodone HCl (Roxycodone Tab*) 15 mg PO Q4H PRN PRN Reason: PAIN - MILD Last Admin: 05/19/18 13:41 Dose: 15 mg Pharmacy Profile Note (Fentanyl Patch Check Q Shift) 1 note FOLLOW UP 0700, 1900 [facility] Last Admin: 05/19/18 06:58 Dose: 1 note Polyethylene Glycol/Electrolytes (Miralax*) [address] [facility] Last Admin: 05/19/18 09:06 Dose: 17 gm Polyvinyl Alcohol (Polyvinyl Alcohol 1.4% Opth*) 1 drop BOTH EYES Q4H PRN PRN Reason: DRY EYE Sertraline HCl (Zoloft*) [address] [facility] Last Admin: 05/18/18 19:48 Dose: 50 mg Valacyclovir HCl (Valtrex 500 Mg (*)) 500 mg PO BID PRN; Protocol PRN Reason: cold sores Vital Signs - 8 hr 05/19/18 05/19/18 05/19/18 07:20 08:41 09:00 Temperature 100.1 F Pulse Rate 85 Respiratory 16 16 16 Rate Blood Pressure 125/50 (mmHg) O2 Sat by Pulse 97 Oximetry 05/19/18 05/19/18 05/19/18 09:05 09:15 09:23 Temperature Pulse Rate Respiratory 16 16 16 Rate Blood Pressure (mmHg) O2 Sat by Pulse Oximetry 05/19/18 05/19/18 05/19/18 10:15 10:36 10:43 Temperature 98.7 F Pulse Rate 80 Respiratory 16 16 Rate Blood Pressure 50/30 86/38 (mmHg) O2 Sat by Pulse 96 Oximetry 05/19/18 05/19/18 05/19/18 11:27 11:29 12:37 Temperature 99.0 F 98.8 F Pulse Rate 77 83 Respiratory 16 16 16 Rate Blood Pressure 96/44 126/45 (mmHg) O2 Sat by Pulse 92 100 Oximetry 05/19/18 05/19/18 05/19/18 13:35 13:41 14:24 Temperature 98.8 F 99.8 F Pulse Rate 92 99 Respiratory 24 24 16 Rate Blood Pressure 135/74 108/31 (mmHg) O2 Sat by Pulse 91 97 Oximetry Oxygen Devices in Use Now: None Appearance: Appears comfortable and in NAD Eyes: No Scleral Icterus, PERRLA Ears/Nose/Mouth/Throat: Clear Oropharnyx, Mucous Membranes Moist Neck: NL Appearance and Movements; NL JVP, Trachea Midline Respiratory: Symmetrical Chest Expansion and Respiratory Effort, Clear to Auscultation Cardiovascular: NL Sounds; No Murmurs; No JVD, RRR Abdominal: NL Sounds; No Tenderness; No Distention Extremities: No Edema Neurological: Alert and Oriented x 3 Nutrition: Taking PO's Result Diagrams: 05/19/18 10:32 05/17/18 06:30 Additional Lab and Data: . Microbiology and Other Data: . Diagnostic Imaging: . EKG Data: .EKG INTERPRETATION ECG Report Patient Name GABRIEL MELENDEZ Birthdate 1940 Sex F Order Number [id number] Date of ECG 05/19/2018 12:38:05 Interpretation Sinus rhythm.normal P axis, V-rate 60- 99 Abnormal R-wave progression, early transition.QRS area>0 in V2 - OTHERWISE NORMAL ECG - Assess/Plan/Problems-Billing Assessment: A 77 y/o female with multiple medical issues, including chronic pain, who is POD #2 s/p right total knee arthroplasty - Patient Problems (1) Status post total right knee replacement Current Visit: Yes Status: Acute Comment: - Management per ortho team - Plan to optimize pain control, await pain consult recommendations - Patient asked for Celebrex stating she was told she will get it. I reviewed ortho note, patient ok'ed to take Celebrex 200mg BID for 5 days. Pharmacy called with concerns using COX2 inhibitor with Xarelto. I'm also concerned Celebrex may worsen her incisional bleeding/discharge. I will hold off for now, defer to ortho team. - Continue PT (2) HTN (hypertension) Current Visit: Yes Status: Acute Comment: - Hypotensive episode today prior to planned discharge - Likely comination of volume depletion and narcotic use - Hold BP meds, IVF bolus given (3) HLD (hyperlipidemia) Current Visit: Yes Status: Acute Comment: - Diet controlled - Recent lipid panel appeared WNL (4) CKD (chronic kidney disease) stage 3, GFR 30-59 ml/min Current Visit: Yes Status: Acute Comment: - At baseline (5) GERD (gastroesophageal reflux disease) Current Visit: No Status: Acute Comment: - Continue PPI and pepcid (6) Chronic pain Current Visit: No Status: Chronic Comment: - Continue home medication regimen including fentanyl, oxycodone, and gabapentin per ortho - Pain consult appreciated (7) DVT prophylaxis Current Visit: No Status: Acute Comment: - Per ortho team, Amber on hold - SubQ Lovenox (8) DNR (do not resuscitate) Current Visit: No Status: Acute (9) Anemia due to blood loss Current Visit: Yes Status: Acute Comment: - Bleeding from incision appears to be controlled - Transfuse 1 unit PRBCs - Check labs in AM Status and Disposition: Inpatient. Anticipate discharge per ortho when medically stable.
[2018-05-19] MEDS: PTO:LevoCETirizine TAB (NF) 5 MG TAB PO SCH (17:54)
[2018-05-19] MEDS: Aspirin 81 mg CHEW TAB* 81 MG TAB.CHEW PO SCH (17:55)
[2018-05-19] MEDS: Melatonin 3 MG TAB PO SCH (20:08)
[2018-05-19] MEDS: Sertraline* 50 MG TAB PO SCH (20:08)
[2018-05-20] MEDS: oxyCODONE TAB* 5 MG TAB PO PRN ×3 (01:02→10:18)
[2018-05-20] MEDS: Acetaminophen TAB* 325 MG PO SCH (05:47)
[2018-05-20] MEDS: Levothyroxine TAB* 25 MCG TAB PO SCH (05:52)
[2018-05-20 06:03] LABS: Hematocrit 30 % (35-47); Hemoglobin 10.1 g/dl (12.0-16.0); Mean Platelet Volume 8.1 um3 (7.4-10.4); Platelet Count 150 10^3/ul (150-450)
[2018-05-20] MEDS: fentaNYL Patch Check Q Shift 1 NOTE FOLLOW UP SCH (06:52)
[2018-05-20] MEDS: LIFITEGRAST LEFT EYE SCH (08:18)
[2018-05-20] MEDS: METHYLPHENIDATE 18 MG PO SCH (08:19)
[2018-05-20] MEDS: Polyethylene Glycol 3350* 17 GM PACKET PO SCH (08:19)
[2018-05-20] MEDS: Gabapentin CAP(*) 300 MG PO SCH (08:19)
[2018-05-20] MEDS: Multivitamins/Minerals TAB PO SCH (08:19)
[2018-05-20] MEDS: Docusate CAP* 100 MG PO SCH (08:19)
[2018-05-20] MEDS: Magnesium Oxide TAB* 400 MG PO SCH (08:19)
[2018-05-20] MEDS: DEXLANSOPRAZOLE 30 MG PO SCH (08:20)
[2018-05-20] MEDS: PTO:Brinzolamid/Brimonidin OPH(NF) 1 DROP BTL RIGHT EYE SCH (08:20)
[2018-05-20] MEDS: LACTIC ACID TOPICAL SCH (08:22)
[2018-05-20] MEDS: Magnesium Hydroxide LIQ* 30 ML UDC PO SCH (08:22)
[2018-05-20] MEDS: TELMISARTAN 20 MG PO SCH (08:23)
--- NOTE | 2018-05-20 09:46 | PN ---
Progress Note - Progress Note Date of Service: 05/20/18 SOAP: Subjective: Patient was seen and examined in chair today. States that she is feeling much better. Denies any chest pain, SOB, lightheadedness, nausea or vomiting. Objective: []General: Well appearing, NAD RLE: Dressing CDI, changed today, no erythema, incision is c/d/i. Mild amount of blood present at proximal incision, no active drainage. Thigh is soft. DF/PT intact. Dp2+, capillary refill brisk distally, sensation intact distally. Calves are supple and nontender without erythema, edema or palpable cords Vital Signs Temp 98.6 F 05/20/18 07:39 Pulse 86 05/20/18 07:39 Resp 16 05/20/18 08:21 BP 123/59 05/20/18 07:39 Pulse Ox 93 05/20/18 07:39 Intake & Output 05/19/18 05/20/18 05/20/18 18:59 06:59 18:59 Intake Total 1664 460 210 Output Total 200 0 Balance 1464 460 210 Intake: IV Fluids 1013 LR 1013 Oral 350 460 210 Packed Cells 301 Output: Urine 200 0 Other: Estimated Void Large Medium # Bowel Movements 0 # Voids 1 1 Assessment: []POD 4 sp right total knee arthroplasty 05/16 Dr Vanessa Plan: []WBAT\ PT/OT Lovenox 40mg once per day to start on Sun D/C home today after PT
[2018-05-20] MEDS: hydrOXYzine HCL TAB* 25 MG PO PRN (10:18)
[2018-05-20] MEDS ORDERED: Hydrocortisone 1% CREAM* 30 GM TUBE TOPICAL PRN (11:42)
[2018-05-20 13:29] VITALS: BP 156/79
== END 2018-05-20 13:00 | disposition home or self-care (01) | DRG 470 ==
LOC: AA 05:43 → SSU 13:46
PROVIDERS: ADMIT Orthopaedic Surgery; ATTEND Orthopaedic Surgery
PROC: 0SRC0J9 Replacement of Right Knee Joint with Synthetic Substitute, Cemented, Open Approach (ICD-10-PCS; 2018-05-16)
PROC: 30233N1 Transfusion of Nonautologous Red Blood Cells into Peripheral Vein, Percutaneous Approach (ICD-10-PCS; principal; 2018-05-19)
DX: M17.11 Unilateral primary osteoarthritis, right knee (principal); D62 Acute posthemorrhagic anemia; M21.061 Valgus deformity, not elsewhere classified, right knee; E78.5 Hyperlipidemia, unspecified; M79.7 Fibromyalgia; K21.9 Gastro-esophageal reflux disease without esophagitis; G47.30 Sleep apnea, unspecified; G44.009 Cluster headache syndrome, unspecified, not intractable; F31.9 Bipolar disorder, unspecified; F32.9 Major depressive disorder, single episode, unspecified; G50.0 Trigeminal neuralgia; Z96.652 Presence of left artificial knee joint; M25.461 Effusion, right knee; G47.33 Obstructive sleep apnea (adult) (pediatric); N18.3 Chronic kidney disease, stage 3 (moderate); I95.9 Hypotension, unspecified; G40.909 Epilepsy, unspecified, not intractable, without status epilepticus; Z96.612 Presence of left artificial shoulder joint; I12.9 Hypertensive chronic kidney disease with stage 1 through stage 4 chronic kidney disease, or unspecified chronic kidney disease; G35 Multiple sclerosis; M81.0 Age-related osteoporosis without current pathological fracture; M50.223 Other cervical disc displacement at C6-C7 level; K57.90 Diverticulosis of intestine, part unspecified, without perforation or abscess without bleeding; H54.40 Blindness, one eye, unspecified eye; K76.89 Other specified diseases of liver; H91.93 Unspecified hearing loss, bilateral; G89.4 Chronic pain syndrome; M25.761 Osteophyte, right knee; Z66 Do not resuscitate; Z87.442 Personal history of urinary calculi; Z87.01 Personal history of pneumonia (recurrent); Z86.718 Personal history of other venous thrombosis and embolism; Z93.3 Colostomy status; Z90.710 Acquired absence of both cervix and uterus; Z88.8 Allergy status to other drugs, medicaments and biological substances; Z88.4 Allergy status to anesthetic agent; Z91.041 Radiographic dye allergy status; Z90.49 Acquired absence of other specified parts of digestive tract; Z98.1 Arthrodesis status; Z83.3 Family history of diabetes mellitus; Z82.49 Family history of ischemic heart disease and other diseases of the circulatory system
CPT/HCPCS: 36415; 80048; 83735; 85014; 85018; 85027; 85049; 86850; 86870; 86880; 86900; 86901; 86905; 86922; 88305; 88311; 93005; A9270-GY; C1776; G8978-GP-CI; G8978-GP-CJ; G8978-GP-CK; G8978-GP-CL; G8979-GP-CI; G8979-GP-CJ; G8980-GP-CI; G8987-GO-CJ; G8988-GO-CI; J1100; J1170; J1200; J1720; J1885; J2250; J2270; J2405; J2704; J3010; P9040

== ENCOUNTER 2018-05-23 11:14 | Emergency (ER) | payer MEDICARE ==
--- NOTE | 2018-05-23 12:07 | ED ---
Dizziness - HPI Summary HPI Summary: This patient is a 77 year old F BIBA to [facility] with a chief complaint of dizziness since 09:00 this morning. The patient rates the pain 8/10 in severity. Patient reports knee pain (preexisting from her surgery), low blood pressure yesterday (80/68), lightheadedness, and a very low temperature last night. Patient denies fever. She had knee RLE knee surgery 05/16/18, which caused her BP to go up and down. Pt took low blood pressure medicine today. - History Of Current Complaint Chief Complaint: EDDizziness Stated Complaint: HYPOTENSION Time Seen by Provider: 05/23/18 11:31 Hx Obtained From: Patient Timing: Constant Character: Lightheaded, Dizzy Associated Signs And Symptoms: Positive: Other: - Knee pain, low blood pressure (80/68), ligtheadedness, and a very low temperature last night. Negative: Fever - Allergies/Home Medications Allergies/Adverse Reactions: Allergies Allergy/AdvReac Type Severity Reaction Status Date / Time carbamazepine [From Tegretol] Allergy Severe difficulty Verified 05/23/18 11:41 breathing, headache, nausea, dizziness iodine Allergy Severe chest pain Verified 05/23/18 11:41 ketamine Allergy Severe SEVERE Verified 05/23/18 11:41 HALLUCINATIONS meperidine Allergy Severe Difficulty Verified 05/23/18 11:41 Swallowing phenobarbital Allergy Severe Difficulty Verified 05/23/18 11:41 Swallowing phenytoin [From Dilantin] Allergy Severe throat Verified 05/23/18 11:41 swelling, cannot talk alendronate sodium Allergy Intermediate SOB, Verified 05/23/18 11:41 dizziness amoxicillin [From Augmentin] Allergy Intermediate Abdominal Verified 05/23/18 11 :41 Pain clavulanic acid Allergy Intermediate Abdominal Verified 05/23/18 11:41 [From Augmentin] Pain donepezil Allergy Intermediate didn't Verified 05/23/18 11:41 work and felt "funny" duloxetine Allergy Intermediate SHAKY AND Verified 05/23/18 11:41 UNSTEADY quetiapine Allergy Intermediate UNEASINESS, Verified 05/23/18 11:41 SHAKY AND UNSTEADY rizatriptan [From Maxalt] Allergy Unknown Unknown Verified 05/23/18 11:41 Reaction Details Home Medications: Home Medications Ammonium Lactate [Yasmeen-Hydrolac 12] 12 % TOPICAL TID 05/23/18 [History Confirmed 05/23/18] Aspirin EC TAB* [Ecotrin EC Low Dose 81 MG*] 81 mg PO DAILY 05/23/18 [History Confirmed 05/23/18] Biotin 2,500 mcg PO DAILY 05/23/18 [History Confirmed 05/23/18] Brinzolamid/Brimonidin OPH(NF) [Simbrinza OPH.SUSP(NF)] 1 drop BOTH EYES BID 05/02 [History Confirmed 05/23/18] Carboxymethylcellulose Sodium [Thera Tears] 1 drop OPHTHALMIC BID PRN 05/23/18 [ History Confirmed 05/23/18] Cholecalciferol (Vitamin D3) [Vitamin D3] 1,000 unit PO DAILY 05/23/18 [History Confirmed 05/23/18] Cholecalciferol (Vitamin D3) [Vitamin D3] 1,000 unit PO DAILY 05/23/18 [History Confirmed 05/23/18] Curcuium 40 mg PO DAILY 05/23/18 [History Confirmed 05/23/18] Cyanocobalamin (Vitamin B-12) [Vitamin B-12] 3,000 mcg SL DAILY 05/23/18 [ History Confirmed 05/23/18] Dexlansoprazole (NF) [Dexilant (NF)] 30 mg PO QAM 05/23/18 [History Confirmed ] Diclofenac 1% GEL (NF) [Voltaren 1% GEL (NF)] 1 applic TOPICAL BID 05/23/18 [ History Confirmed 05/23/18] Kelp-Iodine 25 mcg PO DAILY 05/23/18 [History Confirmed 05/23/18] Ketorolac 0.5% OPHTH (NF) 1 drop RIGHT EYE DAILY 05/23/18 [History Confirmed 05/02] L. Rhamnosus GG/Inulin [Culturelle Probiotics Capsule] 1 cap PO DAILY 05/23/18 [ History Confirmed 05/23/18] Lactose-Reduced Food [Boost] 237 ml PO DAILY 05/23/18 [History Confirmed ] Lifitegrast [Xiidra] 1 drop LEFT EYE BID PRN 05/23/18 [History Confirmed ] Lutein Extract/Zeaxanthin Ext [Lutein] 1 cap PO DAILY 05/23/18 [History Confirmed 05/23/18] Methylphenidate HCl [Methylphenidate ER] 36 mg PO QAM 05/23/18 [History Confirmed 05/23/18] Multivitamins/Minerals TAB* [Theragran/minerals TAB*] 1 tab PO DAILY 05/23/18 [ History Confirmed 05/23/18] [id number]-Gwlt Ethyl Esters (NF) [Lovaza (NF)] 1 gm PO BID 05/23/18 [History Confirmed 05/23/18] Polyethylene Glycol 3350* [Miralax*] 17 gm PO DAILY PRN 05/23/18 [History Confirmed 05/23/18] Ranitidine TAB (NF) [Zantac TAB (NF)] 150 mg PO QPM 05/23/18 [History Confirmed 05/23/18] Selenium (NF) 200 mcg PO DAILY 05/23/18 [History Confirmed 05/23/18] Sertraline* [Zoloft*] 50 mg PO QPM 05/23/18 [History Confirmed 05/23/18] Ubidecarenone [Co Q-10] 200 mg PO DAILY 05/23/18 [History Confirmed 05/23/18] ValACYclovir (*) [Valtrex 1 GM(*)] 1 gm PO DAILY 05/23/18 [History Confirmed 05/02] Vitamin B Complex Vit C No.4 [Super B Complex] 150 mg PO DAILY 05/23/18 [ History Confirmed 05/23/18] fentaNYL PATCH 50 MCG/HR* [Duragesic PATCH 50 Mcg/Hr*] 50 mcg TRANSDERM Q72H [History Confirmed 05/23/18] hydrOXYzine HCL TAB* [Atarax 25 MG TAB*] 25 mg PO QID PRN 05/23/18 [History Confirmed 05/23/18] oxyCODONE TAB* [Roxycodone TAB 5 mg*] 15 mg PO Q4H PRN 05/23/18 [History Confirmed 05/23/18] PMH/Surg Hx/FS Hx/Imm Hx Endocrine/Hematology History: Reports: Hx Thyroid Disease - on meds Denies: Hx Diabetes Cardiovascular History: Reports: Hx Deep Vein Thrombosis, Hx Hypercholesterolemia, Hx Hypotension, Hx Hypertension - blood pressures vary- has meds for high and low BP, Hx Syncope, Other Cardiovascular Problems/ Disorders - Orthostatic hypotension, DVT 25 years ago, cor triatriaton Denies: Hx Pacemaker/ICD Respiratory History: Reports: Hx Asthma, Hx Sleep Apnea - CPAP start 06/2013 uses occasionally GI History: Reports: Hx Diverticulosis, Hx Gastroesophageal Reflux Disease - esophageal reflux, Hx Hiatal Hernia, Other GI Disorders - COLOSTOMY WITH REVERSAL History: Reports: Hx Chronic Renal Failure - stage 3, Hx Kidney Infection, Hx Kidney Stones - both kidneys, Hx Renal Disease - 50% INSUFF/ STAGE III, Other Problems/Disorders - multiple issues, stents, lithotripsy, obstructed ureters Musculoskeletal History: Reports: Hx Arthritis, Hx Fibromyalgia, Hx Orthopedic Injury - hx of FX from falls, Hx Osteoporosis, Other Musculoskeletal History - fibromyalgia Sensory History: Reports: Hx Cataracts - left eye, Hx Contacts or Glasses - uses magnifying glass, Hx Glaucoma, 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, Hx Vision Problem - rt eye blindness, Hx Hearing Aid - right ear, Hx Hearing Problem Opthamlomology History: Reports: Hx Cataracts - left eye, Hx Contacts or Glasses - uses magnifying glass, Hx Glaucoma, 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, Hx Vision Problem - rt eye blindness Neurological History: Reports: Hx Headaches, Hx Nerve Disease - fibromyalgia, Hx Seizures - 2 months ago- mid february approx, Other Neuro Impairments/Disorders - epilepsy Psychiatric History: Reports: Hx Anxiety - in the past, Hx Depression - in the past, Hx Panic Disorder - SOMETIMES, Hx Bipolar Disorder - Cancer History Hx Chemotherapy: No - Surgical History Surgery Procedure, Year, and Place: 1984 - HYSTERECTOMY 1997 - Lt KNEE [id number] - ANTERIOR CERVICAL DISCETECOMY -C6-7 2003- LT HEMICOLECTOMY W /COLOSTOMY &1990 - CARPAL TUNNEL -Rt REVERSAL - [id number] - CARPAL TUNNEL -Lt 2005- ABD HERNIA-1996 - LT KIDNEY LITHROTRIPSY 1997 & 2013;SEVERAL EYE SURGERY FOR DETACHED RETINA - VITRECTOMIES AND A SILICONE SCLERAL BUCKLE(PREV CLEARED)-2013 KIDNEY STONES REMOVED. Lt SHOULDER - REVERSE REPLACEMENT - 2016 Hx Anesthesia Reactions: No - Immunization History Immunizations Up to Date: Yes Infectious Disease History: No Infectious Disease History: Reports: History Other Infectious Disease - oral herpes Denies: Hx Shingles, Hx Tuberculosis, Traveled Outside the [place] in Last 30 Days - Family History Known Family History: Negative: Cardiac Disease, Diabetes - Social History Occupation: Retired Alcohol Use: None Hx Substance Use: No Substance Use Type: Reports: Prescribed Substance Use Comment - Amount & Last Used: fentanyl patch and oxycodone Hx Tobacco Use: No Smoking Status (MU): Former Smoker Amount Used/How Often: social smoker on weekends Review of Systems Positive: Other - Very low temperature last night Positive: Other - Low blood pressure (80/68) this morning Positive: Other - Knee pain (preexisting from her surgery) Neurological: Other - Dizziness, lightheadedness All Other Systems Reviewed And Are Negative: Yes Physical Exam - Summary Physical Exam Summary: Appearance: The patient is well-nourished in no acute distress and in no acute pain. Skin: The skin is warm and dry and skin color reflects adequate perfusion. HEENT: The head is normocephalic and atraumatic. The pupils are equal and reactive. The conjunctivae are clear and without drainage. Nares are patent and without drainage. Mouth reveals moist mucous membranes and the throat is without erythema and exudate. The external ears are intact. The ear canals are patent and without drainage. The tympanic membranes are intact. Neck: The neck is supple with full range of motion and non-tender. There are no carotid bruits. There is no neck vein distension. Respiratory: Chest is non-tender. Lungs are clear to auscultation and breath sounds are symmetrical and equal. Cardiovascular: Heart is regular rate and rhythm. There is no murmur or rub auscultated. There is no peripheral edema and pulses are symmetrical and equal. Abdomen: The abdomen is soft and non-tender. There are normal bowel sounds heard in all four quadrants and there is no organomegaly palpated. Musculoskeletal: There is no peripheral edema or calf tenderness elicited. Right knee erythematous. About 6 cm around both sides of the wound, with some erythema and ecchymosis proximal at the medial thigh. All tender around it. No discharge. Neurological: Patient is alert and oriented to person, place and time. The patient has symmetrical motor strength in all four extremities. Cranial nerves are grossly intact. Deep tendon reflexes are symmetrical and equal in all four extremities. Psychiatric: The patient has an appropriate affect and does not exhibit any anxiety or depression. Triage Information Reviewed: Yes Vital Signs On Initial Exam: Initial Vitals Temp Pulse Resp BP Pulse Ox 98.9 F 82 16 110/58 93 05/23/18 11:16 05/23/18 11:16 05/23/18 11:16 05/23/18 11:16 05/23/18 11:16 Vital Signs Reviewed: Yes Diagnostics - Vital Signs Vital Signs Temp Pulse Resp BP Pulse Ox 05/23/18 11:16 98.9 F 82 16 110/58 93 - Laboratory Result Diagrams: 05/23/18 12:46 05/23/18 12:46 Lab Statement: Any lab studies that have been ordered have been reviewed, and results considered in the medical decision making process. Dizzy Course/Dx - Course Course Of Treatment: Ms. Solorio presented concerned that she was having trouble with her blood pressure. Apparently she has instructions to take her blood pressure medication if if her blood pressures above 115 systolic and take a steroid if it is below. She took the blood pressure medication during the night and the steroid last evening and this morning. She has had recent surgery and has only been home for a couple of days. She complains of a great deal of pain in her right knee which is noted to be erythematous and tender around the wound. The blood pressure was reasonable here but she says it normally runs in the high range and she was given a liter of fluid while labs were Checked. She had no leukocytosis or other laboratory abnormality to suggest sepsis. Her blood pressure improved with fluids. She was seen by orthopedics for the wound and they asked us to hold off on antibiotic coverage until we had all of her labs back. They came to see him again at that point and decided to treat him with antibiotics and are managing his wound. I don't think her blood pressure is related to his infection but rather to some mild dehydration. Her PRN blood pressure management seems incomplete at best and I recommended she follow up with her PCP in the next couple of days. - Diagnoses Provider Diagnoses: Hypotension, Dehydration - Provider Notifications Discussed Care Of Patient With: Raymond Vanessa - Orthopedics Time Discussed With Above Provider: 16:24 Instructed by Provider To: Other - Discharge patient and have patient follow up with Dr. Swartz Discharge - Sign-Out/Discharge Documenting (check all that apply): Patient Departure - Discharge Plan Condition: Stable Disposition: HOME Patient Education Materials: Dehydration (ED), Hypotension (ED) Referrals: Antony Swartz MD [Primary Care Provider] - 3 Days (Follow up with Dr. Adame this week.) Additional Instructions: Follow up with Dr. Swartz this week. Return to the ED for worsening symptoms. - Billing Disposition and Condition Condition: STABLE Disposition: Home - Attestation Statements Document Initiated by Buck: Yes Documenting Scribe: Chalino Monsivais Provider For Whom Buck is Documenting (Include Credential): Santy Salas MD Scribe Attestation: Chalino Tidwell, scribed for Santy Salas MD on 05/23/18 at 1834. Scribe Documentation Reviewed: Yes Provider Attestation: The documentation as recorded by the Chalino mccormack accurately reflects the service I personally performed and the decisions made by me, Santy Salas MD
[2018-05-23 13:05] LABS: ABS Basophils 0 10^3/ul (0-0.2); ABS Eosinophils 0.3 10^3/ul (0-0.6); ABS Lymphocytes 0.6 10^3/ul (1.0-4.8); ABS Monocytes 0.6 10^3/ul (0-0.8); ABS Neutrophils 4.5 10^3/ul (1.5-7.7); ABS Nucleated RBC 0 10^3/ul; Eosinophil % 4.2 % (0-6); Hematocrit 26 % (35-47); INR 0.99 (0.77-1.02); Lymphocyte % 10.5 % (25-47); Mean Corpuscular HGB Conc 34 g/dl (31-36); Mean Corpuscular Hemoglobin 30 pg (27-31); Mean Corpuscular Volume 87 fL (80-97); Mean Platelet Volume 7.3 um3 (7.4-10.4); Nucleated Red Blood Cells % 0; Platelet Count 219 10^3/ul (150-450); Red Blood Count 3.03 10^6/ul (4.00-5.40); Red Cell Distribution Width 14 % (10.5-15)
[2018-05-23] MEDS ORDERED: NS 0.9% 1000 ML* 1,000 ML IV ONE (13:48)
[2018-05-23] MEDS ORDERED: cefTRIAXone(*) 1 GM in NS 0.9% 50 ML* 50 ML IVPB ONE (16:00)
[2018-05-23] MEDS ORDERED: cefTRIAXone VIAL(*) 1,000 MG VIAL ONE (16:07)
[2018-05-23] MEDS ORDERED: oxyCODONE TAB* 5 MG TAB ONE (16:13)
--- NOTE | 2018-05-23 16:21 | ED ---
Progress - Progress Note Progress Note: Alycia 77 yo female with multiple medical problems came today via ambulance for hypotension and pain. She is awake, alert, cooperative and breathing easily. Hct is 26%. WBC 6000. Lytes WNL and Creat 1.17. BUN 30. She is just able to SLR right. Surgery is reddened and swollen and dry. No drainage. The DP pulse is 2 plus. IMP: possible cellulitis right knee. Plans: Continue rehab at home. New dressing right knee can stay on until 05/25 or 05/26 She is cautioned regarding being careful with her antihypertensive and that the narcotic can also cause hypotension. Ceftriaxone 1 gm IV this afternoon, then Keflex 500 mg TID for 5 days. The keflex can start 05/25. Home with the same program that she has been on: Total knee rehab protocol, Knee dressings starting 05/25, Walker weight as tolerated right, Home therapy. Raymond Vanessa MD. Course/Dx - Diagnoses Provider Diagnoses: Hypotension, Dehydration Discharge - Discharge Plan Condition: Stable Disposition: HOME Patient Education Materials: Dehydration (ED), Hypotension (ED) Referrals: Antony Swartz MD [Primary Care Provider] - 3 Days (Follow up with Dr. Adame this week.) Additional Instructions: Follow up with Dr. Swartz this week. Return to the ED for worsening symptoms. - Billing Disposition and Condition Condition: STABLE Disposition: Home
[2018-05-23 16:45] VITALS: BP 108/66
[2018-05-23] MEDS ORDERED: oxyCODONE TAB* 5 MG TAB PO ONE (17:30)
--- NOTE | 2018-05-23 18:05 | CONS ---
CONSULTATION REPORT: DATE OF CONSULT: 05/23/18 - EMERGENCY DEPT CHIEF COMPLAINT: Hypotension and dizziness. HISTORY OF PRESENT ILLNESS: Rere is a 77-year-old female, who presents to the clinic 7 days, status post right total knee arthroplasty with Dr. Vanessa, performed on 05/16/18. She was doing well postoperatively and was recently discharged from the hospital. She states that overnight, she experienced some dizziness and this morning, her visiting nurse visited and took her blood pressure and she had low blood pressure of 80/68. She continued to be lightheaded, but states that her blood pressure fluctuates frequently. She took her blood pressure medication today. She states her pain is about the same as when she was discharged from the hospital. She is taking oxy 15 and oxy 5 for breakthrough pain. She is also on fentanyl patch for chronic pain. She denies any fever, chills, chest pain, shortness of breath, numbness, or tingling and is doing well otherwise. 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 PAST SURGICAL HISTORY: Carpal tunnel; lithotripsy; left hemicolectomy with transverse colostomy, which was reclosed; bowel resection; cervical diskectomy; hysterectomy; total knee replacement; left total shoulder reverse done last year ; hernia repair with mesh; and the right total knee replacement. MEDICATIONS: 1. Ammonium lactate 12% topical 3 times a day. 2. Aspirin EC 81 mg by mouth daily. 3. Biotin 2500 mcg p.o. daily. 4. Brinzolamide brimonidine OPH 1 both eyes twice a day. 5. Carboxymethylcellulose sodium 1 drop twice a day in the eyes. 6. Vitamin D3 1000 units p.o. daily. 7. Curcumin 40 mg by mouth daily. 8. Vitamin B12 3000 mcg sublingual daily. 9. Dexilant 30 mg by mouth in the morning. 10. Diclofenac 1% topical twice a day for pain. 11. Kelp iodine 25 mg p.o. daily. 12. Ketorolac 0.5 ophthalmic solution 1 drop in the right eye. 13. Culturelle probiotic capsule 1 by mouth daily. 14. Lactose-reduced food 237 mL p.o. daily. 15. Xiidra 1 drop left eye twice a day as needed. 16. Lutein 1 cap by mouth daily. 17. Methylphenidate HCl 36 mg p.o. every morning. 18. Multivitamin 1 by mouth daily. 19. [place]-3 one by mouth twice a day. 20. MiraLAX 17 g p.o. daily as needed. 21. Ranitidine 150 mg 1 by mouth daily. 22. Selenium 200 mcg p.o. daily. 23. Sertraline 50 mg p.o. in the evening. 24. CoQ10 200 mg p.o. daily. 25. Valacyclovir 1 g p.o. daily. 26. Vitamin B12 150 mcg p.o. daily. 27. Fentanyl patch 50 mcg per hour, 50 mcg q.72. 28. Hydroxyzine HCl 25 mg 4 times a day as needed. 29. Oxycodone 15 mg every 4 hours as needed. ALLERGIES: CARBAMAZEPINE, IODINE, KETAMINE, MEPERIDINE, PHENOBARBITAL, PHENYTOIN, ALENDRONATE SODIUM, AMOXICILLIN, CLAVULANIC ACID from AUGMENTIN, DONEPEZIL, DULOXETINE, QUETIAPINE, and RIZATRIPTAN from MAXALT. FAMILY HISTORY: Positive for cardiac and kidney disease. SOCIAL HISTORY: She lives alone. She is . 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 She smoked briefly in her 20s, socially only. Social drinker of alcohol. REVIEW OF SYSTEMS: A 14-point review of systems was reviewed with the patient. Positive for current complaint to include knee pain and dizziness. She does have a history of DVT with PE. Otherwise negative. Denies fevers, chills, chest pain, shortness of breath, history of bleeding disorder. PHYSICAL EXAM: General: A 77-year-old well-developed, well-nourished female, in no acute distress. Alert and oriented x3. Appropriate mood and affect. Appropriate balance and coordination of the lower extremities. Right lower extremity: Skin is intact with healing surgical incision. She does have some erythema and warmth surrounding the incision with no active drainage, some ecchymosis of her upper thigh. She lacks about 3 degrees of extension and is able to passively flex to about 45 degrees, but has some discomfort. Her calf is soft and nontender. +5/5 strength to ankle dorsiflexion and plantarflexion. +2 DP pulse. Sensation intact to light touch distally. Left lower extremity : Skin is intact. Well-healed surgical incision. No warmth or erythema. Nontender to palpation. Full pain-free range of motion. Calf is soft and nontender. +5/5 strength to ankle dorsiflexion and plantarflexion. +2 DP pulse. Sensation intact to light touch distally. LABORATORY DATA: White blood cell count 6.0, red blood cells 3.03, hemoglobin 9.0, hematocrit 26. Normal coagulation studies. Normal electrolytes. Mildly elevated BUN and creatinine. Low total protein and albumin. CRP of 176.28. IMPRESSION: 1. One week status post right total knee arthroplasty with Dr. Vanessa. 2. Hypotension. 3. Postsurgical hematoma. PLAN: Rere is a 77-year-old female, who presents to the clinic 1 week status post right total knee replacement with Dr. Vanessa. Her incision was checked today. There is some warmth and erythema, but this is most likely a hematoma since the patient's CBC is normal. She does have low H and H and is hypotensive, so she may require blood, but this will depend on the medical team' s advice. We will continue to monitor her incision and monitor her labs to rule out infection. She will follow up with Dr. Vanessa for her normal postop scheduled visit. She was encouraged to keep the incision clean, dry, and dressed with a bandage. TERA CARBAJAL [id number]/[facility] #: [id number] PRUDENCE
== END 2018-05-23 17:00 | disposition home or self-care (01) ==
LOC: ED 11:14
DX: I95.9 Hypotension, unspecified (principal); E86.0 Dehydration; R42 Dizziness and giddiness; M25.561 Pain in right knee; R68.0 Hypothermia, not associated with low environmental temperature; E07.9 Disorder of thyroid, unspecified; K21.9 Gastro-esophageal reflux disease without esophagitis; K44.9 Diaphragmatic hernia without obstruction or gangrene; N18.3 Chronic kidney disease, stage 3 (moderate); Z79.82 Long term (current) use of aspirin; Z96.652 Presence of left artificial knee joint; Z96.612 Presence of left artificial shoulder joint; Z88.5 Allergy status to narcotic agent; Z88.0 Allergy status to penicillin; Z88.8 Allergy status to other drugs, medicaments and biological substances; Z88.1 Allergy status to other antibiotic agents; Z72.0 Tobacco use
CPT/HCPCS: 36415; 80053; 85025; 85610; 85652; 85730; 86140; 96365; 99284; A9270-GY; J0696

== ENCOUNTER 2018-05-26 10:19 | Inpatient (IN) | payer MEDICARE ==
[2018-05-26] MEDS ORDERED: Vancomycin(*) 1,000 MG in NS 0.9% 250 ML* 250 ML IVPB ONE (11:00)
[2018-05-26] MEDS ORDERED: Cefepime 2 GM in Dextrose(*) 2 GM/50 ML BAG IV ONE (11:02)
--- NOTE | 2018-05-26 11:19 | ED ---
Lower Extremity - HPI Summary HPI Summary: This pt is a 77 y/o female presenting to [facility] via EMS c/o right knee pain, redness, and swelling for the past few days. Pt reports she had a right knee replacement done by Dr. Vanessa on 05/16/18. She states she was discharged on 12/30. Pt notes she came to the ED 3 days ago for possible infection of right knee, was placed on Cephalexin, and discharged home. Denies fever, chills, SOB, chest pain. Pt is on Lovenox once a day, states she did not have it today. - History of Current Complaint Chief Complaint: EDExtremityLower Stated Complaint: RT KNEE INFECTION Time Seen by Provider: 05/26/18 10:50 Hx Obtained From: Patient Mechanism Of Injury: Other - s/p right knee replacement on 05/16/18. Onset of Pain: Days Onset/Duration: Days Severity Currently: Severe Pain Intensity: 9 Pain Scale Used: 0-10 Numeric Timing: Lasting Days Location: Is Discrete @ - right knee Associated Signs And Symptoms: Positive: Swelling, Redness, Knee Pain. Negative : Fever, Other - chills, chest pain, SOB Aggravating Factor(s): Nothing Alleviating Factor(s): Nothing Able to Bear Weight: No - Allergies/Home Medications Allergies/Adverse Reactions: Allergies Allergy/AdvReac Type Severity Reaction Status Date / Time carbamazepine [From Tegretol] Allergy Severe difficulty Verified 05/26/18 10:24 breathing, headache, nausea, dizziness iodine Allergy Severe chest pain Verified 05/26/18 10:24 ketamine Allergy Severe SEVERE Verified 05/26/18 10:24 HALLUCINATIONS meperidine Allergy Severe Difficulty Verified 05/26/18 10:24 Swallowing phenobarbital Allergy Severe Difficulty Verified 05/26/18 10:24 Swallowing phenytoin [From Dilantin] Allergy Severe throat Verified 05/26/18 10:24 swelling, cannot talk alendronate sodium Allergy Intermediate SOB, Verified 05/26/18 10:24 dizziness amoxicillin [From Augmentin] Allergy Intermediate Abdominal Verified 05/26/18 10 :24 Pain clavulanic acid Allergy Intermediate Abdominal Verified 05/26/18 10:24 [From Augmentin] Pain donepezil Allergy Intermediate didn't Verified 05/26/18 10:24 work and felt "funny" duloxetine Allergy Intermediate SHAKY AND Verified 05/26/18 10:24 UNSTEADY quetiapine Allergy Intermediate UNEASINESS, Verified 05/26/18 10:24 SHAKY AND UNSTEADY rizatriptan [From [facility]] Allergy Unknown Unknown Verified 05/26/18 10:24 Reaction Details PMH/Surg Hx/FS Hx/Imm Hx Endocrine/Hematology History: Reports: Hx Thyroid Disease - on meds Denies: Hx Diabetes Cardiovascular History: Reports: Hx Deep Vein Thrombosis, Hx Hypercholesterolemia, Hx Hypotension, Hx Hypertension - blood pressures vary- has meds for high and low BP, Hx Syncope, Other Cardiovascular Problems/ Disorders - Orthostatic hypotension, DVT 25 years ago, cor triatriaton Denies: Hx Pacemaker/ICD Respiratory History: Reports: Hx Asthma, Hx Sleep Apnea - CPAP start 06/2013 uses occasionally GI History: Reports: Hx Diverticulosis, Hx Gastroesophageal Reflux Disease - esophageal reflux, Hx Hiatal Hernia, Other GI Disorders - COLOSTOMY WITH REVERSAL History: Reports: Hx Chronic Renal Failure - stage 3, Hx Kidney Infection, Hx Kidney Stones - both kidneys, Hx Renal Disease - 50% INSUFF/ STAGE III, Other Problems/Disorders - multiple issues, stents, lithotripsy, obstructed ureters Musculoskeletal History: Reports: Hx Arthritis, Hx Fibromyalgia, Hx Orthopedic Injury - hx of FX from falls, Hx Osteoporosis, Other Musculoskeletal History - fibromyalgia Sensory History: Reports: Hx Cataracts - left eye, Hx Contacts or Glasses - uses magnifying glass, Hx Glaucoma, 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, Hx Vision Problem - rt eye blindness, Hx Hearing Aid - right ear, Hx Hearing Problem Opthamlomology History: Reports: Hx Cataracts - left eye, Hx Contacts or Glasses - uses magnifying glass, Hx Glaucoma, 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, Hx Vision Problem - rt eye blindness Neurological History: Reports: Hx Headaches, Hx Nerve Disease - fibromyalgia, Hx Seizures - 2 months ago- mid february approx, Other Neuro Impairments/Disorders - epilepsy Psychiatric History: Reports: Hx Anxiety - in the past, Hx Depression - in the past, Hx Panic Disorder - SOMETIMES, Hx Bipolar Disorder - Cancer History Hx Chemotherapy: No - Surgical History Surgery Procedure, Year, and Place: 1984 - HYSTERECTOMY 1997 - Lt KNEE [id number] - ANTERIOR CERVICAL DISCETECOMY -C6-7 2003- LT HEMICOLECTOMY W /COLOSTOMY &1990 - CARPAL TUNNEL -Rt REVERSAL - [id number] - CARPAL TUNNEL -Lt 2005- ABD HERNIA-1996 - LT KIDNEY LITHROTRIPSY 1997 & 2013;SEVERAL EYE SURGERY FOR DETACHED RETINA - VITRECTOMIES AND A SILICONE SCLERAL BUCKLE(PREV CLEARED)-2013 KIDNEY STONES REMOVED. Lt SHOULDER - REVERSE REPLACEMENT - 2017 Hx Anesthesia Reactions: No Infectious Disease History: No Infectious Disease History: Reports: History Other Infectious Disease - oral herpes Denies: Hx Shingles, Hx Tuberculosis, Traveled Outside the [place] in Last 30 Days - Family History Known Family History: Negative: Cardiac Disease, Diabetes - Social History Alcohol Use: None Hx Substance Use: No Substance Use Type: Reports: Prescribed Substance Use Comment - Amount & Last Used: fentanyl patch and oxycodone Hx Tobacco Use: No Smoking Status (MU): Former Smoker Amount Used/How Often: social smoker on weekends Review of Systems Negative: Fever, Chills Negative: Chest Pain Negative: Shortness Of Breath Musculoskeletal: Other - POS: right knee pain Skin: Other - POS: redness and swelling around right knee All Other Systems Reviewed And Are Negative: Yes Physical Exam - Summary Physical Exam Summary: VITAL SIGNS: Reviewed. GENERAL: Patient is a well-developed and nourished female who is lying comfortable in the stretcher. Patient is not in any acute respiratory distress. HEAD AND FACE: No signs of trauma. No ecchymosis, hematomas or skull depressions. No sinus tenderness. EYES: PERRLA, EOMI x 2, No injected conjunctiva, no nystagmus. EARS: Hearing grossly intact. Ear canals and tympanic membranes are within normal limits. MOUTH: Oropharynx within normal limits. NECK: Supple, trachea is midline, no adenopathy, no JVD, no carotid bruit, no c- spine tenderness, neck with full ROM. CHEST: Symmetric, no tenderness at palpation LUNGS: Clear to auscultation bilaterally. No wheezing or crackles. CVS: Regular rate and rhythm, S1 and S2 present, no murmurs or gallops appreciated. ABDOMEN: Soft, non-tender. No signs of distention. No rebound, no guarding, and no masses palpated. Bowel sounds are normal. EXTREMITIES: no cyanosis or clubbing. RLE: swelling and erythema surrounding the incision on the right knee. Good pulses and good capillary refill. Decreased ROM of right knee secondary to pain and swelling. No discharge. Swelling of the right leg all the way up to the proximal aspect of the thigh. Increase in warmth. NEURO: Alert and oriented x 3. No acute neurological deficits. Speech is normal and follows commands. SKIN: Dry and warm Triage Information Reviewed: Yes Vital Signs On Initial Exam: Initial Vitals Temp Pulse Resp BP Pulse Ox 99.0 F 95 18 139/72 97 05/26/18 10:20 05/26/18 10:20 05/26/18 10:20 05/26/18 10:20 05/26/18 10:20 Vital Signs Reviewed: Yes Diagnostics - Vital Signs Vital Signs Temp Pulse Resp BP Pulse Ox 05/26/18 10:20 99.0 F 95 18 139/72 97 - Laboratory Result Diagrams: 05/27/18 05:46 05/27/18 05:46 Lab Statement: Any lab studies that have been ordered have been reviewed, and results considered in the medical decision making process. - Radiology Chest XR Xray Interpretation: No Acute Changes - IMPRESSION: No active cardiopulmonary disease is noted. Dr. Gomez has reviewed this report. Radiology Interpretation Completed By: Radiologist - EKG 11:07 Cardiac Rate: NL - at 85 bpm EKG Rhythm: Sinus Rhythm EKG Interpretation: No ST elevations EKG Comparison: No Significant Change - compared to prior on 05/19/18 - Additional Comments Diagnostic Additional Comments: Venous Doppler Study, Right Lower Extremity as read by radiologist IMPRESSION: No right lower extremity deep vein thrombosis. Dr. Gomez has reviewed this report. Re-Evaluation - Re-Evaluation First Eval Re-Evaluation Time: 12:50 Comment: Dr. Vanessa will admit the pt. Lower Extremity Course/Dx - Course Assessment/Plan: This pt is a 77 y/o female presenting to [facility] via EMS c/o right knee pain, redness, and swelling for the past few days. Pt reports she had a right knee replacement done by Dr. Vanessa on 05/16/18. She states she was discharged on 05/19/18. Pt notes she came to the ED 3 days ago for possible infection of right knee, was placed on Cephalexin, and discharged home. Denies fever, chills, SOB, chest pain. Pt is on Lovenox once a day, states she did not have it today. Blood work without any significant abnormality except for hemoglobin 9.2, hematocrit 28, ESR is 115, fibrinogen is 660, CRP is 210.6, urinalysis is negative for UTI. Initially the patient was placed on the environmental monitoring specialist, 2 IV access were obtained. I believe that the patient has a septic knee. I ordered IV antibiotics vancomycin and cefepime, however I discussed the case with Dr. Caballero from orthopedics who recommended not to give the pt any antibiotics until the patient is seen by him or by Dr. Vanessa. The patient was seen by Dr. Vanessa, he did a knee aspiration and now he recommends for the antibiotics to be given, and he will admit the patient to his services for further workup and management. Right lower extremity ultrasound impression: No right lower extremity DVT. The patient continues to be hemodynamically stable, alert and oriented x3. The patient will be admitted to Dr. Vanessa. - Diagnoses Provider Diagnoses: Septic joint of right knee joint - Physician Notifications Discussed Care Of Patient With: Fran Caballero Time Discussed With Above Provider: 11:24 Instructed by Provider To: Other - I discussed case with Dr. Caballero, orthopedist, who will come see the pt in the ED. Discharge - Sign-Out/Discharge Documenting (check all that apply): Patient Departure - Admit to [facility] All imaging exams completed and their final reports reviewed: Yes - Discharge Plan Condition: Stable Disposition: ADMITTED TO [facility] - Billing Disposition and Condition Condition: STABLE Disposition: Admitted to [facility] - Attestation Statements Document Initiated by Angelye: Yes Documenting Scribe: Jess Marie Provider For Whom Joséibe is Documenting (Include Credential): Cheo Gomez MD Scribe Attestation: Jess Tidwell, scribed for Cheo Gomez MD on 05/27/18 at 0839. Scribe Documentation Reviewed: Yes Provider Attestation: The documentation as recorded by the Jess mccormack accurately reflects the service I personally performed and the decisions made by me, Cheo Gomez MD
[2018-05-26 11:42] LABS: ABS Basophils 0 10^3/ul (0-0.2); ABS Eosinophils 0.1 10^3/ul (0-0.6); ABS Lymphocytes 0.4 10^3/ul (1.0-4.8); ABS Monocytes 0.7 10^3/ul (0-0.8); ABS Neutrophils 4.8 10^3/ul (1.5-7.7); ABS Nucleated RBC 0 10^3/ul; Eosinophil % 2.1 % (0-6); Hematocrit 28 % (35-47); Hemoglobin 9.2 g/dl (12.0-16.0); Lymphocyte % 6.6 % (25-47); Mean Corpuscular HGB Conc 33 g/dl (31-36); Mean Corpuscular Hemoglobin 29 pg (27-31); Mean Corpuscular Volume 87 fL (80-97); Mean Platelet Volume 6.9 um3 (7.4-10.4); Nucleated Red Blood Cells % 0; Platelet Count 318 10^3/ul (150-450); Red Cell Distribution Width 14 % (10.5-15); White Blood Count 6.1 10^3/ul (3.5-10.8)
[2018-05-26 11:52] LABS: Urine Appearance Clear; Urine Blood 2+ (Negative); Urine Color Yellow; Urine Ketones Trace (Negative); Urine Protein Negative (Negative); Urine Red Blood Cell Trace(0-2/hpf) (Absent); Urine Specific Gravity 1.006 (1.010-1.030); Urine Urobilinogen Negative (Negative); Urine White Blood Cell Absent (Absent)
[2018-05-26 11:55] LABS: EGFR Non-African American 71.8 (>60)
[2018-05-26 11:56] LABS: INR 1.14 (0.77-1.02)
--- NOTE | 2018-05-26 12:02 | RAD ---
Indication: Septic joint. Single frontal view of the chest performed at 1133 hours was reviewed. Comparison is made with previous exam dated February 28, 2018. No mediastinal shift is noted. Heart is of normal size and configuration. Lung aguilera appear clear. No significant change is noted since February 28, 2018 Patient is status post left shoulder replacement. IMPRESSION: NO ACTIVE CARDIOPULMONARY DISEASE IS NOTED.
[2018-05-26] MEDS ORDERED: Morphine INJ* 4 MG/ML 1 ML SYRINGE (NEW SYRINGE VERSION) IV PRN (12:15)
--- NOTE | 2018-05-26 13:14 | CONSULT ---
Consult Consult: 77 yo female had a right total knee replacement 05/16/18. CC: right knee pain and not able to walk. HPI: She has multiple medical problems including chronic pain. She has been on lovenox 30 mg SQ. She called for help today because of knee pain and not able to walk. No fevers or chills. Dr. Gomez in the ER concerned regarding possible post op knee infection. Px: Temp is 99 degrees, WBC 6,100. H/H 9.2/28%, Plts 318,000 , INR 1.14, aPTT 31.2. She is distressed and is able to lift her right knee and bend it 30 degrees with assistance but it feels like it will come open to her. Right knee is swollen, dry, tender. Right calf is nontender. Right foot has no marked swelling, DP is 2 plus. Today we did a time-out and her right knee was aspirated after 3mg Morphine IV. 1-2ml of bloody fluid was obtained and sent for gram stain and aerobic/anerobic C&S. One half of her knee nadeem were removed and no drainage from this incision. Her knee was dressed with betadine/gauze, cole. Imp: Post op right knee pain and swelling, infection is possible. Plans: Admit with close observation, Cefepime and vancomycin. Ortho decision regarding surgical care of the knee. Hospitalist consult and follow of medical problems, assist with pain as able.
[2018-05-26] MEDS ORDERED: Vancomycin Trough Check NOTE FOLLOW UP ONE (13:30)
[2018-05-26] MEDS ORDERED: Acetaminophen TAB* 325 MG PO PRN (13:36)
--- NOTE | 2018-05-26 13:43 | RAD ---
HISTORY: righ LE swelling and pain COMPARISONS: None relevant TECHNIQUE: Multiple transverse and longitudinal ultrasound images were obtained of the right lower extremity from the level of the common femoral vein inferiorly through to the infrapopliteal veins using grayscale, color Doppler, and spectral Doppler imaging with and without compression and with augmentation. Comparison images were obtained of the contralateral common femoral vein. FINDINGS: VEINS: The venous system of the right lower extremity is compressible throughout its course, with normal flow on color Doppler imaging and normal response to augmentation on spectral Doppler imaging. SOFT TISSUES: Unremarkable. OTHER FINDINGS: None. IMPRESSION: NO RIGHT LOWER EXTREMITY DEEP VEIN THROMBOSIS
[2018-05-26] MEDS ORDERED: oxyCODONE TAB* 5 MG TAB PO PRN ×3 (13:47→15:48)
[2018-05-26] MEDS ORDERED: Vancomycin(*) 0 MG in NS 0.9% 250 ML* 250 ML IVPB SCH ×2 (14:00→20:00)
[2018-05-26] MEDS ORDERED: Vancomycin per Pharmacy* NOTE FOLLOW UP SCH (14:00)
[2018-05-26] MEDS ORDERED: Polyethylene Glycol 3350* 17 GM PACKET PO PRN ×2 (14:43→15:10)
[2018-05-26] MEDS ORDERED: Fluticasone NASAL SPRAY 50MCG* 16 gm SPRAY BTL BOTH NARES PRN (14:43)
[2018-05-26] MEDS ORDERED: Ondansetron ODT TAB* 4 MG PO PRN (14:43)
[2018-05-26] MEDS ORDERED: Polyethyl Glycol/Propylene Gly OPHTH.SOLN BOTH EYES PRN (14:43)
[2018-05-26] MEDS ORDERED: hydrOXYzine HCL TAB* 25 MG PO PRN (14:43)
[2018-05-26] MEDS ORDERED: Enoxaparin(*) 30 MG/0.3 ML SYR SUBCUT SCH (15:00)
[2018-05-26] MEDS ORDERED: Docusate CAP* 100 MG PO PRN (15:11)
[2018-05-26] MEDS ORDERED: diPHENhydraMINE PO* 25 MG PO PRN (15:11)
[2018-05-26] MEDS ORDERED: Bisacodyl SUPP* 10 MG SUPP PR PRN (15:12)
[2018-05-26] MEDS ORDERED: fentaNYL PATCH 50 MCG/HR TRANSDERM SCH (16:00)
[2018-05-26] MEDS: oxyCODONE TAB* 5 MG TAB PO PRN (17:44)
[2018-05-26] MEDS: Sertraline* 50 MG TAB PO SCH (17:44)
[2018-05-26] MEDS ORDERED: DEXLANSOPRAZOLE 30 MG PO ONE (18:01)
[2018-05-26] MEDS: Famotidine TAB* 20 MG PO SCH (18:06)
[2018-05-26] MEDS: Fludrocortisone Acetate TAB* 0.1 MG PO PRN (18:52)
--- NOTE | 2018-05-26 19:12 | HP ---
AMENDED REPORT NOW INCLUDES COSIGNER DESIGNATION - ESIGNED BEFORE ADJUSTMENTS ADMISSION HISTORY AND PHYSICAL: DATE OF ADMISSION/SURGERY: 05/26/18 ATTENDING PROVIDER: Raymond Vanessa MD * (DICTATED BY TERA CARBAJAL) CHIEF COMPLAINT: Right knee pain. HISTORY OF PRESENT ILLNESS: Rere is a 77-year-old female who presents to the clinic status post right total knee replacement by Dr. Vanessa on 05/16/18. She presented to the ER with right knee pain and difficulty walking due to the discomfort. She denies any fever, chills, but reports some redness around her incision as well as knee swelling. She has been on oral Keflex and has been taking oxycodone for pain. She denies fever, chills, chest pain, shortness of breath and is doing well otherwise. PAST MEDICAL HISTORY: 1. Hypertension. 2. Hyperlipidemia. 3. Fibromyalgia. 4. Diverticulitis, which resulted in surgical care and ostomy, which is eventually closed. 5. GERD. 6. Thyroid problems. 7. Arthritis. 8. 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 9. Relapsing and remitting MS. 10. Sleep apnea. 11. Orthostatic hypotension. 12. Cluster headache. 13. Trigeminal neuralgia. 14. Bipolar. 15. Depression. 16. Stage 3 renal disease. 17. Left total shoulder reverse in 2017. 18. Recent pneumonia. 19. History of DVT. PAST SURGICAL HISTORY: 1. Carpal tunnel. 2. Lithotripsy. 3. Left hemicolectomy with transverse colostomy, which was closed with bowel resection. 4. Cervical discectomy. 5. Hysterectomy. 6. Left total knee replacement Carpal tunnel; lithotripsy; left hemicolectomy with transverse colostomy, which was closed; bowel resection; cervical diskectomy; hysterectomy; total knee replacement; left total shoulder reverse done last year; hernia repair with mesh ; right total knee replacement. MEDICATIONS: 1. Ammonium lactate 12% topical 3 times daily. 2. Aspirin 81 mg 1 by mouth daily. 3. Biotin 2500 mcg by mouth daily. 4. Brinzolamide/brimonidine ophthalmic 1 drop twice a day. 5. Carboxymethylcellulose sodium 1 drop twice a day in the eyes. 6. Vitamin D3 1000 units by mouth daily. 7. Curcumin 40 mg by mouth daily. 8. Vitamin B12 3000 mcg sublingual daily. 9. Dexilant 30 mg 1 by mouth in the morning. 10. Diclofenac 1% topical twice a day for pain. 11. Kelp iodine 25 mg by mouth daily. 12. Ketorolac 0.5 ophthalmic solution 1 drop in the right eye as needed. 13. Culturelle probiotic 1 capsule daily. 14. Lactose-reduced food 237 mL p.o. daily. 15. Xiidra 1 drop left eye daily as needed. 16. Lutein 1 cap by mouth daily. 17. Methylphenidate HCl 36 mg by mouth in the morning. 18. Multivitamin 1 by mouth daily. 19. Oscar-3 one by mouth twice a day. 20. MiraLAX 17 g by mouth daily as needed. 21. Ranitidine 150 mg 1 by mouth daily. 22. Selenium 200 mcg by mouth daily. 23. Sertraline 50 mg by mouth in the evening. 24. CoQ10 200 mg by mouth daily. 25. Valacyclovir 1 g by mouth daily. 26. Vitamin B12 150 mcg by mouth daily. 27. Fentanyl patch 50 mcg per hour every 72 hours. 28. Hydroxyzine 25 mg 1 by mouth 4 times a day as needed. 29. Hydrocodone 15 mg every 4 hours as needed for pain. 30. Lovenox 30 mg subcu daily. ALLERGIES: CARBAMAZEPINE, IODINE, KETAMINE, MEPERIDINE, PHENOBARBITAL, PHENYTOIN, ALENDRONATE SODIUM, AMOXICILLIN, CLAVULANIC ACID from AUGMENTIN, DONEPEZIL, DULOXETINE, QUETIAPINE, and MAXALT. FAMILY HISTORY: Positive for cardiac and kidney disease. SOCIAL HISTORY: She lives alone. She is . 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 She smoked briefly in her 20s, socially only. She is a social drinker of alcohol. Denies illegal drug use. REVIEW OF SYSTEMS: A 14-point review of systems was reviewed with the patient. Positive for current complaint including knee pain. She also had dizziness and lightheadedness. She does have a history of DVT, otherwise negative. Denies fevers, chills, chest pain, shortness of breath, history of bleeding disorder. PHYSICAL EXAMINATION GENERAL: A 77-year-old well-developed, well-nourished female, in no acute distress. Alert and oriented x3. Appropriate mood and affect. Appropriate balance and coordination of the right lower extremity. VITAL SIGNS: Temperature 99.2, heart rate 87, respiratory rate 18, pulse ox 94 % on room air, blood pressure 138/77. Weight 144 pounds. HEENT: Normocephalic, atraumatic. PERRLA. Throat clear. NECK: Supple. PULMONARY: Lungs clear to auscultation bilaterally. No wheezing, rhonchi, or rales. CARDIO: Regular rate and rhythm. S1 and S2. No murmurs, gallops, or rubs. No edema. ABDOMEN: Positive bowel sounds. Soft and nontender. MUSCULOSKELETAL: Right lower extremity: There is a well-healing surgical incision of her right knee with surrounding erythema and warmth. There is a mild joint effusion. Marked swelling of the right foot and ankle. Calf is soft and nontender. +5/5 strength to ankle dorsiflexion and plantar flexion. + 2 DP pulse. Sensation intact to light touch distally. NEURO: Alert and oriented x3. Cranial nerves grossly intact. ASSESSMENT: 1. Status post right total knee replacement on 05/16/[address] Vanessa. 2. Postop right knee pain and swelling, possible infection. PLAN: The patient was admitted to the hospital for IV antibiotics to include cefepime and vancomycin, as well as observation of her knee to continue to monitor the wound. Dr. Vanessa aspirated her knee in the ER. We will continue to follow the Gram stain and cultures and we will continue to monitor her for a possible need for a washout. Her Lovenox was held today and she is kept n.p.o. in case she were to need to go to the OR after a wound check tomorrow morning and the hospitalists were also consulted for medical management due to the patient's multiple medical comorbidities. TERA CARBAJAL [id number]/[facility] #: [id number] PRUDENCE
[2018-05-26] MEDS: fentaNYL Patch Check Q Shift 1 NOTE FOLLOW UP SCH (19:27)
[2018-05-26] MEDS ORDERED: Cefepime 1 GM in Dextrose(*) 1 GM/50 ML BAG IV SCH (20:00)
[2018-05-26] MEDS ORDERED: Cefepime 2 GM in Dextrose(*) 2 GM/50 ML BAG IV SCH (20:00)
--- NOTE | 2018-05-26 20:01 | HP ---
Please see complete H&P MTDD
[2018-05-26] MEDS ORDERED: Vancomycin per Pharmacy* NOTE FOLLOW UP PRN (20:03)
[2018-05-26] MEDS ORDERED: PTO:Brinzolamid/Brimonidin OPH(NF) 1 DROP BTL BOTH EYES SCH (21:00)
[2018-05-26] MEDS ORDERED: Gabapentin CAP(*) 300 MG PO SCH (21:00)
[2018-05-26] MEDS ORDERED: NON FORMULARY MED* (Melatonin [Melatonin] 5 MG) PO SCH (21:00)
[2018-05-26] MEDS: LIFITEGRAST LEFT EYE PRN (21:06)
[2018-05-26] MEDS: CMCS:Diclofenac 1% GEL (NF) 100 GM TUBE TOPICAL SCH (21:07)
[2018-05-26] MEDS: Gabapentin CAP(*) 300 MG PO SCH (21:07)
[2018-05-26] MEDS: TELMISARTAN 20 MG PO SCH (21:14)
[2018-05-26] MEDS: Vancomycin(*) 750 MG in NS 0.9% 250 ML* 250 ML IVPB SCH (21:21)
[2018-05-26] MEDS: tiZANidine TAB* 2 MG PO PRN (21:42)
[2018-05-26] MEDS ORDERED: Vancomycin(*) 750 MG in NS 0.9% 250 ML* 250 ML IVPB SCH (22:00)
[2018-05-26] MEDS: Morphine INJ* 4 MG/ML 1 ML SYRINGE (NEW SYRINGE VERSION) IV PRN (23:45)
[2018-05-27] MEDS: Melatonin 3 MG TAB PO SCH ×2 (00:26→21:58)
[2018-05-27] MEDS ORDERED: Cefepime 2 GM in Dextrose(*) 2 GM/50 ML BAG IV SCH ×2 (01:00)
--- NOTE | 2018-05-27 02:34 | CONS ---
CONSULTATION REPORT: DATE OF CONSULT: 05/26/18 PROVIDER: Julia Saunders NP ATTENDING PHYSICIAN: Dr. Vanessa CONSULTING PHYSICIAN: Dr. Thu Helm (dictated by Julia Saunders NP) REASON FOR CONSULT: Co-management of chronic medical condition. HISTORY OF PRESENT ILLNESS: Ms. Solorio is a 77-year-old female with past medical history significant for hypertension, hyperlipidemia, fibromyalgia, chronic kidney disease, stage 3, diverticulitis, GERD, thyroid problems, arthritis, temporal lobe epilepsy, possible multiple sclerosis, neurogenic syncope, obstructive sleep apnea, orthostatic hypotension, cluster headaches, trigeminal neuralgia, bipolar, depression, history of a DVT, who presented to the emergency room today for evaluation of redness and swelling to the right knee. The patient reports that she is status post right total knee arthroplasty in May [address] Vanessa. She reports that she was discharged home on 05/20/18. She reports on 05/22/18, she started developing symptoms of redness and swelling to the right knee and that progressively worsened over the past few days. She does report that she was doing home physical therapy today and had very limited range of motion and due to the current concern of redness and increased swelling to the right knee, she was instructed to present to the emergency room for further evaluation. The patient does report that she has had fever and chills over the past several days along with increasing pain in the right knee as well as swelling and redness. She denies any other symptoms. She denies any cough or congestion. She denies any chest pain or shortness of breath. Denies any nausea, vomiting, or diarrhea. Denies any abdominal pain. Denies any gross hematuria or dysuria. Denies any dysphagia. PAST MEDICAL HISTORY: 1. Hypertension. 2. Hyperlipidemia. 3. Fibromyalgia. 4. Stage 3 chronic kidney disease. 5. Diverticulitis. 6. GERD. 7. Arthritis. 8. Temporal lobe epilepsy. 9. Possible multiple sclerosis. 10. Neurogenic syncope. 11. Obstructive sleep apnea. 12. Orthostatic hypotension. 13. Cluster headaches. 14. Trigeminal neuralgia. 15. Bipolar. 16. Depression. 17. History of DVT. PAST SURGICAL HISTORY: 1. Lithotripsy. 2. Carpal tunnel release. 3. Eye surgery. 4. Right hemicolectomy with transverse colostomy. 5. Bowel resection. 6. Anterior diskectomy with intervertebral body fusion of C6 and C7. 7. Hysterectomy. 8. Left total knee replacement. 9. Left total shoulder reversal replacement. 10. Hernia repair with mesh. 11. Right total knee arthroplasty on 05/16/18. MEDICATIONS: Current home medications include: 1. Dexilant 30 mg. 2. Aspirin 81 mg p.o. daily. 3. Fluticasone nasal spray 1 spray both nares b.i.d. 4. Gabapentin 300 mg p.o. b.i.d. 5. Gabapentin 600 mg at h.s. 6. Hydralazine 25 mg p.o. 4 times a day as needed. 7. Levothyroxine 25 mcg p.o. q.a.m. 8. CoQ10 200 mg p.o. q.a.m. 9. Ascorbic acid 100 mg p.o. q.a.m. 10. Ranitidine 150 mg p.o. at bedtime as needed. 11. TheraTears 1 drop to both eyes q.4 hours as needed. 12. Simbrinza 1 drop to right eye b.i.d. 13. Telmisartan 20 mg p.o. b.i.d. as needed for hypertension. 14. Fludrocortisone 0.1 mg p.o. b.i.d. as needed for hypotension. 15. Methylphenidate 36 mg p.o. q.a.m. 16. Ammonium lactate 12% topical b.i.d. 17. Polyethylene glycol 17 p.o. q. every other day. 18. Lactobacillus 1 tab p.o. q.a.m. 19. Lutein 1 cap p.o. q.a.m. 20. Multivitamin 1 tablet p.o. daily. 21. Melatonin 1 tab p.o. q.a.m. 22. Toradol eye drops 1 to the right eye b.i.d. as needed. 23. Magnesium oxide 250 mg p.o. b.i.d. 24. Biotin 2500 mcg p.o. q.a.m. 25. Vitamin 400 units p.o. q.a.m. 26. [place] fatty 3 acids 1 g p.o. b.i.d. 27. Vitamin D 1000 units p.o. q.a.m. 28. Vitamin B complex 1 tablet q.a.m. 29. Vitamin B12 3000 mcg q.a.m. 30. Xyzal 5 mg p.o. q.p.m. 31. Tylenol 1000 mg p.o. 4 times a day as needed. 32. Lifitegrast 1 drop to left eye b.i.d. 33. Voltaren gel 4 g topical b.i.d. as needed. 34. Zanaflex 2 mg p.o. t.i.d. 35. Sertraline 50 mg p.o. at bedtime. 36. Zofran 8 mg p.o. q.8 hours as needed. 37. Fentanyl 50 mcg topically q.72 hours to be changed on Tuesday05/28/18. 38. Selenium 200 mcg p.o. q.a.m. 39. Oxycodone 15 mg p.o. 4 times a day. ALLERGIES: 1. DILANTIN. 2. PHENOBARBITAL. 3. DEMEROL. 4. IODINE. 5. ARICEPT. 6. FOSAMAX. 7. MAXALT. 8. CYMBALTA. 9. SEROQUEL. 10. TEGRETOL. 11. CLAVULANIC ACID. 12. KETAMINE. FAMILY HISTORY: The patient's mother had heart problems and had nitroglycerin, but unknown what her problems were. She is still alive. The patient's father of liver and kidney disease at age 62, had a brother, who is healthy. SOCIAL HISTORY: The patient lives alone. She is . 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 The patient smoked briefly in her 20s, drank alcohol socially throughout her adult years, but never abused it. She denies any illicit drug use. The patient is a DNR. Surrogate decision maker in the event she is unable to make her own decision is her daughter, Anneliese. REVIEW OF SYSTEMS: She does report fever and chills. She denies any unintended weight loss. Cardiac: Denies any chest pain or edema. Respiratory: Denies any cough, congestion, or shortness of breath. GI: Denies any nausea, vomiting , or diarrhea. : Denies any gross hematuria or dysuria. Denies any focal weakness or sensory loss. Denies any visual complaints. Denies any dysphagia. Denies any arthralgias or myalgias. Denies any rashes or lesions. The patient does report swelling and redness to the right knee. Surgical nadeem are intact. Denies any psychosis or anxiety. PHYSICAL EXAMINATION: Vitals: Blood pressure was 141/74, heart rate is 88, respirations 16, O2 saturation 98% on room air, temperature was 99.2. General: Ms. Solorio is sitting on the stretcher in the emergency room. She is not in any acute distress. She is alert and oriented x3. She is able to move all extremities. There is no facial asymmetry or focal weakness. Heart: S1, S2 regular rate and rhythm. There are no murmurs, rubs, or gallops. Lungs are clear to auscultation bilaterally. Abdomen is soft and nontender. Bowel sounds are present x4. Extremities: Without cyanosis or clubbing. Her right knee does have surgical nadeem intact with moderate amount of swelling and redness noted to the area. Pedal pulses are +2 bilaterally. LABORATORY DATA AND DIAGNOSTIC STUDIES: WBCs are 6.1, RBCs 3.20, hemoglobin 9.2 , hematocrit was 28, platelet count was 318, INR was 1.14. Sodium 136, potassium 3.8, chloride 99, carbon dioxide was 26, BUN was 17, creatinine 0.78, calcium was 9.1, lactic was 0.06 x2, bilirubin is 1.10, C-reactive protein was 210.67. Urine was within normal limits. There were trace ketones, trace +2 blood, and urine squamous epithelial cells were present, bacteria was absent. IMPRESSION AND PLAN: Ms. Solorio is a 77-year-old female with a significant past medical history for hypertension, hyperlipidemia, chronic kidney disease, stage 3, obstructive sleep apnea, epilepsy, possible multiple sclerosis, fibromyalgia, diverticulitis, and gastroesophageal reflux disease, who is status post right total knee arthroplasty on 05/16/18, who presented to the emergency room with redness and swelling to the right knee. She was seen and evaluated by Dr. Vanessa in the emergency room and had her right knee fluid aspirated and sent for culture and sensitivity. We were asked to consult due to her significant chronic medical conditions to assess and co-management of her care during this hospitalization. 1. Redness and swelling to the right knee, management per Orthopedics, PT/OT per Orthopedics. We will continue vancomycin and cefepime. 2. Fibromyalgia. We will continue her on gabapentin and home pain management regimen. 3. Hypertension, continue her on telmisartan 20 mg p.o. b.i.d. 4. Hypothyroid. She will continue her levothyroxine 25 mcg p.o. daily. 5. Chronic kidney disease, stage 3, her creatinine is at baseline. We will continue to monitor and avoid nephrotoxic medications. 6. DVT prophylaxis, she will be placed on Lovenox 30 mg subcu daily. 7. Code status. She is a DNR. 8. Surrogate decision maker is her daughter, Anneliese. 9. Fluid, electrolytes, nutrition. She will be placed on her heart healthy caffeine okay diet. 10. Disposition, she will be admitted to short-stay surgical under the care of Dr. Vanessa. TIME SPENT: Time spent on this consultation was 60 minutes, more than half that time was spent with the patient at the bedside reviewing events leading thus far to her hospitalization performing physical exam and reviewing my plan of car. I have discussed this with my attending, Dr. Thu Helm; she is in agreement with my plan. JULIA SAUNDERS, DAMION [id number]/[facility] #: [id number] PRUDENCE
[2018-05-27] MEDS: PTO:Brinzolamid/Brimonidin OPH(NF) 1 DROP BTL BOTH EYES SCH ×2 (05:48→17:42)
[2018-05-27] MEDS: Levothyroxine TAB* 25 MCG TAB PO SCH (05:49)
[2018-05-27] MEDS: Vancomycin(*) 750 MG in NS 0.9% 250 ML* 250 ML IVPB SCH (05:49)
[2018-05-27] MEDS: LIFITEGRAST LEFT EYE PRN ×2 (05:50→22:12)
[2018-05-27 06:03] LABS: ABS Basophils 0.1 10^3/ul (0-0.2); ABS Eosinophils 0.3 10^3/ul (0-0.6); ABS Lymphocytes 1.1 10^3/ul (1.0-4.8); ABS Monocytes 0.7 10^3/ul (0-0.8); ABS Neutrophils 3.8 10^3/ul (1.5-7.7); ABS Nucleated RBC 0 10^3/ul; Eosinophil % 5.2 % (0-6); Hematocrit 28 % (35-47); Hemoglobin 9.6 g/dl (12.0-16.0); Lymphocyte % 18.9 % (25-47); Mean Corpuscular HGB Conc 34 g/dl (31-36); Mean Corpuscular Hemoglobin 30 pg (27-31); Mean Corpuscular Volume 87 fL (80-97); Nucleated Red Blood Cells % 0; Platelet Count 352 10^3/ul (150-450); Red Blood Count 3.24 10^6/ul (4.00-5.40); Red Cell Distribution Width 14 % (10.5-15)
[2018-05-27] MEDS: Morphine INJ* 4 MG/ML 1 ML SYRINGE (NEW SYRINGE VERSION) IV PRN ×4 (06:05→19:16)
[2018-05-27 06:17] LABS: EGFR Non-African American 61.7 (>60)
[2018-05-27] MEDS: fentaNYL Patch Check Q Shift 1 NOTE FOLLOW UP SCH ×3 (06:58→18:51)
[2018-05-27] MEDS: PTO:Ketorolac 0.5% OPHTH (NF) 0.5 % 5 ML BTL RIGHT EYE SCH (08:16)
[2018-05-27] MEDS: CMCS:Diclofenac 1% GEL (NF) 100 GM TUBE TOPICAL SCH ×2 (08:17→22:00)
[2018-05-27] MEDS ORDERED: LACTOSE REDUCED FOOD PO SCH (09:00)
[2018-05-27] MEDS: Gabapentin CAP(*) 300 MG PO SCH ×3 (09:58→22:00)
[2018-05-27] MEDS: Ascorbic Acid TAB* 500 MG PO SCH (09:59)
[2018-05-27] MEDS: oxyCODONE TAB* 5 MG TAB PO PRN ×3 (10:00→22:01)
[2018-05-27] MEDS: DEXLANSOPRAZOLE 30 MG PO SCH (10:01)
[2018-05-27] MEDS: Fludrocortisone Acetate TAB* 0.1 MG PO PRN (10:02)
[2018-05-27] MEDS: Multivitamins/Minerals TAB PO SCH (10:03)
[2018-05-27] MEDS: TELMISARTAN 20 MG PO SCH ×2 (10:03→22:09)
[2018-05-27] MEDS: Aspirin EC TAB* 81 MG TAB.EC PO SCH (10:10)
--- NOTE | 2018-05-27 10:18 | PN ---
Progress Note - Progress Note Date of Service: 05/27/18 SOAP: Subjective: History of TKA by Dr. Vanessa 05/16/18. Seen by Dr. Vanessa on 05/23/18 in ED with pain. Given some antibiotics. Presented to ED yesterday with knee pain, swelling, erythema. Dr. Vanessa did not believe there was a deep infection. Aspiration performed in ED and antibiotics started. 1/2 of nadeem were removed in ED. Gram stain negative. I conferred with Dr. Vanessa yesterday late afternoon and we decided to stop antibiotics to let the knee declare itself- infection or not. I discontinued antibiotics (Vanco and cephalosporin), although they were restarted by Hospitalist last night. Patient still has pain. As background, the patient has chronic pain. Objective: Non-toxic appearing. RLE: - Incision c/d/i, except some drainage, trace bloody, at inferior end of incision - PROM 0-60 without any pain. Pain at terminal flexion - Swelling knee slight improved since yesterday late afternoon, erythema same or slightly better - No TTP of skin erythema - NVID Selected Entries 05/26/18 05/26/18 05/26/18 10:20 12:25 14:18 Temperature 99.0 F 99.2 F 99.2 F Pulse Rate Respiratory Rate Blood Pressure (mmHg) O2 Sat by Pulse Oximetry 05/26/18 05/26/18 05/26/18 17:15 18:50 23:50 Temperature 97.9 F 98.2 F 99.8 F Pulse Rate Respiratory Rate Blood Pressure (mmHg) O2 Sat by Pulse Oximetry 05/27/18 05/27/18 03:47 07:18 Temperature 99.3 F 99.2 F Pulse Rate 83 Respiratory 16 Rate Blood Pressure 105/46 (mmHg) O2 Sat by Pulse 93 Oximetry Laboratory Tests 05/26/18 05/26/18 05/27/18 11:18 11:18 05:46 WBC 6.1 6.0 Neut % (Auto) 79.0 63.4 ESR 115 H 117 H C-Reactive Protein 210.67 H 05/27/18 05:46 WBC Neut % (Auto) ESR C-Reactive Protein 189.16 H Assessment: POD 11 R TKA Right knee pain, swelling, erythema Plan: - No clear sign of deep infection by exam or history. - Temperature of 99.8 overnight is concerning. - We will let the knee declare itself off of antibiotics, infection or not. No antibiotics now. - We will follow the temperature, pain level, ESR/CRP/WBC, and exam for clues as to whether this is a swollen, inflamed postop knee arthroplasty (with some drainage after some nadeem were removed) or a deep infection. - Lovenox dose now but hold evening dose and tomorrow morning's dose. - NPO after midnight in case the patient needs an I&D tomorrow (Tuesday) - Continue IV fluids
[2018-05-27] MEDS: tiZANidine TAB* 2 MG PO PRN (12:33)
[2018-05-27] MEDS: Enoxaparin(*) 30 MG/0.3 ML SYR SUBCUT SCH (12:39)
--- NOTE | 2018-05-27 12:52 | PN ---
Subjective Date of Service: 05/27/18 Interval History: Ms. Solorio reports continued pain in her right knee but that the current pain medication regimen is helping. She denies other complaint including chest pain , SOB, nausea, or abdominal pain. Objective Active Medications: Acetaminophen (Tylenol Tab*) 650 mg PO Q6H PRN Ascorbic Acid (Vitamin C Tab*) 1,000 mg PO QAM [facility] Aspirin (Aspirin Ec Tab*) 81 mg PO DAILY [facility] Bisacodyl (Dulcolax Supp*) 10 mg MA DAILY PRN Brinzolamide/Brimonidine Tartrate (Simbrinza Oph.Susp(Nf)) 1 drop BOTH EYES 0600,1800 [facility] Dexlansoprazole (Dexilant (Nf)) 30 mg PO QAM [facility] Diclofenac Sodium (Voltaren 1% Gel (Nf)) 1 applic TOPICAL BID [facility]ES; Protocol Diphenhydramine HCl (Benadryl Po*) 25 mg PO Q6H PRN Docusate Sodium (Colace Cap*) 100 mg PO BID PRN Enoxaparin Sodium (Lovenox(*)) 30 mg SUBCUT Q24H [facility] Famotidine (Pepcid Tab*) 20 mg PO QPM [facility]; Protocol Fentanyl (Duragesic Patch 50 Mcg/Hr*) 50 mcg TRANSDERM Q72H [facility] Fludrocortisone Acetate (Florinef Tab*) 0.1 mg PO BID PRN Fluticasone Propionate (Flonase Nasal [place] 50mcg*) 1 spray BOTH NARES BID PRN Gabapentin (Neurontin Cap(*)) 600 mg PO BEDTIME [facility] Gabapentin (Neurontin Cap(*)) 300 mg PO BID [facility] Hydroxyzine HCl (Atarax Tab*) 25 mg PO QID PRN Lactated Ringer's (Lactated Ringers 1000 Ml Bag*) 1,000 mls @ 75 mls/hr IV PER RATE [facility] Ketorolac Tromethamine (Ketorolac 0.5% Ophth (Nf)) 1 drop RIGHT EYE DAILY [facility] Levothyroxine Sodium (Synthroid Tab*) 25 mcg PO QAM@0600 [facility] Melatonin (Melatonin) 3 mg PO BEDTIME [facility] Morphine Sulfate (Morphine Inj (Syringe)*) 3 mg IV UC ONCE PRN Morphine Sulfate (Morphine Inj (Syringe)*) 2 mg IV Q4H PRN Multivitamins/Minerals (Theragran/Minerals Tab*) 1 tab PO DAILY [facility] Pto:Non Formulary Med* (Lifitegrast [ Xiidra] 1 Drop) 1 drop LEFT EYE BID PRN Pto:Non Formulary ( Telmisartan 20mg Tablet) 1 dose PO BID [facility]ES; Protocol Ondansetron HCl (Zofran Odt Tab*) 8 mg PO Q8H PRN Oxycodone HCl (Roxycodone Tab*) 15 mg PO Q4H PRN Pharmacy Profile Note (Fentanyl Patch Check Q Shift) 1 note FOLLOW UP 0700, 1900 [facility] Polyethyl Glycol/Propylene Glycol (Lubricant Eye Drops) 1 drop BOTH EYES BID PRN Polyethylene Glycol/Electrolytes (Miralax*) 17 gm PO DAILY PRN Sertraline HCl (Zoloft*) 50 mg PO QPM [facility] Tizanidine HCl (Zanaflex Tab*) 2 mg PO TID PRN Vital Signs: Temp Pulse Resp BP Pulse Ox 99.0 F 98 16 116/60 93 05/27/18 11:09 05/27/18 11:09 05/27/18 13:18 05/27/18 12:24 05/27/18 11:09 Oxygen Devices in Use Now: None Appearance: Female sitting up in chair in NAD Eyes: No Scleral Icterus Ears/Nose/Mouth/Throat: Mucous Membranes Moist Neck: Trachea Midline Respiratory: Symmetrical Chest Expansion and Respiratory Effort, Clear to Auscultation Cardiovascular: NL Sounds; No Murmurs; No JVD Abdominal: NL Sounds; No Tenderness; No Distention Skin: No Rash or Ulcers Neurological: Alert and Oriented x 3, NL Muscle Strength and Tone Nutrition: Taking PO's Result Diagrams: 05/27/18 05:46 05/27/18 05:46 Microbiology and Other Data: . Assess/Plan/Problems-Billing Assessment: Ms. Solorio is a 77 yo F with a PMH of R TKR on 05/16/18, HTN, temporal lobe epilepsy, MS, stage 3 CKD, orthostatic hypotension, fibromylagia, and sleep apnea who was admitted on 05/26/18 with R knee pain and inability to ambulate. - Patient Problems (1) Right knee pain Comment: - Knee aspirate and blood cultures negative. - Management per ortho, antibiotics discontinued, plan to continue to follow knee exam, ESR, CRP, WBC, and temperature closely. - ESR 115 -> 117. CRP 210 -> 189. No leukocytosis or fever. - NPO after midnight in the event she needs operative intervention. (2) CKD (chronic kidney disease) stage 3, GFR 30-59 ml/min Comment: - At baseline (3) GERD (gastroesophageal reflux disease) Comment: - Continue pepcid (4) RANI (obstructive sleep apnea) Comment: - Continue CPAP (5) Orthostatic hypotension Comment: - Long standing history of orthostasis. - Continue fludrocortisone. 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 Herrmann who see the patient frequently - Continue sertraline and PRN hydroxizine (7) Chronic pain Comment: - Continue home medication regimen including fentanyl, oxycodone, and gabapentin per ortho - (8) Seizure disorder Comment: - Reports seizures monthly - Continue Gabapentin (9) Lung mass Comment: - Noted on CT chest during admission 02/2018, should follow up with PCP or Jaqueline regarding repeat CT chest outpatient for re-evaluation. (10) DVT prophylaxis Comment: - Per ortho team, Amber on hold - SubQ Lovenox (11) DNR (do not resuscitate) Comment: Status and Disposition: Inpatient. Disposition per ortho.
[2018-05-27] MEDS ORDERED: Vancomycin Trough Check NOTE FOLLOW UP ONE (13:30)
[2018-05-27] MEDS: Famotidine TAB* 20 MG PO SCH ×2 (15:12→17:38)
[2018-05-27] MEDS: Sertraline* 50 MG TAB PO SCH (17:42)
[2018-05-27] MEDS ORDERED: Al Hydrox/Mg Hydrox/Simet LIQ* 30 ML UDC PO ONE (20:08)
[2018-05-27] MEDS ORDERED: Lidocaine 2% VISCOUS* 15 ML UDC PO ONE (20:08)
[2018-05-28] MEDS: Morphine INJ* 4 MG/ML 1 ML SYRINGE (NEW SYRINGE VERSION) IV PRN ×2 (00:15→06:35)
[2018-05-28 06:14] LABS: ABS Basophils 0 10^3/ul (0-0.2); ABS Eosinophils 0.3 10^3/ul (0-0.6); ABS Lymphocytes 0.9 10^3/ul (1.0-4.8); ABS Monocytes 0.5 10^3/ul (0-0.8); ABS Neutrophils 2.5 10^3/ul (1.5-7.7); ABS Nucleated RBC 0 10^3/ul; Eosinophil % 6.1 % (0-6); Hematocrit 23 % (35-47); Hemoglobin 7.8 g/dl (12.0-16.0); Lymphocyte % 22.3 % (25-47); Mean Corpuscular HGB Conc 34 g/dl (31-36); Mean Corpuscular Hemoglobin 29 pg (27-31); Mean Corpuscular Volume 86 fL (80-97); Mean Platelet Volume 6.9 um3 (7.4-10.4); Nucleated Red Blood Cells % 0; Platelet Count 299 10^3/ul (150-450); Red Blood Count 2.68 10^6/ul (4.00-5.40); Red Cell Distribution Width 14 % (10.5-15); White Blood Count 4.2 10^3/ul (3.5-10.8)
[2018-05-28] MEDS: fentaNYL Patch Check Q Shift 1 NOTE FOLLOW UP SCH ×3 (06:39→19:33)
[2018-05-28] MEDS: PTO:Brinzolamid/Brimonidin OPH(NF) 1 DROP BTL BOTH EYES SCH ×2 (07:58→17:13)
--- NOTE | 2018-05-28 08:02 | PN ---
Subjective Date of Service: 05/28/18 Interval History: Ms. Solorio reports continued pain to her right knee and requests adjustment of her pain medication regimen. She denies other complaint including chest pain, SOB, nausea, or abdominal pain. Objective Active Medications: Acetaminophen (Tylenol Tab*) 650 mg PO Q6H PRN Ascorbic Acid (Vitamin C Tab*) 1,000 mg PO QAM [facility] Aspirin (Aspirin Ec Tab*) 81 mg PO DAILY [facility] Bisacodyl (Dulcolax Supp*) 10 mg [place] DAILY PRN Brinzolamide/Brimonidine Tartrate (Simbrinza Oph.Susp(Nf)) 1 drop BOTH EYES 0600,1800 [facility] Dexlansoprazole (Dexilant (Nf)) 30 mg PO QAM [facility] Diclofenac Sodium (Voltaren 1% Gel (Nf)) 1 applic TOPICAL BID [facility]; Protocol Diphenhydramine HCl (Benadryl Po*) 25 mg PO Q6H PRN Docusate Sodium (Colace Cap*) 100 mg PO BID PRN Enoxaparin Sodium (Lovenox(*)) 30 mg SUBCUT Q24H [facility] Famotidine (Pepcid Tab*) 20 mg PO QPM [facility]; Protocol Fentanyl (Duragesic Patch 50 Mcg/Hr*) 50 mcg TRANSDERM Q72H [facility] Fludrocortisone Acetate (Florinef Tab*) 0.1 mg PO BID PRN Fluticasone Propionate (Flonase Nasal [place] 50mcg*) 1 spray BOTH NARES BID PRN Gabapentin (Neurontin Cap(*)) 600 mg PO BEDTIME [facility] Gabapentin (Neurontin Cap(*)) 300 mg PO BID [facility] Hydroxyzine HCl (Atarax Tab*) 25 mg PO QID PRN Lactated Ringer's (Lactated Ringers 1000 Ml Bag*) 1,000 mls @ 75 mls/hr IV PER RATE [facility] Ketorolac Tromethamine (Ketorolac 0.5% Ophth (Nf)) 1 drop RIGHT EYE DAILY [facility] Levothyroxine Sodium (Synthroid Tab*) 25 mcg PO QAM@0600 [facility] Melatonin (Melatonin) 3 mg PO BEDTIME [facility] Morphine Sulfate (Morphine Inj (Syringe)*) 3 mg IV UC ONCE PRN Morphine Sulfate (Morphine Inj (Syringe)*) 2 mg IV Q4H PRN Multivitamins/Minerals (Theragran/Minerals Tab*) 1 tab PO DAILY [facility] Pto:Non Formulary Med* (Lifitegrast [ Xiidra] 1 Drop) 1 drop LEFT EYE BID PRN Pto:Non Formulary ( Telmisartan 20mg Tablet) 1 dose PO BID [facility]; Protocol Ondansetron HCl (Zofran Odt Tab*) 8 mg PO Q8H PRN Oxycodone HCl (Roxycodone Tab*) 15 mg PO Q4H PRN Pharmacy Profile Note (Fentanyl Patch Check Q Shift) 1 note FOLLOW UP 0700, 1900 [facility] Polyethyl Glycol/Propylene Glycol (Lubricant Eye Drops) 1 drop BOTH EYES BID PRN Polyethylene Glycol/Electrolytes (Miralax*) 17 gm PO DAILY PRN Sertraline HCl (Zoloft*) 50 mg PO QPM [facility] Tizanidine HCl (Zanaflex Tab*) 2 mg PO TID PRN Vital Signs: Temp Pulse Resp BP Pulse Ox 98.4 F 78 24 115/53 92 05/28/18 07:52 05/28/18 07:52 05/28/18 07:52 05/28/18 07:52 05/28/18 07:52 Oxygen Devices in Use Now: None Appearance: Female sitting up in bed in NAD Eyes: No Scleral Icterus Ears/Nose/Mouth/Throat: Mucous Membranes Moist Neck: Trachea Midline Respiratory: Symmetrical Chest Expansion and Respiratory Effort, Clear to Auscultation Cardiovascular: NL Sounds; No Murmurs; No JVD, No Edema Abdominal: NL Sounds; No Tenderness; No Distention Lymphatic: No Cervical Adenopathy Extremities: No Edema Skin: - - Right knee with dressing CDI Neurological: Alert and Oriented x 3, NL Muscle Strength and Tone Nutrition: Taking PO's Result Diagrams: 05/28/18 05:51 05/27/18 05:46 Microbiology and Other Data: . Assess/Plan/Problems-Billing Assessment: Ms. Solorio is a 77 yo F with a PMH of R TKR on 05/16/18, HTN, temporal lobe epilepsy, MS, stage 3 CKD, orthostatic hypotension, fibromylagia, and sleep apnea who was admitted on 05/26/18 with R knee pain and inability to ambulate. - Patient Problems (1) Right knee pain Comment: - Knee aspirate and blood cultures negative. - Management per ortho, antibiotics discontinued per ortho, their plan to continue to follow knee exam, ESR, CRP, WBC, and temperature closely to determine if there is truly an infection. - Remain concerned about infection and would recommend continued antibiotics and ID consult. - ESR 115 -> 117 -> 110. CRP 210 -> 189 -> 106. No leukocytosis or fever. Procalcitonin 0.1. - NPO after midnight in the event she needs operative intervention tomorrow. - Continue pain meds prn with bowel regimen, will increase home fentanyl patch to 75mcg per day (2) CKD (chronic kidney disease) stage 3, GFR 30-59 ml/min Comment: - At baseline (3) Anemia Comment: - Hgb 7.8, normal MCV. Suspect related to recent surgery, dilutional, with component of anemia of chronic disease. - Has iron deficiency, will check stool occult blood, start supplementation. (4) GERD (gastroesophageal reflux disease) Comment: - Continue pepcid (5) RANI (obstructive sleep apnea) Comment: - Continue CPAP (6) Orthostatic hypotension Comment: - Long standing history of orthostasis. - Continue fludrocortisone. (7) Anxiety Comment: - Continue sertraline and PRN hydroxizine (8) Chronic pain Comment: - Continue home medication regimen including fentanyl, oxycodone, and gabapentin per ortho (9) Seizure disorder Comment: - Reports seizures monthly - Continue Gabapentin (10) DVT prophylaxis Comment: - Per ortho team, Xarelto on hold - SubQ Lovenox (11) DNR (do not resuscitate) Comment: Status and Disposition: Inpatient. Disposition per ortho.
[2018-05-28] MEDS: LIFITEGRAST LEFT EYE PRN ×2 (08:07→21:36)
--- NOTE | 2018-05-28 09:18 | PN ---
Progress Note - Progress Note Date of Service: 05/28/18 SOAP: Subjective: Still has pain in right knee. No increase in pain. No fevers, chills. Has been NPO past midnight. Objective: RLE: - inc c/d/i except some drainage between the most distal 2 nadeem - mild drainage serosanguinous on dressing - marked decrease in skin erythema about the incision site and knee - some decreased swelling about knee - NVID - PROM 0-70 with inconsistent pain Selected Entries 05/27/18 05/27/18 05/27/18 07:18 11:09 15:44 Temperature 99.2 F 99.0 F 99.0 F Pulse Rate Respiratory Rate Blood Pressure (mmHg) O2 Sat by Pulse Oximetry 05/27/18 05/27/18 05/28/18 18:59 23:54 03:15 Temperature 98.5 F 98.2 F 98.7 F Pulse Rate Respiratory Rate Blood Pressure (mmHg) O2 Sat by Pulse Oximetry 05/28/18 07:52 Temperature 98.4 F Pulse Rate 78 Respiratory 24 Rate Blood Pressure 115/53 (mmHg) O2 Sat by Pulse 92 Oximetry Laboratory Tests 05/26/18 05/26/18 05/27/18 11:18 11:18 05:46 WBC 6.1 6.0 Neut % (Auto) 79.0 63.4 ESR 115 H 117 H C-Reactive Protein 210.67 H 05/27/18 05/28/18 05/28/18 05:46 05:50 05:51 WBC Neut % (Auto) ESR 100 H C-Reactive Protein 189.16 H 106.56 H 05/28/18 05:51 WBC 4.2 Neut % (Auto) 59.5 ESR C-Reactive Protein Assessment: POD 12 R TKA done by Dr. Vanessa HD 3 for R knee pain, possible infection Plan: - No clear indication of infection. TMax 99.0, WBC normal, Neutrophil 59.5%, ESR and CRP decreasing, Gram stain and culture negative to date. Knee has decreased swelling and skin erythema. - So no indication for I&D today. I will let the patient eat. - Of biggest concern to me is some persistent drainage at the distal end of incision. Presumedly,this is drainage of a hematoma that developed and caused some of the patient's swelling and erythema. We will continue to monitor volume of drainage. If it doesn't decrease in volume, an I&D would be warranted. - Elevation & ice RLE, pain control - Continue to hold antibiotics. Patient's last dose I believe was Vancomycin Tuesday05/27/18 - DSD change daily - We will continue to monitor exam (drainage), ESR, CRP daily - Hold PT for now for comfort and to allow wound closure - Given the patient's chronic pain and discomfort with her right knee, when the patient is discharged, I think that rehab would be appropriate
[2018-05-28] MEDS: Levothyroxine TAB* 25 MCG TAB PO SCH (09:22)
[2018-05-28] MEDS: PTO:Ketorolac 0.5% OPHTH (NF) 0.5 % 5 ML BTL RIGHT EYE SCH (09:23)
[2018-05-28] MEDS: oxyCODONE TAB* 5 MG TAB PO PRN ×3 (10:09→21:38)
[2018-05-28] MEDS: Gabapentin CAP(*) 300 MG PO SCH ×3 (10:57→21:40)
[2018-05-28] MEDS: Aspirin EC TAB* 81 MG TAB.EC PO SCH (10:58)
[2018-05-28] MEDS: CMCS:Diclofenac 1% GEL (NF) 100 GM TUBE TOPICAL SCH ×2 (10:59→21:27)
[2018-05-28] MEDS ORDERED: Omeprazole CAP* 20 MG PO ONE (11:00)
[2018-05-28] MEDS: DEXLANSOPRAZOLE 30 MG PO SCH (11:01)
[2018-05-28] MEDS: TELMISARTAN 20 MG PO SCH ×2 (11:02→21:44)
[2018-05-28] MEDS: Ascorbic Acid TAB* 500 MG PO SCH (12:04)
[2018-05-28] MEDS: Enoxaparin(*) 30 MG/0.3 ML SYR SUBCUT SCH (12:05)
[2018-05-28] MEDS: Multivitamins/Minerals TAB PO SCH (12:05)
[2018-05-28] MEDS ORDERED: fentaNYL PATCH 75 MCG/HR* 75 MCG TRANSDERM SCH (12:30)
[2018-05-28] MEDS: Morphine VIAL* 4 MG/ML VIAL (1 ml vial) IV PRN ×2 (14:19→19:58)
[2018-05-28] MEDS ORDERED: Polyethylene Glycol 3350* 17 GM PACKET PO ONE (16:32)
[2018-05-28] MEDS: Famotidine TAB* 20 MG PO SCH (17:13)
[2018-05-28] MEDS: PTO:Brinzolamid/Brimonidin OPH(NF) 1 DROP BTL RIGHT EYE SCH ×2 (17:13→19:11)
[2018-05-28] MEDS: Sertraline* 50 MG TAB PO SCH (17:13)
[2018-05-28] MEDS: Melatonin 3 MG TAB PO SCH (21:37)
[2018-05-28] MEDS: tiZANidine TAB* 2 MG PO PRN (21:37)
[2018-05-29] MEDS: oxyCODONE TAB* 5 MG TAB PO PRN ×4 (04:11→23:53)
[2018-05-29 05:58] LABS: ABS Basophils 0 10^3/ul (0-0.2); ABS Eosinophils 0.3 10^3/ul (0-0.6); ABS Monocytes 0.5 10^3/ul (0-0.8); ABS Neutrophils 2.8 10^3/ul (1.5-7.7); ABS Nucleated RBC 0 10^3/ul; Eosinophil % 5.9 % (0-6); Hematocrit 23 % (35-47); Hemoglobin 7.8 g/dl (12.0-16.0); Lymphocyte % 20.7 % (25-47); Mean Corpuscular HGB Conc 34 g/dl (31-36); Mean Corpuscular Hemoglobin 29 pg (27-31); Mean Corpuscular Volume 87 fL (80-97); Mean Platelet Volume 6.8 um3 (7.4-10.4); Nucleated Red Blood Cells % 0; Platelet Count 312 10^3/ul (150-450); Red Blood Count 2.66 10^6/ul (4.00-5.40); Red Cell Distribution Width 14 % (10.5-15); White Blood Count 4.6 10^3/ul (3.5-10.8)
[2018-05-29] MEDS: Levothyroxine TAB* 25 MCG TAB PO SCH (06:33)
[2018-05-29] MEDS: PTO:Brinzolamid/Brimonidin OPH(NF) 1 DROP BTL RIGHT EYE SCH ×2 (06:34→17:38)
[2018-05-29] MEDS: fentaNYL Patch Check Q Shift 1 NOTE FOLLOW UP SCH ×2 (07:22→18:59)
[2018-05-29] MEDS: Fludrocortisone Acetate TAB* 0.1 MG PO PRN (07:49)
[2018-05-29] MEDS: tiZANidine TAB* 2 MG PO PRN ×3 (07:49→23:54)
[2018-05-29] MEDS: Multivitamins/Minerals TAB PO SCH (10:14)
[2018-05-29] MEDS: Gabapentin CAP(*) 300 MG PO SCH ×4 (10:14→23:54)
[2018-05-29] MEDS: Ascorbic Acid TAB* 500 MG PO SCH (10:15)
[2018-05-29] MEDS: PTO:Ketorolac 0.5% OPHTH (NF) 0.5 % 5 ML BTL RIGHT EYE SCH (10:16)
[2018-05-29] MEDS: Ferrous Sulfate TAB* 325 MG PO SCH (10:16)
[2018-05-29] MEDS: CMCS:Diclofenac 1% GEL (NF) 100 GM TUBE TOPICAL SCH ×2 (10:16→21:26)
[2018-05-29] MEDS: Aspirin EC TAB* 81 MG TAB.EC PO SCH (10:16)
[2018-05-29] MEDS: DEXLANSOPRAZOLE 30 MG PO SCH (10:16)
[2018-05-29] MEDS: Morphine VIAL* 4 MG/ML VIAL (1 ml vial) IV PRN (10:24)
[2018-05-29] MEDS: LIFITEGRAST LEFT EYE PRN (10:25)
[2018-05-29] MEDS: TELMISARTAN 20 MG PO SCH ×2 (10:54→21:28)
--- NOTE | 2018-05-29 11:34 | PN ---
Progress Note - Progress Note Date of Service: 05/29/18 Note: Right total knee replacement 05/16/18. Her right knee culture over the weekend has had no growth. VSStable and no elevation of WBC. The CRP has improved. Pain is still her main complaint but she does note that she feels better than last week. Her right knee reamins swollen and discolored and there is sero- sanguinous drainage from the distal end. There was no drainage until the weekend. She has been on Lovenox 30 mg SQ and ASA 81 mg. Impression: Post op total knee with hematoma and some cellulitis but doubt deep infection. Will hold her Lovenox for today and restart her therapy. I feel disposition should be to a care facility.
[2018-05-29 12:42] LABS: Hematocrit 25 % (35-47); Hemoglobin 8.4 g/dl (12.0-16.0)
[2018-05-29] MEDS: Enoxaparin(*) 30 MG/0.3 ML SYR SUBCUT SCH (13:14)
--- NOTE | 2018-05-29 16:54 | PN ---
Subjective Date of Service: 05/29/18 Interval History: Patient continues to c/o right knee pain, states that swelling has improved. C /o c/o nasal congestion and post nasal drip. Denies chest pain or shortness of breath. does report occasional cough. denies abd pain n/v/d Family History: Unchanged from Admission Social History: Unchanged from Admission Past Medical History: Unchanged from Admission Objective Active Medications: Acetaminophen (Tylenol Tab*) 650 mg PO Q6H PRN PRN Reason: FEVER/PAIN Ascorbic Acid (Vitamin C Tab*) 1,000 mg PO QAM [facility] Last Admin: 05/29/18 10:15 Dose: 1,000 mg Aspirin (Aspirin Ec Tab*) 81 mg PO DAILY [facility] Last Admin: 05/29/18 10:16 Dose: 81 mg Bisacodyl (Dulcolax Supp*) 10 mg [place] DAILY PRN PRN Reason: CONSTIPATION Brinzolamide/Brimonidine Tartrate (Simbrinza Oph.Susp(Nf)) 1 drop RIGHT EYE 0600,1800 [facility] Last Admin: 05/29/18 06:34 Dose: 1 drop Cetirizine HCl (Zyrtec*) 5 mg PO DAILY [facility]; Protocol PRN Reason: RHINITIS Dexlansoprazole (Dexilant (Nf)) 30 mg PO QAM [facility] Last Admin: 05/29/18 10:16 Dose: 30 mg Diclofenac Sodium (Voltaren 1% Gel (Nf)) 1 applic TOPICAL BID [facility]; Protocol Last Admin: 05/29/18 10:16 Dose: Not Given Diphenhydramine HCl (Benadryl Po*) 25 mg PO Q6H PRN PRN Reason: itching or sleep Docusate Sodium (Colace Cap*) 100 mg PO BID PRN PRN Reason: CONSTIPATION Last Admin: 05/27/18 10:21 Dose: 100 mg Enoxaparin Sodium (Lovenox(*)) 30 mg SUBCUT DAILY [facility] Famotidine (Pepcid Tab*) 20 mg PO QPM [facility]; Protocol Last Admin: 05/28/18 17:13 Dose: 20 mg Fentanyl (Duragesic Patch 75 Mcg/Hr*) 75 mcg TRANSDERM Q72H [facility] Last Admin: 05/28/18 12:26 Dose: 75 mcg Ferrous Sulfate (Ferrous Sulfate Tab*) 325 mg PO DAILY [facility] Last Admin: 05/29/18 10:16 Dose: 325 mg Fludrocortisone Acetate (Florinef Tab*) 0.1 mg PO BID PRN PRN Reason: SBP <115 Last Admin: 05/29/18 07:49 Dose: 0.1 mg Fluticasone Propionate (Flonase Nasal [place] 50mcg*) 1 spray BOTH NARES BID PRN PRN Reason: Allergy Symptoms Last Admin: 05/29/18 15:51 Dose: 1 spray Gabapentin (Neurontin Cap(*)) 600 mg PO TID [facility] Last Admin: 05/29/18 15:57 Dose: 300 mg Gabapentin (Neurontin Cap(*)) 300 mg PO BID@0900,1400 [facility] Gabapentin (Neurontin Cap(*)) 600 mg PO BEDTIME [facility] Hydroxyzine HCl (Atarax Tab*) 25 mg PO QID PRN PRN Reason: ITCHING Last Admin: 05/26/18 17:44 Dose: 25 mg Ketorolac Tromethamine (Ketorolac 0.5% Ophth (Nf)) 1 drop RIGHT EYE DAILY [facility] Last Admin: 05/29/18 10:16 Dose: Not Given Levothyroxine Sodium (Synthroid Tab*) 25 mcg PO QAM@0600 [facility] Last Admin: 05/29/18 06:33 Dose: 25 mcg Melatonin (Melatonin) 3 mg PO BEDTIME [facility] Last Admin: 05/28/18 21:37 Dose: 3 mg Morphine Sulfate (Morphine Inj (Syringe)*) 3 mg IV UC ONCE PRN PRN Reason: PAIN Last Admin: 05/26/18 12:23 Dose: 3 mg Multivitamins/Minerals (Theragran/Minerals Tab*) 1 tab PO DAILY [facility] Last Admin: 05/29/18 10:14 Dose: 1 tab Pto:Non Formulary ( Telmisartan 20mg Tablet) 1 dose PO BID [facility]; Protocol Stop: 05/29/18 21:01 Last Admin: 05/29/18 10:54 Dose: Not Given Pto:Lifitegrast [ (Xiidra] 1 Drop) 1 drop LEFT EYE BID PRN PRN Reason: DRY EYE Last Admin: 05/29/18 10:25 Dose: 1 drop Ondansetron HCl (Zofran Odt Tab*) 8 mg PO Q8H PRN PRN Reason: NAUSEA Oxycodone HCl (Roxycodone Tab*) 15 mg PO Q4H PRN PRN Reason: PAIN Stop: 06/02/18 16:17 Last Admin: 05/29/18 13:29 Dose: 15 mg Pharmacy Profile Note (Fentanyl Patch Check Q Shift) 1 note FOLLOW UP 0700, 1900 [facility] Last Admin: 05/29/18 07:22 Dose: 1 note Polyethyl Glycol/Propylene Glycol (Lubricant Eye Drops) 1 drop BOTH EYES BID PRN PRN Reason: DRY EYE Polyethylene Glycol/Electrolytes (Miralax*) 17 gm PO DAILY PRN PRN Reason: CONSTIPATION Last Admin: 05/29/18 15:52 Dose: 17 gm Sertraline HCl (Zoloft*) 50 mg PO QPM [facility] Last Admin: 05/28/18 17:13 Dose: 50 mg Tizanidine HCl (Zanaflex Tab*) 2 mg PO TID PRN PRN Reason: SPASMS Last Admin: 05/29/18 15:52 Dose: 2 mg Vital Signs - 8 hr 05/29/18 05/29/18 05/29/18 10:14 10:24 10:46 Temperature 98.0 F Pulse Rate 80 Respiratory 18 18 16 Rate Blood Pressure 101/48 (mmHg) O2 Sat by Pulse 93 Oximetry 05/29/18 05/29/18 05/29/18 13:29 15:57 16:01 Temperature Pulse Rate Respiratory 18 20 20 Rate Blood Pressure (mmHg) O2 Sat by Pulse Oximetry 05/29/18 16:22 Temperature 98.6 F Pulse Rate 84 Respiratory 16 Rate Blood Pressure 125/62 (mmHg) O2 Sat by Pulse 98 Oximetry Oxygen Devices in Use Now: None Appearance: appears comfortable, alert , no acute distress Eyes: No Scleral Icterus Ears/Nose/Mouth/Throat: Clear Oropharnyx, Mucous Membranes Moist Neck: NL Appearance and Movements; NL JVP, Trachea Midline Respiratory: Symmetrical Chest Expansion and Respiratory Effort, Clear to Auscultation Cardiovascular: NL Sounds; No Murmurs; No JVD, No Edema Abdominal: NL Sounds; No Tenderness; No Distention Extremities: No Clubbing, Cyanosis, - - swelling and rendess noted to right knee , pedal pulses +2 bilat. Skin: No Rash or Ulcers Neurological: Alert and Oriented x 3 Nutrition: Taking PO's Result Diagrams: 05/30/18 05:51 05/27/18 05:46 Microbiology and Other Data: . Assess/Plan/Problems-Billing Assessment: Ms. Solorio is a 77 yo F with a PMH of R TKR on 05/16/18, HTN, temporal lobe epilepsy, MS, stage 3 CKD, orthostatic hypotension, fibromylagia, and sleep apnea who was admitted on 05/26/18 with R knee pain and inability to ambulate. - Patient Problems (1) Right knee pain Current Visit: Yes Status: Acute Code(s): M25.561 - PAIN IN RIGHT KNEE SNOMED Code(s): 86618703 Comment: - Knee aspirate and blood cultures negative. - Management per ortho - No leukocytosis or fever. - Continue pain meds prn with bowel regimen, will increase home fentanyl patch to 75mcg per day- gabapentin increased by ortho today - would recommend consult to pain management if no improvement. (2) Anemia Current Visit: Yes Status: Acute Code(s): D64.9 - ANEMIA, UNSPECIFIED SNOMED Code(s): 304422157 Comment: improving - Hgb 8.4, normal MCV. Suspect related to recent surgery, dilutional, with component of anemia of chronic disease. - Has iron deficiency, will check stool occult blood- negative - will continue iron 325 mg po daily (3) CKD (chronic kidney disease) stage 3, GFR 30-59 ml/min Current Visit: No Status: Acute Code(s): N18.3 - CHRONIC KIDNEY DISEASE, STAGE 3 (MODERATE) SNOMED Code(s): 775678218 Comment: - At baseline (4) GERD (gastroesophageal reflux disease) Current Visit: No Status: Acute Code(s): K21.9 - GASTRO-ESOPHAGEAL REFLUX DISEASE WITHOUT ESOPHAGITIS SNOMED Code(s): 684389026 Comment: - Continue pepcid (5) Anxiety Current Visit: No Status: Chronic Code(s): F41.9 - ANXIETY DISORDER, UNSPECIFIED SNOMED Code(s): 82737641 Comment: - Continue sertraline and PRN hydroxizine (6) Chronic pain Current Visit: No Status: Chronic Code(s): G89.29 - OTHER CHRONIC PAIN SNOMED Code(s): 92565438 Comment: - Continue home medication regimen including fentanyl, oxycodone, and gabapentin per ortho (7) DVT prophylaxis Current Visit: No Status: Acute Code(s): IHT1138 - SNOMED Code(s): 001350845 Comment: - Per ortho team, Xarelto on hold - SubQ Lovenox- holding dose tonight (8) DNR (do not resuscitate) Current Visit: No Status: Acute Comment: Status and Disposition: Inpatient. Disposition per ortho.
[2018-05-29] MEDS: Cetirizine* 10 MG TAB PO PRN (17:36)
[2018-05-29] MEDS: Sertraline* 50 MG TAB PO SCH (17:38)
[2018-05-29] MEDS: Famotidine TAB* 20 MG PO SCH (17:38)
[2018-05-29] MEDS: Al Hydrox/Mg Hydrox/Simet LIQ* 30 ML UDC PO PRN (20:48)
[2018-05-29] MEDS ORDERED: Gabapentin CAP(*) 300 MG PO SCH (21:00)
[2018-05-29] MEDS: Melatonin 3 MG TAB PO SCH (21:27)
[2018-05-30] MEDS: oxyCODONE TAB* 5 MG TAB PO PRN ×3 (04:59→13:46)
[2018-05-30] MEDS: Levothyroxine TAB* 25 MCG TAB PO SCH (05:00)
[2018-05-30] MEDS: PTO:Brinzolamid/Brimonidin OPH(NF) 1 DROP BTL RIGHT EYE SCH (05:00)
[2018-05-30 06:05] LABS: ABS Basophils 0 10^3/ul (0-0.2); ABS Eosinophils 0.3 10^3/ul (0-0.6); ABS Monocytes 0.5 10^3/ul (0-0.8); ABS Neutrophils 2.9 10^3/ul (1.5-7.7); ABS Nucleated RBC 0 10^3/ul; Hematocrit 23 % (35-47); Hemoglobin 7.9 g/dl (12.0-16.0); Lymphocyte % 20.7 % (25-47); Mean Corpuscular HGB Conc 34 g/dl (31-36); Mean Corpuscular Hemoglobin 30 pg (27-31); Mean Corpuscular Volume 86 fL (80-97); Mean Platelet Volume 6.8 um3 (7.4-10.4); Nucleated Red Blood Cells % 0; Platelet Count 318 10^3/ul (150-450); Red Blood Count 2.69 10^6/ul (4.00-5.40); Red Cell Distribution Width 14 % (10.5-15); White Blood Count 4.6 10^3/ul (3.5-10.8)
[2018-05-30] MEDS: fentaNYL Patch Check Q Shift 1 NOTE FOLLOW UP SCH (07:10)
[2018-05-30] MEDS ORDERED: TELMISARTAN 40 MG PO SCH (09:00)
[2018-05-30] MEDS ORDERED: Enoxaparin(*) 30 MG/0.3 ML SYR SUBCUT SCH (09:00)
[2018-05-30] MEDS: CMCS:Diclofenac 1% GEL (NF) 100 GM TUBE TOPICAL SCH (09:20)
[2018-05-30] MEDS: Multivitamins/Minerals TAB PO SCH (09:20)
[2018-05-30] MEDS: Ascorbic Acid TAB* 500 MG PO SCH ×2 (09:20→09:33)
[2018-05-30] MEDS: Ferrous Sulfate TAB* 325 MG PO SCH (09:20)
[2018-05-30] MEDS: Aspirin EC TAB* 81 MG TAB.EC PO SCH (09:20)
[2018-05-30] MEDS: PTO:Ketorolac 0.5% OPHTH (NF) 0.5 % 5 ML BTL RIGHT EYE SCH (09:22)
[2018-05-30] MEDS: Gabapentin CAP(*) 300 MG PO SCH ×4 (09:22→13:54)
[2018-05-30] MEDS: tiZANidine TAB* 2 MG PO PRN ×2 (09:27→13:57)
[2018-05-30] MEDS: LIFITEGRAST LEFT EYE PRN (09:38)
[2018-05-30] MEDS: DEXLANSOPRAZOLE 30 MG PO SCH (09:38)
[2018-05-30] MEDS: Al Hydrox/Mg Hydrox/Simet LIQ* 30 ML UDC PO PRN (10:40)
--- NOTE | 2018-05-30 11:58 | PN ---
Subjective Date of Service: 05/30/18 Family History: Unchanged from Admission Social History: Unchanged from Admission Past Medical History: Unchanged from Admission Objective Active Medications: Acetaminophen (Tylenol Tab*) 650 mg PO Q6H PRN PRN Reason: FEVER/PAIN Al Hydrox/Mg Hydrox/Simethicone (Maalox Plus*) 30 ml PO Q4H PRN PRN Reason: INDIGESTION Last Admin: 05/30/18 10:40 Dose: 30 ml Ascorbic Acid (Vitamin C Tab*) 1,000 mg PO QAM [facility] Last Admin: 05/30/18 09:33 Dose: Not Given Aspirin (Aspirin Ec Tab*) 81 mg PO DAILY [facility] Last Admin: 05/30/18 09:20 Dose: 81 mg Bisacodyl (Dulcolax Supp*) 10 mg [place] DAILY PRN PRN Reason: CONSTIPATION Brinzolamide/Brimonidine Tartrate (Simbrinza Oph.Susp(Nf)) 1 drop RIGHT EYE 0600,1800 [facility] Last Admin: 05/30/18 05:00 Dose: 1 drop Cetirizine HCl (Zyrtec*) 5 mg PO DAILY [facility]; Protocol PRN Reason: RHINITIS Last Admin: 05/29/18 17:36 Dose: 5 mg Dexlansoprazole (Dexilant (Nf)) 30 mg PO QAM [facility] Last Admin: 05/30/18 09:38 Dose: 30 mg Diclofenac Sodium (Voltaren 1% Gel (Nf)) 1 applic TOPICAL BID [facility]; Protocol Last Admin: 05/30/18 09:20 Dose: Not Given Diphenhydramine HCl (Benadryl Po*) 25 mg PO Q6H PRN PRN Reason: itching or sleep Docusate Sodium (Colace Cap*) 100 mg PO BID PRN PRN Reason: CONSTIPATION Last Admin: 05/27/18 10:21 Dose: 100 mg Enoxaparin Sodium (Lovenox(*)) 30 mg SUBCUT DAILY [facility] Last Admin: 05/30/18 09:20 Dose: 30 mg Famotidine (Pepcid Tab*) 20 mg PO QPM [facility]; Protocol Last Admin: 05/29/18 17:38 Dose: 20 mg Fentanyl (Duragesic Patch 75 Mcg/Hr*) 75 mcg TRANSDERM Q72H [facility] Last Admin: 05/28/18 12:26 Dose: 75 mcg Ferrous Sulfate (Ferrous Sulfate Tab*) 325 mg PO DAILY [facility] Last Admin: 05/30/18 09:20 Dose: 325 mg Fludrocortisone Acetate (Florinef Tab*) 0.1 mg PO BID PRN PRN Reason: SBP <115 Last Admin: 05/29/18 07:49 Dose: 0.1 mg Fluticasone Propionate (Flonase Nasal [place] 50mcg*) 1 spray BOTH NARES BID PRN PRN Reason: Allergy Symptoms Last Admin: 05/29/18 15:51 Dose: 1 spray Gabapentin (Neurontin Cap(*)) 600 mg PO TID [facility] Last Admin: 05/30/18 09:22 Dose: Not Given Gabapentin (Neurontin Cap(*)) 300 mg PO BID@0900,1400 [facility] Last Admin: 05/30/18 09:23 Dose: 300 mg Gabapentin (Neurontin Cap(*)) 600 mg PO BEDTIME [facility] Last Admin: 05/29/18 21:26 Dose: Not Given Hydroxyzine HCl (Atarax Tab*) 25 mg PO QID PRN PRN Reason: ITCHING Last Admin: 05/26/18 17:44 Dose: 25 mg Ketorolac Tromethamine (Ketorolac 0.5% Ophth (Nf)) 1 drop RIGHT EYE DAILY [facility] Last Admin: 05/30/18 09:22 Dose: Not Given Levothyroxine Sodium (Synthroid Tab*) 25 mcg PO QAM@0600 [facility] Last Admin: 05/30/18 05:00 Dose: 25 mcg Melatonin (Melatonin) 3 mg PO BEDTIME [facility] Last Admin: 05/29/18 21:27 Dose: 3 mg Morphine Sulfate (Morphine Inj (Syringe)*) 3 mg IV UC ONCE PRN PRN Reason: PAIN Last Admin: 05/26/18 12:23 Dose: 3 mg Multivitamins/Minerals (Theragran/Minerals Tab*) 1 tab PO DAILY [facility] Last Admin: 05/30/18 09:20 Dose: 1 tab Pto:Lifitegrast [ (Xiidra] 1 Drop) 1 drop LEFT EYE BID PRN PRN Reason: DRY EYE Last Admin: 05/30/18 09:38 Dose: 1 drop Ondansetron HCl (Zofran Odt Tab*) 8 mg PO Q8H PRN PRN Reason: NAUSEA Oxycodone HCl (Roxycodone Tab*) 15 mg PO Q4H PRN PRN Reason: PAIN Stop: 06/02/18 16:17 Last Admin: 05/30/18 09:27 Dose: 15 mg Pharmacy Profile Note (Fentanyl Patch Check Q Shift) 1 note FOLLOW UP 0700, 1900 [facility] Last Admin: 05/30/18 07:10 Dose: 1 note Polyethyl Glycol/Propylene Glycol (Lubricant Eye Drops) 1 drop BOTH EYES BID PRN PRN Reason: DRY EYE Polyethylene Glycol/Electrolytes (Miralax*) 17 gm PO DAILY PRN PRN Reason: CONSTIPATION Last Admin: 05/29/18 15:52 Dose: 17 gm Sertraline HCl (Zoloft*) 50 mg PO QPM [facility] Last Admin: 05/29/18 17:38 Dose: 50 mg Telmisartan (Micardis (Nf)) 20 mg PO BID [facility] Last Admin: 05/30/18 09:21 Dose: 20 mg Tizanidine HCl (Zanaflex Tab*) 2 mg PO TID PRN PRN Reason: SPASMS Last Admin: 05/30/18 09:27 Dose: 2 mg Vital Signs - 8 hr 05/30/18 05/30/18 05/30/18 04:59 07:24 08:00 Temperature 98.5 F Pulse Rate 83 Respiratory 20 16 18 Rate Blood Pressure 135/71 (mmHg) O2 Sat by Pulse 98 96 Oximetry 05/30/18 05/30/18 05/30/18 09:22 09:23 09:27 Temperature Pulse Rate Respiratory 18 18 18 Rate Blood Pressure (mmHg) O2 Sat by Pulse Oximetry Oxygen Devices in Use Now: None Result Diagrams: 05/30/18 05:51 05/27/18 05:46 Microbiology and Other Data: . Assess/Plan/Problems-Billing Assessment: Ms. Solorio is a 77 yo F with a PMH of R TKR on 05/16/18, HTN, temporal lobe epilepsy, MS, stage 3 CKD, orthostatic hypotension, fibromylagia, and sleep apnea who was admitted on 05/26/18 with R knee pain and inability to ambulate. - Patient Problems (1) Right knee pain Current Visit: Yes Status: Acute Code(s): M25.561 - PAIN IN RIGHT KNEE SNOMED Code(s): 87033265 Comment: - Knee aspirate and blood cultures negative. - Management per ortho - No leukocytosis or fever. - Continue pain meds prn with bowel regimen, will increase home fentanyl patch to 75mcg per day- gabapentin increased by ortho today - would recommend consult to pain management if no improvement. (2) Anemia Current Visit: Yes Status: Acute Code(s): D64.9 - ANEMIA, UNSPECIFIED SNOMED Code(s): 442133684 Comment: improving - Hgb 8.4, normal MCV. Suspect related to recent surgery, dilutional, with component of anemia of chronic disease. - Has iron deficiency, will check stool occult blood- negative - will continue iron 325 mg po daily (3) CKD (chronic kidney disease) stage 3, GFR 30-59 ml/min Current Visit: No Status: Acute Code(s): N18.3 - CHRONIC KIDNEY DISEASE, STAGE 3 (MODERATE) SNOMED Code(s): 367336035 Comment: - At baseline (4) GERD (gastroesophageal reflux disease) Current Visit: No Status: Acute Code(s): K21.9 - GASTRO-ESOPHAGEAL REFLUX DISEASE WITHOUT ESOPHAGITIS SNOMED Code(s): 940905225 Comment: - Continue pepcid (5) Anxiety Current Visit: No Status: Chronic Code(s): F41.9 - ANXIETY DISORDER, UNSPECIFIED SNOMED Code(s): 52171134 Comment: - Continue sertraline and PRN hydroxizine (6) Chronic pain Current Visit: No Status: Chronic Code(s): G89.29 - OTHER CHRONIC PAIN SNOMED Code(s): 38853303 Comment: - Continue home medication regimen including fentanyl, oxycodone, and gabapentin per ortho (7) DVT prophylaxis Current Visit: No Status: Acute Code(s): HOD0037 - SNOMED Code(s): 077315326 Comment: - Per ortho team, Xarelto on hold - SubQ Lovenox- holding dose tonight (8) DNR (do not resuscitate) Current Visit: No Status: Acute Comment: Status and Disposition: Inpatient. Disposition per ortho.
--- NOTE | 2018-05-30 13:32 | PN ---
Progress Note - Progress Note Date of Service: 05/30/18 SOAP: Subjective: []Patient seen and examined at bedside. She denies CP, SOB, nausea and dizziness. She reports she did feel dizzy after physical therapy today. Physical therapy reports she was able to walk around the unit well though upon return to her room she did her exercises in bed rather than in the chair due to dizziness. Objective: []General: NAD RLE: Knee dressing changed. Stapes removed. Incision CDI with ecchymosis of the knee minimal erythema and no warmth or fluctuance. Thigh is soft. Sensation intact distally. DP2+. DF/PF intact. PROM 5-60 degrees Bilateral calves are supple and nontender without erythema, edema or palpable cords Assessment: []SP right total knee arthroplasty with hematoma acute bloodloss anemia Plan: []WBAT PT/OT I did witness her walking to the restroom with assistance, she appeared stable and had no complaints at this time. I have asked our staff to perform orthostatics prior to discharge to critical [facility] today H&H 7.05/07. needs repeat tomorrow Vital Signs Temp 98.5 F 05/30/18 07:24 Pulse 83 05/30/18 07:24 Resp 18 05/30/18 09:27 BP 135/71 05/30/18 07:24 Pulse Ox 96 05/30/18 08:00 Intake & Output 05/29/18 05/30/18 05/30/18 18:59 06:59 18:59 Intake Total 440 1120 Output Total 750 550 100 Balance -310 570 -100 Intake: Oral 440 1120 Output: Urine 750 550 100 Other: # Bowel Movements 0 Laboratory Last Values WBC 4.6 10^3/ul (3.5-10.8) 05/30/18 05:51 RBC 2.69 10^6/ul (4.00-5.40) L 05/30/18 05:51 Hgb 7.9 g/dl (12.0-16.0) L 05/30/18 05:51 Hct 23 % (35-47) L 05/30/18 05:51 MCV 86 fL (80-97) 05/30/18 05:51 MCH 30 pg (27-31) 05/30/18 05:51 MCHC 34 g/dl (31-36) 05/30/18 05:51 RDW 14 % (10.5-15) 05/30/18 05:51 Plt Count 318 10^3/ul (150-450) 05/30/18 05:51 MPV 6.8 um3 (7.4-10.4) L 05/30/18 05:51 Neut % (Auto) 61.8 % (38-83) 05/30/18 05:51 Lymph % (Auto) 20.7 % (25-47) L 05/30/18 05:51 [place] % (Auto) 9.8 % (0-7) H 05/30/18 05:51 Eos % (Auto) 7.0 % (0-6) H 05/30/18 05:51 Baso % (Auto) 0.7 % (0-2) 05/30/18 05:51 Absolute Neuts (auto) 2.9 10^3/ul (1.5-7.7) 05/30/18 05:51 Absolute Lymphs (auto) 1.0 10^3/ul (1.0-4.8) 05/30/18 05:51 Absolute Monos (auto) 0.5 10^3/ul (0-0.8) 05/30/18 05:51 Absolute Eos (auto) 0.3 10^3/ul (0-0.6) 05/30/18 05:51 Absolute Basos (auto) 0 10^3/ul (0-0.2) 05/30/18 05:51 Absolute Nucleated RBC 0 10^3/ul 05/30/18 05:51 Nucleated RBC % 0 05/30/18 05:51 ESR 102 mm/Hr (0-40) H 05/29/18 05:41 INR (Anticoag Therapy) 1.14 (0.77-1.02) H 05/26/18 11:18 APTT 31.2 seconds (26.0-36.3) 05/26/18 11:18 Fibrinogen 660.0 mg/dL (110.8-404.3) H 05/26/18 11:18 Sodium 138 mmol/L (135-145) 05/27/18 05:46 Potassium 3.8 mmol/L (3.5-5.0) 05/27/18 05:46 Chloride 103 mmol/L (101-111) 05/27/18 05:46 Carbon Dioxide 28 mmol/L (22-32) 05/27/18 05:46 Anion Gap 7 mmol/L (2-11) 05/27/18 05:46 BUN 15 mg/dL (6-24) 05/27/18 05:46 Creatinine 0.89 mg/dL (0.51-0.95) 05/27/18 05:46 Est GFR ( Amer) 74.6 (>60) 05/27/18 05:46 Est GFR (Non-Af Amer) 61.7 (>60) 05/27/18 05:46 BUN/Creatinine Ratio 16.9 (8-20) 05/27/18 05:46 Glucose 104 mg/dL (70-100) H 05/27/18 05:46 Lactic Acid 0.6 mmol/L (0.5-2.0) 05/26/18 15:58 Calcium 9.1 mg/dL (8.6-10.3) 05/27/18 05:46 Iron 21 ug/dL (50-212) L 05/27/18 13:07 TIBC 235 mcg/dL (250-450) L 05/27/18 13:07 % Saturation 9 % (15-55) L 05/27/18 13:07 Unsat Iron Binding 214 ug/dL 05/27/18 13:07 Transferrin 168 mg/dL (203-362) L 05/27/18 13:07 Ferritin 304.4 ng/mL (11-307) 05/27/18 13:07 Total Bilirubin 1.10 mg/dL (0.2-1.0) H 05/26/18 11:18 AST 27 U/L (13-39) 05/26/18 11:18 ALT 16 U/L (7-52) 05/26/18 11:18 Alkaline Phosphatase 71 U/L (34-104) 05/26/18 11:18 Troponin I 0.01 ng/mL (<0.04) 05/26/18 11:18 C-Reactive Protein 46.67 mg/L (<8.01) H 05/30/18 05:51 Total Protein 6.5 g/dL (6.4-8.9) 05/26/18 11:18 Albumin 3.3 g/dL (3.2-5.2) 05/26/18 11:18 Globulin 3.2 g/dL (2-4) 05/26/18 11:18 Albumin/Globulin Ratio 1.0 (1-3) 05/26/18 11:18 Vitamin B12 > 1450 pg/mL (180-914) H 05/27/18 13:07 Folate > 20.00 ng/mL (>3.99) 05/27/18 13:07 Procalcitonin 0.1 ng/mL (<0.6) 05/27/18 13:07 Urine Color Yellow 05/26/18 11:36 Urine Appearance Clear 05/26/18 11:36 Urine pH 6.0 (5-9) 05/26/18 11:36 Ur Specific [place] 1.006 (1.010-1.030) L 05/26/18 11:36 Urine Protein Negative (Negative) 05/26/18 11:36 Urine Ketones Trace (Negative) A 05/26/18 11:36 Urine Blood 2+ (Negative) A 05/26/18 11:36 Urine Nitrate Negative (Negative) 05/26/18 11:36 Urine Bilirubin Negative (Negative) 05/26/18 11:36 Urine Urobilinogen Negative (Negative) 05/26/18 11:36 Ur Leukocyte Esterase Negative (Negative) 05/26/18 11:36 Urine WBC (Auto) Absent (Absent) 05/26/18 11:36 Urine RBC (Auto) Trace(0-2/hpf) (Absent) 05/26/18 11:36 Ur Squamous Epith Cells Present (Absent) A 05/26/18 11:36 Urine Bacteria Absent (Absent) 05/26/18 11:36 Urine Glucose Negative (Negative) 05/26/18 11:36 Vancomycin Trough 18.0 mcg/mL 05/27/18 13:07
[2018-05-30 13:46] VITALS: BP 124/57
[2018-05-30] MEDS: Cetirizine* 10 MG TAB PO PRN (15:00)
--- NOTE | 2018-05-30 15:35 | DS ---
AMENDED REPORT NOW INCLUDES COSIGNER DESIGNATION DISCHARGE SUMMARY: DATE OF ADMISSION: 05/26/18 DATE OF DISCHARGE: 05/30/18 Final Diagnosis: Right total knee hematoma. Secondary Diagnoses: Anemia, Renal failure Stage III, Chronic pain, fibromyalgia ATTENDING PROVIDER: Dr. Raymond Vanessa.* (DICTATED BY TERA CANCHOLA) HISTORY: The patient is a 77-year-old female, who presented to the clinic on , status post right total knee replacement by Dr. Vanessa on 05/16/18. She was sent to the emergency room with difficulty walking due to discomfort as well as redness around her incision and right knee swelling. She has been on oral Keflex as well as taking oxycodone for pain. She denied any fever or chills. She was admitted to [facility] with close observation for suspected hematoma versus possible infection of the right knee joint. HOSPITAL COURSE: The patient was admitted to [facility] on . In the emergency room, her right knee was aspirated, 1 to 2 mL of bloody fluid was obtained and sent for Gram stain and anaerobic culture and sensitivity. Half of her nadeem were removed and there was no drainage from the incision. She was also followed by our hospitalist service during her stay. Due to the redness and swelling of the right knee, prior to cultures returning, she was on vancomycin and cefepime. On 05/27/18, her antibiotics were stopped to allow for evaluation of a need to determine whether there was possibility of infection. It was felt by our orthopedic team that the patient has a hematoma of the knee with some cellulitis, but no deep infection. During her stay, she did have low H and H, hemoglobin dropping as low as 7.8 and hematocrit as low as 23, consistent with acute blood loss anemia as well as iron deficiency. She will be kept on iron 325 mg p.o. daily and we will continue to recheck her H and H periodically as well as p.r.n. for symptoms. On 05/30/18, the patient was deemed to be medically and orthopedically stable for discharge home. PHYSICAL EXAMINATION: Vital Signs: Temperature 98.5, pulse rate 83, respiratory rate 16, oxygen saturation 98%, blood pressure 135/71. The patient' s knee upon arrival appeared erythematous, which has since resolved and has not worsened. Erythema is much resolved. On 05/30/18, all nadeem were removed. Incision is clean, dry, and intact. DISCHARGE MEDICATIONS: 1. Flonase 1 spray both nares b.i.d. p.r.n. 2. Gabapentin 300 mg p.o. at 900 and 1400 and then 600 mg at bedtime. 3. Levothyroxine 25 mcg p.o. q.a.m. 4. Ascorbic acid 1000 mg p.o. q.a.m. 5. Telmisartan 20 mg p.o. b.i.d. 6. Magnesium oxide 250 mg p.o. b.i.d. 7. Vitamin E capsule 400 units p.o. q.a.m. 8. Levocetirizine 5 mg p.o. q.p.m. 9. Tizanidine 2 mg p.o. t.i.d. 10. Zofran 8 mg p.o. q.8 hours p.r.n. 11. Melatonin 5 mg p.o. at bedtime p.r.n. 12. Florinef 0.1 mg p.o. b.i.d. p.r.n. 13. Kelp iodine 25 mg p.o. daily. 14. Selenium 200 mcg p.o. daily. 15. Lactose-reduced Food Boost 237 mL liquid p.o. daily. 16. TheraTears 1 drop ophthalmic b.i.d. p.r.n. 17. Lutein extract/zeaxanthin extract 1 cap p.o. daily. 18. Biotin 2500 mcg p.o. daily. 19. CoQ10 200 mg p.o. daily. 20. Culturelle probiotic 1 cap p.o. daily. 21. Cyanocobalamin 3000 mcg sublingual daily. 22. Vitamin B complex 150 mg p.o. daily. 23. Multivitamin 1 p.o. daily. 24. Xiidra 1 drop left eye b.i.d. p.r.n. 25. Aspirin 81 mg p.o. daily. 26. Diclofenac 1% gel topical b.i.d. p.r.n. 27. Vitamin D3 1000 units p.o. daily. 28. Valacyclovir 1 g p.o. daily. 29. Simbrinza ophthalmic suspension 1 drop both eyes b.i.d. 30. Sertraline 50 mg p.o. q.p.m. 31. Oxycodone 15 mg p.o. q.4 hours p.r.n. 32. Ranitidine 150 mg p.o. q.p.m. 33. Lovaza 1 g p.o. b.i.d. 34. Methylphenidate ER 36 mg p.o. q.a.m. 35. Ketorolac 0.5 ophthalmic drops right eye daily. 36. Atarax 25 mg. p.o. four times daily p.r.n. 37. Curcumin 40 mg daily. 38. Ammonium lactate lotion 12% topical t.i.d. 39. Dexilant 30 mg p.o. q.a.m. 40. Acetaminophen 650 mg p.o. q.6 hours p.r.n. 41. Lovenox 30 mg subcu daily until day 30 postop. 42. Fentanyl patch 75 mcg per hour transdermal q.72 hours. 43. Ferrous sulfate 325 mg 1 tab daily. DISCHARGE CONDITION: The patient is medically and orthopedically stable for discharge home. The possible infection concern will be followed carefully in the coming weeks. DISCHARGE INSTRUCTIONS: The patient will be weightbearing as tolerated. Incision: She may shower, do not submerge the incision. She will be discharged to [facility] today. She needs to have a repeat hemoglobin and hematocrit done on 05/31/18. She needs to continue physical therapy and occupational therapy exercises as shown. She will continue on Lovenox 30 mg subcutaneously daily until 30 days postop. She is to follow up with Dr. Vanessa on 06/07/18. Right knee care with soap and water washes followed by clean dressings. TERA CANCHOLA [id number]/[facility] #: [id number] [place]
== END 2018-05-30 15:15 | DRG 920 ==
LOC: ED 10:19 → SSU 13:18
PROVIDERS: ADMIT Internal Medicine; ATTEND Orthopaedic Surgery
PROC: 0S9C3ZX Drainage of Right Knee Joint, Percutaneous Approach, Diagnostic (ICD-10-PCS; principal; 2018-05-26)
DX: M96.840 Postprocedural hematoma of a musculoskeletal structure following a musculoskeletal system procedure (principal); D62 Acute posthemorrhagic anemia; L03.115 Cellulitis of right lower limb; G40.802 Other epilepsy, not intractable, without status epilepticus; F33.9 Major depressive disorder, recurrent, unspecified; I12.9 Hypertensive chronic kidney disease with stage 1 through stage 4 chronic kidney disease, or unspecified chronic kidney disease; N18.3 Chronic kidney disease, stage 3 (moderate); I95.1 Orthostatic hypotension; Z66 Do not resuscitate; M79.7 Fibromyalgia; K21.9 Gastro-esophageal reflux disease without esophagitis; F41.9 Anxiety disorder, unspecified; G89.29 Other chronic pain; G47.33 Obstructive sleep apnea (adult) (pediatric); R91.8 Other nonspecific abnormal finding of lung field; G35 Multiple sclerosis; G50.0 Trigeminal neuralgia; Z96.653 Presence of artificial knee joint, bilateral; Z96.612 Presence of left artificial shoulder joint; Z86.718 Personal history of other venous thrombosis and embolism; Z82.49 Family history of ischemic heart disease and other diseases of the circulatory system; Z84.1 Family history of disorders of kidney and ureter; Z87.891 Personal history of nicotine dependence; Z79.82 Long term (current) use of aspirin; Z79.899 Other long term (current) drug therapy; Z88.1 Allergy status to other antibiotic agents; Z88.8 Allergy status to other drugs, medicaments and biological substances
CPT/HCPCS: 36415; 71045; 80048; 80053; 80202; 81003; 81015; 82272; 82607; 82728; 82746; 83540; 83550; 83605; 84145; 84484; 85014; 85018; 85025; 85384; 85610; 85652; 85730; 86140; 87040; 87070; 87073; 87205; 87640; 87641; 93005; 99285; A9270-GY; G8978-GP-CJ; G8979-GP-CI; J0692; J1650; J2270; J3370

== ENCOUNTER 2018-06-26 10:46 | Inpatient (IN) | payer MEDICARE ==
[2018-06-26 11:22] LABS: ABS Basophils 0.2 10^3/ul (0-0.2); ABS Eosinophils 0.3 10^3/ul (0-0.6); ABS Lymphocytes 1.4 10^3/ul (1.0-4.8); ABS Monocytes 0.6 10^3/ul (0-0.8); ABS Neutrophils 10.9 10^3/ul (1.5-7.7); ABS Nucleated RBC 0 10^3/ul; Eosinophil % 2.3 % (0-6); Hematocrit 36 % (35-47); Hemoglobin 11.7 g/dl (12.0-16.0); Lymphocyte % 10.4 % (25-47); Mean Corpuscular HGB Conc 32 g/dl (31-36); Mean Corpuscular Hemoglobin 28 pg (27-31); Mean Corpuscular Volume 86 fL (80-97); Mean Platelet Volume 8.4 fL (7.4-10.4); Nucleated Red Blood Cells % 0; Platelet Count 265 10^3/ul (150-450); Red Blood Count 4.23 10^6/ul (4.00-5.40); Red Cell Distribution Width 16 % (10.5-15); White Blood Count 13.3 10^3/ul (3.5-10.8)
[2018-06-26] MEDS ORDERED: NS 0.9% 1000 ML* 1,000 ML IV ONE (11:23)
--- NOTE | 2018-06-26 11:42 | ED ---
Lower Extremity - HPI Summary HPI Summary: A 77 y/o female presents to the ED c/o right knee pain since post 05/16/18 when she had knee replacement surgery with Dr. Vanessa. She rates her pain as 8/10. She claims to have had complications from her knee surgery where there has been swelling with no infection. She also c/o back pain, urination with little frequency and a fever that she recorded at 102.5 at home before taking Tylenol and her temperature decreasing back to baseline. She states that now her swelling is worse. She called her physical therapist who called Dr. Vanessa who referred her to the ED. She also states that last week she had nausea and diarrhea but that is not a current problem. - History of Current Complaint Chief Complaint: EDExtremitMarianelaower Stated Complaint: RT KNEE PAIN/BACK PAIN/FEVER Time Seen by Provider: 06/26/18 11:01 Hx Obtained From: Patient Mechanism Of Injury: Other - surgery complications Onset of Pain: Days Onset/Duration: Weeks Severity Initially: Moderate Severity Currently: Moderate Pain Intensity: 8 Pain Scale Used: 0-10 Numeric Timing: Constant Associated Signs And Symptoms: Positive: Swelling, Fever - Allergies/Home Medications Allergies/Adverse Reactions: Allergies Allergy/AdvReac Type Severity Reaction Status Date / Time carbamazepine [From Tegretol] Allergy Severe difficulty Verified 06/26/18 10:58 breathing, headache, nausea, dizziness iodine Allergy Severe chest pain Verified 06/26/18 10:58 ketamine Allergy Severe SEVERE Verified 06/26/18 10:58 HALLUCINATIONS meperidine Allergy Severe Difficulty Verified 06/26/18 10:58 Swallowing phenobarbital Allergy Severe Difficulty Verified 06/26/18 10:58 Swallowing phenytoin [From Dilantin] Allergy Severe throat Verified 06/26/18 10:58 swelling, cannot talk alendronate sodium Allergy Intermediate SOB, Verified 06/26/18 10:58 dizziness amoxicillin [From Augmentin] Allergy Intermediate Abdominal Verified 06/26/18 10 :58 Pain clavulanic acid Allergy Intermediate Abdominal Verified 06/26/18 10:58 [From Augmentin] Pain donepezil Allergy Intermediate didn't Verified 06/26/18 10:58 work and felt "funny" duloxetine Allergy Intermediate SHAKY AND Verified 06/26/18 10:58 UNSTEADY quetiapine Allergy Intermediate UNEASINESS, Verified 06/26/18 10:58 SHAKY AND UNSTEADY rizatriptan [From [facility]] Allergy Unknown Unknown Verified 06/26/18 10:58 Reaction Details Home Medications: Home Medications Brinzolamid/Brimonidin OPH(NF) [Simbrinza OPH.SUSP(NF)] 1 drop RIGHT EYE BID 08/01 [History Confirmed 06/26/18] Cholecalciferol (Vitamin D3) [Vitamin D3] 1,000 unit PO DAILY 06/26/18 [History Confirmed 06/26/18] Dexlansoprazole (NF) [Dexilant (NF)] 30 mg PO QAM 06/26/18 [History Confirmed ] Gabapentin CAP(*) [Neurontin 300 CAP(*)] 300 mg PO QID 06/26/18 [History Confirmed 06/26/18] Lifitegrast (NF) [Xiidra (NF)] 1 drop LEFT EYE BID PRN 06/26/18 [History Confirmed 06/26/18] Methylphenidate HCl [Concerta] 36 mg PO QAM 06/26/18 [History Confirmed 06/26/18 ] fentaNYL PATCH 75 MCG/HR* [Duragesic PATCH 75 Mcg/Hr*] 75 mcg TRANSDERM Q72H [History Confirmed 06/26/18] PMH/Surg Hx/FS Hx/Imm Hx Endocrine/Hematology History: Reports: Hx Thyroid Disease - on meds Denies: Hx Diabetes Cardiovascular History: Reports: Hx Deep Vein Thrombosis, Hx Hypercholesterolemia, Hx Hypotension, Hx Hypertension - blood pressures vary- has meds for high and low BP, Hx Syncope, Other Cardiovascular Problems/ Disorders - Orthostatic hypotension, DVT 25 years ago, cor triatriaton Denies: Hx Pacemaker/ICD Respiratory History: Reports: Hx Asthma, Hx Sleep Apnea - CPAP start 06/2013 uses occasionally GI History: Reports: Hx Diverticulosis, Hx Gastroesophageal Reflux Disease - esophageal reflux, Hx Hiatal Hernia, Other GI Disorders - COLOSTOMY WITH REVERSAL History: Reports: Hx Chronic Renal Failure - stage 3, Hx Kidney Infection, Hx Kidney Stones - both kidneys, Hx Renal Disease - 50% INSUFF/ STAGE III, Other Problems/Disorders - multiple issues, stents, lithotripsy, obstructed ureters Musculoskeletal History: Reports: Hx Arthritis, Hx Fibromyalgia, Hx Orthopedic Injury - hx of FX from falls, Hx Osteoporosis, Other Musculoskeletal History - fibromyalgia Sensory History: Reports: Hx Cataracts - left eye, Hx Contacts or Glasses - uses magnifying glass, Hx Glaucoma, 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, Hx Vision Problem - rt eye blindness, Hx Hearing Aid - right ear, Hx Hearing Problem Opthamlomology History: Reports: Hx Cataracts - left eye, Hx Contacts or Glasses - uses magnifying glass, Hx Glaucoma, 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, Hx Vision Problem - rt eye blindness Neurological History: Reports: Hx Headaches, Hx Nerve Disease - fibromyalgia, Hx Seizures - 2 months ago- mid february approx, Other Neuro Impairments/Disorders - epilepsy Psychiatric History: Reports: Hx Anxiety - in the past, Hx Depression - in the past, Hx Panic Disorder - SOMETIMES, Hx Bipolar Disorder - Cancer History Hx Chemotherapy: No - Surgical History Surgery Procedure, Year, and Place: 1984 - HYSTERECTOMY 1997 - Lt KNEE [id number] - ANTERIOR CERVICAL DISCETECOMY -C6-7 2003- LT HEMICOLECTOMY W /COLOSTOMY &1990 - CARPAL TUNNEL -Rt REVERSAL - [id number] - CARPAL TUNNEL -Lt 2005- ABD HERNIA-1996 - LT KIDNEY LITHROTRIPSY 1997 & 2012;SEVERAL EYE SURGERY FOR DETACHED RETINA - VITRECTOMIES AND A SILICONE SCLERAL BUCKLE(PREV CLEARED)-2013 KIDNEY STONES REMOVED. Lt SHOULDER - REVERSE REPLACEMENT - 2016 Hx Anesthesia Reactions: No Infectious Disease History: No Infectious Disease History: Reports: History Other Infectious Disease - oral herpes Denies: Hx Shingles, Hx Tuberculosis, Traveled Outside the [place] in Last 30 Days - Family History Known Family History: Negative: Cardiac Disease, Diabetes - Social History Alcohol Use: None Hx Substance Use: No Substance Use Type: Reports: Prescribed Substance Use Comment - Amount & Last Used: fentanyl patch and oxycodone Hx Tobacco Use: No Smoking Status (MU): Former Smoker Amount Used/How Often: social smoker on weekends Review of Systems Positive: Fever Positive: other - Positive: urination with little frequency Positive: Arthralgia - right knee pain, Edema - right knee All Other Systems Reviewed And Are Negative: Yes Physical Exam - Summary Physical Exam Summary: Appearance: The patient is well-nourished in no acute distress and in no acute pain. Skin: The skin is warm and dry and skin color reflects adequate perfusion. HEENT: The head is normocephalic and atraumatic. The pupils are equal and reactive. The conjunctivae are clear and without drainage. Nares are patent and without drainage. Mouth reveals moist mucous membranes and the throat is without erythema and exudate. The external ears are intact. The ear canals are patent and without drainage. The tympanic membranes are intact. Neck: The neck is supple with full range of motion and non-tender. There are no carotid bruits. There is no neck vein distension. Respiratory: Chest is non-tender. Lungs are clear to auscultation and breath sounds are symmetrical and equal. Cardiovascular: Heart is regular rate and rhythm. There is no murmur or rub auscultated. Pulses are symmetrical and equal. Abdomen: The abdomen is soft and non-tender. There are normal bowel sounds heard in all four quadrants and there is no organomegaly palpated. Musculoskeletal: Knee wound looks clean. Moderately tender to range of motion. There is good capillary refill. There is no calf tenderness elicited. Neurological: Patient is alert and oriented to person, place and time. The patient has symmetrical motor strength in all four extremities. Cranial nerves are grossly intact. Deep tendon reflexes are symmetrical and equal in all four extremities. Psychiatric: The patient has an appropriate affect and does not exhibit any anxiety or depression. Triage Information Reviewed: Yes Vital Signs On Initial Exam: Initial Vitals Temp Pulse Resp BP Pulse Ox 98.0 F 96 19 92/46 94 06/26/18 10:53 06/26/18 10:53 06/26/18 10:53 06/26/18 10:53 06/26/18 10:53 Vital Signs Reviewed: Yes Diagnostics - Vital Signs Vital Signs Temp Pulse Resp BP Pulse Ox 06/26/18 10:53 98.0 F 96 19 92/46 94 - Laboratory Lab Results: Lab Results 06/26/18 Range/Units 11:13 WBC 13.3 H (3.5-10.8) 10^3/ul RBC 4.23 (4.00-5.40) 10^6/ul Hgb 11.7 L (12.0-16.0) g/dl Hct 36 (35-47) % MCV 86 (80-97) fL MCH 28 (27-31) pg MCHC 32 (31-36) g/dl RDW 16 H (10.5-15) % Plt Count 265 (150-450) 10^3/ul MPV 8.4 (7.4-10.4) fL Neut % (Auto) 81.6 (38-83) % Lymph % (Auto) 10.4 L (25-47) % [place] % (Auto) 4.5 (0-7) % Eos % (Auto) 2.3 (0-6) % Baso % (Auto) 1.2 (0-2) % Absolute Neuts (auto) 10.9 H (1.5-7.7) 10^3/ul Absolute Lymphs (auto) 1.4 (1.0-4.8) 10^3/ul Absolute Monos (auto) 0.6 (0-0.8) 10^3/ul Absolute Eos (auto) 0.3 (0-0.6) 10^3/ul Absolute Basos (auto) 0.2 (0-0.2) 10^3/ul Absolute Nucleated RBC 0 10^3/ul Nucleated RBC % 0 ESR Pending Result Diagrams: 06/26/18 11:13 06/26/18 11:13 Lab Statement: Any lab studies that have been ordered have been reviewed, and results considered in the medical decision making process. - Radiology CXR Radiology Interpretation Completed By: Radiologist - No active cardiopulmonary disease. This report has been reviewed by the ED physician. Knee x-ray Radiology Interpretation Completed By: Radiologist - 1. STATUS POST TOTAL RIGHT KNEE REPLACEMENT SURGERY. 2. JOINT EFFUSION. This report has been reviewed by the ED physician. - EKG 11:15 Cardiac Rate: NL - 81 bpm EKG Rhythm: Sinus Rhythm Summary of EKG Findings: Normal sinus rhythm, normal ST, no ectopy, no STEMI Re-Evaluation - Re-Evaluation First Eval Re-Evaluation Time: 12:20 Change: Unchanged Comment: knee wound looks clean. Moderately tender to ROM. Lower Extremity Course/Dx - Course Course Of Treatment: Ms. Solorio presented to the emergency department reporting a fever at home. She called Dr. Welch's office as he performed a total knee on her about a month ago. She reported increased pain in her right knee and he recommended she come to the emergency department. Her knee did not look bad but was tender to range of motion. She had a slight leukocytosis of 13 ,000 with 10.5 ANC. I spoke with Dr. Vanessa who recommended admission and the hospitalist service was consulted. Dr. Welch requested that we not give her antibiotics. - Diagnoses Provider Diagnoses: Postoperative fever - Physician Notifications Discussed Care Of Patient With: Thu Cabrera Time Discussed With Above Provider: 02:10 Instructed by Provider To: MD Will See In ED - She will see the pt in the ED. After seeing the patient Dr. Cabrera accepted her for admission. Discharge - Sign-Out/Discharge Documenting (check all that apply): Patient Departure - admit - Discharge Plan Condition: Fair Disposition: ADMITTED TO [facility] - Billing Disposition and Condition Condition: FAIR Disposition: Admitted to [facility] - Attestation Statements Document Initiated by Scribe: Yes Documenting Scribe: Jimi Gonzalez Provider For Whom Buck is Documenting (Include Credential): Santy Salas MD Scribe Attestation: Jimi Tidwell, scribed for Santy Salas MD on 06/26/18 at 1824. Scribe Documentation Reviewed: Yes Provider Attestation: The documentation as recorded by the Jimi mccormack accurately reflects the service I personally performed and the decisions made by me, Santy Salas MD
[2018-06-26 14:06] LABS: INR 1.03 (0.77-1.02)
[2018-06-26 14:11] LABS: Urine Appearance Cloudy; Urine Blood Negative (Negative); Urine Color Yellow; Urine Ketones Negative (Negative); Urine Protein Negative (Negative); Urine Specific Gravity 1.016 (1.010-1.030); Urine Urobilinogen Negative (Negative)
[2018-06-26] MEDS ORDERED: Ketorolac 0.5% OPHTH (NF) 0.5 % 5 ML BTL RIGHT EYE PRN (15:37)
[2018-06-26] MEDS ORDERED: Fludrocortisone Acetate TAB* 0.1 MG PO PRN (15:37)
[2018-06-26] MEDS ORDERED: Fluticasone NASAL SPRAY 50MCG* 16 gm SPRAY BTL BOTH NARES PRN (15:37)
[2018-06-26] MEDS ORDERED: Ondansetron ODT TAB* 4 MG PO PRN (15:37)
[2018-06-26] MEDS ORDERED: Lifitegrast (NF) 1 BTL LEFT EYE PRN (15:37)
[2018-06-26] MEDS ORDERED: hydrOXYzine HCL TAB* 25 MG PO PRN (15:37)
[2018-06-26] MEDS ORDERED: ValACYclovir (*) 1 GM TAB PO PRN (15:37)
[2018-06-26] MEDS ORDERED: fentaNYL PATCH 75 MCG/HR* 75 MCG TRANSDERM SCH (16:00)
[2018-06-26] MEDS: Gabapentin CAP(*) 300 MG PO SCH ×2 (16:40→20:33)
[2018-06-26] MEDS: Famotidine TAB* 20 MG PO SCH (16:40)
[2018-06-26] MEDS: NS 0.9% 1000 ML* 1,000 ML IV SCH (16:40)
[2018-06-26] MEDS: Cetirizine* 10 MG TAB PO SCH (16:40)
[2018-06-26] MEDS: Sertraline* 50 MG TAB PO SCH (16:41)
[2018-06-26] MEDS: fentaNYL Patch Check Q Shift 1 NOTE FOLLOW UP SCH (18:55)
[2018-06-26] MEDS: oxyCODONE TAB* 5 MG TAB PO PRN (20:34)
--- NOTE | 2018-06-26 20:34 | HP ---
CC: Antony Swartz MD; Dr. Vanessa * HISTORY AND PHYSICAL: DATE OF ADMISSION: 06/26/18 TIME OF EVALUATION: 2:30 p.m. PRIMARY CARE PROVIDER: Antony Swartz MD ORTHOPEDIST: Dr. Vanessa. CHIEF COMPLAINT: "I have a fever." HISTORY OF PRESENT ILLNESS: Ms. 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 Since the patient had her knee replacement in early May, she has had multiple hospital admissions and visits for possible infected prosthetic knee with negative workup in the past. According to her discharge summary from 05/30, the conclusion was that she had a right total knee hematoma. The patient states that she was doing well as outpatient until a couple of weeks ago. Last week, she had nausea, vomiting, and diarrhea that she describes as severe, 6 to 10 episodes a day, liquid, green in color. Her daughter works in the healthcare field and was concerned with C. diff. The patient had stool for occult blood done as outpatient and this was negative and a couple of days ago she brought a stool sample for C. diff but at that point, her stool was already firm, so the test was not performed. She states that she had low-grade fever last week, but was feeling improved, but over the weekend she started to have right knee pain that she initially attributed to changes in her physical therapy exercises, but she describes that this morning she had a temperature of 102.5, reason why she came to the emergency room for further evaluation. She states that the right knee is warm, but the redness and the swelling are much improved when compared to her admission in May. The patient states that with nausea, vomiting and diarrhea, her p.o. intake was very poor, although she was able to take her medications. She denies chest pain , palpitations, cough, shortness of breath, and urinary complaints. PAST MEDICAL HISTORY: 1. Hypertension. 2. Hyperlipidemia. 3. Fibromyalgia. 4. CKD stage 3. 5. Diverticulosis with history of diverticulitis. 6. GERD. 7. Arthritis. 8. Temporal lobe epilepsy. 9. Possible multiple sclerosis. 10. Neurogenic syncope. 11. Obstructive sleep apnea. 12. Orthostatic hypotension. 13. Cluster headaches. 14. Trigeminal neuralgia. 15. Bipolar disorder. 16. Depression. 17. History of DVT. PAST SURGICAL HISTORY: 1. Status post lithotripsy. 2. Status post carpal tunnel release. 3. History of eye surgery. 4. Status post right hemicolectomy with transverse colostomy. 5. Status post bowel resection. 6. Anterior diskectomy with intervertebral body fusion at C6 and C7. 7. Status post hysterectomy. 8. Status post left total knee replacement. 9. Status post left total shoulder reverse replacement. 10. Status post hernia repair with mesh. 11. Status post right total knee arthroplasty on 05/16/18. MEDICATIONS: Medication list is extensive as follows: 1. Ammonium lactate 12% topical t.i.d. 2. Aspirin 81 mg p.o. daily. 3. Simbrinza 1 drop to right eye b.i.d. 4. Cholecalciferol 1000 units p.o. daily. 5. Dexlansoprazole 30 mg p.o. q.a.m. 6. Voltaren gel topical b.i.d. 7. Fentanyl patch 75 mcg topical q.72 hours. 8. Florinef 0.1 mg p.o. b.i.d. as needed for SBP less than 115. 9. Fluticasone nasal spray 1 spray to both nares b.i.d. as needed for allergy symptoms. 10. Gabapentin 300 mg p.o. 4 times daily. 11. Hydroxyzine 25 mg p.o. 4 times daily as needed for itching. 12. Ketorolac 0.5% 1 drop to right eye daily as needed for pain. 13. Levocetirizine 5 mg p.o. at bedtime. 14. Xiidra 1 drop to left eye b.i.d. as needed for dry eye. 15. Melatonin 5 mg p.o. at bedtime. 16. Methylphenidate 36 mg p.o. in the morning. 17. Lovaza 1 g p.o. b.i.d. 18. Ondansetron ODT 8 mg p.o. q.8 hours p.r.n. nausea. 19. Oxycodone 15 mg p.o. q.4 hours p.r.n. pain. 20. MiraLAX 17 g p.o. daily as needed for constipation. 21. Ranitidine 150 mg p.o. at bedtime. 22. Sertraline 50 mg p.o. at bedtime. 23. Telmisartan 20 mg p.o. b.i.d. 24. Tizanidine 2 mg p.o. t.i.d. 25. Valtrex 2 g p.o. daily as needed for cold sores. ALLERGIES: Allergy list is also long and includes ALENDRONATE, AMOXICILLIN, CARBAMAZEPINE, CLAVULANIC ACID, DONEPEZIL, DULOXETINE, IODINE, KETAMINE, MEPERIDINE, PHENOBARBITAL, PHENYTOIN, QUETIAPINE, and RIZATRIPTAN. FAMILY HISTORY: As per records, the patient's mother had heart problems. Father had a history of liver and kidney disease. SOCIAL HISTORY: The patient smoked briefly in her 20s. Drank alcohol socially , but never abused it. No history of drug use. Surrogate decision maker is her daughter, Anneliese Bonilla, phone number is [phone]. REVIEW OF SYSTEMS: A 14-point review of systems was performed and all the pertinent negative and positive findings are in the HPI. PHYSICAL EXAMINATION GENERAL: The patient is a pleasant elderly lady, lying in the ED stretcher, in no acute distress. VITAL SIGNS: Temperature 98.7, heart rate is 75, respiratory rate is 19, oxygen saturation is 95% on room air, blood pressure is 119/82. HEENT: Moist mucous membranes. NECK: Supple. CHEST: Breath sounds present bilaterally with no added sounds. CVS: Normal S1, S2. Regular rate and rhythm. EXTREMITIES: The patient is status post bilateral knee replacements. The one on the left shows no edema, no warmth, no erythema, and an old well-healed surgical scar. The right knee has mild edema, some warmth but as per the patient, this is much improved than when she was here in May. The surgical incision is well healed. There are no open areas, no drainage. The erythema seems to be concentrated at the lower pole of the surgical scar. NEURO: She is alert and oriented x3. Able to move all 4 extremities. DIAGNOSTIC STUDIES/LAB DATA: The patient had a CBC that showed WBC of 13.3, hemoglobin of 11.7, hematocrit of 36, platelets of 265,000 with 81% neutrophils. ESR was 47. INR is 1.03, APTT is 35.3. Chemistry showed a sodium of 138, potassium of 4, chloride of 101, bicarb of 28, BUN was 30, creatinine of 1.7, glucose of 110, lactic acid of 0.4, calcium of 9.7. LFTs are normal. CRP was 9.04 and repeated was 9.3. Urinalysis was negative. Chest x-ray showed no active cardiopulmonary disease. Knee x-ray shows status post total right knee replacement surgery and joint effusion. EKG done on 06/26/18 at 11:07 a.m. shows sinus rhythm at 85 beats per minute with no ST-T changes. No change when compared to her prior EKG from 05/19/18. ASSESSMENT AND PLAN: Ms. 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 1. Fever. Etiology is unclear at this time. She does not appear to be septic. Her vital signs are stable. Her lactic is normal. She does have mild elevation of her white cell count, but no other indications for acute infection. Her ESR is 47 and is actually improved from before, as it was greater than 100 in May. Her CRP is only 9 and this was repeated and confirmed. Dr. Vanessa requested that we admit the patient as he would like to perform a knee washout and send new synovial fluid samples to rule out infection as the one that she had done in the past was negative, but she had recently been on antibiotics when those samples were sent, so he would like to send samples now with no antibiotics on board. I suspect the patient likely had a gastroenteritis, probably viral last week that appears to be improving now , so it is unclear why she had one fever spike this morning. She will be admitted to the medical floor and we are going to monitor her closely and we will have low threshold to start antibiotics if she shows overt signs of infection. 2. Acute kidney injury. Most likely prerenal in the setting of nausea, vomiting, diarrhea, and poor oral intake. I am going to check urinary sodium and creatinine to calculate her FENa and for now, I am going to hold her ARB and give her IV hydration. I suspect her renal function will be improved by tomorrow and then we would be able to resume her telmisartan. 3. Status post right knee arthroplasty, rule out infection. The patient does have some erythema and warmth of her right knee, but she states that this is improved compared to her admission in May. She may have an infection but it might not be bacterial, it could be a fungal infection or this could be an inflammatory process, may be crystal related, so in all of these cases, fluid analysis would be helpful. As stated above, the patient has no signs of sepsis at this time and I do not think antibiotics are indicated as I suspect her gastroenteritis was likely viral in nature. Dr. Vanessa is planning to do an arthroscopic washout tomorrow in the OR. The patient has no complaints of chest pain, palpitations, or shortness of breath. Her EKG shows no ischemic changes. Her RCRI is 0, predicting 0.4% to 0.5% risk of cardiac complications. The patient will receive IV hydration overnight and if her renal function is improved in the morning, she is optimized for the proposed surgical procedure. We will continue her pain management as she has been doing as outpatient. 4. Depression/bipolar. We will continue her methylphenidate and sertraline. 5. Seizure disorder/temporal lobe epilepsy. We will continue gabapentin. 6. DVT prophylaxis: The patient has a score of 6 on the DVT Prophylaxis Risk Assessment Guide and she will be started on subcutaneous heparin. SCDs are contraindicated due to pain on her right lower extremity. 7. Code status: The patient is a do not resuscitate and a MOLST form is in our system. TIME SPENT: Approximately 75 minutes were spent with the patient's interview, medical records review, physical examination, multiple phone calls to providers and family members to complete this admission, more than half of this time was spent [id number] with the patient and coordination of care. [id number]/[facility] #: [id number] PRUDENCE
[2018-06-26] MEDS: tiZANidine TAB* 2 MG PO SCH (20:35)
[2018-06-26] MEDS ORDERED: Gabapentin CAP(*) 300 MG PO SCH (21:00)
[2018-06-26] MEDS ORDERED: Melatonin 3 MG TAB PO SCH (21:00)
--- NOTE | 2018-06-26 21:01 | CONS ---
ORTHOPEDIC CONSULTATION: DATE OF CONSULT: 06/26/18 ATTENDING ORTHOPEDIC SURGEON: Dr. Raymond Vanessa. CHIEF COMPLAINT: Right knee pain , history of recent fever. HISTORY OF PRESENT ILLNESS: The patient is a 77-year-old female who underwent right total knee arthroplasty on 05/16/[address] Raymond Vanessa. The patient states that she had a bout of increased swelling, redness and pain a few weeks ago and did have knee aspiration which failed to show evidence of bacteria. She states that she did rehab and improved until yesterday, again having increased pain in her right knee with a fever that she recorded at 102.5. She denies chills. She states that she did have an episode of diarrhea that lasted several days last week, but this now has resolved. She denies other constitutional symptoms or illnesses. PAST MEDICAL HISTORY: Significant for thyroid disease, history of DVT, high cholesterol, hypertension, asthma, sleep apnea, diverticulosis, GERD, hiatal hernia, chronic renal failure, glaucoma, fibromyalgia, epilepsy, anxiety, depression, history of panic attacks. PAST SURGICAL HISTORY: Hysterectomy, left total knee in 1987, anterior cervical diskectomy and fusion, hemicolectomy with colostomy and then reversal of colostomy, left carpal tunnel release, abdominal hernia repair, multiple kidney stones lithotripsy procedures, left total shoulder reverse in 2017. CURRENT MEDICATIONS: 1. Simbrinza eye drops. 2. Vitamin D3. 3. Dexilant. 4. Gabapentin. 5. Xiidra drops, left eye twice daily as needed. 6. Concerta. 7. Fentanyl 75 mcg q.72 hours. ALLERGIES: Multiple allergies listed. TEGRETOL, IODINE, KETAMINE, MEPERIDINE, PHENOBARBITAL, PHENYTOIN, ALENDRONATE SODIUM, AMOXICILLIN, CLAVULANIC ACID, DONEPEZIL, DULOXETINE, MAXALT, QUETIAPINE. SOCIAL HISTORY: The patient denies use of alcohol. She uses fentanyl patch and oxycodone for pain management. She denies smoking regularly. She used to be a regular smoker, occasionally will have cigarette on weekend. REVIEW OF SYSTEMS: The patient denies shortness of breath, chest pain, palpitations. She has had some frequent urinations, and as above, last week several days of diarrhea, which now has resolved. PHYSICAL EXAM: Current vital signs: Recorded temperature of 97.6, pulse 74, respiratory rate 18, O2 sat 95% on room air, blood pressure 112/74. The patient is alert and oriented x3, in no acute distress, slightly anxious regarding plans for surgery tomorrow. HEENT: PERRLA. Lungs clear. Abdomen nontender, soft. Upper extremities within normal limits. Lower extremities, the right knee shows a mild effusion, mild warmth, mild erythema to the distal aspect of the knee incision in the proximal tibial region. Her calf is nontender and soft. She has active dorsiflexion of her ankle. Her motion is from 0 degrees to 75 degrees flexion with pain. She has diffuse tenderness to palpation about the knee. X-ray examination of the right knee performed shows an effusion, but no obvious lucencies or bony abnormality. DIAGNOSTIC STUDIES/LAB DATA: Current laboratory studies show a white count of 13.3, hemoglobin 11.7, hematocrit 36, ESR 47. INR 1.03, APTT 35.3, CRP 9.04. IMPRESSION: Right knee pain with recent fever, rule out infection, right total knee arthroplasty. PLAN: The patient is admitted to the medical service. She will be n.p.o. after midnight tonight for arthroscopic irrigation and debridement/washout with Dr. Raymond Vanessa, 06/27/18. We will hold on antibiotic therapy prior to surgical intervention and cultures. TERA WILL [id number]/[facility] #: [id number] MTDMorena
[2018-06-26] MEDS ORDERED: Gabapentin CAP(*) 400 MG PO SCH (21:11)
[2018-06-26] MEDS: Heparin VIAL(*) 5000 UNITS/ML VIAL (FIVE THOUSAND) SUBCUT SCH (22:03)
[2018-06-26] MEDS: AMMONIUM LACTATE 12% TOPICAL SCH (22:54)
[2018-06-26] MEDS: OMEGA ACID ETHYL ESTERS PO SCH (22:55)
[2018-06-26] MEDS: Brinzolamid/Brimonidin OPH(NF) 1 DROP BTL RIGHT EYE SCH (22:55)
[2018-06-26] MEDS: PTO: Diclofenac 1% GEL (NF) 100 GM TUBE TOPICAL SCH (23:29)
[2018-06-26] MEDS: NON FORMULARY MED* (Melatonin [Melatonin] 5 MG) PO SCH (23:42)
[2018-06-27] MEDS: NS 0.9% 1000 ML* 1,000 ML IV SCH (02:47)
[2018-06-27] MEDS: Heparin VIAL(*) 5000 UNITS/ML VIAL (FIVE THOUSAND) SUBCUT SCH ×3 (05:49→20:52)
[2018-06-27] MEDS: fentaNYL Patch Check Q Shift 1 NOTE FOLLOW UP SCH ×2 (07:08→18:28)
[2018-06-27] MEDS ORDERED: Propofol* 10 MG/ML 20 ML BTL IV PUSH ONE (08:10)
[2018-06-27] MEDS ORDERED: Midazolam* 1 MG/ML 5 ML VIAL (5 MG) ONE (08:10)
[2018-06-27] MEDS ORDERED: fentaNYL* 50 MCG/ML 2 ML VIAL (100 MCG VIAL) ONE ×2 (08:10→09:46)
[2018-06-27] MEDS ORDERED: Lidocaine 2% PF * 5 ML VIAL ONE (08:10)
[2018-06-27] MEDS ORDERED: Ondansetron INJ* 2 MG/ML VIAL ONE (08:10)
[2018-06-27] MEDS ORDERED: VASOPRESSIN 20 UNITS/ML 1 ML VIAL ONE (08:38)
[2018-06-27] MEDS ORDERED: Bupivacaine 0.5% W/EPI SDV* 30 ML VIAL ONE ×2 (09:00→09:22)
[2018-06-27] MEDS ORDERED: ceFAZolin 2 GM in NS PREMIX(*) 2 GM/100 ML BAG IVPB ONE (09:21)
[2018-06-27 09:30] LABS: ABS Basophils 0.1 10^3/ul (0-0.2); ABS Eosinophils 0.3 10^3/ul (0-0.6); ABS Lymphocytes 1.1 10^3/ul (1.0-4.8); ABS Monocytes 0.3 10^3/ul (0-0.8); ABS Nucleated RBC 0 10^3/ul; Eosinophil % 6.3 % (0-6); Hematocrit 33 % (35-47); Hemoglobin 10.7 g/dl (12.0-16.0); Mean Corpuscular HGB Conc 32 g/dl (31-36); Mean Corpuscular Hemoglobin 28 pg (27-31); Mean Corpuscular Volume 87 fL (80-97); Mean Platelet Volume 8.7 fL (7.4-10.4); Nucleated Red Blood Cells % 0; Platelet Count 192 10^3/ul (150-450); Red Blood Count 3.86 10^6/ul (4.00-5.40); Red Cell Distribution Width 15 % (10.5-15); White Blood Count 4.7 10^3/ul (3.5-10.8)
[2018-06-27 09:56] LABS: EGFR Non-African American 57.2 (>60)
[2018-06-27] MEDS ORDERED: Naloxone* 0.4 MG/ML 1 ML VIAL IV PRN (11:11)
[2018-06-27] MEDS ORDERED: Ondansetron INJ* 2 MG/ML VIAL IV PRN (11:11)
[2018-06-27] MEDS ORDERED: fentaNYL* 50 MCG/ML 2 ML VIAL (100 MCG VIAL) IV PRN (11:11)
[2018-06-27] MEDS: AMMONIUM LACTATE 12% TOPICAL SCH ×3 (12:18→21:55)
[2018-06-27] MEDS: Gabapentin CAP(*) 300 MG PO SCH ×4 (12:18→20:54)
[2018-06-27] MEDS ORDERED: NS 0.9% 1000 ML* 1,000 ML IV SCH (12:26)
[2018-06-27] MEDS: oxyCODONE TAB* 5 MG TAB PO PRN ×3 (12:36→22:50)
[2018-06-27] MEDS: Methylphenidate ER TAB* 18 MG PO SCH (12:40)
[2018-06-27] MEDS: Aspirin EC TAB* 81 MG TAB.EC PO SCH (12:41)
[2018-06-27] MEDS: Cholecalciferol TAB* 1000 UNITS PO SCH (12:42)
[2018-06-27] MEDS: Dexlansoprazole (NF) 30 MG CAP PO SCH (12:43)
[2018-06-27] MEDS: Brinzolamid/Brimonidin OPH(NF) 1 DROP BTL RIGHT EYE SCH ×2 (12:43→21:55)
[2018-06-27] MEDS: PTO: Diclofenac 1% GEL (NF) 100 GM TUBE TOPICAL SCH ×2 (12:49→21:55)
[2018-06-27] MEDS: OMEGA ACID ETHYL ESTERS PO SCH ×2 (12:49→21:55)
[2018-06-27] MEDS: tiZANidine TAB* 2 MG PO SCH ×3 (12:55→20:53)
--- NOTE | 2018-06-27 14:19 | PN ---
Subjective Date of Service: 06/27/18 Interval History: HOSPITALIST PROGRESS NOTE Patient seen and examined at bedside. Care reviewed and d/w Parish Suazo RN. She is in good spirits today. Feels well after surgical procedure, happy her creatinine is back at baseline. Hungry, denies nausea. Family History: Unchanged from Admission Social History: Unchanged from Admission Past Medical History: Unchanged from Admission Objective Active Medications: Aspirin (Aspirin Ec Tab*) 81 mg PO DAILY [facility] Last Admin: 06/27/18 12:41 Dose: 81 mg Brinzolamide/Brimonidine Tartrate (Simbrinza Oph.Susp(Nf)) 1 drop RIGHT EYE BID [facility] Last Admin: 06/27/18 12:43 Dose: Not Given Cetirizine HCl (Zyrtec*) 10 mg PO QPM [facility] Last Admin: 06/26/18 16:40 Dose: 10 mg Cholecalciferol (Vitamin D Tab*) 1,000 units PO DAILY [facility] Last Admin: 06/27/18 12:42 Dose: 1,000 units Dexlansoprazole (Dexilant (Nf)) 30 mg PO QAM [facility] Last Admin: 06/27/18 12:43 Dose: Not Given Diclofenac Sodium (Voltaren 1% Gel (Nf)) 1 applic TOPICAL BID [facility]; Protocol Last Admin: 06/27/18 12:49 Dose: Not Given Famotidine (Pepcid Tab*) 20 mg PO QPM [facility]; Protocol Last Admin: 06/26/18 16:40 Dose: 20 mg Fentanyl (Duragesic Patch 75 Mcg/Hr*) 75 mcg TRANSDERM Q72H [facility] Last Admin: 06/26/18 16:46 Dose: 75 mcg Fludrocortisone Acetate (Florinef Tab*) 0.1 mg PO BID PRN PRN Reason: SBP <115 Fluticasone Propionate (Flonase Nasal Elim 50mcg*) 1 spray BOTH NARES BID PRN PRN Reason: Allergy Symptoms Gabapentin (Neurontin Cap(*)) 300 mg PO QID [facility] Last Admin: 06/27/18 12:41 Dose: 300 mg Gabapentin (Neurontin Cap(*)) 400 mg PO BEDTIME [facility] Heparin Sodium (Porcine) (Heparin Vial(*)) 5,000 units SUBCUT Q8HR [facility] Last Admin: 06/27/18 05:49 Dose: Not Given Hydroxyzine HCl (Atarax Tab*) 25 mg PO QID PRN PRN Reason: ITCHING Sodium Chloride (Ns 0.9% 1000 Ml*) 1,000 mls @ 50 mls/hr IV PER RATE [facility] Ketorolac Tromethamine (Ketorolac 0.5% Ophth (Nf)) 1 drop RIGHT EYE DAILY PRN PRN Reason: PAIN Lifitegrast (Xiidra (Nf)) 1 drop LEFT EYE BID PRN PRN Reason: DRY EYE Melatonin (Melatonin) 3 mg PO BEDTIME [facility] Last Admin: 06/26/18 21:10 Dose: 3 mg Methylphenidate HCl (Concerta Er Tab*) 36 mg PO QAM [facility] Last Admin: 06/27/18 12:40 Dose: 36 mg Non-Formulary Medication (Ammonium Lactate [Yasmeen-Hydrolac]) 12 % TOPICAL TID [facility] Last Admin: 06/27/18 12:18 Dose: Not Given Non-Formulary Medication (Melatonin [Melatonin]) 5 mg PO BEDTIME [facility] Last Admin: 06/26/18 23:42 Dose: Not Given Werbo-9-Vgdz Ethyl Esters (Lovaza (Nf)) 1 gm PO BID [facility]; Protocol Last Admin: 06/27/18 12:49 Dose: Not Given Ondansetron HCl (Zofran Odt Tab*) 8 mg PO Q8H PRN PRN Reason: NAUSEA Oxycodone HCl (Roxycodone Tab*) 15 mg PO Q4H PRN PRN Reason: PAIN Last Admin: 06/27/18 12:36 Dose: 15 mg Pharmacy Profile Note (Fentanyl Patch Check Q Shift) 1 note FOLLOW UP 0700, 1900 [facility] Last Admin: 06/27/18 07:08 Dose: 1 note Polyethylene Glycol/Electrolytes (Miralax*) 17 gm PO DAILY PRN PRN Reason: CONSTIPATION Sertraline HCl (Zoloft*) 50 mg PO QPM [facility] Last Admin: 06/26/18 16:41 Dose: 50 mg Tizanidine HCl (Zanaflex Tab*) 2 mg PO TID [facility] Last Admin: 06/27/18 12:55 Dose: Not Given Valacyclovir HCl (Valtrex 1 Gm(*)) 2 gm PO DAILY PRN PRN Reason: PER PROTOCOL Vital Signs - 8 hr 06/27/18 06/27/18 06/27/18 11:00 11:06 11:12 Temperature 97.5 F Pulse Rate 70 72 69 Respiratory 12 18 15 Rate Blood Pressure 139/90 117/94 152/84 (mmHg) O2 Sat by Pulse 97 98 97 Oximetry 06/27/18 06/27/18 06/27/18 11:16 11:19 11:30 Temperature Pulse Rate 69 68 67 Respiratory 19 18 18 Rate Blood Pressure 146/58 128/75 (mmHg) O2 Sat by Pulse 95 98 97 Oximetry 06/27/18 06/27/18 06/27/18 11:46 12:12 12:36 Temperature Pulse Rate 75 73 Respiratory 12 14 14 Rate Blood Pressure 139/79 128/61 (mmHg) O2 Sat by Pulse 97 94 Oximetry 06/27/18 06/27/18 12:41 13:17 Temperature 98.4 F Pulse Rate 74 Respiratory 14 16 Rate Blood Pressure 132/53 (mmHg) O2 Sat by Pulse 100 Oximetry Oxygen Devices in Use Now: None Appearance: Pleasant elderly lady sitting up in bed in NAD. Eyes: No Scleral Icterus Ears/Nose/Mouth/Throat: Mucous Membranes Moist Neck: Trachea Midline Respiratory: Symmetrical Chest Expansion and Respiratory Effort, Clear to Auscultation Cardiovascular: RRR - Normal S1 and S2 Abdominal: NL Sounds; No Tenderness; No Distention Extremities: - - Cryo unit to right knee Neurological: Alert and Oriented x 3, NL Muscle Strength and Tone Result Diagrams: 06/27/18 09:20 06/27/18 09:20 Assess/Plan/Problems-Billing Assessment: Mrs Solorio is a 77yo F with PMH of HTN, HLD, fibromyalgia, CKD stage 3, GERD, temporal lobe epilepsy, neurogenic syncope, ARNI, orthostatic hypotension, cluster headaches, trigeminal neuralgia, bipolar disorder/depression, h/o DVT, s /p right TKA 05/16/18, who presents to ED after one fever spike and concerns of joint infection. - Patient Problems (1) Fever Comment: - One fever spike at home yesterday, remains afebrile in the hospital. - Leukocytosis is resolved, ESR and CRP are improved from prior admission. - Had knee washout today, will follow fluid results. - No antibiotics for now. - Will request ID input. (2) JOSESITO (acute kidney injury) Comment: - Pre renal in the setting of diarrhea and poor oral intake. - Resolved. - Encourage PO fluid intake before discontinuation of IVF. (3) GERD (gastroesophageal reflux disease) Comment: - Continue PPI and Famotidine. (4) Chronic pain Comment: - Continue Fentanyl, oxycodone, and gabapentin. (5) Seizure disorder Comment: - Continue Gabapentin. (6) DVT prophylaxis Comment: - SQ heparin. (7) DNR (do not resuscitate) Comment: Status and Disposition: Inpatient
[2018-06-27] MEDS: Polyethylene Glycol 3350* 17 GM PACKET PO PRN (15:06)
[2018-06-27] MEDS: Cetirizine* 10 MG TAB PO SCH (16:58)
[2018-06-27] MEDS: Famotidine TAB* 20 MG PO SCH (16:58)
[2018-06-27] MEDS: Sertraline* 50 MG TAB PO SCH (16:59)
[2018-06-27] MEDS: Morphine VIAL* 4 MG/ML VIAL (1 ml vial) IV PRN (20:58)
[2018-06-27] MEDS ORDERED: Melatonin 3 MG TAB PO SCH (21:00)
[2018-06-27] MEDS: NON FORMULARY MED* (Melatonin [Melatonin] 5 MG) PO SCH (21:55)
[2018-06-28] MEDS: Morphine VIAL* 4 MG/ML VIAL (1 ml vial) IV PRN ×2 (01:01→05:20)
[2018-06-28] MEDS: oxyCODONE TAB* 5 MG TAB PO PRN ×3 (03:02→12:57)
[2018-06-28] MEDS: Polyethylene Glycol 3350* 17 GM PACKET PO PRN (03:16)
[2018-06-28] MEDS: Heparin VIAL(*) 5000 UNITS/ML VIAL (FIVE THOUSAND) SUBCUT SCH (05:23)
[2018-06-28 05:55] LABS: Hematocrit 30 % (35-47); Hemoglobin 9.8 g/dl (12.0-16.0)
[2018-06-28 06:15] LABS: EGFR Non-African American 64.2 (>60)
[2018-06-28] MEDS: fentaNYL Patch Check Q Shift 1 NOTE FOLLOW UP SCH (07:07)
[2018-06-28] MEDS: AMMONIUM LACTATE 12% TOPICAL SCH (09:49)
[2018-06-28] MEDS: Gabapentin CAP(*) 300 MG PO SCH ×2 (09:50→12:56)
[2018-06-28] MEDS: Aspirin EC TAB* 81 MG TAB.EC PO SCH (09:51)
[2018-06-28] MEDS: Cholecalciferol TAB* 1000 UNITS PO SCH (09:51)
[2018-06-28] MEDS: tiZANidine TAB* 2 MG PO SCH (09:51)
[2018-06-28] MEDS: Methylphenidate ER TAB* 18 MG PO SCH (09:52)
[2018-06-28] MEDS: PTO: Diclofenac 1% GEL (NF) 100 GM TUBE TOPICAL SCH (09:54)
[2018-06-28] MEDS: Dexlansoprazole (NF) 30 MG CAP PO SCH (09:54)
[2018-06-28] MEDS: OMEGA ACID ETHYL ESTERS PO SCH (09:54)
[2018-06-28] MEDS: Brinzolamid/Brimonidin OPH(NF) 1 DROP BTL RIGHT EYE SCH (09:54)
[2018-06-28] MEDS ORDERED: Al Hydrox/Mg Hydrox/Simet LIQ* 30 ML UDC PO PRN (11:14)
[2018-06-28] MEDS ORDERED: guaiFENesin ER TAB 600 MG PO SCH (12:00)
[2018-06-28 12:13] VITALS: BP 137/68
--- NOTE | 2018-06-28 12:18 | PN ---
Progress Note - Progress Note Date of Service: 06/28/18 SOAP: Subjective: []Patient seen and examined at bedside. She feels well without feeling of fever , chills, CP, SOB or nausea. Her right knee pain is well controlled today. No growth of intraop cultures to date. Objective: []General: NAD, good spirits, optimistic RLE: Dressing changed, incisions CDI without discharge. The knee is nonerythematous and is mildly edematous. DF/PF intact. Dp2+, sensation intact distally Calves supple and nontender without erythema, edema or palpable cords Assessment: []POD 1 s/p washout right knee Plan: []WBAT PT/OT Daily dressing change: wash with soap and water. apply antibiotic ointment, gauze and cole wrap May shower starting 06/29 do not submerge wounds FU Dr Vanessa 10-14 days post op Vital Signs Temp 98.2 F 06/28/18 12:06 Pulse 72 06/28/18 12:06 Resp 20 06/28/18 12:06 BP 137/68 06/28/18 12:06 Pulse Ox 96 06/28/18 12:06 Intake & Output 06/27/18 06/28/18 06/28/18 18:59 06:59 18:59 Intake Total 1690 360 Balance 1690 360 Intake: IV Fluids 900 LR 900 Oral 790 360 Other: Estimated Void Medium # Bowel Movements 0 # Voids 1 Laboratory Last Values WBC 5.0 10^3/ul (3.5-10.8) 06/28/18 05:39 RBC 3.86 10^6/ul (4.00-5.40) L 06/27/18 09:20 Hgb 9.8 g/dl (12.0-16.0) L 06/28/18 05:39 Hct 30 % (35-47) L 06/28/18 05:39 MCV 87 fL (80-97) 06/27/18 09:20 MCH 28 pg (27-31) 06/27/18 09:20 MCHC 32 g/dl (31-36) 06/27/18 09:20 RDW 15 % (10.5-15) 06/27/18 09:20 Plt Count 192 10^3/ul (150-450) 06/27/18 09:20 MPV 8.7 fL (7.4-10.4) 06/27/18 09:20 Neut % (Auto) 62.2 % (38-83) 06/27/18 09:20 Lymph % (Auto) 23.0 % (25-47) L 06/27/18 09:20 [place] % (Auto) 7.2 % (0-7) H 06/27/18 09:20 Eos % (Auto) 6.3 % (0-6) H 06/27/18 09:20 Baso % (Auto) 1.3 % (0-2) 06/27/18 09:20 Absolute Neuts (auto) 3.0 10^3/ul (1.5-7.7) 06/27/18 09:20 Absolute Lymphs (auto) 1.1 10^3/ul (1.0-4.8) 06/27/18 09:20 Absolute Monos (auto) 0.3 10^3/ul (0-0.8) 06/27/18 09:20 Absolute Eos (auto) 0.3 10^3/ul (0-0.6) 06/27/18 09:20 Absolute Basos (auto) 0.1 10^3/ul (0-0.2) 06/27/18 09:20 Absolute Nucleated RBC 0 10^3/ul 06/27/18 09:20 Nucleated RBC % 0 06/27/18 09:20 ESR 51 mm/Hr (0-40) H 06/28/18 05:39 INR (Anticoag Therapy) 1.03 (0.77-1.02) H 06/26/18 11:13 APTT 35.3 seconds (26.0-36.3) 06/26/18 11:13 Sodium 140 mmol/L (135-145) 06/28/18 05:39 Potassium 4.2 mmol/L (3.5-5.0) 06/28/18 05:39 Chloride 108 mmol/L (101-111) 06/28/18 05:39 Carbon Dioxide 29 mmol/L (22-32) 06/28/18 05:39 Anion Gap 3 mmol/L (2-11) 06/28/18 05:39 BUN 13 mg/dL (6-24) 06/28/18 05:39 Creatinine 0.86 mg/dL (0.51-0.95) 06/28/18 05:39 Est GFR ( Amer) 77.6 (>60) 06/28/18 05:39 Est GFR (Non-Af Amer) 64.2 (>60) 06/28/18 05:39 BUN/Creatinine Ratio 15.1 (8-20) 06/28/18 05:39 Glucose 92 mg/dL (70-100) 06/28/18 05:39 Lactic Acid 0.4 mmol/L (0.5-2.0) L 06/26/18 14:21 Calcium 9.1 mg/dL (8.6-10.3) 06/28/18 05:39 Total Bilirubin 0.60 mg/dL (0.2-1.0) 06/26/18 11:13 AST 13 U/L (13-39) 06/26/18 11:13 ALT 7 U/L (7-52) 06/26/18 11:13 Alkaline Phosphatase 75 U/L (34-104) 06/26/18 11:13 C-Reactive Protein 15.84 mg/L (<8.01) H 06/27/18 09:20 Total Protein 7.3 g/dL (6.4-8.9) 06/26/18 11:13 Albumin 4.0 g/dL (3.2-5.2) 06/26/18 11:13 Globulin 3.3 g/dL (2-4) 06/26/18 11:13 Albumin/Globulin Ratio 1.2 (1-3) 06/26/18 11:13 Urine Color Yellow 06/26/18 11:08 Urine Appearance Cloudy 06/26/18 11:08 Urine pH 5.0 (5-9) 06/26/18 11:08 Ur Specific [place] 1.016 (1.010-1.030) 06/26/18 11:08 Urine Protein Negative (Negative) 06/26/18 11:08 Urine Ketones Negative (Negative) 06/26/18 11:08 Urine Blood Negative (Negative) 06/26/18 11:08 Urine Nitrate Negative (Negative) 06/26/18 11:08 Urine Bilirubin Negative (Negative) 06/26/18 11:08 Urine Urobilinogen Negative (Negative) 06/26/18 11:08 Ur Leukocyte Esterase Negative (Negative) 06/26/18 11:08 Ur Creatinine Concen 98.46 mg/dL 06/26/18 17:30 U Sodium Concentration 36 mmol/L 06/26/18 17:30 Urine Glucose Negative (Negative) 06/26/18 11:08 Fluid Source Oth 06/27/18 10:22 Fluid Volume 3 mL 06/27/18 10:22 Fluid Color Jasmin 06/27/18 10:22 Fluid Appearance Cloudy 06/27/18 10:22 Fluid WBC 28894 /mcL (0-894778) 06/27/18 10:22 Fluid RBC 19898 /mcL 06/27/18 10:22 Fluid Tot Cell Count 100 06/27/18 10:22 Fluid Neutrophils 91 % 06/27/18 10:22 Fluid Lymphocytes 2 % 06/27/18 10:22 Fluid Monocytes 7 % 06/27/18 10:22 Fluid Other Cells 1 06/27/18 10:22 Fluid Cell Count Rvw By 06/27/18 10:22 Blood Type B Positive 06/26/18 11:13 Antibody Screen Positive 06/26/18 11:13 Antibody Identification Anti-Fya 06/26/18 11:13 Direct Antiglob Test Negative 06/26/18 11:13
--- NOTE | 2018-06-28 19:05 | CONS ---
CONSULTATION REPORT: DATE OF CONSULT: 06/28/18 REQUESTING PHYSICIAN: Dr. Helm. CONSULTING SERVICE: Infectious Disease. REASON FOR CONSULT: Right knee pain. IMPRESSION: 1. Status post right knee arthroplasty 05/16/18 with subsequent hematoma, had elevated inflammatory markers due to the hematoma that trended down over the last month, then admitted with fever and worsening knee pain. The fluid analysis shows 12,000 white cells, 90% neutrophils. Gram stains shows no organisms. Staphylococcus aureus PCR is negative. The culture is pending. Her pain is improving again. I think less likely that she has a prosthetic knee infection. Differential diagnosis includes crystal disease. 2. Chronic kidney disease, stage 3. 3. History of deep venous thrombosis. 4. Status post anterior cervical diskectomy and fusion. 5. Status post hemicolectomy. RECOMMENDATIONS: Agree with observing off of antibiotics, awaiting cultures. We will hold them for longer to look for any fungal organisms. I will see if we can add crystal studies to the synovial fluid taken yesterday. HISTORY OF PRESENT ILLNESS: This 77-year-old woman had a right knee arthroplasty early May, a few days later developed right knee pain and swelling. She was seen in the ER, Dr. Vanessa aspirated the knee, he got blood, and she was followed over time and had significant improvement in pain, swelling , range of motion, and inflammatory markers, but then early this week developed a fever of 101 and increased knee pain and so was directed to the emergency room. Her white blood cell count was 13, her sedimentation was 47, CRP was 9. Urinalysis negative. She has had no fever while here and has not been on antibiotics. Dr. Vanessa took her to the operating room yesterday for arthroscopy. Fluid obtained showed 4+ neutrophils, no organisms. Staph aureus PCR negative. The cultures are pending. She had no fever. Pain and stiffness are improving. She thinks she has had gout in an ankle before. PAST MEDICAL HISTORY: 1. Osteoarthritis, treated with right knee arthroplasty May of 2018. 2. Hypertension. 3. Hyperlipidemia. 4. Fibromyalgia. 5. Stage 3 chronic kidney disease. 6. Diverticulosis. 7. Gastroesophageal reflux disease. 8. Temporal lobe epilepsy. 9. Question of multiple sclerosis. 10. Neurogenic syncope. 11. Obstructive sleep apnea. 12. Orthostatic hypotension. 13. Cluster headache. 14. Trigeminal neuralgia. 15. Bipolar disorder. 16. History of DVT. 17. Status post lithotripsy. 18. Status post carpal tunnel release. 19. Status post right hemicolectomy and transverse colectomy. 20. Status post anterior cervical diskectomy and fusion, C6-C7. 21. Status post hysterectomy. 22. Status post left knee arthroplasty. 23. Status post left reverse shoulder arthroplasty. 24. Status post hernia repair with mesh. MEDICATIONS: 1. Aspirin. 2. Cetirizine. 3. Cholecalciferol. 4. Diclofenac. 5. Famotidine. 6. Fentanyl patch. 7. Fludrocortisone. 8. Fluticasone nasal spray. 9. Gabapentin. 10. Heparin subcutaneous injection. 11. Hydroxyzine. 12. Ketorolac eye drop. 13. Melatonin. 14. Methylphenidate. 15. Morphine. 16. Zofran. 17. Oxycodone. 18. Sertraline. 19. Tizanidine. 20. Valtrex as needed. ALLERGIES: ALENDRONATE, AMOXICILLIN, TEGRETOL, CLAVULANIC ACID, DONEPEZIL, DULOXETINE, IODINE, KETAMINE, MEPERIDINE, PHENOBARBITAL, PHENYTOIN, RIZATRIPTAN. FAMILY HISTORY: Mother had heart issues. Father had liver and kidney disease. SOCIAL HISTORY: Past smoker, lives by herself. REVIEW OF SYSTEMS: All negative except as noted above to a 14-point review of systems. PHYSICAL EXAM: Vital Signs: Temperature 37, heart rate 77, respiratory rate 18 , blood pressure 119/53, oxygen saturation 95% on room air. General: She is awake, not in distress. Neurologic: She is oriented x3, follows all commands. Sensation is intact to light touch in both feet. HEENT: There is no conjunctival hemorrhage. Oropharynx without lesions. Neck: Supple without mass. Heart: Regular, rate, and rhythm, without murmurs, rubs, or gallops. Lungs: Clear to auscultation bilaterally. Abdomen: Soft, nontender, and nondistended. There is bowel sounds present. Skin: There is no rashes or splinter hemorrhage. Musculoskeletal: Sutures of her incision are intact. There is diffuse edema, no erythema, no tenderness. Decreased flexion. DIAGNOSTIC STUDIES/LAB DATA: White blood cell count 5, hemoglobin 9, platelets 192, creatinine 0.8, CRP 15. Please see impressions and recommendations outline above which I have discussed with Dr. Helm. Thank you for asking me to see Ms. Solorio in consultation. [id number]/[facility] #: [id number] MTDMorena
--- NOTE | 2018-06-29 08:12 | DS ---
CC: Dr. Antony Swartz; Dr. Vanessa; Dr Gonzalez * DISCHARGE SUMMARY: DATE OF ADMISSION: 06/26/18 DATE OF DISCHARGE: 06/28/18 PRIMARY CARE PROVIDER: Dr. Antony Swartz. ORTHOPEDIST: Dr. Vanessa. INFECTIOUS DISEASE SPECIALIST: Dr. Gonzalez. DISCHARGE DIAGNOSES: 1. Fever of unclear source, possible viral infection. 2. Acute kidney injury secondary to dehydration. 3. Right knee arthritis. SECONDARY DIAGNOSES: 1. Hypertension. 2. Hyperlipidemia. 3. Fibromyalgia. 4. Chronic kidney disease stage 3. 5. Diverticulosis with history of diverticulitis. 6. Gastroesophageal reflux disease. 7. Arthritis. 8. Temporal lobe epilepsy. 9. Possible multiple sclerosis. 10. Neurogenic syncope. 11. Obstructive sleep apnea. 12. Orthostatic hypertension. 13. Cluster headaches. 14. Trigeminal neuralgia. 15. Bipolar disorder. 16. Depression. 17. History of deep venous thrombosis. PAST SURGICAL HISTORY: 1. Status post right total knee arthroplasty on May 16, 2018. 2. Status post lithotripsy. 3. Status post carpal tunnel release. 4. Status post right hemicolectomy with transverse colostomy. 5. Status post bowel resection. 6. Anterior diskectomy with intervertebral body fusion at C6 and C7. 7. Status post hysterectomy. 8. Status post left total knee replacement. 9. Status post left total shoulder reverse replacement. 10. Status post hernia repair with mesh. MEDICATIONS: Medication list: 1. Ammonium lactate 12% topical t.i.d. 2. Aspirin 81 mg p.o. daily. 3. Simbrinza 1 drop to right eye b.i.d. 4. Cholecalciferol 1000 units p.o. daily. 5. Dexlansoprazole 30 mg p.o. q.a.m. 6. Voltaren gel 1% topical b.i.d. 7. Fentanyl patch 75 mcg topical q.72 hours. 8. Fludrocortisone 0.1 mg p.o. b.i.d. as needed for SBP less than 115. 9. Fluticasone nasal spray 50 mcg 1 spray to both nares b.i.d. as needed for allergy symptoms. 10. Gabapentin 300 mg p.o. q.i.d. 11. Hydroxyzine 25 mg p.o. q.i.d. as needed for itching. 12. Ketorolac 0.5% 1 drop to right eye daily as needed for pain. 13. Levocetirizine 5 mg p.o. at bedtime. 14. Xiidra 1 drop to left eye b.i.d. as needed for dry eye. 15. Melatonin 5 mg p.o. at bedtime. 16. Methylphenidate 36 mg p.o. q. a.m. 17. Lovaza 1 g p.o. b.i.d. 18. Ondansetron ODT 8 mg p.o. q.8 hours as needed for nausea. 19. Oxycodone 15 mg p.o. q.4 hours p.r.n. pain. 20. MiraLAX 17 g p.o. daily as needed for constipation. 21. Ranitidine 150 mg p.o. at bedtime. 22. Sertraline 50 mg p.o. q. p.m. 23. Telmisartan 20 mg p.o. b.i.d. 24. Tizanidine 2 mg p.o. t.i.d. 25. Valtrex 2 g p.o. daily as needed for cold sores. HOSPITAL COURSE: Mrs. Solorio is a 77-year-old lady with a past medical history as stated above who presented to the emergency room after 1 episode of fever at home. Since the patient had her knee replacement in early May, she has had multiple hospital admissions and visits to the ED for a possible infected prosthetic knee with negative workup in the past. On her last admission, on 05/30/18, the impression was that she had a right knee hematoma. As the patient had reported fever of 102.5 at home, she was referred to the emergency room for further workup. For more details of her presentation, I refer you to her history and physical. The patient remained afebrile in the hospital stay. She initially had mild leukocytosis that resolved and although her ESR and CRP showed some elevation, these values were improved from her prior admission. She was taken to the OR by Dr. Vanessa on 06/27/18, where she had a knee washout done and partial results so far showed singh colored fluid with 12,000 wbc's, 44 ,000 rbc's, and 91% neutrophils. The patient was seen in consultation by Dr. Gonzalez and his recommendation was for no antibiotics, to send her fluid for crystals, and for fungal culture. Please note that this results as well as the bacterial cultures are pending at the time of this dictation and will need to be followed as outpatient. Prior to admission, the patient had had nausea, vomiting, and diarrhea and the impression was this was likely a viral infection. She was also dehydrated on admission with a creatinine of 1.7 from a baseline of 0.9 and hemoconcentrated with a hemoglobin of 11.7 from a baseline of 9. She responded well to IV hydration with her H and H and renal function back to their baselines. The patient had no further fever spikes while in the hospital. She remained with stable vital signs and she was felt to be stable for discharge today, to follow up with Dr. Vanessa and Dr. Gonzalez as outpatient. She also has an appointment scheduled with Dr. Antony Swartz on 07/14/18 at 8:30 a.m. PHYSICAL EXAMINATION: Vital Signs: Temperature 98.2, heart rate 72, respiratory rate is 20, oxygen saturation 96% on room air, blood pressure is 137 /68. General: The patient is a pleasant elderly lady, sitting up in bed. CVS: Normal S1, S2, regular rate and rhythm. Chest: Breath sounds bilaterally with no added sounds. Extremities: There is mild right knee edema and warmth. Her surgical incision is well healed with no open areas or drainage. Neuro: She is alert and oriented x3, she can move all 4 extremities. DIET: Heart healthy diet. ACTIVITIES: Weightbearing as tolerated. DISPOSITION: To home. STATUS WHILE IN THE HOSPITAL: Inpatient. Please keep in mind this is a summarized version of this patient's hospital stay. If you need more information, please feel free to call me at [phone] or please obtain full medical records. TIME SPENT: Approximately 45 minutes was spent to complete this discharge. [id number]/[facility] #: [id number] PRUDENCE
--- NOTE | 2018-07-12 06:18 | OP ---
DATE OF OPERATION: 06/27/18 - ROOM #411 DATE OF : 42 SURGICAL CARE: Right knee. SURGEON: Raymond Vanessa MD. DINKEY OPERATOR: TERA Rodriguez; first aid director. ANESTHESIOLOGIST: Dr. Richardson. ANESTHESIA: LMA, general. PRE-OP DIAGNOSIS: Possible infection of right total knee replacement. POST-OP DIAGNOSIS: Possible infection of right total knee replacement. OPERATIVE PROCEDURE: Right knee cultures and arthroscopic I and D irrigation. COMPLICATIONS: There were no complications. DRAINS: There were no drains. ESTIMATED BLOOD LOSS: 5 mL. FLUIDS: Replacement 800 mL of crystalloid fluids. OPERATIVE INDICATIONS: Concern regarding an infected right total knee. The patient had a right total knee replacement on 05/16/18 and in mid May we had concern regarding infection, as it turned out to be postoperative hematoma. The patient presented on 06/26/18 with fever and right knee pain. She was admitted by Dr. Lofton to the medical service yesterday and was felt to have a week of gastroenteritis with some diarrhea and dehydration. The right knee procedure was still recommended because of the continued right knee pain and concern regarding a postop infection of the knee replacement. DESCRIPTION OF PROCEDURE: The patient was brought to the operating room and placed on the operating room table in a supine position following the administration of the anesthetic. The right lower extremity was wrapped with a proximal thigh tourniquet. The right leg was prepped from the tourniquet to the tips of the toes and then draped free and carefully sealed off in the usual fashion for surgical care of the knee arthroscopic type. We did our [place] protocol time-out confirming Rere Solorio and a plan for right total knee replacement. We all agreed and we proceeded. The tourniquet was prepared. After the [place] Protocol timeout, we proceeded with a right knee arthroscopic surgery without the tourniquet up. The right knee was set up for the arthroscopy with the arthroscope lateral to the patellar tendon, probe and operating instruments medial to the patellar tendon, and an in flow catheter superomedial to the patella. The culture of the knee was completed prior to antibiotics and the slightly bloody synovial fluid was sent for gram stain, aerobic and anaerobic cultures and sensitivities. The right leg was then exsanguinated. The tourniquet was elevated to 275. The right knee was then irrigated and irrigated clear very quickly. The arthroscopic view of the knee did not show any pus. The knee was irrigated with approximately 12 liters of saline irrigation solution. I did a little debridement of fibrinous bands and overall I felt the knee was clean and not looking infected. The cultures will be the final decision maker on whether the knee has infection within it. After the scope, the knee was further irrigated, emptied. The skin was closed with interrupted 3-0 Surgipro. Dressing was applied after washing and drying of Betadine soaked release sterile gauze, cryotherapy cuff, ABD pads, and a 6-inch cole bandage. The patient was returned to the recovery room in a stable and satisfactory condition having tolerated the procedure very well. She will be followed closely on the medical service. [id number]/[facility] #: [id number] PRUDENCE
== END 2018-06-28 13:30 | disposition home health service (06) | DRG 866 ==
LOC: ED 10:46 → MED 14:36 → INTOOBSV 14:36 → UNDOADMOB 14:36 → OBSVTOIN 14:36
PROVIDERS: ADMIT Internal Medicine; ATTEND Internal Medicine
PROC: 0S9C4ZZ Drainage of Right Knee Joint, Percutaneous Endoscopic Approach (ICD-10-PCS; principal; 2018-06-26)
DX: B34.9 Viral infection, unspecified (principal); N17.9 Acute kidney failure, unspecified; E78.5 Hyperlipidemia, unspecified; N18.3 Chronic kidney disease, stage 3 (moderate); K21.9 Gastro-esophageal reflux disease without esophagitis; G40.909 Epilepsy, unspecified, not intractable, without status epilepticus; G47.33 Obstructive sleep apnea (adult) (pediatric); G44.009 Cluster headache syndrome, unspecified, not intractable; Z96.651 Presence of right artificial knee joint; Z96.653 Presence of artificial knee joint, bilateral; Z96.612 Presence of left artificial shoulder joint; Z66 Do not resuscitate; E07.9 Disorder of thyroid, unspecified; J45.909 Unspecified asthma, uncomplicated; M19.90 Unspecified osteoarthritis, unspecified site; K57.90 Diverticulosis of intestine, part unspecified, without perforation or abscess without bleeding; M81.0 Age-related osteoporosis without current pathological fracture; I12.9 Hypertensive chronic kidney disease with stage 1 through stage 4 chronic kidney disease, or unspecified chronic kidney disease; Z96.0 Presence of urogenital implants; F31.9 Bipolar disorder, unspecified; M79.7 Fibromyalgia; H54.61 Unqualified visual loss, right eye, normal vision left eye; F41.9 Anxiety disorder, unspecified; G50.0 Trigeminal neuralgia; H91.91 Unspecified hearing loss, right ear; H26.9 Unspecified cataract; G89.29 Other chronic pain; E86.0 Dehydration; H40.9 Unspecified glaucoma; R55 Syncope and collapse; M25.461 Effusion, right knee; Z79.82 Long term (current) use of aspirin; Z79.52 Long term (current) use of systemic steroids; Z86.718 Personal history of other venous thrombosis and embolism; Z90.49 Acquired absence of other specified parts of digestive tract; Z90.710 Acquired absence of both cervix and uterus; Z98.1 Arthrodesis status; Z88.8 Allergy status to other drugs, medicaments and biological substances; Z88.1 Allergy status to other antibiotic agents; Z91.041 Radiographic dye allergy status; Z99.81 Dependence on supplemental oxygen; Z97.4 Presence of external hearing-aid; Z87.891 Personal history of nicotine dependence; Z88.0 Allergy status to penicillin; Z87.442 Personal history of urinary calculi; Z84.1 Family history of disorders of kidney and ureter; Z83.79 Family history of other diseases of the digestive system; Z72.89 Other problems related to lifestyle
CPT/HCPCS: 36415; 71046; 80048; 80053; 81003; 82570; 83605; 84300; 85014; 85018; 85025; 85048; 85610; 85652; 85730; 86140; 86850; 86870; 86880; 86900; 86901; 87070; 87073; 87102; 87205; 87640; 87641; 88304; 89051; 93005; 99282; A9270-GY; G8978-GP-CI; G8979-GP-CH; J0690; J1644; J2250; J2270; J2405; J2704; J3010

== ENCOUNTER 2023-01-10 14:13 | Observation (INO) ==
[2023-01-10 15:06] LABS: ABS Basophils 0.1 10^3/uL (0.0-0.1); ABS Lymphocytes 0.4 10^3/uL (1.0-4.8); ABS Monocytes 0.5 10^3/uL (0.0-0.9); ABS Neutrophils 11.1 10^3/uL (1.5-7.6); ABS Nucleated RBC 0.01 10^3/ul; Eosinophil % 0.1 %; Hematocrit 34.7 % (35-45); Hemoglobin 11.7 g/dL (11.5-14.3); Lymphocyte % 3.2 %; Mean Corpuscular Hemoglobin 28.8 pg (27-33); Mean Corpuscular Hgb Conc 33.8 g/dL (31-36); Mean Corpuscular Volume 85.2 fL (80-97); Mean Platelet Volume 8.4 fL (7.5-11.2); Nucleated Red Blood Cells % 0.1 /100 WBC (0.0-0.4); Platelet Count 157 10^3/uL (150-450); Red Blood Count 4.07 10^6/uL (3.63-4.92); Red Cell Distribution Width 14.2 % (12-17)
[2023-01-10 15:32] LABS: Albumin 3.9 g/dL (3.2-5.2); Albumin/Globulin Ratio 1.9 (1-3); Calcium 8.7 mg/dL (8.6-10.3); Creatinine, Serum 1.29 mg/dL (0.51-0.95); Globulin 2.1 g/dL (2-4); Total Bilirubin 0.7 mg/dL (0.2-1.0); eGFR CKD-EPI 41.7 (>60)
[2023-01-10 15:47] LABS: TSH Ultra Thyroid Stim Horm 0.93 mcIU/mL (0.34-5.60)
[2023-01-10 15:59] LABS: Potassium 5.2 mmol/L (3.5-5.0)
[2023-01-10 16:31] LABS: High Sensitivity Troponin 1 Hr 9 pg/mL (<15)
[2023-01-10] MEDS ORDERED: Lactated Ringers 1000 ml BAG 1,000 ML IV ONE (16:35)
[2023-01-10] MEDS ORDERED: Ondansetron 4 mg VIAL 2 MG/ML 2 ml VIAL IV PRN (19:35)
[2023-01-10] MEDS ORDERED: Enoxaparin 40 MG/0.4 ML SYR SUBCUT SCH (20:00)
[2023-01-10] MEDS ORDERED: Ketorolac 0.5% OPHTH (NF) 0.5 % 5 ML BTL RIGHT EYE PRN (20:47)
[2023-01-10 20:51] LABS: Urine Appearance Clear; Urine Bilirubin Negative (Negative); Urine Blood Negative (Negative); Urine Color Yellow; Urine Glucose Negative (Negative); Urine Ketones Negative (Negative); Urine Nitrite Negative (Negative); Urine Protein Negative (Negative); Urine Urobilinogen Negative (Negative)
[2023-01-10] MEDS ORDERED: Senna TAB 8.6 mg TAB PO SCH (21:00)
[2023-01-10] MEDS ORDERED: Aspirin EC 81 mg TAB.EC (enteric coated) PO SCH (21:00)
[2023-01-10] MEDS ORDERED: Ondansetron ODT 4 mg TAB 4 MG TAB PO PRN (21:05)
[2023-01-10] MEDS ORDERED: Lidocaine PATCH 5% PATCH TRANSDERM ONE (21:33)
[2023-01-10] MEDS: Lidocaine PATCH 5% PATCH TRANSDERM ONE ×2 (22:16→22:18)
[2023-01-10] MEDS: NF: Lifitegrast (NF) 1 BTL BOTH EYES SCH (22:48)
[2023-01-11 06:17] LABS: ABS Eosinophils 0.2 10^3/uL (0.0-0.5); ABS Monocytes 0.4 10^3/uL (0.0-0.9); ABS Neutrophils 4.8 10^3/uL (1.5-7.6); ABS Nucleated RBC 0.01 10^3/ul; Eosinophil % 2.5 %; Hematocrit 29.9 % (35-45); Hemoglobin 10.2 g/dL (11.5-14.3); Lymphocyte % 15.7 %; Mean Corpuscular Hemoglobin 29.3 pg (27-33); Mean Corpuscular Hgb Conc 34.2 g/dL (31-36); Mean Corpuscular Volume 85.7 fL (80-97); Mean Platelet Volume 7.7 fL (7.5-11.2); Nucleated Red Blood Cells % 0.1 /100 WBC (0.0-0.4); Platelet Count 119 10^3/uL (150-450); Red Blood Count 3.49 10^6/uL (3.63-4.92); Red Cell Distribution Width 14.1 % (12-17); White Blood Count 6.4 10^3/uL (3.8-11.8)
[2023-01-11 06:53] LABS: Albumin 3.4 g/dL (3.2-5.2); Albumin/Globulin Ratio 1.9 (1-3); Calcium 8.5 mg/dL (8.6-10.3); Creatinine, Serum 1.22 mg/dL (0.51-0.95); Globulin 1.8 g/dL (2-4); Magnesium 2.1 mg/dL (1.9-2.7); Total Bilirubin 0.8 mg/dL (0.2-1.0); Total Protein 5.2 g/dL (6.4-8.9); eGFR CKD-EPI 44.6 (>60)
[2023-01-11] MEDS ORDERED: fentaNYL Patch Check Q Shift NOTE FOLLOW UP SCH (07:00)
[2023-01-11] MEDS: NF: Lifitegrast (NF) 1 BTL BOTH EYES SCH (08:15)
[2023-01-11] MEDS ORDERED: Polyethylene Glycol 3350 17 GM PACKET PO SCH (09:00)
[2023-01-11] MEDS ORDERED: fentaNYL PATCH 25 MCG/HR 1 PATCH TRANSDERM SCH (09:00)
[2023-01-11] MEDS ORDERED: Methylphenidate ER 18 mg TAB PO SCH (09:00)
[2023-01-11] MEDS ORDERED: Lidocaine PATCH 5% PATCH TRANSDERM SCH (09:00)
[2023-01-11] MEDS ORDERED: NF: Brinzolamid/Brimonidin OPH(NF) 1 DROP BTL RIGHT EYE SCH (09:00)
[2023-01-11] MEDS ORDERED: Fluticasone NASAL SPRAY 50MCG 16 gm SPRAY BTL BOTH NARES SCH (09:00)
[2023-01-11] MEDS ORDERED: FENTANYL INTRADERM SCH (09:00)
[2023-01-11] MEDS ORDERED: Polyethyl Glycol/Propylene Gly OPHTH.SOLN BOTH EYES SCH (09:00)
[2023-01-11 10:50] VITALS: BP 94/68
[2023-01-12] MEDS ORDERED: fentaNYL PATCH 12 MCG/HR 1 PATCH TRANSDERM SCH (09:00)
[2023-01-12] MEDS ORDERED: fentaNYL PATCH 25 MCG/HR 1 PATCH TRANSDERM SCH (09:00)
== END 2023-01-11 14:15 | disposition home or self-care (01) ==
LOC: ED 14:13 → EDHOLD 14:13 → SUATTDRO 19:35 → MEDTELE 01-11 01:15
PROVIDERS: ADMIT Hospitalist; ATTEND Internal Medicine